=== PATIENT | female | born 1965 | race Caucasian/White ===

== ENCOUNTER → 2017-09-08 07:10 | Outpatient (CLI) | payer MEDICAID, SELFPAY ==
--- NOTE | 2017-09-08 07:17 | MRI_ITS ---
STUDY: MRI LUMBAR SPINE WITH AND WITHOUT CONTRAST REASON FOR EXAM: Female, 52 years old. Laminectomy syndrome with low back pain. TECHNIQUE: Standardized fat and water weighted pulse sequences were obtained in the sagittal and axial planes. 10 ml of Gadavist contrast material was administered for the contrast portion of the examination. COMPARISON: Radiographs of the lumbar spine dated April 18, 2014. FINDINGS: T12-L1: There is narrowing of the disc. There is annular disc bulge and osteophyte complex. There is mild narrowing of the neural foramina. There is mild central acquired canal stenosis. There is mild degenerative arthropathy of facet joints. There is no evidence for nerve impingement. Normal lumbar lordosis. There is no substantial scoliosis. Normal conus medullaris that terminates at the T12 level. L1-2: There is narrowing of the disc with vacuum disc phenomenon. There is annular disc bulge and osteophyte complex. There is questionable extruded disc material cephalad to this disc. There is acute Modic changes at the inferior endplate of L1 associated with a Schmorl's node. There is moderate degenerative arthropathy of facet joints. There is mild central acquired canal stenosis. There is narrowing of the neural foramina without evidence for nerve impingement. There is abnormal signal at the inferior endplate of L1 that may be the result of acute Modic change. L2-3: There is narrowing of the disc with vacuum disc phenomenon. There is annular disc bulge and osteophyte complex. There is mild central acquired canal stenosis. There is moderate degenerative arthropathy of facet joints. Patient appears to have had laminectomies of L3. L3-4: There is narrowing of the disc with vacuum disc phenomenon. There is a broad central disc protrusion. There is moderate degenerative arthropathy of facet joints with mild central acquired canal stenosis. Neural foramina are severely narrowed with probable impingement of the right L3 nerve root at the neural foramen. Patient has had laminectomies of L3 and L4. L4-5: There is narrowing of the disc. There is a focal left foraminal disc protrusion osteophyte complex. There is mild central acquired canal stenosis. There is mild degenerative arthropathy of facet joints. Neural foramina are severely narrowed with probably impingement of the right L4 nerve root at the neural foramen. L5-S1: There is narrowing of the disc. There is a focal central disc protrusion. There is mild degenerative arthropathy of facet joints. Patient appears to have had laminectomies of L4 and L5. Neural foramina are moderately narrowed without evidence for nerve impingement. Normal visualized sacral ala. There appears to be severe atrophy of the musculature posterior to sacrum. The paraspinal muscles are within normal limits. There is a abnormal enhancement located posterior to the L1 vertebral body. It is possible this is related to disc extrusion. MRI/Spine Lumbar W/WO Contrast IMPRESSION: 1. Status post laminectomies of L3, L4 and L5. 2. Multilevel degenerative disc disease and degenerative arthropathy of the lumbar spine. 3. Possible disc extrusion probably arising from L1-L2. Electronically Signed: Mary Thao MD at 10:02 EDT , Service support ,
[2017-09-08 07:56] LABS: BUN 15 mg/dL (7-18); Creatinine, Serum 0.76 mg/dL (0.55-1.02); EST Glomerular Filtration Rate 86 mL/min (>60); Est Glom Filt Rate - Afr Amer 104 mL/min (>60)
== END ==
PROVIDERS: Family Provider Nurse Practitioner Family; PCP Nurse Practitioner Family; Visit Provider Anesthesiology Pain Medicine
DX: Z01.818 Encounter for other preprocedural examination (principal); M54.9 Dorsalgia, unspecified; M96.1 Postlaminectomy syndrome, not elsewhere classified
CPT/HCPCS: 36415; 72158; 82565; 84520; A9585

== ENCOUNTER → 2018-05-17 10:12 | Outpatient (CLI) | payer MEDICAID, SELFPAY ==
[2018-05-17 11:00] LABS: Absolute Lymphocyte Count 2.65 X10^3/ul (0.83-4.51); Absolute Neutrophil Count 3.8 X10^3/uL (2.0-7.7); Basophil# 0.03 X10^3/uL; Basophil% 0.4 % (0-1); Eosinophils% 2.7 % (0-5); Hematocrit 47.1 % (37-47); Hemoglobin 15.8 g/dl (12.0-15.0); Lymphocyte # 2.65 X10^3/ul (4.0); Lymphocyte % 35.8 % (19-41); Mean Corp Hgb Conc 33.5 g/gl (32-36); Mean Corpuscular Hgb 30.3 pg (27.0-32.0); Mean Corpuscular Volume 90.2 fL (81-99); Mean Platelet Vol. 11.3 fl (6.2-12.0); Monocyte# 0.77 X10^3/uL; Monocyte% 10.4 % (0-10); Neutrophil # 3.75 X10^3/uL (2.7-7.7); Neutrophil % 50.6 % (47-70); Platelet Count 184 K/mm3 (150-450); RBC Distribution Width CV 13.7 % (11.6-14.6); RBC Distribution Width SD 45.2 fl (35.1-43.9); Red Blood Count 5.22 M/mm3 (4.2-5.4); White Blood Count 7.4 K/mm3 (4.4-11.0)
[2018-05-17 11:05] LABS: POSITIVE COUNT NO; POSITIVE DIFFERENTIAL NO; POSITIVE MORPHOLOGY NO
[2018-05-17 11:07] LABS: Erythrocyte Sedimentation Rate 8 mm/hr (0-30)
[2018-05-17 11:57] LABS: AST(SGOT) 21 U/L (15-37); Alanine Aminotransfer ALT/SGPT 33 U/L (13-56); Albumin, Serum 3.6 g/dL (3.2-5.0); Alkaline Phosphatase 81 U/L (45-117); Anion Gap 6 (5-15); BUN 16 mg/dL (7-18); BUN/Creat Ratio 21.7 RATIO (10-20); CRP < 2.90 mg/L (0.0-3.0); Calcium,Total 8.8 mg/dL (8.5-10.1); Chloride 105 mmol/L (98-107); Creatinine, Serum 0.74 mg/dL (0.55-1.02); EST Glomerular Filtration Rate 88 mL/min (>60); Est Glom Filt Rate - Afr Amer 106 mL/min (>60); Globulin 3.6 g/dL (2.2-4.2); Glucose 111 mg/dL (74-106); Potassium 3.9 mmol/L (3.5-5.1); Protein, Total 7.2 g/dL (6.4-8.2); Sodium Level 138 mmol/L (136-145)
== END ==
PROVIDERS: Family Provider Nurse Practitioner Family; PCP Nurse Practitioner Family; Referring Provider Podiatrist Foot & Ankle Surgery; Visit Provider Podiatrist Foot & Ankle Surgery
DX: E11.621 Type 2 diabetes mellitus with foot ulcer (principal); M79.672 Pain in left foot
CPT/HCPCS: 36415; 80053; 83036; 85025; 85652; 86140; 87070; 87077; 87186; 87205

== ENCOUNTER 2018-05-20 13:43 | Inpatient (IN) | payer MEDICAID, SELFPAY ==
[2018-05-20] VITALS (9 sets, daily range): BP systolic 108–153; BP diastolic 54–82; PULSE 68–95; RESP 15–18; TEMP 36.6–37.1; O2SAT 95–98; BMI 43.5; BMI 43.2
--- NOTE | 2018-05-20 14:51 | VDLE_ITS ---
Reason For Study: LEG PAIN RIGHT LEFT GSV is normal. CFV is compressible, spontaneous, phasic, CFV is compressible, spontaneous, phasic, competent, and demonstrates normal competent and demonstrates normal augmentation. augmentation. FV is compressible, spontaneous, phasic, competent and demonstrates normal augmentation. POP V is compressible, spontaneous, phasic, competent and demonstrates normal augmentation. T/P Trunk is compressible. PTV is compressible. RT PerV is compressible. Procedure Exam performed in department. A preliminary report was called and/or faxed to ED. Interpretation Summary Deep veins of the right lower extremity are patent and compressible segmentally. There is no evidence of right lower extremity deep vein thrombosis. Valvular competence appears intact within the proximal deep venous system on the right . The right greater saphenous vein appears patent and compressible segmentally. Ordering Physician: Sal Byrne Referring Physician: Melanie Espinosa Performed By: Rachael Nicolas RVT
[2018-05-20 15:20] LABS: Absolute Lymphocyte Count 2.45 X10^3/ul (0.83-4.51); Absolute Neutrophil Count 5.9 X10^3/uL (2.0-7.7); Basophil# 0.02 X10^3/uL; Basophil% 0.2 % (0-1); Eosinophil# 0.15 X10^3/uL; Eosinophils% 1.5 % (0-5); Hematocrit 44.8 % (37-47); Hemoglobin 14.4 g/dl (12.0-15.0); Lymphocyte # 2.45 X10^3/ul (4.0); Lymphocyte % 24.7 % (19-41); Mean Corp Hgb Conc 32.1 g/gl (32-36); Mean Corpuscular Hgb 29.3 pg (27.0-32.0); Mean Corpuscular Volume 91.1 fL (81-99); Mean Platelet Vol. 10.6 fl (6.2-12.0); Monocyte# 1.41 X10^3/uL; Monocyte% 14.2 % (0-10); Neutrophil # 5.88 X10^3/uL (2.7-7.7); Neutrophil % 59.2 % (47-70); POSITIVE COUNT NO; POSITIVE DIFFERENTIAL NO; POSITIVE MORPHOLOGY NO; Platelet Count 177 K/mm3 (150-450); RBC Distribution Width SD 46.6 fl (35.1-43.9); Red Blood Count 4.92 M/mm3 (4.2-5.4); White Blood Count 9.9 K/mm3 (4.4-11.0)
[2018-05-20 15:38] LABS: Anion Gap 9 (5-15); BUN 17 mg/dL (7-18); BUN/Creat Ratio 18.8 RATIO (10-20); Calcium,Total 8.6 mg/dL (8.5-10.1); Chloride 103 mmol/L (98-107); EST Glomerular Filtration Rate 70 mL/min (>60); Est Glom Filt Rate - Afr Amer 84 mL/min (>60); Estimated Creatinine Clearance 61.17 ml/min; Glucose 145 mg/dL (74-106); Potassium 3.7 mmol/L (3.5-5.1); Sodium Level 140 mmol/L (136-145)
--- NOTE | 2018-05-20 16:09 | ED.DCSUM_ITS ---
- ER Visit Summary Date of Service: 05/20/18 Chief Complaint: Right foot pain and swelling History of Present Illness: The patient is a 52 F who presents with pain and swelling in her right foot that is spreading up her leg. Patient states she saw Dr. Harp from orthopedics who did a wound culture and started patient on doxycycline. Patient states the redness is spreading up her leg. She admits to a fever of 101 at home. Patient states her pain is worse with ambulation. Patient describes her pain is burning and throbbing. Patient admits to some paresthesias in her right leg but also has a history of neuropathy. Physical Examination: Vital signs are stable. Patient is afebrile here. Patient is in no acute distress. Skin is warm and dry. There is erythema and warmth over the posterior aspect of the right lower leg. There is an ulcer over the plantar aspect of the right foot over the second and third distal metatarsals. Capillary refill was less than 2 seconds in all digits. Sensation was intact to light touch in all digits. There is good pedal pulse in the right foot. The remaining physical exam is within normal limits. Test Results: Venous duplex of the right lower extremity was obtained and was negative. CBC and basic metabolic profile were obtained and were normal. Emergency Department Course and Treatment: Patient was maintained n.p.o.. Patient was given a dose of Zosyn here. Case was discussed with Dr. Harp from orthopedics. She was in to evaluate the patient and felt the patient would benefit from admission. She also recommended getting an MRI of the right foot to rule out osteomyelitis. She does not have admitting privileges however. Case was discussed with the hospitalist. She will admit the patient to her service. Disposition: Admit to hospital Impression: Cellulitis right lower extremity This note was generated with [employer] dictation software. It may contain incorrect words, spelling, and punctuation that were not noted in review of the chart prior to signing ED Disposition - Plan for ED Patient: Disposition: Acute Care [facility] Diagnosis: Cellulitis of right lower leg, Open wound of right foot Referrals: Melanie Espinosa NP-C [Primary Care Provider] -
--- NOTE | 2018-05-20 18:04 | RAD_ITS ---
STUDY: X-RAY - RIGHT FOOT CLINICAL: Female, 52 years old. Infection TECHNIQUE: 3 view(s) of the foot. COMPARISON: None. FINDINGS: Normal talus, calcaneus, and tarsal bones. Calcaneal spurring. Normal visualized subtalar, talonavicular, calcaneocuboid, tarsal and tarsometatarsal articulations. Old fracture of the second metatarsus. Normal metatarsophalangeal joint of the great toe. Normal tibial and fibular sesamoid bones. Normal interphalangeal joint of the great toe. Normal phalanges of the great toe. Normal second through fifth metatarsophalangeal joints. Normal interphalangeal joints and phalanges of the lesser toes. Mild distal soft tissue swelling of the foot. RAD/Foot min 3 Views IMPRESSION: Distal soft tissue swelling of the foot. Correlate with bone scan if clinical concern for osteomyelitis remains. Old fracture of the second metatarsus. Electronically Signed: Stephen Childress DO at 18:29 EST Tel [phone], Service support ,
--- NOTE | 2018-05-20 18:56 | PCM.CONS.GEN ---
Problem List (1) Diabetic foot ulcer Status: Acute Qualifiers: Diabetic foot ulcer location: other Diabetes mellitus type: type 2 Laterality: right Non-pressure ulcer stage: with fat layer exposed Qualified Code(s): E11.621 - Type 2 diabetes mellitus with foot ulcer; L97.512 - Non-pressure chronic ulcer of other part of right foot with fat layer exposed (2) Fracture of metatarsal of right foot, closed Status: Acute Qualifiers: Encounter type: initial encounter Metatarsal bone: second Fracture alignment: displaced Qualified Code(s): S92.321A - Displaced fracture of second metatarsal bone, right foot, initial encounter for closed fracture (3) Cellulitis of leg without foot, right Status: Acute Reason for Consult Date of Consultation: 05/20/18 Reason for Consultation: R Diabetic foot infection History of Present Illness: The patient is a 52 year old F w/ hx of DM c/b neuropathy. Was a new patient to me in clinic on 05/17/2018 for R DFI. Also dx with R 2nd metatarsal shaft fx. Per patient wound is several weeks old, also had significant R foot pain about 4 weeks ago and feels this may have been when she fractured the metatarsal. Was sent for labs Thursday and wound cx was done in clinic, was started on Doxycycline Thursday. Wound cx resulted today w/ GBS R clinda, S-amp and CoNS. Called [facility] this morning to report fever to 101 and red streaking up leg. I referred her to the [facility] ER for evaluation. She reports she took tylenol 1000mg this am, is afebrile in ER, labs wnl. RLE v-dup was negative for DVT. no other complaints[] Past Medical History Allergies No Known Allergies Allergy (Verified 05/20/18 13:44) Home Medications: Ambulatory Orders Medication Instructions Recorded Amitriptyline HCl [Elavil] 100 mg PO QHS 05/20/18 Amlodipine Besylate [Norvasc] 5 mg PO QHS 05/20/18 Ammonium Lactate [Amlactin] 1 applic TP DAILY 05/20/18 Ascorbic Acid [Vitamin C] 1,000 mg PO BIDCM 05/20/18 Aspirin [Aspirin EC] 81 mg PO DAILY 05/20/18 Docusate Sodium 100 mg PO QHS 05/20/18 Doxycycline Hyclate 100 mg PO BID 05/20/18 Empagliflozin [Jardiance] 25 mg PO DAILY 05/20/18 Enalapril Maleate 20 mg PO DAILY 05/20/18 Fenofibrate,Micronized 67 mg PO DAILY 05/20/18 [Fenofibrate] Gabapentin 600 mg PO 4X/DAY 05/20/18 Gabapentin [Neurontin] 400 mg PO QHS 05/20/18 Hydrochlorothiazide [Hctz] 25 mg PO DAILY 05/20/18 Insulin Aspart [Novolog Flexpen] 12 units SQ 4X/DAY 05/20/18 Insulin Aspart [Novolog Flexpen] See Protocol SQ 4X/DAY 05/20/18 Insulin Glargine,Hum.rec.anlog 80 unit SQ QHS 05/20/18 [Toujeo Solostar] Loratadine [Claritin] 10 mg PO DAILY 05/20/18 Meloxicam 15 mg PO DAILY 05/20/18 Metoprolol Tartrate [Lopressor 100 mg PO BID 05/20/18 (beta samaria)] Montelukast Sodium [Singulair] 10 mg PO QHS 05/20/18 Multivitamin/Iron/Folic Acid 1 tab PO DAILY 05/20/18 [Centrum Women Tablet] Omeprazole 20 mg PO DAILY 05/20/18 Pramipexole Di-HCl [Mirapex] 0.25 mg PO QHS 05/20/18 Sitagliptin Phosphate [Januvia] 100 mg PO DAILY 05/20/18 Tizanidine HCl 4 mg PO TID 05/20/18 Vitamin B Complex 1 tab PO DAILY 05/20/18 Vitamin E (Dl,Tocopheryl Acet) 400 unit PO DAILY 05/20/18 [Vitamin E] traMADol [Ultram] 50 mg PO BID 05/20/18 Surgical History: no surgical history Smoking Status: Current every day smoker Tobacco Use: Cigarettes Patient Problems: Active and Suspected Problems Diabetic foot ulcer (Acute) Fracture of metatarsal of right foot, closed (Acute) Cellulitis of leg without foot, right (Acute) Subjective: Pt resting comfortably in ER. States her RLE is molding machine tender and warm. No pain in right foot. no drainage. Objective: RLE Vasc: pedal pulses intact, crf < 3 sec to digits, calf + warmth, TTP, firm and edematous Neuro: light touch diminished MS: 5/5 strength Derm: Plantar sub 2nd met head with mild maceration and malodor noted, does not probe to bone, no drainage or erythema, nontender-largely unchanged since thursday exam Radiographs: 3 views of the right foot: 2nd metatarsal shaft fracture with increased dorsal angulation since thursday, no subcutaneous emphysema or osseous erosions noted, mild soft tissue edema noted - Physical Exam General: Alert, Oriented x3, Cooperative Vital Signs Temp Pulse Resp BP Pulse Ox 98.8 F 72 15 141/64 H 97 05/20/18 17:14 05/20/18 17:14 05/20/18 17:14 05/20/18 17:14 05/20/18 17:14 Oxygen Delivery Method Room Air Weight: 245 lb 13.047 oz Body Mass Index (BMI) 43.5 Laboratory Tests Past 24 Hrs 05/20/18 05/20/18 15:10 15:10 WBC 9.9 RBC 4.92 Hgb 14.4 Hct 44.8 MCV 91.1 MCH 29.3 MCHC 32.1 RDW 14.0 RDW Differential 46.6 H Plt Count 177 MPV 10.6 Immature Gran % (Auto) 0.200 Neut % (Auto) 59.2 Lymph % (Auto) 24.7 Porter % (Auto) 14.2 H Eos % (Auto) 1.5 Baso % (Auto) 0.2 Absolute Neuts (auto) 5.9 Absolute Lymphs (auto) 2.45 Total Counted Not Reportable Sodium 140 Potassium 3.7 Chloride 103 Carbon Dioxide 28.0 Anion Gap 9 BUN 17 Creatinine 0.90 Estim Creat Clear Calc 61.17 Est GFR (MDRD) Af Amer 84 Est GFR (MDRD) Non-Af 70 BUN/Creatinine Ratio 18.8 Glucose 145 H Calcium 8.6 Assessment/Plan All Active Problems Diabetic foot ulcer (Acute) Fracture of metatarsal of right foot, closed (Acute) Cellulitis of leg without foot, right (Acute) PT is a 52 yo F w/ R DFI and 2nd metatarsal fx, who presented with new onset RLE cellulitis -Pt evaluated at bedside in ER -labs, notes and studies reviewed -R DFI does not appear to probe to bone or communicate with cellulitis, v dup was negative for DVT. However, 2nd metatarsal shaft fracture has further displaced since her xrays in clinic on Thursday. -R DFI dressing changed, betadine paint and DSD, offloading foam and surgical shoe HWB RLE, QD changes -Rec IV abx per wound cx x 24 hours, wound cx: 05/17/2018. Can transition to PO pending improvement of cellulitis and Medicine recommendations -Rec R foot MRI to r/o osteomyelitis -Home meds, dvt prophylaxis per medicine recs -Will follow while in-house, Please call with questions or concerns. Has f/u appointment with me ThursdayMay 24.
--- NOTE | 2018-05-20 18:59 | PCM.HP.STD ---
History of Present Illness Date of Admission: 05/20/18 Chief Complaint: R foot wound, onset erythema, fever Problem List: RLE Strep agalactiae Diabetic Planter Foot Wound with concern for Osteomyelitis Diabetes mellitus type II w/ Neuropathy Morbid Obesity Hypertension GERD RLS The patient is a 52 y/o F w/ PMHx: HTN, HLD, Morbid Obesity, Diabetes mellitus type II w/ Neuropathy who presents to the [facility] ED on 05/20/18 with history of ongoing open wound to the plantar aspect of her R foot which has been followed by podiatry who saw her in the office on 05/17/18 most recently and obtained Wound Cx at that time and placed her on doxycycline; however, culture returned w/ strep agalactiae and patient had onset streaking up her RLE following which she discussed w/ her physician and recommendation for presentation to the ED for evaluation. Patient did note onset of fevers the evening prior with worsening erythema up the leg. Work-up in the ED included T 98.6, heart rate 68, BP 108/54, respiratory rate 17, 95% on room air, CBC with W BC 9.9, hemoglobin 14.4, platelet 177 without any left market shift, BMP with glucose 145 otherwise unremarkable, plain film of the right foot with distal soft tissue swelling of the foot with an old fracture of the second metatarsus. Review of recent 05/17/18 Wound Cx from Podiatry in office culture w/ Streptococcus agalactiae resistant to clindamycin. RLE DVT US performed and negative. Per ED report podiatry evaluated there patient with a sent in in the emergency room and recommended the patient be admitted an MRI of the foot obtained for possible osteomyelitis. In the ED patient administered IV Zosyn. Past Medical History Allergies No Known Allergies Allergy (Verified 05/20/18 13:44) Home Medications: Ambulatory Orders Medication Instructions Recorded Amitriptyline HCl [Elavil] 100 mg PO QHS 05/20/18 Amlodipine Besylate [Norvasc] 5 mg PO QHS 05/20/18 Ammonium Lactate [Amlactin] 1 applic TP DAILY 05/20/18 Ascorbic Acid [Vitamin C] 1,000 mg PO BIDCM 05/20/18 Aspirin [Aspirin EC] 81 mg PO DAILY 05/20/18 Docusate Sodium 100 mg PO QHS 05/20/18 Doxycycline Hyclate 100 mg PO BID 05/20/18 Empagliflozin [Jardiance] 25 mg PO DAILY 05/20/18 Enalapril Maleate 20 mg PO DAILY 05/20/18 Fenofibrate,Micronized 67 mg PO DAILY 05/20/18 [Fenofibrate] Gabapentin 600 mg PO 4X/DAY 05/20/18 Gabapentin [Neurontin] 400 mg PO QHS 05/20/18 Hydrochlorothiazide [Hctz] 25 mg PO DAILY 05/20/18 Insulin Aspart [Novolog Flexpen] 12 units SQ 4X/DAY 05/20/18 Insulin Aspart [Novolog Flexpen] See Protocol SQ 4X/DAY 05/20/18 Insulin Glargine,Hum.rec.anlog 80 unit SQ QHS 05/20/18 [Toujeo Solostar] Loratadine [Claritin] 10 mg PO DAILY 05/20/18 Meloxicam 15 mg PO DAILY 05/20/18 Metoprolol Tartrate [Lopressor 100 mg PO BID 05/20/18 (beta samaria)] Montelukast Sodium [Singulair] 10 mg PO QHS 05/20/18 Multivitamin/Iron/Folic Acid 1 tab PO DAILY 05/20/18 [Centrum Women Tablet] Omeprazole 20 mg PO DAILY 05/20/18 Pramipexole Di-HCl [Mirapex] 0.25 mg PO QHS 05/20/18 Sitagliptin Phosphate [Januvia] 100 mg PO DAILY 05/20/18 Tizanidine HCl 4 mg PO TID 05/20/18 Vitamin B Complex 1 tab PO DAILY 05/20/18 Vitamin E (Dl,Tocopheryl Acet) 400 unit PO DAILY 05/20/18 [Vitamin E] traMADol [Ultram] 50 mg PO BID 05/20/18 Surgical History: - - Low back surgery x2, tonsillectomy. 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 Tobacco Use: Cigarettes Alcohol: None Drugs: None - *Family History Maternal History Items: - - Patient notes a maternal family history of severe diabetes, dying at age 34 secondary to diabetic complications. Paternal History Items: - - Patient notes a paternal family history of heart disease, diabetes and cancer with secondary to lung non-Hodgkin's lymphoma. Review of Systems Constitutional: Reports: Fever, Weakness, Fatigue. Denies: Chills, Weight Change HEENT: Denies: Head Aches, Sinus Congestion, Sinus Drainage Cardiovascular: Denies: Chest Pain, Palpitations Respiratory: Denies: Cough, Shortness of breath at rest, Sputum production Gastrointestinal: Denies: Abdominal Pain, Nausea, Vomiting Genitourinary: Denies: Dysuria Musculoskeletal: Denies: Joint Pain, Joint Tenderness Skin: Reports: Skin Changes, Wounds. Denies: Rash Neurological: Denies: Numbness, Tingling, Focal weakness Psychiatric: Denies: Anxiety, Depression, Homicidal Ideations, Suicidal Ideations Hematologic/ Lymphatic: Denies: Easy Bruising, Easy Bleeding VTE Information - Inpt Only VTE Present on Admission: No VTE Mechan Device Prophylaxis: SCD's VTE Pharm Prophylaxis ordered?: Yes Patient Problems: Active and Suspected Problems Diabetic foot ulcer (Acute) Fracture of metatarsal of right foot, closed (Acute) Cellulitis of leg without foot, right (Acute) Subjective: Seated upright in the ED bed, currently no acute complaints, occasional sharp pain but primarily in her toes. Objective: Physical Examination: General: awake, alert, oriented x 3 and cooperative, seated upright in the ED bed in no apparent distress. Skin: normal color, turgor, no icterus, cyanosis, diabetic plantar foot ulcer approximately maximum 1 cm diameter with minimal serosanguineous drainage at this time, [id number], dressing replaced, erythema extending from the dorsal foot up to the knee circumferentially, warm to touch. HEENT: AT/NC, EOMI, PERRLA, MMM, no carotid bruits or JVD noted. Lungs: CTA bilaterally, moderate effort, mild decrease BL bases, no rales, ronchi or wheezing. Heart: Regular rate and rhythm; no gallop, rub audible. Abdomen: soft, overly obese, NTTP, ND, normal BS, no HSM; however, habitus makes examination difficult. Extremities: no cyanosis, clubbing, see skin. Neurological: patient awake, alert, oriented x 3; cognitive function intact; pupils equally reactive to light and accomodation; cranial nerves II-XII grossly normal, moving all 4 extremities, no focal deficits, strength moderately globally decreased secondary to acute presentation. Psychiatric: affect appears normal, no acute evidence of depressive or anxiety feelings. - Physical Exam Vital Signs Temp Pulse Resp BP Pulse Ox 98.8 F 72 15 141/64 H 97 05/20/18 17:14 05/20/18 17:14 05/20/18 17:14 05/20/18 17:14 05/20/18 17:14 Oxygen Delivery Method Room Air Weight: 245 lb 13.047 oz Body Mass Index (BMI) 43.5 Laboratory Tests Past 24 Hrs 05/20/18 05/20/18 15:10 15:10 WBC 9.9 RBC 4.92 Hgb 14.4 Hct 44.8 MCV 91.1 MCH 29.3 MCHC 32.1 RDW 14.0 RDW Differential 46.6 H Plt Count 177 MPV 10.6 Immature Gran % (Auto) 0.200 Neut % (Auto) 59.2 Lymph % (Auto) 24.7 Florence % (Auto) 14.2 H Eos % (Auto) 1.5 Baso % (Auto) 0.2 Absolute Neuts (auto) 5.9 Absolute Lymphs (auto) 2.45 Total Counted Not Reportable Sodium 140 Potassium 3.7 Chloride 103 Carbon Dioxide 28.0 Anion Gap 9 BUN 17 Creatinine 0.90 Estim Creat Clear Calc 61.17 Est GFR (MDRD) Af Amer 84 Est GFR (MDRD) Non-Af 70 BUN/Creatinine Ratio 18.8 Glucose 145 H Calcium 8.6 Assessment/Plan All Active Problems Diabetic foot ulcer (Acute) Fracture of metatarsal of right foot, closed (Acute) Cellulitis of leg without foot, right (Acute) The patient is a 52 y/o F w/ PMHx: HTN, HLD, Morbid Obesity, Diabetes mellitus type II w/ Neuropathy who presents to the [facility] ED on 05/20/18 with history of ongoing open wound to the plantar aspect of her R foot which has been followed by podiatry who saw her in the office on 05/17/18 most recently and obtained Wound Cx at that time and placed her on doxycycline; however, culture returned w/ strep agalactiae and patient had onset streaking up her RLE following which she discussed w/ her physician and recommendation for presentation to the ED for evaluation. (1) RLE Strep agalactiae Diabetic Planter Foot Wound with concern for Osteomyelitis: Will admit to [facility], maintain on IV rocephin given recent cultures, plan repeat CBC in AM, continue affected extremity elevation above heart when seated and in bed, monitor erythema outline with VS checks, MRI R foot requested, Podiatry consulted. (2) Diabetes mellitus type II w/ Neuropathy: Hold oral home regimen, continue home insulin regimen, ADA diet, accu checks w/ ISS, HgBA1c pending, nutrition consulted for education and teaching, continue home Elavil and gabapentin regimen. (3) Morbid Obesity: Weight loss and lifestyle changes encouraged, nutrition consulted. (4) Hypertension: Continue home regimen including Norvasc, hydrochlorothiazide, metoprolol, enalapril, PRN hydralazine. (5) Tobacco Abuse: Encouraged cessation, inpatient consultation per RT, NR if desired. (6) RLS: Continue home mirapex regimen. (7) GERD: Continue home PPI. (8) DVT Prophylaxis: SCDs, lovenox. Code Visit Inpatient E&M: 89681 Init Hosp L3
[2018-05-20 20:17] LABS: Magnesium 2.1 mg/dL (1.6-2.6)
[2018-05-20 20:31] LABS: Hemoglobin A1c 8.1 % (4.2-6.3)
[2018-05-20] MEDS: amLODIPine 5 MG Tablet PO (21:05)
[2018-05-20] MEDS: Pramipexole Di-HCl 0.25 MG Tablet PO (21:05)
[2018-05-20] MEDS: Montelukast 10 MG Tablet PO (21:05)
[2018-05-20] MEDS: 0.9% Normal Saline 1,000 ML 125 ML IV (21:05)
[2018-05-20] MEDS: Metoprolol Tartrate 100 MG Tablet PO (21:05)
[2018-05-20] MEDS: Gabapentin 400 MG Capsule PO (21:05)
[2018-05-20] MEDS: Docusate Sodium 100 MG Capsule PO (21:06)
[2018-05-20] MEDS: Enoxaparin 40 MG/0.4 ML Syringe SC (21:06)
[2018-05-20] MEDS: Amitriptyline 100 MG Tablet PO (21:06)
[2018-05-20] MEDS: HYDROcodone Bitartrate/Apap 5/325 Tablet PO (21:07)
[2018-05-20] MEDS: Ceftriaxone 1 GM/50 ML BAG IV (21:08)
[2018-05-20] MEDS: tiZANidine HCl 2 MG Tablet 4 MG PO (21:08)
[2018-05-20 21:26] LABS: Bedside Glucose 221 mg/dL (70-110)
[2018-05-20] MEDS: Gabapentin 600 MG Tablet PO (22:18)
[2018-05-20] MEDS: Insulin Lispro 100 UNIT/ML INSULN.PEN 12 UNIT SC (22:19)
[2018-05-21] VITALS (15 sets, daily range): BP systolic 120–163; BP diastolic 60–85; PULSE 67–96; RESP 16–18; TEMP 36.4–37.3; O2SAT 88–97
--- NOTE | 2018-05-21 03:16 | CPS ---
added a nasal cannula at 2 lpm O2
[2018-05-21 06:38] LABS: Absolute Lymphocyte Count 2.16 X10^3/ul (0.83-4.51); Absolute Neutrophil Count 3.8 X10^3/uL (2.0-7.7); Basophil# 0.02 X10^3/uL; Basophil% 0.3 % (0-1); Eosinophil# 0.17 X10^3/uL; Eosinophils% 2.4 % (0-5); Hematocrit 46.6 % (37-47); Hemoglobin 14.8 g/dl (12.0-15.0); Lymphocyte # 2.16 X10^3/ul (4.0); Lymphocyte % 30.5 % (19-41); Mean Corp Hgb Conc 31.8 g/gl (32-36); Mean Corpuscular Hgb 29.1 pg (27.0-32.0); Mean Corpuscular Volume 91.6 fL (81-99); Monocyte# 0.91 X10^3/uL; Monocyte% 12.9 % (0-10); Neutrophil # 3.81 X10^3/uL (2.7-7.7); Neutrophil % 53.8 % (47-70); Platelet Count 171 K/mm3 (150-450); RBC Distribution Width CV 14.3 % (11.6-14.6); RBC Distribution Width SD 46.8 fl (35.1-43.9); Red Blood Count 5.09 M/mm3 (4.2-5.4); White Blood Count 7.1 K/mm3 (4.4-11.0)
[2018-05-21] MEDS: tiZANidine HCl 2 MG Tablet 4 MG PO ×3 (06:41→21:44)
[2018-05-21 06:44] LABS: POSITIVE COUNT NO; POSITIVE DIFFERENTIAL NO; POSITIVE MORPHOLOGY NO
[2018-05-21 06:45] LABS: Anion Gap 9 (5-15); BUN 15 mg/dL (7-18); BUN/Creat Ratio 20.3 RATIO (10-20); Calcium,Total 8.5 mg/dL (8.5-10.1); Chloride 105 mmol/L (98-107); Creatinine, Serum 0.74 mg/dL (0.55-1.02); EST Glomerular Filtration Rate 88 mL/min (>60); Est Glom Filt Rate - Afr Amer 106 mL/min (>60); Glucose 203 mg/dL (74-106); Potassium 3.7 mmol/L (3.5-5.1); Sodium Level 141 mmol/L (136-145)
--- NOTE | 2018-05-21 07:37 | CPS ---
pt placed back on 2 lpm...sat to 92% on 2. Nurse aware of change
--- NOTE | 2018-05-21 08:04 | MRI_ITS ---
STUDY: MRI RIGHT FOREFOOT WITH AND WITHOUT CONTRAST REASON FOR EXAM: Abscess, open wound of right foot for 3 weeks with swelling and redness extending up leg. TECHNIQUE: Standardized fat and water weighted pulse sequences were obtained in all 3 orthogonal planes, post contrast administration. Gadavist 10 IV was administered for the contrast portion of the examination. COMPARISON: Radiographs 05/20/2018. FINDINGS: Although there is some image degradation secondary to patient motion, there is still significant diagnostically useful information available from this examination. There is mild arthrosis of the metatarsophalangeal joint of the hallux with mild partial-thickness chondral loss (T1 sagittal image 5) and mild subchondral cystic change of the first metatarsal head. Normal tibial and fibular sesamoids, with normal sesamoids-first metatarsal articulations. Normal interphalangeal joint of the hallux. Normal proximal and visualized distal phalanges of the great toe. Normal medial and lateral heads of the flexor hallucis brevis tendons. Normal flexor and extensor hallucis longus tendons. Normal second through fifth metatarsophalangeal (MTP) joints. Normal interphalangeal joints of the second through fifth toes. Normal proximal, middle and visualized distal phalanges of the second through fifth toes. Normal flexor and extensor tendons of the second through fifth toes. There is a fracture of the second metatarsal diaphysis (T1 sagittal image 11). There is mild bone edema in the proximal third metatarsal (inversion recovery sagittal image 12) without corresponding decreased T1 bone marrow signal, likely a stress phenomenon. There is atrophy with partial fat replacement of the abductor digiti minimi muscle (T1 sagittal images 15-17). There is edema in the subcutis adipose space plantar to the first through third metatarsophalangeal joints with wall contrast enhancement at the plantar aspect of the first metatarsophalangeal joint (T1 series 9 images 34-36) measuring 0.5 x 0.9 cm (AP x transverse), suggestive of a small abscess. There is no bone edema of the metatarsal heads or phalanges. There is a small fluid collection at the plantar aspect of the proximal first metatarsal (T2 series 8 images 17, 18) with wall contrast enhancement (series 9 images 17-20) measuring 0.5 x 1.0 cm (AP x transverse) suggestive of a small abscess. There is bone edema of the medial cuneiform and proximal first metatarsal (inversion recovery sagittal images 4-7) with decreased T1 bone marrow signal in the medial cuneiform (T1 sagittal images 4-6) and contrast enhancement of the medial cuneiform and proximal first metatarsal (postcontrast T1 sagittal images 6-8), suggestive of osteomyelitis. There is a small cyst dorsal to the medial navicular (inversion recovery sagittal image 5) measuring 0.7 cm in length. MRI/Lower Ext No Joint W/WO Cont IMPRESSION: Small soft tissue abscess plantar to the proximal first metatarsal with signal alteration of the medial cuneiform and proximal first metatarsal, suggestive of osteomyelitis since there is an adjacent soft tissue abscess. Small soft tissue abscess plantar to the first metatarsophalangeal joint without demonstrated osteomyelitis of the distal metatarsals/proximal phalanges. Second metatarsal fracture. Mild bone edema in the proximal third metatarsal, likely a stress phenomenon. Mild arthrosis of the first metatarsophalangeal joint. Atrophy of the abductor digiti minimi muscle. Electronically Signed: Jose oLpez MD at 10:55 EST Tel , Service support ,
[2018-05-21 08:56] LABS: Bedside Glucose 196 mg/dL (70-110)
--- NOTE | 2018-05-21 08:57 | NURSING ---
Addendum entered by Nishi Benz 05/21/18 10:09: pt returned at this time. Original Note: pt taken to MRI at this time.
--- NOTE | 2018-05-21 09:01 | NURSING ---
patient was not on PCU tele- was admitted to [facility]-- order changed at this time.
[2018-05-21] MEDS: Ascorbic Acid 500 MG Tablet 1000 MG PO ×2 (10:16→16:58)
[2018-05-21] MEDS: Aspirin E.C. 81 MG Tablet PO (10:16)
[2018-05-21] MEDS: hydroCHLOROthiazide 25 MG Tablet PO (10:17)
[2018-05-21] MEDS: Vitamin E 400 UNITS Capsule PO (10:17)
[2018-05-21] MEDS: Loratadine 10 MG Tablet PO (10:17)
[2018-05-21] MEDS: Multivitamins,Ther W-Minerals Tablet 1 TABLET PO (10:17)
[2018-05-21] MEDS: Vitamin B Comp W-C Capsule 1 CAP PO (10:17)
[2018-05-21] MEDS: Metoprolol Tartrate 100 MG Tablet PO ×2 (10:18→21:44)
[2018-05-21] MEDS: Meloxicam 15 MG Tablet PO (10:18)
[2018-05-21] MEDS: Gabapentin 600 MG Tablet PO ×4 (10:18→21:44)
[2018-05-21] MEDS: Pantoprazole Sodium 20 MG Tablet PO (10:18)
[2018-05-21] MEDS: Lisinopril 20 MG Tablet PO (10:18)
[2018-05-21] MEDS: Ammonium Lactate 225 gm Bottle 1 APPLIC TOPICAL (10:19)
[2018-05-21] MEDS: Glucerna Shake 120 ML LIQUID PO ×4 (10:29→21:57)
[2018-05-21] MEDS: Insulin Lispro 100 UNIT/ML INSULN.PEN 12 UNIT SC ×4 (11:46→21:52)
--- NOTE | 2018-05-21 11:55 | CASEMGMT ---
RN CAPO Face to Face with patient for initial transition planning/care coordination assessment. RN CM introduced self and role at [facility]. Patient lying in bed, alert and oriented. Patient willing to participate in assessment and is able to answer all questions appropriately. Care providers, pharmacy, and demographics verified. Patient wishes to discharge home, with possible HHC if needs IV ATBS and wound care at discharge. Patient states she has no further needs or concerns at this time. CM to follow for discharge planning needs that may arise. PCP: Melanie Espinosa [facility] Specialists: Andrew, pain specialist; Master for her back at [facility], Ranjeet sawdust drier Preferred Pharmacy: [facility] Insurance: [employer] Prescription Benefit: Yes Living Will/HPOA: none LNOK: and father that she cares for Living Arrangements: Patient lives with and father in 1 story house with no steps to enter the home. Patient states she is independent at home and cares for and father. Patient states she does have friends at could assist. Transportation: Self/friend DME/HHC: Patient states she has a cane. Denies any further DME for herself at home. No previous HHC or SNF. Will monitor for need for DME and HHC Disposition Plan: Patient to discharge home with support of friends and follow-up plans in place. Will monitor and assist if HHC and DME needed. Justa LAGUERRE, RN, CM
--- NOTE | 2018-05-21 13:06 | CON.PCM_ITS ---
Problem List (1) Osteomyelitis due to type 2 diabetes mellitus Status: Acute Reason for Consult: osteo Consulted by: Dr. Espinoza History of Present Illness: The patient is a 52 year old F with DM neuropathy and chronic foot ulcer for several years. Had been doing well until noticed callus on bottom of R foot about 2 weeks. Started to have some terry-colored drainage, saw Dr. Vargas 05/17, I&D and cx sent. Given po doxy, but had sudden onset of moderate pain, swelling, redness, and increased drainage. Mild chill/fever for past 1-2 days. Admitted 05/20, started on zosyn in ED, changed to ceftriaxone on admit. R calf redness improved somewhat, feeling better. MRI shows osteo and abscess. Full ROS Performed and neg except as noted above. - Medical History Allergies/Adverse Reactions: Allergies No Known Allergies Allergy (Verified 05/20/18 13:44) Home Medications: Ambulatory Orders Medication Instructions Recorded Amitriptyline HCl [Elavil] 100 mg PO QHS 05/20/18 Amlodipine Besylate [Norvasc] 5 mg PO QHS 05/20/18 Ammonium Lactate [Amlactin] 1 applic TP DAILY 05/20/18 Ascorbic Acid [Vitamin C] 1,000 mg PO BIDCM 05/20/18 Aspirin [Aspirin EC] 81 mg PO DAILY 05/20/18 Docusate Sodium 100 mg PO QHS 05/20/18 Doxycycline Hyclate 100 mg PO BID 05/20/18 Empagliflozin [Jardiance] 25 mg PO DAILY 05/20/18 Enalapril Maleate 20 mg PO DAILY 05/20/18 Fenofibrate,Micronized 67 mg PO DAILY 05/20/18 [Fenofibrate] Gabapentin 600 mg PO 4X/DAY 05/20/18 Gabapentin [Neurontin] 400 mg PO QHS 05/20/18 Hydrochlorothiazide [Hctz] 25 mg PO DAILY 05/20/18 Insulin Aspart [Novolog Flexpen] 12 units SQ 4X/DAY 05/20/18 Insulin Aspart [Novolog Flexpen] See Protocol SQ 4X/DAY 05/20/18 Insulin Glargine,Hum.rec.anlog 80 unit SQ QHS 05/20/18 [Lai Meredith] Loratadine [Claritin] 10 mg PO DAILY 05/20/18 Meloxicam 15 mg PO DAILY 05/20/18 Metoprolol Tartrate [Lopressor 100 mg PO BID 05/20/18 (beta samaria)] Montelukast Sodium [Singulair] 10 mg PO QHS 05/20/18 Multivitamin/Iron/Folic Acid 1 tab PO DAILY 05/20/18 [Centrum Women Tablet] Omeprazole 20 mg PO DAILY 05/20/18 Pramipexole Di-HCl [Mirapex] 0.25 mg PO QHS 05/20/18 Sitagliptin Phosphate [Januvia] 100 mg PO DAILY 05/20/18 Tizanidine HCl 4 mg PO TID 05/20/18 Vitamin B Complex 1 tab PO DAILY 05/20/18 Vitamin E (Dl,Tocopheryl Acet) 400 unit PO DAILY 05/20/18 [Vitamin E] traMADol [Ultram] 50 mg PO BID 05/20/18 - Social History Tobacco Use: cigarettes Vital Signs Temp Pulse Resp BP Pulse Ox 99.1 F 96 18 163/64 H 92 05/21/18 08:58 05/21/18 10:18 05/21/18 08:58 05/21/18 08:58 05/21/18 08:58 Oxygen Flow Rate (L/min) 2 Oxygen Delivery Method Room Air Weight: 110 kg Body Mass Index (BMI) 43.2 Laboratory Tests Past 24 Hrs 05/20/18 05/20/18 05/20/18 15:10 15:10 15:10 WBC 9.9 RBC 4.92 Hgb 14.4 Hct 44.8 MCV 91.1 MCH 29.3 MCHC 32.1 RDW 14.0 RDW Differential 46.6 H Plt Count 177 MPV 10.6 Immature Gran % (Auto) 0.200 Neut % (Auto) 59.2 Lymph % (Auto) 24.7 Hitchcock % (Auto) 14.2 H Eos % (Auto) 1.5 Baso % (Auto) 0.2 Absolute Neuts (auto) 5.9 Absolute Lymphs (auto) 2.45 Total Counted Not Reportable Sodium 140 Potassium 3.7 Chloride 103 Carbon Dioxide 28.0 Anion Gap 9 BUN 17 Creatinine 0.90 Estim Creat Clear Calc 61.17 Est GFR (MDRD) Af Amer 84 Est GFR (MDRD) Non-Af 70 BUN/Creatinine Ratio 18.8 Glucose 145 H Hemoglobin A1c 8.1 H Calcium 8.6 Magnesium 05/20/18 05/21/18 05/21/18 15:10 06:00 06:00 WBC 7.1 RBC 5.09 Hgb 14.8 Hct 46.6 MCV 91.6 MCH 29.1 MCHC 31.8 L RDW 14.3 RDW Differential 46.8 H Plt Count 171 MPV 11.0 Immature Gran % (Auto) 0.100 Neut % (Auto) 53.8 Lymph % (Auto) 30.5 Hitchcock % (Auto) 12.9 H Eos % (Auto) 2.4 Baso % (Auto) 0.3 Absolute Neuts (auto) 3.8 Absolute Lymphs (auto) 2.16 Total Counted Not Reportable Sodium 141 Potassium 3.7 Chloride 105 Carbon Dioxide 27.0 Anion Gap 9 BUN 15 Creatinine 0.74 Estim Creat Clear Calc 74.40 Est GFR (MDRD) Af Amer 106 Est GFR (MDRD) Non-Af 88 BUN/Creatinine Ratio 20.3 H Glucose 203 H Hemoglobin A1c Calcium 8.5 Magnesium 2.1 - Other Studies Radiology: [] reviewed Other Studies: [] Route of nutrition/ use of supplements: [] Nutritional Intake: [] IV Site: [] Casanova Catheter: [] - Physical Exam General: Alert, Oriented x3, Cooperative, No apparent distress HEENT: Atraumatic, PERRLA, EOMI Neck: Supple, No Nodes Lungs: Clear to auscultation, Normal air movement Cardiovascular: Regular rate, Regular Rhythm, No murmurs Abdomen: Soft, Non Tender, Non-Distended Extremities: Edema Skin: Ulcer/ Wound - Plantar dry ulcer on R foot. Redness extending up R calf with swelling, warmth, mild pain. IV Site: Peripheral, without redness Musculoskeletal: No Tenderness to Palpation of Joints or Extremities Neurological: Cranial nerves II-XII grossly intact - Assessment/Plan Antibiotics: [] Assessment/Plan: [] Active and Suspected Problems Diabetic foot ulcer (Acute) Fracture of metatarsal of right foot, closed (Acute) Cellulitis of leg without foot, right (Acute) Cellulitis of right lower leg (Acute) Open wound of right foot (Acute) R foot DM osteo and abscess - recent cx with strep and rare CoNS. Cont ceftriaxone. Add po doxy back for empiric CoNS coverage. Add flagyl for anaerobic coverage. Likely will need I&D of abscess. Dr. Vargas to see. Will follow, thank you, d/w window caser.
--- NOTE | 2018-05-21 13:49 | CASEMGMT ---
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 SW met with pt, introduced self and role at [facility]. Pt is alert and orientated x4. Pt states that she has aides coming in to be with her and father and she has calls out to family and friends to see if anyone is able to be with her and father while she is at [facility]. Pt states that she used to work in [employer] and she knows about private duty aides and [employer] [employer]. SW encouraged pt to call aide's to see if they are able to increase their hours and to keep calling friends and family. Pt denied additional needs or concerns at this time. SW offered support to pt. Justa Asher TOOL PROCUREMENT COORDINATOR, CHEMICAL EQUIPMENT REPAIRER
[2018-05-21] MEDS: metroNIDAZOLE 500 MG Tablet PO ×2 (14:05→21:44)
[2018-05-21 14:16] LABS: Bedside Glucose 143 mg/dL (70-110)
--- NOTE | 2018-05-21 15:11 | PCM.PN.HOSP ---
Patient Problems: Active and Suspected Problems Diabetic foot ulcer (Acute) Fracture of metatarsal of right foot, closed (Acute) Cellulitis of leg without foot, right (Acute) Cellulitis of right lower leg (Acute) Open wound of right foot (Acute) Osteomyelitis due to type 2 diabetes mellitus (Acute) Subjective: Patient had low-grade fever at home along with chills, right leg swelling, erythema for past 1 to 2 days after right foot callus which turned into ulcer about 2 weeks ago[address] Patient saw Dr. Vargas that she had some drainage from the foot ulcer. Wound culture from 2 05/17 2018 shows coagulase-negative staph and Streptococcus agalactiae MRI done which shows osteomyelitis of proximal first metatarsal and medial cuneiform bone suggestive of osteomyelitis and soft tissue ulcer on the plantar aspect of right foot. Culture from Vitals/I&O's: Vital Signs Temp Pulse Resp BP Pulse Ox 98.2 F 77 16 163/72 H 96 05/21/18 13:58 05/21/18 13:58 05/21/18 13:58 05/21/18 13:58 05/21/18 13:58 Oxygen Flow Rate (L/min) 2 Oxygen Delivery Method Room Air Weight: 242 lb 8.136 oz Body Mass Index (BMI) 43.2 Intake and Output for Last 24 Hours 05/19/18 05/20/18 05/21/18 23:59 23:59 23:59 Intake Total 2229 / 2229 Balance 2229 General: Alert, Oriented x3, Cooperative HEENT: Atraumatic, PERRLA, EOMI, Normocephalic Neck: Supple, No JVD, Negative Carotid Bruits Lungs: Clear to auscultation, Normal air movement, No rhonchi, No wheeze, No rales Cardiovascular: Regular rate, Regular Rhythm, Normal S1, Normal S2, No murmurs Abdomen: Bowel Sounds Present, Soft, Non Tender, Non-Distended Extremities: Capillary Refill Less than 3 Seconds, Edema, Tenderness - Erythema, induration and tenderness of right calf and leg stable cellulitis Skin: No rashes, No breakdown, Rash Present - Erythema present. Musculoskeletal: Arthritic Changes, Tenderness - Of right leg Neurological: Cranial nerves II-XII grossly intact, - - Peripheral neuropathy, decreased sensation of both lower legs Psych/Mental Status: Normal Affect, Appropriate Laboratory Results 05/20/18 15:10: WBC 9.9, RBC 4.92, Hgb 14.4, Hct 44.8, MCV 91.1, MCH 29.3, MCHC 32.1, RDW 14.0, RDW Differential 46.6 H, Plt Count 177, MPV 10.6, Immature Gran % (Auto) 0.200, Neut % (Auto) 59.2, Lymph % (Auto) 24.7, Cook % (Auto) 14.2 H, Eos % (Auto) 1.5, Baso % (Auto) 0.2, Absolute Neuts (auto) 5.9, Absolute Lymphs (auto) 2.45, Total Counted Not Reportable 05/20/18 15:10: Sodium 140, Potassium 3.7, Chloride 103, Carbon Dioxide 28.0, Anion Gap 9, BUN 17, Creatinine 0.90, Estim Creat Clear Calc 61.17, Est GFR (MDRD) Af Amer 84, Est GFR (MDRD) Non-Af 70, BUN/Creatinine Ratio 18.8, Glucose 145 H, Calcium 8.6 05/20/18 15:10: Hemoglobin A1c 8.1 H 05/20/18 15:10: Magnesium 2.1 05/20/18 21:22: POC Glucose 221 H 05/21/18 06:00: WBC 7.1, RBC 5.09, Hgb 14.8, Hct 46.6, MCV 91.6, MCH 29.1, MCHC 31.8 L, RDW 14.3, RDW Differential 46.8 H, Plt Count 171, MPV 11.0, Immature Gran % (Auto) 0.100, Neut % (Auto) 53.8, Lymph % (Auto) 30.5, Cook % (Auto) 12.9 H, Eos % (Auto) 2.4, Baso % (Auto) 0.3, Absolute Neuts (auto) 3.8, Absolute Lymphs (auto) 2.16, Total Counted Not Reportable 05/21/18 06:00: Sodium 141, Potassium 3.7, Chloride 105, Carbon Dioxide 27.0, Anion Gap 9, BUN 15, Creatinine 0.74, Estim Creat Clear Calc 74.40, Est GFR (MDRD) Af Amer 106, Est GFR (MDRD) Non-Af 88, BUN/Creatinine Ratio 20.3 H, Glucose 203 H, Calcium 8.5 05/21/18 08:47: POC Glucose 196 H 05/21/18 13:56: POC Glucose 143 H Current Medications Acetaminophen (Tylenol) 650 mg PO Q6H PRN PRN PRN Reason: Non-cardiac pain (mod-severe) Hydrocodone Bitart/Acetaminophen (Swink 5mg-325mg) 1 - 2 tablet PO Q6H PRN PRN PRN Reason: Moderate-severe pain Last Admin: 05/20/18 21:07 Dose: 2 tablet Al Hydroxide/Mg Hydroxide (Mylanta Ii) 30 ml PO Q6H PRN PRN PRN Reason: Gastric burning Amitriptyline [facility] (Elavil) [facility] Last Admin: 05/20/18 21:06 Dose: 100 mg Amlodipine Besylate (Norvasc) 5 mg PO QHS [facility] Last Admin: 05/20/18 21:05 Dose: 5 mg Ascorbic [facility] ([facility]itamin C) [facility] Last Admin: 05/21/18 10:16 Dose: 1,000 mg Aspirin (Ecotrin) [facility] Last Admin: 05/21/18 10:16 Dose: 81 mg Docusate Sodium (Colace) 100 mg PO [facility] Last Admin: 05/20/18 21:06 Dose: 100 mg Doxycycline Monohydrate (Doxycycline) 100 mg PO BID [facility] Enoxaparin Sodium (Lovenox) 40 mg SC DAILY [facility] Gabapentin (Neurontin) 400 mg PO QHS [facility] Last Admin: 05/20/18 21:05 Dose: 400 mg Gabapentin (Neurontin) 600 mg PO 4X/DAY [facility] Last Admin: 05/21/18 14:03 Dose: 600 mg Hydralazine HCl (Apresoline Iv) 10 mg IV Q4H PRN PRN PRN Reason: SBP > 160 Hydrochlorothiazide (Hctz) 25 mg PO DAILY [facility] Last Admin: 05/21/18 10:17 Dose: 25 mg Ceftriaxone Sodium (Rocephin) 1 gm in 50 mls @ 100 mls/hr IV Q24H [facility] Last Admin: 05/20/18 21:08 Dose: 100 mls/hr Insulin Glargine (Lantus (Bkc)) 80 units SC [facility] Last Admin: 05/20/18 22:19 Dose: 80 u Insulin Human Lispro (Humalog Kwikpen (Bkc)) 12 unit SC 4X/DAY [facility] Last Admin: 05/21/18 14:06 Dose: 12 units Lactic Acid (Lac-Hydrin, Amlactin) 1 applic TOPICAL DAILY [facility] Last Admin: 05/21/18 10:19 Dose: 1 applicatio Lisinopril (Zestril) 20 mg PO DAILY [facility] Last Admin: 05/21/18 10:18 Dose: 20 mg Loratadine (Claritin) 10 mg PO DAILY [facility] Last Admin: 05/21/18 10:17 Dose: 10 mg Magnesium Hydroxide (Milk Of Magnesia) 30 ml PO DAILY PRN PRN PRN Reason: Constipation Meloxicam (Mobic) 15 mg PO DAILY [facility] Last Admin: 05/21/18 10:18 Dose: 15 mg Metoprolol Tartrate (Lopressor (Beta Ricardo)) 100 mg PO BID [facility] Last Admin: 05/21/18 10:18 Dose: 100 mg Metronidazole (Flagyl) 500 mg PO TID [facility] Last Admin: 05/21/18 14:05 Dose: 500 mg Montelukast Sodium (Singulair) 10 mg PO QHS [facility] Last Admin: 05/20/18 21:05 Dose: 10 mg Morphine Sulfate () 1 - 2 mg IV Q4H PRN PRN PRN Reason: PAIN Multivitamins (Allbee W/C Caplet, Thera B Comp/C) [facility] capsule [facility] Last Admin: 05/21/18 10:17 Dose: 1 capsule Multivitamins/Minerals (Multivitamin With Minerals) 1 tablet PO DAILY@0800 [facility] Last Admin: 05/21/18 10:17 Dose: 1 tablet Nicotine (Nicoderm Cq (Pbkc)) 14 mg TRANSDERM. DAILY [facility] Last Admin: 05/21/18 10:20 Dose: 14 mg Nutritional Formula (Lactose Free) (Glucerna Shake) 120 ml PO 4X/DAY [facility] Last Admin: 05/21/18 14:05 Dose: 120 ml Ondansetron HCl (Zofran) 4 mg IV Q8H PRN PRN PRN Reason: NAUSEA/VOMITING Pantoprazole Sodium (Protonix) 20 mg PO DAILY [facility] Last Admin: 05/21/18 10:18 Dose: 20 mg Pramipexole Dihydrochloride (Mirapex) 0.25 mg PO QHS [facility] Last Admin: 05/20/18 21:05 Dose: 0.25 mg Sodium Chloride () 5 - 15 ml IV UD PRN PRN Reason: SALINE FLUSH Tizanidine HCl (Zanaflex) 4 mg PO TID [facility] Last Admin: 05/21/18 14:03 Dose: 4 mg Vitamin E (Vitamin E) 400 units PO DAILYCM [facility] Last Admin: 05/21/18 10:17 Dose: 400 units Medical Necessity - Tobacco Use Smoking Status: Current every day smoker Tobacco Use: Cigarettes Assessment/Plan All Active Problems Diabetic foot ulcer (Acute) Fracture of metatarsal of right foot, closed (Acute) Cellulitis of leg without foot, right (Acute) Cellulitis of right lower leg (Acute) Open wound of right foot (Acute) Osteomyelitis due to type 2 diabetes mellitus (Acute) Is a 52-year-old female with history of diabetes mellitus type 2 with neuropathy, hypertension, dyslipidemia, morbid obesity was admitted on 05/12/2018 low-grade fever at home along with chills, right leg swelling, erythema for past 1 to 2 days after right foot callus which turned into ulcer about 2 weeks ago[address] Patient saw Dr. Vargas that she had some drainage from the foot ulcer. Wound culture from 2 05/17 2018 shows coagulase-negative staph and Streptococcus agalactiae 1. Right foot soft tissue abscess, most probably Streptococcus agalactiae, coagulase-negative staph complicated with osteomyelitis of proximal first metatarsal and medial cuneiform bone: [facility] MRI done which shows osteomyelitis of proximal first metatarsal and medial cuneiform bone suggestive of osteomyelitis and soft tissue ulcer on the plantar aspect of right foot. ID consulted and reviewed. Advised to continue ceftriaxone. doxycycline and Flagyl added. Crew Manager Dr. Byrd check his been consulted and need wound debridement. 2. Right lower extremity Streptococcus agalactiae cellulitis: As mentioned above. Venous Doppler of right lower extremities negative for acute DVT 3. Diabetes mellitus type 2 with neuropathy 4. Hypertension, chronic tobacco use, cigarette smoking, restless leg syndrome and GERD: Home medication reconciliation done. Patient is every day cigarette smoker, half pack per day. Advised smoking cessation Code Visit Inpatient E&M: 69972 [facility] L3
--- NOTE | 2018-05-21 15:14 | NURSING ---
wound photo: right plantar foot
--- NOTE | 2018-05-21 15:16 | PN_ITS ---
Patient Problems: Active and Suspected Problems Diabetic foot ulcer (Acute) Fracture of metatarsal of right foot, closed (Acute) Cellulitis of leg without foot, right (Acute) Cellulitis of right lower leg (Acute) Open wound of right foot (Acute) Osteomyelitis due to type 2 diabetes mellitus (Acute) Subjective: Patient had low-grade fever at home along with chills, right leg swelling, erythema for past 1 to 2 days after right foot callus which turned into ulcer about 2 weeks [address] Patient [address] Dr[address] Vargas that she had some drainage from the foot ulcer. Wound culture from 2 05/17 2018 shows coagulase-negative staph and Streptococcus agalactiae MRI done which shows osteomyelitis of proximal first metatarsal and medial cuneiform bone suggestive of osteomyelitis and soft tissue ulcer on the plantar aspect of right foot. Culture from Vitals/I&O's: Vital Signs Temp Pulse Resp BP Pulse Ox 98.2 F 77 16 163/72 H 96 05/21/18 13:58 05/21/18 13:58 05/21/18 13:58 05/21/18 13:58 05/21/18 13:58 Oxygen Flow Rate (L/min) 2 Oxygen Delivery Method Room Air Weight: 242 lb 8.136 oz Body Mass Index (BMI) 43.2 Intake and Output for Last 24 Hours 05/19/18 05/20/18 05/21/18 23:59 23:59 23:59 Intake Total 2229 / 2229 Balance 2229 General: Alert, Oriented x3, Cooperative HEENT: Atraumatic, PERRLA, EOMI, Normocephalic Neck: Supple, No JVD, Negative Carotid Bruits Lungs: Clear to auscultation, Normal air movement, No rhonchi, No wheeze, No rales Cardiovascular: Regular rate, Regular Rhythm, Normal S1, Normal S2, No murmurs Abdomen: Bowel Sounds Present, Soft, Non Tender, Non-Distended Extremities: Capillary Refill Less than 3 Seconds, Edema, Tenderness - Erythema, induration and tenderness of right calf and leg stable cellulitis Skin: No rashes, No breakdown, Rash Present - Erythema present. Musculoskeletal: Arthritic Changes, Tenderness - Of right leg Neurological: Cranial nerves II-XII grossly intact, - - Peripheral neuropathy, decreased sensation of both lower legs Psych/Mental Status: Normal Affect, Appropriate Laboratory Results 05/20/18 15:10: WBC 9.9, RBC 4.92, Hgb 14.4, Hct 44.8, MCV 91.1, MCH 29.3, MCHC 32.1, RDW 14.0, RDW Differential 46.6 H, Plt Count 177, MPV 10.6, Immature Gran % (Auto) 0.200, Neut % (Auto) 59.2, Lymph % (Auto) 24.7, [place] % (Auto) 14.2 H, Eos % (Auto) 1.5, Baso % (Auto) 0.2, Absolute Neuts (auto) 5.9, Absolute Lymphs (auto) 2.45, Total Counted Not Reportable 05/20/18 15:10: Sodium 140, Potassium 3.7, Chloride 103, Carbon Dioxide 28.0, Anion Gap 9, BUN 17, Creatinine 0.90, Estim Creat Clear Calc 61.17, Est GFR (MDRD) Af Amer 84, Est GFR (MDRD) Non-Af 70, BUN/Creatinine Ratio 18.8, Glucose 145 H, Calcium 8.6 05/20/18 15:10: Hemoglobin A1c 8.1 H 05/20/18 15:10: Magnesium 2.1 05/20/18 21:22: POC Glucose 221 H 05/21/18 06:00: WBC 7.1, RBC 5.09, Hgb 14.8, Hct 46.6, MCV 91.6, MCH 29.1, MCHC 31.8 L, RDW 14.3, RDW Differential 46.8 H, Plt Count 171, MPV 11.0, Immature Gran % (Auto) 0.100, Neut % (Auto) 53.8, Lymph % (Auto) 30.5, [place] % (Auto) 12.9 H, Eos % (Auto) 2.4, Baso % (Auto) 0.3, Absolute Neuts (auto) 3.8, Absolute Lymphs (auto) 2.16, Total Counted Not Reportable 05/21/18 06:00: Sodium 141, Potassium 3.7, Chloride 105, Carbon Dioxide 27.0, Anion Gap 9, BUN 15, Creatinine 0.74, Estim Creat Clear Calc 74.40, Est GFR (MDRD) Af Amer 106, Est GFR (MDRD) Non-Af 88, BUN/Creatinine Ratio 20.3 H, Glucose 203 H, Calcium 8.5 05/21/18 08:47: POC Glucose 196 H 05/21/18 13:56: POC Glucose 143 H Current Medications Acetaminophen (Tylenol) 650 mg PO Q6H PRN PRN PRN Reason: Non-cardiac pain (mod-severe) Hydrocodone Bitart/Acetaminophen ([place] 5mg-325mg) 1 - 2 tablet PO Q6H PRN PRN PRN Reason: Moderate-severe pain Last Admin: 05/20/18 21:07 Dose: 2 tablet Al Hydroxide/Mg Hydroxide (Mylanta Ii) 30 ml PO Q6H PRN PRN PRN Reason: Gastric burning Amitriptyline [facility] (Elavil) [facility] Last Admin: 05/20/18 21:06 Dose: 100 mg Amlodipine Besylate (Norvasc) 5 mg PO QHS [facility] Last Admin: 05/20/18 21:05 Dose: 5 mg Ascorbic Acid ([facility]itamin C) [facility] Last Admin: 05/21/18 10:16 Dose: 1,000 mg Aspirin (Ecotrin) [facility] Last Admin: 05/21/18 10:16 Dose: 81 mg Docusate Sodium (Colace) 100 mg [facility] Last Admin: 05/20/18 21:06 Dose: 100 mg Doxycycline Monohydrate (Doxycycline) 100 mg PO BID [facility] Enoxaparin Sodium (Lovenox) 40 mg SC DAILY [facility] Gabapentin (Neurontin) 400 mg PO QHS [facility] Last Admin: 05/20/18 21:05 Dose: 400 mg Gabapentin (Neurontin) 600 mg PO 4X/DAY [facility] Last Admin: 05/21/18 14:03 Dose: 600 mg Hydralazine HCl (Apresoline Iv) 10 mg IV Q4H PRN PRN PRN Reason: SBP > 160 Hydrochlorothiazide (Hctz) 25 mg PO DAILY [facility] Last Admin: 05/21/18 10:17 Dose: 25 mg Ceftriaxone Sodium (Rocephin) 1 gm in 50 mls @ 100 mls/hr IV Q24H [facility] Last Admin: 05/20/18 21:08 Dose: 100 mls/hr Insulin Glargine (Lantus (Bkc)) 80 units SC [facility] Last Admin: 05/20/18 22:19 Dose: 80 u Insulin Human Lispro (Humalog Kwikpen (Bkc)) 12 unit SC 4X/DAY [facility] Last Admin: 05/21/18 14:06 Dose: 12 units Lactic Acid (Lac-Hydrin, Amlactin) 1 applic TOPICAL DAILY [facility] Last Admin: 05/21/18 10:19 Dose: 1 applicatio Lisinopril (Zestril) 20 mg PO DAILY [facility] Last Admin: 05/21/18 10:18 Dose: 20 mg Loratadine (Claritin) 10 mg PO DAILY [facility] Last Admin: 05/21/18 10:17 Dose: 10 mg Magnesium Hydroxide (Milk Of Magnesia) 30 ml PO DAILY PRN PRN PRN Reason: Constipation Meloxicam (Mobic) 15 mg PO DAILY [facility] Last Admin: 05/21/18 10:18 Dose: 15 mg Metoprolol Tartrate (Lopressor (Beta Ricardo)) 100 mg PO BID [facility] Last Admin: 05/21/18 10:18 Dose: 100 mg Metronidazole (Flagyl) 500 mg PO TID [facility] Last Admin: 05/21/18 14:05 Dose: 500 mg Montelukast Sodium (Singulair) 10 mg PO QHS [facility] Last Admin: 05/20/18 21:05 Dose: 10 mg Morphine Sulfate () 1 - 2 mg IV Q4H PRN PRN PRN Reason: PAIN Multivitamins (Allbee W/C Caplet, Thera B Comp/C) [facility] Last Admin: 05/21/18 10:17 Dose: 1 capsule Multivitamins/Minerals (Multivitamin With Minerals) 1 tablet PO DAILY@0800 [facility] Last Admin: 05/21/18 10:17 Dose: 1 tablet Nicotine (Nicoderm Cq (Pbkc)) 14 mg TRANSDERM. DAILY [facility] Last Admin: 05/21/18 10:20 Dose: 14 mg Nutritional Formula (Lactose Free) (Glucerna Shake) 120 ml PO 4X/DAY [facility] Last Admin: 05/21/18 14:05 Dose: 120 ml Ondansetron HCl (Zofran) 4 mg IV Q8H PRN PRN PRN Reason: NAUSEA/VOMITING Pantoprazole Sodium (Protonix) 20 mg PO DAILY [facility] Last Admin: 05/21/18 10:18 Dose: 20 mg Pramipexole Dihydrochloride (Mirapex) 0.25 mg PO QHS [facility] Last Admin: 05/20/18 21:05 Dose: 0.25 mg Sodium Chloride () 5 - 15 ml IV UD PRN PRN Reason: SALINE FLUSH Tizanidine HCl (Zanaflex) 4 mg PO TID [facility] Last Admin: 05/21/18 14:03 Dose: 4 mg Vitamin E (Vitamin E) 400 units PO DAILYCM [facility] Last Admin: 05/21/18 10:17 Dose: 400 units Medical Necessity - Tobacco Use Smoking Status: Current every day smoker Tobacco Use: Cigarettes Assessment/Plan All Active Problems Diabetic foot ulcer (Acute) Fracture of metatarsal of right foot, closed (Acute) Cellulitis of leg without foot, right (Acute) Cellulitis of right lower leg (Acute) Open wound of right foot (Acute) Osteomyelitis due to type 2 diabetes mellitus (Acute) Is a 52-year-old female with history of diabetes mellitus type 2 with neuropathy, hypertension, dyslipidemia, morbid obesity was admitted on 05/12/2018 low-grade fever at home along with chills, right leg swelling, erythema for past 1 to 2 days after right foot callus which turned into ulcer about 2 weeks ago[address] Patient saw Dr. Vargas that she had some drainage from the foot ulcer. Wound culture from 2 05/17 2018 shows coagulase-negative staph and Streptococcus agalactiae 1. Right foot soft tissue abscess, most probably Streptococcus agalactiae, coagulase-negative staph complicated with osteomyelitis of proximal first metatarsal and medial cuneiform bone: [facility] done which shows osteomyelitis of proximal first metatarsal and medial cuneiform bone suggestive of osteomyelitis and soft tissue ulcer on the plantar aspect of right foot. ID consulted and reviewed. Advised to continue ceftriaxone. doxycycline and Flagyl added. [employer] Dr. Byrd check his been consulted and need wound debridement. 2. Right lower extremity Streptococcus agalactiae cellulitis: As mentioned above. Venous Doppler of right lower extremities negative for acute DVT 3. Diabetes mellitus type 2 with neuropathy 4. Hypertension, chronic tobacco use, cigarette smoking, restless leg syndrome and GERD: Home medication reconciliation done. Patient is every day cigarette smoker, half pack per day. Advised smoking cessation Code Visit Inpatient E&M: [id number] [facility] L3
[2018-05-21 17:05] LABS: Bedside Glucose 171 mg/dL (70-110)
[2018-05-21] MEDS: Enoxaparin 40 MG/0.4 ML Syringe SC (18:38)
[2018-05-21] MEDS: HYDROcodone Bitartrate/Apap 5/325 Tablet PO (19:48)
[2018-05-21] MEDS: Pramipexole Di-HCl 0.25 MG Tablet PO (21:44)
[2018-05-21] MEDS: Ceftriaxone 1 GM/50 ML BAG IV (21:44)
[2018-05-21] MEDS: Doxycycline 100 MG CAPSULE PO (21:44)
[2018-05-21] MEDS: Montelukast 10 MG Tablet PO (21:44)
[2018-05-21] MEDS: amLODIPine 5 MG Tablet PO (21:44)
[2018-05-21] MEDS: Docusate Sodium 100 MG Capsule PO (21:44)
[2018-05-21] MEDS: Amitriptyline 100 MG Tablet PO (21:44)
[2018-05-21] MEDS: Gabapentin 400 MG Capsule PO (21:44)
--- NOTE | 2018-05-21 21:50 | PCM.PN.ORT ---
Patient Problems: Active and Suspected Problems Diabetic foot ulcer (Acute) Fracture of metatarsal of right foot, closed (Acute) Cellulitis of leg without foot, right (Acute) Cellulitis of right lower leg (Acute) Open wound of right foot (Acute) Osteomyelitis due to type 2 diabetes mellitus (Acute) Subjective: Pt resting comfortably at bedside with family present. States RLE feels better, and feels the edema and redness have improved since yesterday. Denies current f/c/n/v. Calf is nontender but warm. Denies previous hx of a wound or ulceration in the area of the 1st TMT of the Right foot. Objective: RLE: Vasc: edema and warmth improved to the R calf, crf < 3 sec Neuro: light touch sensation diminished Derm: sub 2nd MPJ plantar wound dressing c/d/i with no strike through or malodor noted, will leave intact MRI R foot w/ and w/o con: reviewed images and appreciate report, t/c Charcot of midfoot similiar T1 findings, no hx of localized ulceration, current clinical presentation and labwork , and significant neuropathy. would be helpful to discuss with [facility] radiologist - Physical Exam General: Alert, Oriented x3, Cooperative Vital Signs Temp Pulse Resp BP Pulse Ox 98.2 F 86 18 155/85 H 97 05/21/18 19:42 05/21/18 19:42 05/21/18 19:42 05/21/18 19:42 05/21/18 19:42 Oxygen Flow Rate (L/min) 2 Oxygen Delivery Method Room Air Weight: 242 lb 8.136 oz Body Mass Index (BMI) 43.2 Intake and Output for Last 24 Hours 05/19/18 05/20/18 05/21/18 23:59 23:59 23:59 Intake Total 2730 / 2730 Balance 2730 / 2730 Laboratory Tests Past 24 Hrs 05/21/18 05/21/18 06:00 06:00 WBC 7.1 RBC 5.09 Hgb 14.8 Hct 46.6 MCV 91.6 MCH 29.1 MCHC 31.8 L RDW 14.3 RDW Differential 46.8 H Plt Count 171 MPV 11.0 Immature Gran % (Auto) 0.100 Neut % (Auto) 53.8 Lymph % (Auto) 30.5 [place] % (Auto) 12.9 H Eos % (Auto) 2.4 Baso % (Auto) 0.3 Absolute Neuts (auto) 3.8 Absolute Lymphs (auto) 2.16 Total Counted Not Reportable Sodium 141 Potassium 3.7 Chloride 105 Carbon Dioxide 27.0 Anion Gap 9 BUN 15 Creatinine 0.74 Estim Creat Clear Calc 74.40 Est GFR (MDRD) Af Amer 106 Est GFR (MDRD) Non-Af 88 BUN/Creatinine Ratio 20.3 H Glucose 203 H Calcium 8.5 POC Glucose 05/21/18 05/21/18 05/21/18 16:54 13:56 08:47 POC Glucose 171 H 143 H 196 H Medical Necessity - Tobacco Use Smoking Status: Current every day smoker Tobacco Use: Cigarettes Assessment/Plan All Active Problems Diabetic foot ulcer (Acute) Fracture of metatarsal of right foot, closed (Acute) Cellulitis of leg without foot, right (Acute) Cellulitis of right lower leg (Acute) Open wound of right foot (Acute) Osteomyelitis due to type 2 diabetes mellitus (Acute) 52 yo DM F w/ R DFI, 2nd metatarsal fx and c/f OM vs Charcot vs both in medial column of R foot -Pt evaluated at bedside -labs, studies and notes reviewed -Continue betadine WTD dressing, pad anterior ankle if securing in figure 8 to avoid restriction and abrasion/pressure to anterior ankle. change QD -continue abx per ID and wound cx. Appreciate recs on duration. Would like to take to the OR in the next 7-14 days for bone biopsy. Would like to hold abx for better cultures. Will defer to ID on duration of time to hold prior to DOS. -given MRI imaging, lab work, clinical hx and current presentation I am not convinced it is OM and feel that Charcot is a strong differential diagnosis. Would like [facility] rads thoughts on this. Also could be a combination. No hx per patient of ulceration or wound in recent or remote hx at 1st TMT, hematogenous OM unlikely in adult. -Pt placed into a pneumatic cam walker with instructions on use. Weightbearing in cam walker for transfers and toe touch for balance only. -Pt has follow up appointment in my office on Thursday. we discussed at length the seriousness of her DFI, risks of further infection, need for surgery, amputation, 1st ray resection, loss of limb and loss of life. -Pt was strongly encouraged to eliminate smoking as it negatively impacts her overall health as well as her ability to heal soft tissue and bone. She understands she is at a 17x higher risk of complications with healing any surgical intervention if she continues to smoke or vape. Pt has not had tobacco for 48 hours and would like to continue to refrain from smoking. -If RLE is Charcot, patient understands she has a 30% likelihood of developing Charcot in the contralateral limb. May need residential child care counselor bracing for ambulation. 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 She understands her 5 year mortality rate is upwards of 50% with DFI/ulceration. -Please call with questions or concerns. Would trend CBC w/ diff, ESR and CRP as outpatient weekly. At this time I think she can be discharged safely with close management, abx per ID with outpatient follow up, and I will take for outpatient bone biopsies and possible wash out of plantar forefoot wound, possible Mere gastroc recession. t/c WBC labelled bone scan if further imaging is needed. Will see on Thursday as outpatient and arrange for outpatient procedure.
[2018-05-21 21:55] LABS: Bedside Glucose 202 mg/dL (70-110)
[2018-05-22] VITALS (7 sets, daily range): BP systolic 147–174; BP diastolic 62–85; PULSE 71–83; RESP 18; TEMP 36.3–36.7; O2SAT 93–98
[2018-05-22] MEDS: metroNIDAZOLE 500 MG Tablet PO (05:32)
[2018-05-22] MEDS: tiZANidine HCl 2 MG Tablet 4 MG PO (05:32)
[2018-05-22] MEDS: Ascorbic Acid 500 MG Tablet 1000 MG PO (08:14)
[2018-05-22] MEDS: hydroCHLOROthiazide 25 MG Tablet PO (08:15)
[2018-05-22] MEDS: Doxycycline 100 MG CAPSULE PO (08:15)
[2018-05-22] MEDS: Multivitamins,Ther W-Minerals Tablet 1 TABLET PO (08:16)
[2018-05-22] MEDS: Meloxicam 15 MG Tablet PO (08:16)
[2018-05-22] MEDS: Loratadine 10 MG Tablet PO (08:16)
[2018-05-22] MEDS: Metoprolol Tartrate 100 MG Tablet PO (08:16)
[2018-05-22] MEDS: Aspirin E.C. 81 MG Tablet PO (08:16)
[2018-05-22] MEDS: Enoxaparin 40 MG/0.4 ML Syringe SC (08:17)
[2018-05-22] MEDS: Lisinopril 20 MG Tablet PO (08:17)
[2018-05-22] MEDS: Gabapentin 600 MG Tablet PO (08:17)
[2018-05-22] MEDS: Pantoprazole Sodium 20 MG Tablet PO (08:18)
[2018-05-22] MEDS: Vitamin B Comp W-C Capsule 1 CAP PO (08:19)
[2018-05-22] MEDS: Vitamin E 400 UNITS Capsule PO (08:19)
[2018-05-22] MEDS: HYDROcodone Bitartrate/Apap 5/325 Tablet PO (08:34)
[2018-05-22] MEDS: Ammonium Lactate 225 gm Bottle 1 APPLIC TOPICAL (08:41)
[2018-05-22] MEDS: Insulin Lispro 100 UNIT/ML INSULN.PEN 12 UNIT SC ×2 (08:43→11:53)
[2018-05-22 08:51] LABS: Bedside Glucose 147 mg/dL (70-110)
--- NOTE | 2018-05-22 11:07 | PN_ITS ---
Patient Problems: Active and Suspected Problems Diabetic foot ulcer (Acute) Fracture of metatarsal of right foot, closed (Acute) Cellulitis of leg without foot, right (Acute) Cellulitis of right lower leg (Acute) Open wound of right foot (Acute) Osteomyelitis due to type 2 diabetes mellitus (Acute) Vitals/I&O's: Vital Signs Temp Pulse Resp BP Pulse Ox 97.4 F L 76 18 147/76 H 98 05/22/18 08:51 05/22/18 08:51 05/22/18 08:51 05/22/18 08:51 05/22/18 08:51 Oxygen Flow Rate (L/min) 2 Oxygen Delivery Method Room Air Weight: 242 lb 8.136 oz Body Mass Index (BMI) 43.2 Intake and Output for Last 24 Hours 05/20/18 05/21/18 05/22/18 23:59 23:59 23:59 Intake Total 2730 / 2730 562 / 562 Balance 2730 / 2730 562 / 562 Laboratory Results 05/21/18 13:56: POC Glucose 143 H 05/21/18 16:54: POC Glucose 171 H 05/21/18 21:51: POC Glucose 202 H 05/22/18 08:40: POC Glucose 147 H Current Medications Acetaminophen (Tylenol) 650 mg PO Q6H PRN PRN PRN Reason: Non-cardiac pain (mod-severe) Hydrocodone Bitart/Acetaminophen ([place] 5mg-325mg) 1 - 2 tablet PO Q6H PRN PRN PRN Reason: Moderate-severe pain Last Admin: 05/22/18 08:34 Dose: 2 tablet Al Hydroxide/Mg Hydroxide (Mylanta Ii) 30 ml PO Q6H PRN PRN PRN Reason: Gastric burning Amitriptyline HCl (Elavil) 100 mg PO QHS COUNTS [facility]S [facility] Last Admin: 05/21/18 21:44 Dose: 100 mg Amlodipine Besylate (Norvasc) [facility] Last Admin: 05/21/18 21:44 Dose: 5 mg Ascorbic Acid (Vitamin C) [facility] Last Admin: 05/22/18 08:14 Dose: 1,000 mg Aspirin (Ecotrin) 81 mg [facility] Last Admin: 05/22/18 08:16 Dose: 81 mg Docusate Sodium (Colace) 100 mg PO QHS COUNTS [facility]CLUDE 234 [facility]S [facility] Last Admin: 05/21/18 21:44 Dose: 100 mg Doxycycline Monohydrate (Doxycycline) 100 mg PO BID [facility]S [facility] 234 [facility]S [facility] Last Admin: 05/22/18 08:15 Dose: 100 mg Enoxaparin Sodium (Lovenox) 40 mg SC DAILY [facility] 234 [facility] Last Admin: 05/22/18 08:17 Dose: 40 mg Gabapentin (Neurontin) 400 mg PO QHS COUNTS [facility]CLUDE 234 [facility]S [facility] Last Admin: 05/21/18 21:44 Dose: 400 mg Gabapentin (Neurontin) 600 mg PO 4X/DAY [facility]S [facility] 234 [facility] Last Admin: 05/22/18 08:17 Dose: 600 mg Hydralazine HCl (Apresoline Iv) 10 mg IV Q4H PRN PRN PRN Reason: SBP > 160 Hydrochlorothiazide (Hctz) 25 mg PO DAILY [facility] 234 [facility] Last Admin: 05/22/18 08:15 Dose: 25 mg Ceftriaxone Sodium (Rocephin) 1 gm in 50 mls @ 100 mls/hr IV Q24H COUNTS [facility]CLUDE 234 BEDS [facility] Last Admin: 05/21/18 21:44 Dose: 100 mls/hr Insulin Glargine (Lantus (Bkc)) 80 units SC QHS COUNTS [facility]CLUDE 234 BEDS AT [facility] Last Admin: 05/21/18 21:52 Dose: 80 u Insulin Human Lispro (Humalog Kwikpen (Bkc)) 12 unit SC 4X/DAY COUNTS [facility]CLUDE 234 BEDS AT [facility] Last Admin: 05/22/18 08:43 Dose: 12 units Lactic Acid (Lac-Hydrin, Amlactin) 1 applic TOPICAL DAILY [facility]S [facility]CLUDE 234 B[facility]S [facility] Last Admin: 05/22/18 08:41 Dose: 1 applicatio Lisinopril (Zestril) 20 mg PO DAILY [facility]S [facility] 234 BEDS [facility] Last Admin: 05/22/18 08:17 Dose: 20 mg Loratadine (Claritin) 10 mg PO DAILY [facility] 234 B[facility]S [facility] Last Admin: 05/22/18 08:16 Dose: 10 mg Magnesium Hydroxide (Milk Of Magnesia) 30 ml PO DAILY PRN PRN PRN Reason: Constipation Meloxicam (Mobic) 15 mg PO DAILY [facility] 234 [facility]S [facility] Last Admin: 05/22/18 08:16 Dose: 15 mg Metoprolol Tartrate (Lopressor (Beta Ricardo)) 100 mg PO BID [facility] 234 [facility]S [facility] Last Admin: 05/22/18 08:16 Dose: 100 mg Metronidazole (Flagyl) 500 mg PO TID COUNTS [facility]CLUDE 234 BEDS AT [facility] Last Admin: 05/22/18 05:32 Dose: 500 mg Montelukast Sodium (Singulair) 10 mg PO QHS COUNTS [facility]CLUDE 234 BEDS AT [facility] Last Admin: 05/21/18 21:44 Dose: 10 mg Morphine Sulfate () 1 - 2 mg IV Q4H PRN PRN PRN Reason: PAIN Multivitamins (Allbee W/C Caplet, Thera B Comp/C) [facility] capsule [facility] Last Admin: 05/22/18 08:19 Dose: 1 capsule Multivitamins/Minerals (Multivitamin With Minerals) 1 tablet PO DAILY@0800 COUNTS INCLUDE 234 BEDS AT [facility] Last Admin: 05/22/18 08:16 Dose: 1 tablet Nicotine (Nicoderm Cq (Pbkc)) 14 mg TRANSDERM. DAILY COUNTS [facility]CLUDE 234 BEDS AT [facility] Last Admin: 05/22/18 08:18 Dose: 14 mg Nutritional Formula (Lactose Free) (Glucerna Shake) 120 ml PO 4X/DAY COUNTS [facility]CLUDE 234 BEDS AT [facility] Last Admin: 05/22/18 10:39 Dose: Not Given Ondansetron HCl (Zofran) 4 mg IV Q8H PRN PRN PRN Reason: NAUSEA/VOMITING Pantoprazole Sodium (Protonix) 20 mg PO DAILY [facility] 234 [facility]S [facility] Last Admin: 05/22/18 08:18 Dose: 20 mg Pramipexole Dihydrochloride (Mirapex) 0.25 mg PO QHS COUNTS [facility]CLUDE 234 BEDS AT [facility] Last Admin: 05/21/18 21:44 Dose: 0.25 mg Sodium Chloride () 5 - 15 ml IV UD PRN PRN Reason: SALINE FLUSH Tizanidine HCl (Zanaflex) 4 mg PO TID COUNTS [facility]CLUDE 234 BEDS AT [facility] Last Admin: 05/22/18 05:32 Dose: 4 mg Vitamin E (Vitamin E) 400 units PO [facility] Last Admin: 05/22/18 08:19 Dose: 400 units Medical Necessity - Tobacco Use Smoking Status: Current every day smoker Tobacco Use: Cigarettes Assessment/Plan All Active Problems Diabetic foot ulcer (Acute) Fracture of metatarsal of right foot, closed (Acute) Cellulitis of leg without foot, right (Acute) Cellulitis of right lower leg (Acute) Open wound of right foot (Acute) Osteomyelitis due to type 2 diabetes mellitus (Acute)
--- NOTE | 2018-05-22 11:07 | PCM.PN.HOSP ---
Patient Problems: Active and Suspected Problems Diabetic foot ulcer (Acute) Fracture of metatarsal of right foot, closed (Acute) Cellulitis of leg without foot, right (Acute) Cellulitis of right lower leg (Acute) Open wound of right foot (Acute) Osteomyelitis due to type 2 diabetes mellitus (Acute) Vitals/I&O's: Vital Signs Temp Pulse Resp BP Pulse Ox 97.4 F L 76 18 147/76 H 98 05/22/18 08:51 05/22/18 08:51 05/22/18 08:51 05/22/18 08:51 05/22/18 08:51 Oxygen Flow Rate (L/min) 2 Oxygen Delivery Method Room Air Weight: 242 lb 8.136 oz Body Mass Index (BMI) 43.2 Intake and Output for Last 24 Hours 05/20/18 05/21/18 05/22/18 23:59 23:59 23:59 Intake Total 2730 / 2730 562 / 562 Balance 2730 / 2730 562 / 562 Laboratory Results 05/21/18 13:56: POC Glucose 143 H 05/21/18 16:54: POC Glucose 171 H 05/21/18 21:51: POC Glucose 202 H 05/22/18 08:40: POC Glucose 147 H Current Medications Acetaminophen (Tylenol) 650 mg PO Q6H PRN PRN PRN Reason: Non-cardiac pain (mod-severe) Hydrocodone Bitart/Acetaminophen ([place] 5mg-325mg) 1 - 2 tablet PO Q6H PRN PRN PRN Reason: Moderate-severe pain Last Admin: 05/22/18 08:34 Dose: 2 tablet Al Hydroxide/Mg Hydroxide (Mylanta Ii) 30 ml PO Q6H PRN PRN PRN Reason: Gastric burning Amitriptyline HCl (Elavil) 100 mg PO QHS [facility] Last Admin: 05/21/18 21:44 Dose: 100 mg [facility]mlodipine Bes[facility]) [facility] Last Admin: 05/21/18 21:44 Dose: 5 mg Ascorbic Acid (Vitamin C) [facility] Last Admin: 05/22/18 08:14 Dose: 1,000 mg Aspirin (Ecotrin) 81 mg PO [facility]ILY[facility] Last Admin: 05/22/18 08:16 Dose: 81 mg Docusate Sodium (Colace) 100 mg PO QHS [facility] Last Admin: 05/21/18 21:44 Dose: 100 mg Doxycycline Monohydrate (Doxycycline) 100 mg PO BID [facility] Last Admin: 05/22/18 08:15 Dose: 100 mg Enoxaparin Sodium (Lovenox) 40 mg SC DAILY [facility] Last Admin: 05/22/18 08:17 Dose: 40 mg Gabapentin (Neurontin) 400 mg PO QHS [facility] Last Admin: 05/21/18 21:44 Dose: 400 mg Gabapentin (Neurontin) 600 mg PO 4X/DAY [facility] Last Admin: 05/22/18 08:17 Dose: 600 mg Hydralazine HCl (Apresoline Iv) 10 mg IV Q4H PRN PRN PRN Reason: SBP > 160 Hydrochlorothiazide (Hctz) 25 mg PO DAILY [facility] Last Admin: 05/22/18 08:15 Dose: 25 mg Ceftriaxone Sodium (Rocephin) 1 gm in 50 mls @ 100 mls/hr IV Q24H [facility] Last Admin: 05/21/18 21:44 Dose: 100 mls/hr Insulin Glargine (Lantus (Bkc)) 80 units SC QHS [facility] Last Admin: 05/21/18 21:52 Dose: 80 u Insulin Human Lispro (Humalog Kwikpen (Bkc)) 12 unit SC 4X/DAY [facility] Last Admin: 05/22/18 08:43 Dose: 12 units Lactic Acid (Lac-Hydrin, Amlactin) 1 applic TOPICAL DAILY [facility] Last Admin: 05/22/18 08:41 Dose: 1 applicatio Lisinopril (Zestril) 20 mg PO DAILY [facility] Last Admin: 05/22/18 08:17 Dose: 20 mg Loratadine (Claritin) 10 mg PO DAILY [facility] Last Admin: 05/22/18 08:16 Dose: 10 mg Magnesium Hydroxide (Milk Of Magnesia) 30 ml PO DAILY PRN PRN PRN Reason: Constipation Meloxicam (Mobic) 15 mg PO DAILY [facility] Last Admin: 05/22/18 08:16 Dose: 15 mg Metoprolol Tartrate (Lopressor (Beta Ricardo)) 100 mg PO BID [facility] Last Admin: 05/22/18 08:16 Dose: 100 mg Metronidazole (Flagyl) 500 mg PO TID [facility] Last Admin: 05/22/18 05:32 Dose: 500 mg Montelukast Sodium (Singulair) 10 mg PO QHS [facility] Last Admin: 05/21/18 21:44 Dose: 10 mg Morphine Sulfate () 1 - 2 mg IV Q4H PRN PRN PRN Reason: PAIN Multivitamins (Allbee W/C Caplet, Thera B Comp/C) 1 capsule [facility] Last Admin: 05/22/18 08:19 Dose: 1 capsule Multivitamins/Minerals (Multivitamin With Minerals) 1 tablet PO DAILY@0800 [facility] Last Admin: 05/22/18 08:16 Dose: 1 tablet Nicotine (Nicoderm Cq (Pbkc)) 14 mg TRANSDERM. DAILY [facility] Last Admin: 05/22/18 08:18 Dose: 14 mg Nutritional Formula (Lactose Free) (Glucerna Shake) 120 ml PO 4X/DAY [facility] Last Admin: 05/22/18 10:39 Dose: Not Given Ondansetron HCl (Zofran) 4 mg IV Q8H PRN PRN PRN Reason: NAUSEA/VOMITING Pantoprazole Sodium (Protonix) 20 mg PO DAILY [facility] Last Admin: 05/22/18 08:18 Dose: 20 mg Pramipexole Dihydrochloride (Mirapex) 0.25 mg PO QHS [facility] Last Admin: 05/21/18 21:44 Dose: 0.25 mg Sodium Chloride () 5 - 15 ml IV UD PRN PRN Reason: SALINE FLUSH Tizanidine HCl (Zanaflex) 4 mg PO TID [facility] Last Admin: 05/22/18 05:32 Dose: 4 mg Vitamin E (Vitamin E) 400 units [facility] Last Admin: 05/22/18 08:19 Dose: 400 units Medical Necessity - Tobacco Use Smoking Status: Current every day smoker Tobacco Use: Cigarettes Assessment/Plan All Active Problems Diabetic foot ulcer (Acute) Fracture of metatarsal of right foot, closed (Acute) Cellulitis of leg without foot, right (Acute) Cellulitis of right lower leg (Acute) Open wound of right foot (Acute) Osteomyelitis due to type 2 diabetes mellitus (Acute)
--- NOTE | 2018-05-22 11:44 | DCINST_ITS ---
- Discharge Diagnoses Current Active Problems: Current Active and Chronic Problems Diabetic foot ulcer (Acute) Fracture of metatarsal of right foot, closed (Acute) Cellulitis of leg without foot, right (Acute) Cellulitis of right lower leg (Acute) Open wound of right foot (Acute) Osteomyelitis due to type 2 diabetes mellitus (Acute) You will use the following diet at home:: Calorie/Carbohydrate Controlled (specify 1200, 1400, etc) - 1800 ADA diet Discharge Activity: May Not Drive Call your doctor if you observe: Fever of 101 or Higher, Numbness or Tingling, Inability to urinate, Inability to have a bowel movement, Shortness of breath, Fainting spells, Swelling in the ankles, Chest pain Additional Instructions: Use cam walker. Advised nonweight bearing for atleast 1 weeks and then as directed by Dr Vargas Allergies/Adverse Reactions: Allergies No Known Allergies Allergy (Verified 05/20/18 13:44) Medications to take at Discharge Amitriptyline HCl [Elavil] 100 mg PO QHS 05/20/18 Amlodipine Besylate [Norvasc] 5 mg PO QHS 05/20/18 Ammonium Lactate [Amlactin] 1 applic TP DAILY 05/20/18 Ascorbic Acid [Vitamin C] 1,000 mg PO BIDCM 05/20/18 Aspirin [Aspirin EC] 81 mg PO DAILY 05/20/18 Docusate Sodium 100 mg PO QHS 05/20/18 Doxycycline Hyclate 100 mg PO BID 05/20/18 Empagliflozin [Jardiance] 25 mg PO DAILY 05/20/18 Enalapril Maleate 20 mg PO DAILY 05/20/18 Fenofibrate,Micronized [Fenofibrate] 67 mg PO DAILY 05/20/18 Gabapentin 600 mg PO 4X/DAY 05/20/18 Gabapentin [Neurontin] 400 mg PO QHS 05/20/18 Hydrochlorothiazide [Hctz] 25 mg PO DAILY 05/20/18 Insulin Aspart [Novolog Flexpen] See Protocol SQ 4X/DAY 05/20/18 Insulin Glargine,Hum.rec.anlog [Toujeo Solostar] 80 unit SQ QHS 05/20/18 Loratadine [Claritin] 10 mg PO DAILY 05/20/18 Metoprolol Tartrate [Lopressor (beta samaria)] 100 mg PO BID 05/20/18 Montelukast Sodium [Singulair] 10 mg PO QHS 05/20/18 Multivitamin/Iron/Folic Acid [Centrum Women Tablet] 1 tab PO DAILY 05/20/18 Omeprazole 20 mg PO DAILY 05/20/18 Pramipexole Di-HCl [Mirapex] 0.25 mg PO QHS 05/20/18 Sitagliptin Phosphate [Januvia] 100 mg PO DAILY 05/20/18 Tizanidine HCl 4 mg PO TID 05/20/18 Vitamin B Complex 1 tab PO DAILY 05/20/18 Vitamin E (Dl,Tocopheryl Acet) [Vitamin E] 400 unit PO DAILY 05/20/18 traMADol [Ultram] 50 mg PO BID 05/20/18 Cephalexin [Keflex] 500 mg PO TID #21 capsule 05/22/18 Doxycycline 100 mg PO BID #14 capsule 05/22/18 Insulin Aspart [Novolog Flexpen] 15 units SQ 4X/DAY #0 05/22/18 Lactobacillus Acidophilus [Acidophilus] 1 tablet PO BID #20 tablet 05/22/18 Lisinopril [Zestril] 20 mg PO DAILY #30 tablet 05/22/18 Meloxicam 7.5 mg PO DAILY #0 05/22/18 Metronidazole [Flagyl] 500 mg PO TID #20 tablet 05/22/18 The following prescriptions were given: Lisinopril [Zestril] 20 mg PO DAILY #30 tablet Doxycycline 100 mg PO BID #14 capsule Lactobacillus Acidophilus [Acidophilus] 1 tablet PO BID #20 tablet Cephalexin [Keflex] 500 mg PO TID #21 capsule Metronidazole [Flagyl] 500 mg PO TID #20 tablet Primary Care Physician: Melanie Espinosa NP-C [Primary Care Provider] - Please follow up with your Primary Care Physician in: in 1-2 week Test Results: Test results from this visit will be discussed in further detail at your follow- up appointment, if applicable. Please Follow Up With: Liseth Vargas DPM When: on 05/25/18 Please Follow Up With: Theron Tong MD When: in 2 weeks for if bone biopsy come Osteomyelitis
--- NOTE | 2018-05-22 11:48 | PCM.DC.SUM ---
Discharge Date and Diagnosis - Problem List Patient Problems: Active and Suspected Problems Diabetic foot ulcer (Acute) Fracture of metatarsal of right foot, closed (Acute) Cellulitis of leg without foot, right (Acute) Cellulitis of right lower leg (Acute) Open wound of right foot (Acute) Osteomyelitis due to type 2 diabetes mellitus (Acute) Date of Admission: 05/20/18 Date of Discharge: 05/22/18 - Primary Discharge Diagnosis Active and Suspected Problems Diabetic foot ulcer (Acute) Fracture of metatarsal of right foot, closed (Acute) Cellulitis of leg without foot, right (Acute) Cellulitis of right lower leg (Acute) Open wound of right foot (Acute) Osteomyelitis due to type 2 diabetes mellitus (Acute) Hospital Course and Treatment Consultations 05/20/18 19:55 Consult: Onc/Wound/district claims manager Routine Comment: Summary of Care Provided: The patient is a 52-year-old female with history of diabetes mellitus type 2 with neuropathy, hypertension, dyslipidemia, morbid obesity was admitted on 05/12/2018 for low-grade fever at home along with chills, right leg swelling, erythema for past 1 to 2 days after right foot callus which turned into ulcer about 2 weeks ago[address] Patient saw Dr. Vargas that she had some drainage from the foot ulcer. Wound culture from 2 05/17 2018 shows coagulase-negative staph and Streptococcus agalactiae sensitive to penicillin 1. Right foot soft tissue abscess, most probably Streptococcus agalactiae, coagulase-negative staph complicated with osteomyelitis of proximal first metatarsal and medial cuneiform bone or possible Charcot joint: Patient was being admitted on [facility] floor. MRI done which shows osteomyelitis of proximal first metatarsal and medial cuneiform bone suggestive of osteomyelitis and soft tissue ulcer on the plantar aspect of right foot but cherry sorter does not agree with the report and thinks it is Charcot joint. ID consulted and reviewed. ID continued ceftriaxone. doxycycline and Flagyl added. In Home Sales Representative recommended to follow-up in the office on 05/24/2018. Discussed with ID unix consultant Dr. Tong and he advised change ceftriaxone to Keflex for 10 more days and doxycycline for 10 more days. Discontinue Flagyl. Antibiotic prescription sent to pharmacy. 2. Right lower extremity Streptococcus agalactiae cellulitis: As mentioned above. Venous Doppler of right lower extremities negative for acute DVT 3. Diabetes mellitus type 2 with neuropathy: Long-acting and short-acting insulin dose optimized. 4. Hypertension, chronic tobacco use, cigarette smoking, restless leg syndrome and GERD: Home medication reconciliation done. Patient is every day cigarette smoker, half pack per day. Advised smoking cessation Patient wants to go home as there is no one to take care of her who is bedbound. Patient was advised nonweightbearing; on CAM walker. Discharge medication reconciliation done. Discharge follow-up instructions completed. Discharge process discussed with the patient and all questions were answered to patient's satisfaction. Total time spent, exact 35 minutes on discharge meds reconciliation, examination, review of imaging and blood test and discussion with the patient on follow-up instructions. Patient Problems: Active and Suspected Problems Diabetic foot ulcer (Acute) Fracture of metatarsal of right foot, closed (Acute) Cellulitis of leg without foot, right (Acute) Cellulitis of right lower leg (Acute) Open wound of right foot (Acute) Osteomyelitis due to type 2 diabetes mellitus (Acute) Subjective: Patient did not had any fever or chills. Patient was seen by cherry sorter and advised to follow-up in the office on 05/24/2018. She is not convinced of the MRI report of osteomyelitis but thinks Charcot joint. Patient wanted to go home as her is mostly bedbound and there is no one to take care of him. In Home Sales Representative probably will do bone biopsy in 2 weeks off antibiotic/ - Physical Exam General: Alert, Oriented x3, Cooperative HEENT: Atraumatic, PERRLA, EOMI, Normocephalic Neck: Supple, No JVD, Negative Carotid Bruits Lungs: Clear to auscultation, Normal air movement Cardiovascular: Regular rate, Regular Rhythm, Normal S1, Normal S2, No murmurs Abdomen: Bowel Sounds Present, Soft, Non Tender, Non-Distended Extremities: Capillary Refill Less than 3 Seconds, Edema Skin: Ulcer/ Wound - Ulcer over the plantar aspect over first metatarsal head. Dry, Rash Present - Erythema, induration and tenderness has improved. Musculoskeletal: Arthritic Changes, Muscle Wasting, Tenderness - Mild tenderness present over right leg. Neurological: Cranial nerves II-XII grossly intact, Deep Tendon Reflexes 2+/4 and Symmetrical, - - Peripheral neuropathy of lower extremities with Charcot joint Psych/Mental Status: Normal Affect, Appropriate Vital Signs Temp Pulse Resp BP Pulse Ox 97.4 F L 76 18 147/76 H 98 05/22/18 08:51 05/22/18 08:51 05/22/18 08:51 05/22/18 08:51 05/22/18 08:51 Oxygen Flow Rate (L/min) 2 Oxygen Delivery Method Room Air Weight: 242 lb 8.136 oz Body Mass Index (BMI) 43.2 Intake and Output for Last 24 Hours 05/20/18 05/21/18 05/22/18 23:59 23:59 23:59 Intake Total 2730 / 2730 562 / 562 Balance 2730 / 2730 562 / 562 POC Glucose 05/22/18 05/21/18 05/21/18 08:40 21:51 16:54 POC Glucose 147 H 202 H 171 H 05/21/18 13:56 POC Glucose 143 H Discharge Activity: May Not Drive Call your doctor if you observe: Fever of 101 or Higher, Numbness or Tingling, Inability to urinate, Inability to have a bowel movement, Shortness of breath, Fainting spells, Swelling in the ankles, Chest pain Home Medications: Medications to take at Discharge Amitriptyline HCl [Elavil] 100 mg PO QHS 05/20/18 Amlodipine Besylate [Norvasc] 5 mg PO QHS 05/20/18 Ammonium Lactate [Amlactin] 1 applic TP DAILY 05/20/18 Ascorbic Acid [Vitamin C] 1,000 mg PO BIDCM 05/20/18 Aspirin [Aspirin EC] 81 mg PO DAILY 05/20/18 Docusate Sodium 100 mg PO QHS 05/20/18 Doxycycline Hyclate 100 mg PO BID 05/20/18 Empagliflozin [Jardiance] 25 mg PO DAILY 05/20/18 Enalapril Maleate 20 mg PO DAILY 05/20/18 Fenofibrate,Micronized [Fenofibrate] 67 mg PO DAILY 05/20/18 Gabapentin 600 mg PO 4X/DAY 05/20/18 Gabapentin [Neurontin] 400 mg PO QHS 05/20/18 Hydrochlorothiazide [Hctz] 25 mg PO DAILY 05/20/18 Insulin Aspart [Novolog Flexpen] See Protocol SQ 4X/DAY 05/20/18 Insulin Glargine,Hum.rec.anlog [Touclifford Solsean] 80 unit SQ QHS 05/20/18 Loratadine [Claritin] 10 mg PO DAILY 05/20/18 Metoprolol Tartrate [Lopressor (beta samaria)] 100 mg PO BID 05/20/18 Montelukast Sodium [Singulair] 10 mg PO QHS 05/20/18 Multivitamin/Iron/Folic Acid [Centrum Women Tablet] 1 tab PO DAILY 05/20/18 Omeprazole 20 mg PO DAILY 05/20/18 Pramipexole Di-HCl [Mirapex] 0.25 mg PO QHS 05/20/18 Sitagliptin Phosphate [Januvia] 100 mg PO DAILY 05/20/18 Tizanidine HCl 4 mg PO TID 05/20/18 Vitamin B Complex 1 tab PO DAILY 05/20/18 Vitamin E (Dl,Tocopheryl Acet) [Vitamin E] 400 unit PO DAILY 05/20/18 traMADol [Ultram] 50 mg PO BID 05/20/18 Cephalexin [Keflex] 500 mg PO TID #30 capsule 05/22/18 Doxycycline 100 mg PO BID #20 capsule 05/22/18 Insulin Aspart [Novolog Flexpen] 15 units SQ 4X/DAY #0 05/22/18 Lactobacillus Acidophilus [Acidophilus] 1 tablet PO BID #20 tablet 05/22/18 Lisinopril [Zestril] 20 mg PO DAILY #30 tablet 05/22/18 Meloxicam 7.5 mg PO DAILY #0 05/22/18 Following Prescrptions Were Given to Patient: Lisinopril [Zestril] 20 mg PO DAILY #30 tablet Doxycycline 100 mg PO BID #20 capsule Lactobacillus Acidophilus [Acidophilus] 1 tablet PO BID #20 tablet Cephalexin [Keflex] 500 mg PO TID #30 capsule Primary Care Physician: Melanie Espinosa NP-C [Primary Care Provider] - Please follow up with your Primary Care Physician in: in 1-2 week Please Follow Up With: Liseth Vargas DPM When: on 05/25/18 Please Follow Up With: Theron Tong MD When: in 2 weeks for if bone biopsy come Osteomyelitis Medical Necessity - Tobacco Use Smoking Status: Current every day smoker Tobacco Use: Cigarettes Meaningful Use Info Meaningful Use Diagnoses (Choose all that apply): None applicable Code Visit Inpatient E&M: 01385 Disch Hosp
[2018-05-22 12:01] LABS: Bedside Glucose 252 mg/dL (70-110)
--- NOTE | 2018-05-22 12:47 | CASEMGMT ---
Per Dr. Espinoza, pt would like to be discharged today and he will check with ID but feels that pt should be able to go on po meds. This RN CM to room to speak with pt and she states that she has a male friend at the house to 'do all the heavy lifting' but needs to be home to prepare meds for and father. Pt states is currently in walking boot and is aware that she cannot be full weight bearing on right foot. Pt states that her home is handicap accessible and that she has access to a w/c and a walker to use. Pt states that her male friend will be there all weekend to assist and pt states no concerns with going home at time of discharge. SStcortes YANES CM
== END 2018-05-22 15:00 | disposition home or self-care (01) | DRG 344 ==
LOC: ED 19:02 → MS3 19:26
PROVIDERS: Admitting Provider Family Medicine; Emergency Provider Emergency Medicine; Family Provider Nurse Practitioner Family; PCP Nurse Practitioner Family; Visit Provider Internal Medicine
DX: E11.621 Type 2 diabetes mellitus with foot ulcer (principal); E11.42 Type 2 diabetes mellitus with diabetic polyneuropathy; E66.01 Morbid (severe) obesity due to excess calories; Z68.41 Body mass index [BMI] 40.0-44.9, adult; G25.81 Restless legs syndrome; K21.9 Gastro-esophageal reflux disease without esophagitis; I10 Essential (primary) hypertension; F17.210 Nicotine dependence, cigarettes, uncomplicated; L03.115 Cellulitis of right lower limb; B95.1 Streptococcus, group B, as the cause of diseases classified elsewhere; E11.628 Type 2 diabetes mellitus with other skin complications; L97.519 Non-pressure chronic ulcer of other part of right foot with unspecified severity; B95.8 Unspecified staphylococcus as the cause of diseases classified elsewhere; Z79.4 Long term (current) use of insulin; Z79.899 Other long term (current) drug therapy; E11.69 Type 2 diabetes mellitus with other specified complication; M86.9 Osteomyelitis, unspecified; S92.321A Displaced fracture of second metatarsal bone, right foot, initial encounter for closed fracture; X58.XXXA Exposure to other specified factors, initial encounter; M79.672 Pain in left foot
CPT/HCPCS: 36415; 73630; 73720; 80048; 80053; 82962; 83036; 83735; 85025; 85652; 86140; 87070; 87077; 87186; 87205; 93971; 97162; 97530; 97802; 99283; 99406; A9585; J7030; A4216

== ENCOUNTER 2018-05-24 18:20 | Emergency (ER) | payer MEDICAID, SELFPAY ==
[2018-05-20 20:03] VITALS: BMI 43.2
[2018-05-24 18:21] VITALS: BP 174/86; PULSE 78; RESP 16; TEMP 36.9; O2SAT 96; BMI 43.4
--- NOTE | 2018-05-24 18:36 | US_ITS ---
STUDY: VENOUS DOPPLER ULTRASOUND - RIGHT LOWER EXTREMITY REASON FOR EXAM: Female, 52 years old. Pain. TECHNIQUE: Ultrasound evaluation of the deep vein system to include bowman-scale imaging and compression was performed. Bowman-scale imaging and Doppler sonographic evaluation, including duplex spectral analysis and qualitative color flow sonography, was performed. COMPARISON: None. FINDINGS: Common Femoral Vein: Normal compression, spontaneity and augmentation. Normal color Doppler. Common Femoral Vein/Greater Saphenous Junction: Normal compression. Deep Femoral Vein: Normal compression. Femoral Proximal: Normal compression, spontaneity and augmentation. Normal color Doppler. Femoral Middle: Normal compression, spontaneity and augmentation. Normal color Doppler. Femoral Distal: Normal compression. Popliteal Vein: Normal compression, spontaneity and augmentation. Normal color Doppler. Posterior Tibial Vein: Normal compression. Peroneal Vein: Normal compression. US/Venous Duplex Imag/Limited/Uni IMPRESSION: No demonstrated deep vein thrombosis. Electronically Signed: Aracely Multani MD at 19:27 EST Tel , Service support ,
--- NOTE | 2018-05-24 18:42 | ED.VISSUMM ---
- ER Visit Summary Date of Service: 05/24/18 Chief Complaint: Right calf pain History of Present Illness: The patient is a 52 F presenting with right calf swelling and pain. She was just hospitalized for 3 days or right lower extremity cellulitis. This has resolved. She was discharged in a walking boot on the right. She saw her hourly shift manager today and she felt that her calf was somewhat more swollen than usual so she was sent here for an ultrasound to rule out DVT. She denies significant increase in pain. Denies claudication. Denies previous history of DVT. Physical Examination: Minimal tenderness right mid calf. No cellulitis. Strong distal pulse. No palpable abscess. No tenderness along the venous system. Test Results: Right lower extremity duplex negative for DVT Emergency Department Course and Treatment: Treatment Plan: He has no evidence of DVT. No evidence of infection. Will follow up with her hourly shift manager. Disposition: Home stable Impression: Initial encounter right lower extremity pain This note was generated with [employer] dictation software. It may contain incorrect words, spelling, and punctuation that were not noted in review of the chart prior to signing ED Disposition - Plan for ED Patient: Instructions: ED Wound Check Post Op No Infec Referrals: Melanie Espinosa, BALAJI-C [Primary Care Provider] -
[2018-05-24 20:00] VITALS: BP 176/79; PULSE 75; RESP 18; O2SAT 95
== END 2018-05-24 20:24 | disposition home or self-care (01) ==
LOC: ED 18:48
PROVIDERS: Emergency Provider Emergency Medicine; Family Provider Nurse Practitioner Family; PCP Nurse Practitioner Family
DX: M79.604 Pain in right leg (principal); E11.9 Type 2 diabetes mellitus without complications; Z79.82 Long term (current) use of aspirin; Z79.4 Long term (current) use of insulin; Z79.899 Other long term (current) drug therapy
CPT/HCPCS: 93971; 99282

== ENCOUNTER 2018-06-08 09:34 | Day surgery (SDC) | payer MEDICAID, SELFPAY ==
[2018-06-08] VITALS (9 sets, daily range): BP systolic 130–170; BP diastolic 72–89; PULSE 70–80; RESP 16–18; TEMP 36.5–36.9; O2SAT 92–97; BMI 43.4
[2018-06-08 10:41] LABS: Bedside Glucose 187 mg/dL (70-110)
[2018-06-08] MEDS: Cefazolin 2 GM in 0.9% Normal Saline 100 ML IV (10:46)
[2018-06-08] MEDS: Bupivacaine Mpf 0.5% 30 ML VIAL (11:30)
--- NOTE | 2018-06-08 11:51 | RAD_ITS ---
STUDY: X-RAY - RIGHT FOOT CLINICAL: Female, 52 years old. Postop. TECHNIQUE: 3 view(s) of the foot. COMPARISON: 3 views of the left foot May 20, 2018 FINDINGS: The left foot and ankle are now enclosed in a plaster cast/splint that degrades some detail. There is a stable plantar calcaneal spur. There is a stable small enthesophyte involving the posterior superior calcaneus at the site of insertion of the Achilles tendon. There is stable anterior cortical spurring from the medial cuneiform, and a metal screw hole is now seen in the medial cuneiform. Normal talus, calcaneus, and remaining tarsal bones. Normal visualized subtalar, talonavicular, calcaneocuboid, tarsal and tarsometatarsal articulations. A screw hole is now seen in the medial proximal diaphysis of the first metatarsal. The second metatarsal fracture is fixed with one third to one half shaft width ventral-lateral displacement by a metal K wire passing longitudinal fashion from the head of the metatarsal, across the fracture site to the base of the metatarsal. Normal 3-5 metatarsals. Normal metatarsi. Normal metatarsophalangeal joint of the great toe. Normal tibial and fibular sesamoid bones. Normal interphalangeal joint of the great toe. Normal phalanges of the great toe. Stable borderline degenerative arthroses of the second through fifth metatarsophalangeal joints, which are held in moderate extension. Normal interphalangeal joints and phalanges of the lesser toes. Borderline soft tissue swelling at the mid to distal foot. RAD/Foot min 3 Views IMPRESSION: 1. Status post fixation of the second metatarsal fracture by a metal pin/K wire. There is mild to moderate persistent anterolateral displacement of the distal fracture fragment. 2. Scattered degenerative changes of the foot are otherwise stable. Electronically Signed: Yovanny Driver MD at 12:26 EDT , Service support ,
[2018-06-08 11:56] LABS: Bedside Glucose 165 mg/dL (70-110)
--- NOTE | 2018-06-08 11:57 | DCINST_ITS ---
Discharge Activity: May Not Drive, May not drive while taking narcotic pain medications., May Not Shower, Use Walker, Use Crutches Ice area for (Minutes): 20 - apply ice behind right knee 20 minutes of each hour while awake Weight Bearing Status: No weight bearing Keep extremity elevated above heart level: Operative Extremity Call your doctor if your incision/area has: Sudden Increased Bleeding Call your doctor if you observe: Fever of 101 or Higher, Shortness of breath, Dizziness, Chest pain, Increased palpitations (irregular heartbeat), Calf discomfort, Uncontrolled pain Cleanse incision/area with: Keep Dressing Clean & Dry Allergies/Adverse Reactions: Allergies No Known Allergies Allergy (Verified 06/01/18 08:14) Medications to take at Discharge Amitriptyline HCl [Elavil] 100 mg PO QHS 05/20/18 Amlodipine Besylate [Norvasc] 10 mg PO QHS 05/20/18 Ammonium Lactate [Amlactin] 1 applic TP DAILY 05/20/18 Ascorbic Acid [Vitamin C] 1,000 mg PO BIDCM 05/20/18 Aspirin [Aspirin EC] 81 mg PO DAILY 05/20/18 Docusate Sodium 100 mg PO QHS 05/20/18 Empagliflozin [Jardiance] 25 mg PO DAILY 05/20/18 Enalapril Maleate 20 mg PO DAILY 05/20/18 Fenofibrate,Micronized [Fenofibrate] 67 mg PO DAILY 05/20/18 Gabapentin 600 mg PO 4X/DAY 05/20/18 Gabapentin [Neurontin] 400 mg PO QHS 05/20/18 Hydrochlorothiazide [Hctz] 25 mg PO DAILY 05/20/18 Insulin Aspart [Novolog Flexpen] See Protocol SQ 4X/DAY 05/20/18 Insulin Glargine,Hum.rec.anlog [Toujeo Solostar] 80 unit SQ QHS 05/20/18 Loratadine [Claritin] 10 mg PO DAILY 05/20/18 Metoprolol Tartrate [Lopressor (beta samaria)] 100 mg PO BID 05/20/18 Montelukast Sodium [Singulair] 10 mg PO QHS 05/20/18 Multivitamin/Iron/Folic Acid [Centrum Women Tablet] 1 tab PO DAILY 05/20/18 Omeprazole 20 mg PO DAILY 05/20/18 Pramipexole Di-HCl [Mirapex] 0.25 mg PO QHS 05/20/18 Sitagliptin Phosphate [Januvia] 100 mg PO DAILY 05/20/18 Tizanidine HCl 4 mg PO TID 05/20/18 Vitamin B Complex 1 tab PO DAILY 05/20/18 Vitamin E (Dl,Tocopheryl Acet) [Vitamin E] 400 unit PO DAILY 05/20/18 traMADol [Ultram] 50 mg PO BID 05/20/18 Doxycycline 100 mg PO BID #20 capsule 05/22/18 Lactobacillus Acidophilus [Acidophilus] 1 tablet PO BID #20 tablet 05/22/18 Lisinopril [Zestril] 20 mg PO DAILY #30 tablet 05/22/18 Atorvastatin Calcium [Lipitor] 20 mg PO QHS 06/01/18 Calcium Carbonate [Calcium] 600 mg PO BID 06/01/18 Fluconazole [Diflucan] 100 mg PO QWEEK 06/01/18 Insulin Aspart [Novolog Flexpen] 12 units SQ 4X/DAY 06/01/18 Meloxicam 15 mg PO BID 06/01/18 Acetaminophen/Codeine #3 [Tylenol#3] 1 tab PO Q4H PRN PRN 7 Days #30 tab 06/08/18 The following prescriptions were given: Acetaminophen/Codeine #3 [Tylenol#3] 1 tab PO Q4H PRN PRN 7 Days #30 tab PRN Reason: Pain Primary Care Physician: Melanie Espinosa NP-C [Primary Care Provider] - Test Results: Test results from this visit will be discussed in further detail at your follow- up appointment, if applicable. Please Follow Up With: Liseth Vargas DPM - Please follow up next week at your previously scheduled post operative appointment. Proposed Discharge Date: 06/08/18
--- NOTE | 2018-06-08 12:00 | BON_PTH ---
PATIENT: DAVIS AMIN LOC: [facility] [place] U#:[id number] AGE/SX: 52/F ROOM: RE06/08/[address]: Dr. Liseth Vargas DPM : 1965 BED: DIS: 06/08/2018 SPEC #: [id number] RECD: 06/08/18 15:26 STATUS: JOHANNE REGurjit #: [id number] LISBETH: 06/08/18 12:[address]: Liseth Vargas DEPT: SURGICAL PATHOLOGY RECD BY: Jhonathan Rodríguez ENTERED: 06/09/18 13:09 SP TYPE: Bone OTHR DR: Melanie Espinosa, JANIC Tissues: A - Bone of foot, NOS B - Bone of foot, NOS Procedures: Decalcification bone/plaque Surgery Specimen Level IV HEADER OPERATION: Callus debridement right foot, bone biopsy first metatarsal PRE-OP DIAGNOSIS: Diabetic foot ulcer, fracture of metatarsal right foot, cellulitis of right lower foot, open wound of right foot TISSUE SUBMITTED: A - First metatarsal, right, B - Right medial cuneiform MICROSCOPIC DIAGNOSIS A. First metatarsal of right foot, biopsy: Benign fragments of bone. No evidence of osteomyelitis. B. Right medial cuneiform bone, core biopsy: Bone with focal reactive change. No evidence of osteomyelitis. AM:rekha 06/14/18 MICROSCOPIC DESCRIPTION Slides are reviewed. GROSS DESCRIPTION A - Received in fixative is one container labeled with the patient's name and designated first metatarsal, right. The specimen consists of an irregular fragment of murrell bone measuring 0.2 x 0.2 x <0.1 cm. The specimen is totally submitted in one cassette after decalcification. B - Received in fixative is one container labeled with the patient's name and designated right medial cuneiform. The specimen consists of an irregular fragment of murrell bone measuring 0.3 x 0.2 x 0.1 cm. The specimen is totally submitted in one cassette after decalcification. / AM:rekha 05/2018 TC:5 CPT: 82809 x2, 50219 x2
--- NOTE | 2018-06-08 12:00 | RAD_ITS ---
STUDY: X-RAY - RIGHT FOOT CLINICAL: Female, 52 years old. Bone biopsy first metatarsal and medial cuneiform; K wire second metatarsal. TECHNIQUE: Fluoroscopic assistance was provided to Dr. Vargas. 3 intraprocedural fluoroscopic spot view(s) of the foot are submitted. FLUOROSCOPY TIME: 99 seconds. RADIATION DOSAGE (If Supplied By Facility): ( 2.13 ) mGy COMPARISON: 3 views of the right foot May 20, 2018. FINDINGS: Images demonstrate placement of a fixation K wire longitudinal fashion through the head and along the diaphysis of the second metatarsal to its proximal metaphysis. Mild lateral displacement of the distal fracture fragment persists. Focal defect noted in the mid body of the cuboid, which may reflect the site of bone biopsy. RAD/Foot 2 Views IMPRESSION: 1. K wire fixation of the second metatarsal fracture fragments, with mild persistent lateral displacement of the distal fragment. 2. Focal defect in the mid body of the cuboid may be a site of bone biopsy. Electronically Signed: Yovanny Driver MD at 12:51 EDT , Service support ,
--- NOTE | 2018-06-08 12:01 | OP.PCM_ITS ---
Report of Operation Date of Procedure: 06/08/18 Pre-Operative Diagnosis: R 2nd metatarsal shaft fx, R sub 2nd MPJ ulceration; R 1st metatarsal OM vs Charcot; R medial cuneiform OM vs Charcot Post-Operative Diagnosis: R 2nd metatarsal shaft fracture, R sub 2nd MPJ hyperkeratotic lesion/callus; R medial cuneiform and 1st metatarsal OM vs Charcot Surgery/Procedure Performed:: R medial cuneiform bone biopsy w/ Jamshidi; R 1st metatarsal bone biopsy with Jamshidi; R callus sharp debridement; R 2nd metatarsal closed reduction with percutaneous k wire fixation Description of Surgical Findings:: see dictation winding inspector and tester: Gayle Cam Type of Anesthesia:: General/Supplemental Specimen's removed: R medial cuneiform bone pathology and bone cx; R 1st metatarsal bone pathology and culture Estimated Blood Loss (mL): minimal Description of Procedure: Indications: Pt is a 52 yo F known to me who presented to clinic approximately 3 weeks ago with R foot pain and a plantar ulceration. Radiographs revealed a 2nd metatarsal fracture. She was admitted to [facility] several days later with RLE cellulitis and fever. An MRI of her R foot was performed and read as osteomyelitis of her R medial cuneiform and 1st metatarsal base, however, she had no current or past wounds in that area. I felt the imaging was inconclusive for OM vs Charcot. She was placed in a pneumatic cam walker and made NWB RLE except for limited transfers. She completed a course of PO abx and her calf erythema resolved. She has had two negative vascular duplex for DVT. She is working on improving her daily blood sugar and reduce her smoking. Pt presents today for surgical intervention. All risks, complications, and alternatives were discussed with the patient, and the patient signed an informed consent. No guarantees were given. Procedure: On 06/08/2018, Mirela Bliss was visually and verbally identified in the preoperative holding area. The consent form was again reviewed with the patient, as were all risks, complications, and alternatives and the patient wished to proceed with the proposed surgery. The right foot was marked as the correct operative extremity. The patient was brought to the operating room and placed on the operating room table in the normal SUPINE position. After induction by anesthesia, a surgical time out was performed and all present were in agreement. a pneumatic thigh tourniquet was then placed. At this time the right lower extremity was prepped and draped in the usual sterile fashion. The tourniquet was not inflated during the case. At this time attention was directed to the right medial foot. Intraoperative fluoroscopy was utilized to identify the base of the 1st metatarsal and medial cuneiform sites planned for bone biopsy. Using a #15 blade stab incision was made over the area of biopsy. A jamshidi needle was used to take an isolated bone biopsy of the medial cuneiform, which was split and piece sent for bone culture. A fresh jamshidi was then used to retrieve a bone biopsy and culture from the base of the 1st metatarsal. The stab incisions were flushed with normal sterile saline and closed with 3.0 prolene. Attention was then turned to the 2nd metatarsal, under intraoperative fluoroscopy a 0.054 k wire was placed plantar to the 2nd digit and into the 2metatarsal head. The 2nd metatarsal was closed reduced. The k wire was driven proximally crossing the fracture and stopped at the base of the 2nd metatarsal. Positioning, reduction and length was confirmed on intraoperative fluoroscopy. A fresh #15 blade was used to sharply debride the previous ulceration, upon removal of all hyperkeratotic tissue it was noted that the ulceration had note returned and it was a callus. 10cc of 0.5% marcaine plain was then injected at the surgical site for pain management. Betadine soaked adaptic and 4x4s with kerlix was placed over the stab incisions and kwire. A multilayer compression dressing and well padded posterior splint was applied. Intra operative fluoroscopy was utilized throughout the case, to aid in visualization and confirmation of fracture reduction and k wire fixation as well as for guidance of Jamshidi needle placement of each bone biopsy. Interpretation of the images was vital to my decision making process. The patient tolerated the procedure and anesthesia well. The patient was then transported to the postanesthesia care unit by a member of the anesthesia team and myself with all vital signs stable and neurovascular status of the right lower extremity equal to pre-operative levels. At the end of the case all sponge, needle and instrument counts were found to be correct. Grafts/Implants Used: 0.054 k wire - Complications none - Admit VTE Documentation VTE Present on Admission: No VTE Mechan Device Prophylaxis: None - ordered but not applied prior to start of case VTE Pharm Prophylaxis ordered?: Yes
== END 2018-06-08 14:20 | disposition home or self-care (01) ==
LOC: SDC 09:34 → AC 09:35
PROVIDERS: Family Provider Nurse Practitioner Family; PCP Nurse Practitioner Family; Referring Provider Podiatrist Foot & Ankle Surgery; Visit Provider Podiatrist Foot & Ankle Surgery
PROC: (CPT 11055; principal; 2018-06-08 11:45)
DX: S92.321A Displaced fracture of second metatarsal bone, right foot, initial encounter for closed fracture (principal); E11.621 Type 2 diabetes mellitus with foot ulcer; L97.519 Non-pressure chronic ulcer of other part of right foot with unspecified severity; E11.69 Type 2 diabetes mellitus with other specified complication; M86.10 Other acute osteomyelitis, unspecified site; L03.115 Cellulitis of right lower limb; L84 Corns and callosities; I10 Essential (primary) hypertension; E78.00 Pure hypercholesterolemia, unspecified; G25.81 Restless legs syndrome; K21.9 Gastro-esophageal reflux disease without esophagitis; F17.210 Nicotine dependence, cigarettes, uncomplicated; Z78.0 Asymptomatic menopausal state
CPT/HCPCS: 11055; 20220 ×2; 28476; 73620; 73630; 76000; 82962; 87015; 87070; 87075; 87102; 87116; 87205; 87206; 88304; 88305; 88311; J7120; C1769; J2405

== ENCOUNTER → 2018-12-08 15:57 | Outpatient (CLI) | payer MEDICAID, SELFPAY ==
[2018-06-08 10:23] VITALS: BMI 43.4
== END ==
PROVIDERS: Family Provider Nurse Practitioner Family; PCP Nurse Practitioner Family; Referring Provider Podiatrist Foot & Ankle Surgery; Visit Provider Podiatrist Foot & Ankle Surgery
DX: L97.512 Non-pressure chronic ulcer of other part of right foot with fat layer exposed (principal)
CPT/HCPCS: 87070; 87205

== ENCOUNTER → 2018-12-21 13:58 | Outpatient (CLI) | payer MEDICAID, SELFPAY ==
[2018-06-08 10:23] VITALS: BMI 43.4
--- NOTE | 2018-12-21 14:00 | ART_ITS ---
Reason For Study: Other symptoms and signs involving the circ and resp systems Procedure A bilateral lower extremity continuous wave Doppler with analog waveform analysis,segmental pressures,and ankle brachial indexes without exercise. Left Segmental Pressures Left brachial= 154mmHg. Left thigh = 153mmHg. Left calf = 133mmHg. Left posterior tibial artery = 133mmHg. Left dorsalis pedis artery = 121mmHg. Left digit = 99 mmHg. The left dorsalis pedis waveforms are triphasic. The left posterior tibial artery waveforms are triphasic. Right Segmental Pressures Right brachial= 158mmHg. Right thigh = 165mmHg. Right calf = 123mmHg. Right posterior tibial artery = 127mmHg. Right dorsalis pedis artery = 138mmHg. Right digit = 82 mmHg. The right dorsalis pedis waveforms are triphasic. The right posterior tibial artery waveforms are triphasic. Indices The right ankle brachial index by the dorsalis pedis is 0.87. The right ankle brachial index by the posterior tibial artery is 0.80. The right digital-brachial index is 0.52. The left ankle brachial index by the dorsalis pedis is 0.77. The left ankle brachial index by the posterior tibial artery is 0.84. The left digital-brachial index is 0.63. Interpretation Summary Abnormal right lower extremity ankle brachial indices and waveforms--moderately severe occlusive disease. Abnormal right digital brachial index. Abnormal left lower extremity ankle brachial indices and waveforms--moderately severe occlusive disease. Abnormal left lower extremity digital brachial index Ordering Physician: Cruzito Thao Referring Physician: Melanie Espinosa Performed By: Justa Porter RVT
== END ==
PROVIDERS: Family Provider Nurse Practitioner Family; PCP Nurse Practitioner Family; Referring Provider Podiatrist Foot & Ankle Surgery; Visit Provider Podiatrist Foot & Ankle Surgery
DX: R09.89 Other specified symptoms and signs involving the circulatory and respiratory systems (principal)
CPT/HCPCS: 93923

== ENCOUNTER → 2019-04-01 12:58 | Outpatient (CLI) | payer MEDICARE, MEDICAID, SELFPAY ==
[2018-06-08 10:23] VITALS: BMI 43.4
--- NOTE | 2019-04-01 13:01 | ART_ITS ---
Reason For Study: Atherosclerosis Procedure A bilateral lower extremity continuous wave Doppler with analog waveform analysis and ankle brachial indexes. Left Segmental Pressures Left brachial= 138mmHg. Left posterior tibial artery = 107mmHg. Left dorsalis pedis artery = 102mmHg. Left digit = 103 mmHg. The left dorsalis pedis waveforms are triphasic. The left posterior tibial artery waveforms are triphasic. Right Segmental Pressures Right brachial= 134mmHg. Right posterior tibial artery = 116mmHg. Right dorsalis pedis artery = 103mmHg. Right digit = 61 mmHg. The right dorsalis pedis waveforms are biphasic. The right posterior tibial artery waveforms are biphasic. Indices The right ankle brachial index by the dorsalis pedis is 0.75. The right ankle brachial index by the posterior tibial artery is 0.84. The right digital-brachial index is 0.44. The left ankle brachial index by the dorsalis pedis is 0.74. The left ankle brachial index by the posterior tibial artery is 0.78. The left digital-brachial index is 0.75. Interpretation Summary 1. Righ leg with mild occlussive disease and SURYA 0.84 and DBI 0.44 2. Left leg with triphasic flow and SURYA 0.78 with DBI 0.75. Normal waveform noted. Ordering Physician: Johny Martinez Referring Physician: Melanie Espinosa Performed By: Justa Porter RVT
--- NOTE | 2019-04-01 13:01 | ADUL_ITS ---
Reason For Study: Atherosclerosis Left Velocities Ext Iliac Artery, dist = 124 cm./sec. Common Femoral Artery, mid = 179.1 cm./sec. Supf. Femoral Artery, prox = 144 cm./sec. Supf. Femoral Artery, mid = 124.2 cm./sec. Supf. Femoral Artery, dist = 97.9 cm./sec. Profunda Femoral Artery = 150.6 cm./sec. Popliteal Artery, proximal, = 72.3 cm./sec. Popliteal Artery, mid = 77.8 cm./sec. Popliteal Artery, distal = 68.7 cm./sec. Post. Tibial Artery, prox = 52.3 cm./sec. Post Tibial Artery, mid = 57.8 cm./sec. Post Tibial Artery, dist. = 40.2 cm./sec. Peroneal Artery, prox = 45.7 cm./sec. Peroneal Artery, mid = 38 cm./sec. Peroneal Artery,dist. = 28.4 cm./sec. Ant.Tibial Artery, prox = 53.7 cm./sec. Ant Tibial Artery, mid = 54.6 cm./sec. Ant. Tibial Artery, distal = 52 cm./sec. Procedure Exam performed in department. Interpretation Summary 1. Left leg with triphasic flow throughout and no stenosis. Ordering Physician: Johny Martinez Referring Physician: Melanie Espinosa Performed By: Justa Porter RVT
== END ==
PROVIDERS: Family Provider Nurse Practitioner Family; PCP Nurse Practitioner Family; Referring Provider Surgery Vascular Surgery; Visit Provider Surgery Vascular Surgery
DX: I70.245 Atherosclerosis of native arteries of left leg with ulceration of other part of foot (principal)
CPT/HCPCS: 93922; 93926

== ENCOUNTER → 2019-05-06 | Outpatient (CLI) | payer MEDICARE, MEDICAID, SELFPAY ==
[2018-06-08 10:23] VITALS: BMI 43.4
== END | disposition home or self-care (01) ==
LOC: LABSPEC 10:57
PROVIDERS: PCP Nurse Practitioner Family; Referring Provider Podiatrist Foot & Ankle Surgery; Visit Provider Podiatrist Foot & Ankle Surgery
DX: L97.512 Non-pressure chronic ulcer of other part of right foot with fat layer exposed (principal)
CPT/HCPCS: 87015; 87070; 87075; 87077; 87101; 87116; 87186; 87205; 87206

== ENCOUNTER 2022-09-18 00:06 | Inpatient (IN) | payer MEDICARE, SELFPAY ==
[2022-09-18] VITALS (59 sets, daily range): BP systolic 88–158; BP diastolic 51–131; PULSE 80–155; RESP 12–40; TEMP 35.4–40.5; O2SAT 83–100; BMI 37.1; BMI 37.2; BMI 37.3
--- NOTE | 2022-09-18 00:17 | RAD_ITS ---
INDICATION: confused EXAMINATION: Frontal view of the chest COMPARISON: None. FINDINGS: Frontal view of the chest was obtained. Suboptimal inspiration. The cardiac silhouette is borderline enlarged, but the size is likely exaggerated due to low lung volumes/portable technique. No confluent airspace disease. No pneumothorax. RAD/Chest 1 View (Portable) IMPRESSION: No acute pulmonary disease. Electronically Signed: Yimi Fleming MD at 1:31 EDT ,
--- NOTE | 2022-09-18 00:17 | EKG12_ITS ---
Test Reason : WEAKNESS Blood Pressure : / mmHG Vent. Rate : 136 BPM Atrial Rate : 000 BPM P-R Int : 000 ms QRS Dur : 096 ms QT Int : 302 ms P-R-T Axes : 000 -06 105 degrees QTc Int : 454 ms Atrial fibrillation with rapid ventricular response Abnormal QRS-T angle, consider primary T wave abnormality Abnormal ECG Confirmed by PELON MCKEON, CINID ([id number]), story editor ROE MACKEY ([id number]) on 09/18/2022 10:44:24 AM Referred By: Confirmed By:CINDI BIRD MD
--- NOTE | 2022-09-18 00:17 | CT_ITS ---
EXAM: CT brain without contrast HISTORY: confused TECHNIQUE: No intravenous contrast. A radiation dose optimization technique was used for this scan. COMPARISON: None. LIMITATIONS: None. BRAIN: Normal castillo/white matter differentiation. VENTRICLES: No hydrocephalus. EXTRA-AXIAL SPACES: No acute hemorrhage. CALVARIUM/SKULL BASE: No acute fracture. FACE/SINUSES: No significant abnormality. SOFT TISSUES: Normal. OTHER: None. CONCLUSION: No acute intracranial abnormality. Electronically Signed: Yimi Fleming MD at 1:27 EDT , CT/Brain/Head without Contrast IMPRESSION: undefined
--- NOTE | 2022-09-18 00:18 | EX.ED.DYSGE1 ---
HPI History of Present Illness Chief Complaint: Confusion Detail of Chief Complaint: Confused Informant: patient and EMS Onset/Context/Timing Onset: Today Context: Gradual Onset Timing: Continuous Current Severity: Moderate Maximum Severity: Moderate Narrative Narrative: 57-year-old female history of insulin-dependent diabetes. States she is from [place] but she is in this area currently. States she had nausea vomiting last night. Also cloudy foul smelling urine. She denies fever. She denies headache or chest pain. She denies abdominal pain or shortness of breath. Patient does seem confused and is a limited informant. Currently there is no family or friends with her. Reportedly a friend thought she was weak and called the squad who brought her in. Prior similar symptoms: No Recent Illness/Hospitalization: No PFSH PFSH Medical History Allergic rhinitis Chronic painful diabetic neuropathy Diabetes mellitus, type 2 Diabetic foot infection GERD (gastroesophageal reflux disease) HTN (hypertension) Hyperlipidemia Obesity PAF (paroxysmal atrial fibrillation) Restless leg syndrome Tobacco use Home Medications amitriptyline 100 mg tablet 100 mg PO QHS 05/20/18 [History Last Taken 05/19/18] amlodipine 5 mg tablet (Norvasc) 10 mg PO QHS 05/20/18 [History Last Taken 05/19/18] ammonium lactate 12 % lotion (AmLactin) 1 applic TP DAILY 05/20/18 [History Last Taken 05/19/18] ascorbic acid (vitamin C) 500 mg tablet (Vitamin C) 1,000 mg PO BIDCM 05/20/18 [History Last Taken 05/20/18] aspirin 81 mg tablet,delayed release 81 mg PO DAILY 05/20/18 [History Last Taken 05/20/18] docusate sodium 100 mg capsule 100 mg PO QHS 05/20/18 [History Last Taken 05/19/18] empagliflozin 25 mg tablet (Jardiance) 25 mg PO DAILY 05/20/18 [History Last Taken 05/20/18] enalapril maleate 20 mg tablet 20 mg PO DAILY 05/20/18 [History Last Taken 05/20/18] fenofibrate micronized 67 mg capsule 67 mg PO DAILY CHOLESTEROL 05/20/18 [History Last Taken 05/20/18] gabapentin 400 mg capsule 400 mg PO QHS 05/20/18 [History Last Taken 05/19/18] gabapentin 600 mg tablet 600 mg PO 4X/DAY 05/20/18 [History Last Taken 05/20/18] hydrochlorothiazide 25 mg tablet 25 mg PO DAILY 05/20/18 [History Last Taken 06/08/18 08:00] insulin aspart U-100 100 unit/mL (3 mL) subcutaneous pen (Novolog FlexPen U-100 Insulin aspart) See Protocol SQ 4X/DAY 05/20/18 [History Last Taken 05/20/18] insulin glargine U-300 conc 300 unit/mL (1.5 mL) subcutaneous pen (Toujeo SoloStar U-300 Insulin) 80 unit SQ QHS 05/20/18 [History Last Taken 05/19/18] loratadine 10 mg tablet (Allergy Relief (loratadine)) 10 mg PO DAILY 05/20/18 [History Last Taken 05/20/18] metoprolol tartrate 100 mg tablet 100 mg PO BID HEART 05/20/18 [History Last Taken 06/08/18 08:00] montelukast 10 mg tablet (Singulair) 10 mg PO QHS 05/20/18 [History Last Taken 05/12/18] multivitamin-ferrous fumarate-folic acid 18 mg-400 mcg tablet (Centrum Women) 1 tab PO DAILY SUPPLEMENT 05/20/18 [History Last Taken 05/20/18] omeprazole 20 mg capsule,delayed release 20 mg PO DAILY 05/20/18 [History Last Taken 06/08/18 08:00] pramipexole 0.25 mg tablet 0.25 mg PO QHS RESTLESS LEGS 05/20/18 [History Last Taken 05/19/18] sitagliptin phosphate 100 mg tablet (Januvia) 100 mg PO DAILY DM 05/20/18 [History Last Taken 05/20/18] tizanidine 4 mg tablet 4 mg PO TID SPASMS 05/20/18 [History Last Taken 05/20/18] tramadol 50 mg tablet 50 mg PO BID 05/20/18 [History Last Taken 05/20/18] vitamin B complex (B Complex-Vitamin B12 tablet) 1 tab PO DAILY SUPPLEMENT 05/20/18 [History Last Taken 05/20/18] vitamin E (dl, acetate) 180 mg (400 unit) capsule 400 unit PO DAILY SUPPLEMENT 05/20/18 [History Last Taken 05/20/18] acidophilus 25 million cell-pectin, citrus 100 mg tablet 1 tab PO BID ##20 05/22/18 [Rx Last Taken Unknown] doxycycline monohydrate 100 mg capsule 100 mg PO BID ##20 05/22/18 [Rx Last Taken Unknown] lisinopril 20 mg tablet 20 mg PO DAILY ##30 05/22/18 [Rx Last Taken Unknown] atorvastatin 20 mg tablet 20 mg PO QHS 06/01/18 [History Last Taken Unknown] calcium carbonate 600 mg calcium (1,500 mg) tablet 600 mg PO BID 06/01/18 [History Last Taken Unknown] fluconazole 100 mg tablet 100 mg PO QWEEK 06/01/18 [History Last Taken Unknown] insulin aspart U-100 100 unit/mL (3 mL) subcutaneous pen (Novolog FlexPen U-100 Insulin aspart) 12 units SQ 4X/DAY 06/01/18 [History Last Taken Unknown] meloxicam 15 mg tablet 15 mg PO BID 06/01/18 [History Last Taken Unknown] Allergy/AdvReac Type Severity Reaction Status Date / Time No Known Allergies Allergy Verified 06/01/18 08:14 Family History (Updated 09/18/22 @ 01:[address] Jennifer Kebede MD) Mother Diabetes Maternal family history of severe diabetes, dying at age 34 secondary to diabetic complications. Father Diabetes Heart disease Cancer Reported as non-Hodgkin's lymphoma. Surgical History (Updated 09/18/22 @ 01:[address] Jennifer Kebede MD) History of back surgery History of tonsillectomy and adenoidectomy S/P foot surgery, right Social History (Updated 09/18/22 @ 01:[address] Jennifer Kebede MD) household members: significant other Smoking Status: Current every day smoker tobacco type: cigarettes Smoking packs per day: 0.5 Smoking cigarettes per day: 10.0 alcohol intake: never substance use type: does not use ROS ROS ED Review of Systems ROS Unobtainable: due to mental status Constitutional Constitutional ED: Denies chills or fever(s) Eyes Eyes: Denies blurry vision ENT ENT ED: Denies ear pain Cardiovascular Cardiovascular: Denies chest pain Respiratory/Chest Respiratory/Chest: Denies cough Genitourinary Genitourinary ED: Reports dysuria Musculoskeletal Musculoskeletal: Denies arthralgias Integumentary Denies abscess Neurologic Neurologic: Denies headache(s) Psychiatric Psychiatric: Denies anxiety Endocrine Endocrinology: Denies cold intolerance Hematologic/Lymphatic Hematologic/Lymphatic: Reports none Allergic/Immunologic Allergic/Immunologic ED: Denies mouth swelling, tongue swelling or urticaria EXAM Physical Exam Narrative Exam Narrative: 57-year-old female is confused. Vital signs are stable she has a temperature nine 9.4. Initial blood pressure is 98/81 and her pulse ox is 95%. Clinically she looks dehydrated. H EENT exam dry mucous membranes. Pupils round reactive light. No facial droop. Normal speech. No signs of trauma. Neck nontender no lymphadenopathy. No meningismus. Lungs clear to auscultation bilaterally. Heart tachycardic rate about 120 no murmur. Chest wall nontender. Abdomen soft nontender. No peritoneal signs. Moving all 4 extremities. Bilateral application support technician strength. Bilateral dorsi plantarflexion. Neurologically she is awake. She is alert. She seems confused. She knows the president is Hal Hobson. She could not remember the month. Did get the year at 2022 when given multiple choices. She knows she is in the hospital. Const Vital Signs: 09/18/22 00:09 09/18/22 00:46 09/18/22 01:10 Temperature 99.4 F H Temperature Source Oral Pulse Rate 121 H 132 H Respiratory Rate 20 H 20 H Blood Pressure 98/81 H 104/68 Blood Pressure Mean 86 80 Blood Pressure Position Blood Pressure Location Pulse Ox 95 93 Oxygen Delivery Method Room Air Room Air Room Air 09/18/22 01:33 09/18/22 01:39 09/18/22 01:47 Temperature 100.0 F H 100.0 F H Temperature Source Oral Oral Pulse Rate 93 106 H 94 Respiratory Rate 32 H 28 H 28 H Blood Pressure 97/62 97/52 L 95/65 Blood Pressure Mean 73 67 75 Blood Pressure Position Blood Pressure Location Pulse Ox 90 92 91 Oxygen Delivery Method Room Air Room Air 09/18/22 02:06 09/18/22 02:10 Temperature 100.2 F H Temperature Source Oral Pulse Rate 116 H 116 H Respiratory Rate 26 H 26 H Blood Pressure 91/63 91/63 Blood Pressure Mean 72 72 Blood Pressure Position Semi-Fowlers Blood Pressure Location Left Arm Pulse Ox 94 93 Oxygen Delivery Method Room Air Room Air Positive well nourished and well developed; Negative for cachectic, contractures or unkempt General Appearance ED: well developed; Negative for unkempt, cachectic, contractures, cyanotic, diaphoretic, NAD or pallor Nutritional Appearance: Negative for cachectic HEENT Reports dry mucous membranes Negative for trauma or tenderness Mouth ED: Yes dry mucous membranes Mouth: dry mucous membranes Eyes PERRL and EOMs intact bilaterally General Eye ED: Negative for pale conjunctiva, scleral icterus or other Neck no lymphadenopathy, supple and no JVD General: Negative for tenderness Lymph Lymphatic: Negative for other Chest Wall inspection of chest normal and palpation of chest normal Chest: Negative for other Resp normal respiratory effort and clear to auscultation bilaterally Effort and Inspection: Negative for retractions Auscultation: Negative for rales, rhonchi or wheezes Cardio regular rhythm, S1 normal heart sound, S2 normal heart sound and no murmurs; Negative for regular rate Rate: tachycardic GI normal to inspection, nondistended, normoactive bowel sounds, non-tender, non-distended and no masses Inspection: Negative for abdominal distention Auscultation: normoactive bowel sounds Palpation: soft; Negative for tender or guarding Back/Spine no CVA tenderness General Back: Negative for CVA tenderness Cervical Spine: Negative for cervical spine tenderness Thoracic Spine / Upper Back: Negative for thoracic spinal tenderness Lumbar Spine / Lower Back: Negative for lumbar spinal tenderness Extremity normal to inspection General Extremety ED: Negative for tenderness Neuro No oriented x3 Neuro Narrative: Confused to month. Knew year. Knows she is in the hospital. Appears confused. Sensorium / Orientation: alert and orientation impaired Motor Exam: strength 5/5 throughout Psych mental status grossly normal Appearance: Negative for unkempt Attitude: No agitated Mood & Affect: Negative for depressed, anxious or tearful Skin no rashes or lesions noted, no wounds and skin turgor normal General Skin Exam: elasticity normal; Negative for jaundice or pallor Lesions: No lesion noted Rashes: No rashes noted Trauma: Negative for abrasion Wounds: Negative for wounds noted Sepsis Attestation Sepsis Alert: Yes Sepsis Attestation: Agree w/Sepsis Date exam was performed: 09/18/22 Time exam was performed: 00:10 Possible Source of Sepsis: Genitourinary Sepsis Organ Dysfunction Criteria Present: New/Unexplained change in mental status Fluid Resuscitation Fluid resuscitation indicated?: Yes Fluid Resuscitation ordered: 30 ml/kg fluid bolus ordered Amount of fluid ordered: 3,000 MDM MDM MDM Narrative Medical decision making narrative: 57-year-old diabetic female appears confused. Currently is hypotensive at 98/81. Has a low-grade temperature nine 9.4. This may be from underlying sepsis. She undergo a sepsis work-up. She will be treated with 2 L normal saline. I fully expect she will be admitted. She will get a CAT scan of her head due to mental status change. Repeat exam at 1:20 AM. Patient is arousable. She remains in A-fib RVR at 115. Her current blood pressure is 93/58. She is receiving a fluid bolus. We will start her on a Cardizem drip. For UTI she will be started on IV Rocephin. She will be given a second liter of fluid also. I have the hospitalist on page for either a PCU or ICU admission. I did discuss with the patient and she has had a history of A-fib in the past. Patient has been ordered total of 3 L normal saline. She is already been started on IV Rocephin. Currently she was given Cardizem and remained A-fib RVR with a rate around 115. She will be started on a Cardizem drip. Fluids alone may slow down her heart rate once it improves her dehydration. We will further evaluate her decide if she needs to stay on the Cardizem drip or if it can be stopped. Also depending on how her blood pressure responds about the IV fluids and a Cardizem. She will either be admitted to the ICU or PCU depending on how she is responding to therapy. History & Record Review Discussion w/independent historian: Patient Lab Data Attestation: I reviewed the patient's lab results. Lab results narrative: CBC shows a white count 9.1. H&H of 14.4 and 44. Platelets 158. PT INR 15 and 1. PTT is 32. Electrolytes show a sodium 135. Potassium 3.4. Gap of 8. BUN and creatinine are 40 and 1.97 consistent with acute kidney injury and dehydration. Glucose 198. Lactic acid 1.9. Liver enzymes slightly elevated AST and ALT. Urinalysis is consistent with the track infection it is cloudy, no nitrates but greater than 100 white cells. 4+ bacteria. Culture was sent. She will be started on IV antibiotics. Labs: Laboratory Results - last 24 hr 09/18/22 00:37 WBC 11.1 H RBC 4.89 Hgb 14.4 Hct 44.2 MCV 90.4 MCH 29.4 MCHC 32.6 RDW Std Deviation 49.2 H RDW Coeff of [place] 14.8 H Plt Count 158 MPV 10.9 Immature Gran % (Auto) 0.500 Neut % (Auto) 83.5 H Lymph % (Auto) 7.0 L [place] % (Auto) 8.3 Eos % (Auto) 0.2 Baso % (Auto) 0.5 Absolute Neuts (auto) 9.2 H Absolute Lymphs (auto) 0.77 L Nucleated RBC % 0 PT 15.3 H INR 1.2 APTT 32.9 Sodium 135 L Potassium 3.4 L Chloride 103 Carbon Dioxide 24.0 Anion Gap 8 BUN 40 H Creatinine 1.97 H Estim Creat Clear Calc 26.38 Est GFR (MDRD) Af Amer 34 L Est GFR (MDRD) Non-Af 28 L BUN/Creatinine Ratio 20.3 H Glucose 198 H Lactic Acid 1.9 Calcium 8.9 Total Bilirubin 0.60 AST 95 H ALT 73 H Alkaline Phosphatase 63 Total Protein 7.6 Albumin 2.8 L Globulin 4.8 H Albumin/Globulin Ratio 0.6 L Urine Color Yellow Urine Clarity Sl. Cloudy Urine pH 5.0 Ur Specific [place] 1.020 Urine Protein 30 H Urine Glucose (UA) 1000 H Urine Ketones 5 H Urine Occult Blood 150 H Urine Nitrite Negative Urine Bilirubin Negative Urine Urobilinogen 1 H Ur Leukocyte Esterase 500 H Urine RBC 0 SEEN Urine WBC >100 SEEN Ur Squamous Epith Cells 0-5 SEEN Urine Bacteria 4+ Urine Mucus 0 SEEN Radiography Chest X-Ray - ED: 1 View, Read by ED Physician, Heart, Lungs, Mediastinum, Bony Structures, No Acute Disease and Chronic Changes Diagnostic Testing: Clinical Impression(s) from Imaging Studies Brain CT 09/18/22 00:17 IMPRESSION: undefined Chest X-Ray 09/18/22 00:17 IMPRESSION: No acute pulmonary disease. Electronically Signed: Yimi Fleming MD at 1:31 EDT , Chest x-ray, portable, single view shows no acute abnormality. Normal cardiac silhouette. No infiltrate. Interpreted by myself. Rhythm Strip Rhythm Strip: A-fib Rate: 136 Ectopy: None EKG Initial EKG: Attestation: I personally reviewed and interpreted this EKG as follows: Interpretation: Atrial Fibrillation Comments: Acute atrial fibrillation with rapid ventricular rate of 136. No acute signs of GA or ischemia. Critical Care Time Critical Care Time: Yes Critical care time (excluding procedures): 30-74 minutes, Including time spent:, Discussing w/Patient &/or Family/Group Controller, Discussing w/Consultants, Arranging Admission or Transfer, Performing Direct Patient Care at Bedside and - (35 min) Discharge Plan Dx/Rx/DC Orders Clinical Impression: Acute kidney injury, UTI (urinary tract infection), Acute hypotension, Acute dehydration, Acute confusion, Atrial fibrillation with RVR, Sepsis, Acute metabolic encephalopathy Disposition Disposition: [facility]
[2022-09-18 00:44] LABS: Mucous, Urine 0 SEEN /hpf (<or=2+); Red Blood Cells-Urine 0 SEEN /hpf (0-5)
[2022-09-18 00:46] LABS: Absolute Lymphocyte Count 0.77 X10^3/uL (0.83-4.51); Absolute Neutrophil Count 9.2 X10^3/uL (2.0-7.7); Basophil# 0.05 X10^3/uL; Basophil% 0.5 % (0-1); Eosinophil# 0.02 X10^3/uL; Eosinophils% 0.2 % (0-5); Hematocrit 44.2 % (37-47); Hemoglobin 14.4 g/dL (12.0-15.0); Lymphocyte # 0.77 X10^3/ul (0.83-4.51); Mean Corp Hgb Conc 32.6 g/dL (32-36); Mean Corpuscular Hgb 29.4 pg (27.0-32.0); Mean Corpuscular Volume 90.4 fL (81-99); Mean Platelet Vol. 10.9 fl (6.2-12.0); Monocyte# 0.92 X10^3/uL; Monocyte% 8.3 % (0-10); NRBC Flagged by Analyzer 0 % (0-5); Neutrophil # 9.24 X10^3/uL (2.7-7.7); Neutrophil % 83.5 % (47-70); Platelet Count 158 K/mm3 (150-450); RBC Distribution Width CV 14.8 % (11.6-14.6); RBC Distribution Width SD 49.2 fl (35.1-43.9); Red Blood Count 4.89 M/mm3 (4.2-5.4); White Blood Count 11.1 K/mm3 (4.4-11.0)
[2022-09-18] MEDS: 0.9% Normal Saline 1,000 ML 2000 ML IV (00:50)
[2022-09-18 00:51] LABS: Color, Urine Yellow (Yellow); Glucose, Dipstick 1000 mg/dl (Normal); Ketone-Dipstick 5 mg/dl (Negative); Leukocyte Esterase-Dipstick 500 /ul (Negative); Nitrite-Dipstick Negative (Negative); Occult Blood-Urine 150 /ul (Negative); Protein-Dipstick 30 mg/dl (Negative); Urine Bilirubin Dipstick Negative (Negative); Urine Clarity Sl. Cloudy (Clear); Urine Urobilinogen 1 mg/dl (Normal)
[2022-09-18 00:57] LABS: Bacteria 4+ /hpf (None Seen); Squamous Epithelial Cells - UA 0-5 SEEN /hpf (5-10); White Blood Cells >100 SEEN /hpf (0-5)
[2022-09-18 01:02] LABS: International Normalized Ratio 1.2; Partial Thromboplast Time 32.9 Seconds (24.1-36.2); Prothrombin Time (Protime)PT. 15.3 SECONDS (11.7-14.9)
[2022-09-18 01:03] LABS: ALB/GLOB Ratio 0.6 RATIO (0.9-2.4); AST(SGOT) 95 U/L (15-37); Alanine Aminotransfer ALT/SGPT 73 U/L (13-56); Albumin, Serum 2.8 g/dL (3.2-5.0); Alkaline Phosphatase 63 U/L (45-117); Anion Gap 8 (5-15); BUN 40 mg/dL (7-18); BUN/Creat Ratio 20.3 RATIO (10-20); Calcium,Total 8.9 mg/dL (8.5-10.1); Chloride 103 mmol/L (98-107); Creatinine, Serum 1.97 mg/dL (0.55-1.02); EST Glomerular Filtration Rate 28 mL/min (>60); Est Glom Filt Rate - Afr Amer 34 mL/min (>60); Estimated Creatinine Clearance 26.38 ml/min; Globulin 4.8 g/dL (2.2-4.2); Glucose 198 mg/dL (74-106); Potassium 3.4 mmol/L (3.5-5.1); Protein, Total 7.6 g/dL (6.4-8.2); Sodium Level 135 mmol/L (136-145)
[2022-09-18 01:07] LABS: Lactic Acid 1.9 mmol/L (0.4-1.9)
[2022-09-18] MEDS: dilTIAZem 25 MG/5 ML Vial 20 MG IV BOLUS (01:08)
[2022-09-18] MEDS: 0.9% Normal Saline 1,000 ML 999 ML IV ×2 (01:38→02:18)
[2022-09-18] MEDS: Ceftriaxone 1 GM/50 ML BAG IV (01:41)
--- NOTE | 2022-09-18 01:48 | HP.PCM.HOS_ITS ---
HPI - General General Date of Admission: 09/18/22 Date of Service: 09/18/22 Chief Complaint: Dysuria, foul smelling urine, N/V, confusion. HPI Narrative The patient is a 57 y/o F w/ PMHx: PAF, Tobacco use, Obesity, GERD, Diabetes mellitus type II, History of Diabetic foot infections/osteomyelitis and chronic diabetic neuropathy, HTN, HLD, Allergic rhinitis, RLS who presents to the [facility] ED on 09/18/22 with history of recently visiting from [place] with onset over the last 24 hours cloudy and foul-smelling urine with dysuria associated and onset of nausea and emesis with no specific fevers or chills nor any abdominal pain however patient worsened with onset of confusion and increased weakness prompting a friend to bring her into the ED for further evaluation. In the ED her confusion progressively worsened even requiring a sternal rub to attempt evaluation by hospitalist. Work-up in the ED included T99.4, heart rate initial ly 121 and increased up to a max of 132, BP initially 90/81 with most recent repeat 104/68, respiratory rate 20, 95% on room air, CBC with WBC 11.1, hemoglobin 14.4, platelet 158 with left shift and lymphopenia, coags with PT 15.3 otherwise not marked appearing, CMP with sodium 135, potassium 3.4, B UN/creatinine 40/1.97, glucose 198, lactic acid 1.9, AST/ALT 95/73 otherwise not marked, urinalysis with specific gravity 1.020, protein 30, glucose 1000, ketone 5, occult blood 150, nitrate negative, leukocyte Estrace 500, urine WBCs greater than 100 with 4+ urine bacteria, CT of the brain with no acute intracranial findings, chest x-ray no acute cardiopulmonary findings, blood culture x2 pending per ED, urine culture pending per ED. In the ED patient ministered 2 L normal saline, IV Rocephin 1 g x 1 as well as 20 mg IV bolus diltiazem secondary to ongoing persistent tachycardia with EKG with atrial fibrillation with RVR noted and placed on cardizem drip. PFSH Medical History Allergic rhinitis Chronic painful diabetic neuropathy Diabetes mellitus, type 2 Diabetic foot infection GERD (gastroesophageal reflux disease) HTN (hypertension) Hyperlipidemia Obesity PAF (paroxysmal atrial fibrillation) Restless leg syndrome Tobacco use Home Medications amitriptyline 100 mg tablet 100 mg PO QHS 05/20/18 [History Last Taken 05/19/18] amlodipine 5 mg tablet (Norvasc) 10 mg PO QHS 05/20/18 [History Last Taken 05/19/18] ammonium lactate 12 % lotion (AmLactin) 1 applic TP DAILY 05/20/18 [History Last Taken 05/19/18] ascorbic acid (vitamin C) 500 mg tablet (Vitamin C) 1,000 mg PO BIDCM 05/20/18 [History Last Taken 05/20/18] aspirin 81 mg tablet,delayed release 81 mg PO DAILY 05/20/18 [History Last Taken 05/20/18] docusate sodium 100 mg capsule 100 mg PO QHS 05/20/18 [History Last Taken 05/19/18] empagliflozin 25 mg tablet (Jardiance) 25 mg PO DAILY 05/20/18 [History Last Taken 05/20/18] enalapril maleate 20 mg tablet 20 mg PO DAILY 05/20/18 [History Last Taken 05/20/18] fenofibrate micronized 67 mg capsule 67 mg PO DAILY CHOLESTEROL 05/20/18 [History Last Taken 05/20/18] gabapentin 400 mg capsule 400 mg PO QHS 05/20/18 [History Last Taken 05/19/18] gabapentin 600 mg tablet 600 mg PO 4X/DAY 05/20/18 [History Last Taken 05/20/18] hydrochlorothiazide 25 mg tablet 25 mg PO DAILY 05/20/18 [History Last Taken 06/08/18 08:00] insulin aspart U-100 100 unit/mL (3 mL) subcutaneous pen (Novolog FlexPen U-100 Insulin aspart) See Protocol SQ 4X/DAY 05/20/18 [History Last Taken 05/20/18] insulin glargine U-300 conc 300 unit/mL (1.5 mL) subcutaneous pen (Toujeo SoloStar U-300 Insulin) 80 unit SQ QHS 05/20/18 [History Last Taken 05/19/18] loratadine 10 mg tablet (Allergy Relief (loratadine)) 10 mg PO DAILY 05/20/18 [History Last Taken 05/20/18] metoprolol tartrate 100 mg tablet 100 mg PO BID HEART 05/20/18 [History Last Taken 06/08/18 08:00] montelukast 10 mg tablet (Singulair) 10 mg PO QHS 05/20/18 [History Last Taken 05/12/18] multivitamin-ferrous fumarate-folic acid 18 mg-400 mcg tablet (Centrum Women) 1 tab PO DAILY SUPPLEMENT 05/20/18 [History Last Taken 05/20/18] omeprazole 20 mg capsule,delayed release 20 mg PO DAILY 05/20/18 [History Last Taken 06/08/18 08:00] pramipexole 0.25 mg tablet 0.25 mg PO QHS RESTLESS LEGS 05/20/18 [History Last Taken 05/19/18] sitagliptin phosphate 100 mg tablet (Januvia) 100 mg PO DAILY DM 05/20/18 [History Last Taken 05/20/18] tizanidine 4 mg tablet 4 mg PO TID SPASMS 05/20/18 [History Last Taken 05/20/18] tramadol 50 mg tablet 50 mg PO BID 05/20/18 [History Last Taken 05/20/18] vitamin B complex (B Complex-Vitamin B12 tablet) 1 tab PO DAILY SUPPLEMENT 05/20/18 [History Last Taken 05/20/18] vitamin E (dl, acetate) 180 mg (400 unit) capsule 400 unit PO DAILY SUPPLEMENT 05/20/18 [History Last Taken 05/20/18] acidophilus 25 million cell-pectin, citrus 100 mg tablet 1 tab PO BID ##20 05/22/18 [Rx Last Taken Unknown] doxycycline monohydrate 100 mg capsule 100 mg PO BID ##20 05/22/18 [Rx Last Taken Unknown] lisinopril 20 mg tablet 20 mg PO DAILY ##30 05/22/18 [Rx Last Taken Unknown] atorvastatin 20 mg tablet 20 mg PO QHS 06/01/18 [History Last Taken Unknown] calcium carbonate 600 mg calcium (1,500 mg) tablet 600 mg PO BID 06/01/18 [ History Last Taken Unknown] fluconazole 100 mg tablet 100 mg PO QWEEK 06/01/18 [History Last Taken Unknown] insulin aspart U-100 100 unit/mL (3 mL) subcutaneous pen (Novolog FlexPen U-100 Insulin aspart) 12 units SQ 4X/DAY 06/01/18 [History Last Taken Unknown] meloxicam 15 mg tablet 15 mg PO BID 06/01/18 [History Last Taken Unknown] Allergy/AdvReac Type Severity Reaction Status Date / Time No Known Allergies Allergy Verified 06/01/18 08:14 Family History (Updated 09/18/22 @ 01:[address] Jennifer Kebede MD) Mother Diabetes Maternal family history of severe diabetes, dying at age 34 secondary to diabetic complications. Father Diabetes Heart disease Cancer Reported as non-Hodgkin's lymphoma. Surgical History (Updated 09/18/22 @ 01:[address] Jennifer Kebede MD) History of back surgery History of tonsillectomy and adenoidectomy S/P foot surgery, right Social History (Updated 09/18/22 @ 01:[address] Jennifer Kebede MD) household members: significant other Smoking Status: Current every day smoker tobacco type: cigarettes Smoking packs per day: 0.5 Smoking cigarettes per day: 10.0 alcohol intake: never substance use type: does not use ROS Review of Systems ROS Unobtainable: due to encephalopathy Vital Signs Vital Signs Vital Signs: 09/18/22 00:09 09/18/22 00:46 09/18/22 01:10 Temperature 99.4 F H Temperature Source Oral Pulse Rate 121 H 132 H Respiratory Rate 20 H 20 H Blood Pressure 98/81 H 104/68 Blood Pressure Mean 86 80 Pulse Ox 95 93 Oxygen Delivery Method Room Air Room Air Room Air 09/18/22 01:33 09/18/22 01:39 09/18/22 01:47 Temperature 100.0 F H 100.0 F H Temperature Source Oral Oral Pulse Rate 93 106 H 94 Respiratory Rate 32 H 28 H 28 H Blood Pressure 97/62 97/52 L 95/65 Blood Pressure Mean 73 67 75 Pulse Ox 90 92 91 Oxygen Delivery Method Room Air Room Air Weight Weight: 209 lb 14.081 oz Body Mass Index (BMI) 37.1 Physical Exam Narrative Physical Examination: General: Lethargic, awakens with sternal rub but quickly falls back asleep, unable to answer orientation questions or follow exam request at this time, seated upright in the ED bed, mildly increased respiratory rate noted and oxygenation currently 94%, Cardizem drip being initiated per ED physician. Skin: Normal color, normal turgor, no icterus, no cyanosis except for noted bilateral lower extremity venous stasis skin changes. HEENT: AT/NC, EOM unable to be assessed well given encephalopathy, PERRLA, dry MM, no carotid bruits or JVD noted; however thickened neck makes evaluation difficult. Lungs: Diminished, greater bases, mildly increased respiratory rate with some accessory muscle usage, no rales, ronchi or wheezing. Heart: Irregular irregular; no gallop, rub audible. Abdomen: Soft, obese, no obvious grimacing with palpation of the abdomen, did not no obvious distention, hypoactive bowel sounds, no obvious HSM. Extremities: No cyanosis, clubbing, or edema, see skin. Neurological: Lethargic, awakens with sternal rub but quickly falls back asleep, unable to answer orientation questions or follow exam request at this time, cognitive function not baseline intact; pupils equally reactive to light and accommodation, cranial nerves difficult to assess given encephalopathy, moving extremities and will awaken with stimulation as noted but otherwise strength severely globally decreased. Psychiatric: Affect appears lethargic, ill-appearing, no acute evidence of depressive or anxiety feelings. Results Lab / Micro Data 09/18/22 00:37 09/18/22 00:37 Labs: Laboratory Results - last 24 hr 09/18/22 00:37: WBC 11.1 H, RBC 4.89, Hgb 14.4, Hct 44.2, MCV 90.4, MCH 29.4, MCHC 32.6, RDW Std Deviation 49.2 H, RDW Coeff of Gerson 14.8 H, Plt Count 158, MPV 10.9, Immature Gran % (Auto) 0.500, Neut % (Auto) 83.5 H, Lymph % (Auto) 7.0 L, [place] % (Auto) 8.3, Eos % (Auto) 0.2, Baso % (Auto) 0.5, Absolute Neuts (auto) 9.2 H, Absolute Lymphs (auto) 0.77 L, Nucleated RBC % 0, PT 15.3 H, INR 1.2, APTT 32.9, Sodium 135 L, Potassium 3.4 L, Chloride 103, Carbon Dioxide 24.0, Anion Gap 8, BUN 40 H, Creatinine 1.97 H, Estim Creat Clear Calc 26.38, Est GFR (MDRD) Af Amer 34 L, Est GFR (MDRD) Non-Af 28 L, BUN/Creatinine Ratio 20.3 H, Glucose 198 H, Lactic Acid 1.9, Calcium 8.9, Total Bilirubin 0.60, AST 95 H, ALT 73 H, Alkaline Phosphatase 63, Total Protein 7.6, Albumin 2.8 L, Globulin 4.8 H, Albumin/Globulin Ratio 0.6 L, Urine Color Yellow, Urine Clarity Sl. Cloudy, Urine pH 5.0, Ur Specific [place] 1.020, Urine Protein 30 H, Urine Glucose (UA) 1000 H, Urine Ketones 5 H, Urine Occult Blood 150 H, Urine Nitrite Negative, Urine Bilirubin Negative, Urine Urobilinogen 1 H, Ur Leukocyte Esterase 500 H, Urine RBC 0 SEEN, Urine WBC >100 SEEN, Ur Squamous Epith Cells 0-5 SEEN, Urine Bacteria 4+, Urine Mucus 0 SEEN Rhythm Strip Rhythm Strip: A-fib Rate: 136 Ectopy: None Radiology Impression Brain CT 09/18/22 00:17 IMPRESSION: undefined Chest X-Ray 09/18/22 00:17 IMPRESSION: No acute pulmonary disease. Electronically Signed: Yimi Fleming MD at 1:31 EDT Reading Location ID and State: [facility] / [place] Tel , Service support , Assessment & Plan Assessment/Plan (1) Sepsis: PLAN: Plan The patient is a 57 y/o F w/ PMHx: PAF, Tobacco use, Obesity, GERD, Diabetes mellitus type II, History of Diabetic foot infections/osteomyelitis and chronic diabetic neuropathy, HTN, HLD, Allergic rhinitis, RLS who presents to the [facility] ED on 09/18/22 with history of recently visiting from [place] with onset over the last 24 hours cloudy and foul-smelling urine with dysuria associated and onset of nausea and emesis with no specific fevers or chills nor any abdominal pain however patient worsened with onset of confusion and increased weakness prompting a friend to bring her into the ED for further evaluation. #1. Acute Encephalopathy secondary to Acute Sepsis (tachycardia, tachypnea, DALL[place] and source) secondary to Acute Complicated Urinary Tract Infection: Will admit to ICU, will request ICU consultation per protocol, will request ABG as on evaluation tachypnea noted and intermittently decreasing her saturation in the ED although could certainly have undiagnosed MARLON, UA upon ED evaluation re markable, pending UCx, continue IVFs, monitor I/Os, continue IV Rocephin w/ transition as able pending sensitivities and speciation. Bld cx x 2 obtained in the ED. #2. Paroxsymal atrial fibrillation w/ RVR: EKG in ED w/ atrial fibrillation w/ RVR. Patient administered IV cardizem in ED and placed on cardizem drip. Will maintain on telemetry, obtain cardiac enzyme serial set, obtain magnesium level, obtain ECHO, obtain TSH level. CHADs scoring appropriate for anticoagulation start thus will place on heparin drip at this time give unsafe oral intake. Will continue on cardizem drip initiated per ED unless MAP < 65 then would transition to amiodarone drip. #3. Acute kidney injury: Secondary to acute presentation likely #1. Admission BUN/Cr 40/1.97, prior baseline creatinine noted to be primarily 0.7-0.9. Will hydrate, hold nephrotoxic medications and repeat chemistry in AM. If no improv ement would plan FeNa assessment. #4. Hypokalemia: Admission K+ 3.4, magnesium level requested, supplementation given, repeat level in AM. #5. Transaminitis, potentially associated with hypotension, recent evidence of D[place] with likely hypovolemia with acute infectious presentation #1 and also atr ial fibrillation with RVR: Admission CMP with AST/LT 95/73, continue treatment as noted and repeat CMP in a.m. #6. Diabetes mellitus type II with chronic diabetic neuropathy and history of chronic diabetic foot wound/osteomyelitis: Hold oral home regimen, continue home long-acting insulin regimen once dose clarified but low threshold to decrease to 1/2 dose while NPO status pending BS trending, NPO status given unsafe oral intake, maintain on q 6 hour ADA, accu checks w/ ISS, temporarily hold home gabapentin regimen. #7. Hypertension: Given presentation with hypotension and necessity for c ardizem drip will hold all other HTN medications, may as noted need to d/c drip and transition to amiodarone, will add back her HTN regimen once appropriate. #8. Hyperlipidemia: Temporarily hold statin and fenofibrate regimen. #9. Restless leg syndrome: Temporarily hold home pramipexole regimen. #10. Allergic rhinitis: Temporarily hold Singulair and loratadine regimen. #11. Obesity: Weight loss and lifestyle changes will be encouraged. #12. Tobacco Abuse: Encouraged cessation, inpatient consultation per RT, NR if desired. #13. GERD: Will place on IV PPI. #14. DVT prophylaxis: Heparin drip. #15. CODE STATUS: Full code. Admission Evaluation Time spent evaluating chart, patient history, patient evaluation, care planning and discussion with specialists: 75 minutes. Charges/Coding Visit Charges Inpatient E&M: 36018 Init Hosp L3
[2022-09-18 03:07] LABS: Magnesium 2.1 mg/dL (1.6-2.6)
--- NOTE | 2022-09-18 03:18 | ECHOCS_ITS ---
Reason For Study: PAF Procedure This was a 2D Doppler, Color Flow transthoracic echocardiogram. The study was technically difficult. Contrast injection was performed. Patient on vent. Exam performed portable in ICU/CCU. Left Ventricle Normal LV size. Left ventricular systolic function is normal. The estimated ejection fraction is 60 %. No regional wall motion abnormalities noted. Right Ventricle Normal RV size. Normal systolic function. Atria The left atrium is mildly enlarged. Normal right atrium. Mitral Valve Normal mitral valve. Tricuspid Valve Normal tricuspid valve. Mild (1+) tricuspid valve insufficiency. Pulmonary artery systolic pressure is 30 mmHg. Aortic Valve Trisinus/trileaflet aortic valve. Pulmonic Valve The pulmonic valve is not well visualized. Great Vessels Normal aortic root. The pulmonary is not well visualized. Normal inferior vena cava. Pericardium/Pleural No pericardial effusion. Medication Diluted definity 2ml given slow IV push to enhance endocardial definition. MMode/2D Measurements & Calculations LVIDd: 4.7 cm IVSd: 1.1 cm Ao root diam: 2.6 cm LVIDs: 3.3 cm LVPWd: 1.3 cm LA dimension: 4.4 cm RVDd: 4.2 cm FS: 30.4 % LAV(MOD-bp): 69.4 ml LVAd ap4: 33.0 cm2 SV(MOD-sp4): 50.0 ml LAV(MOD-bp) Indexed: 35.1 ml/m2 LVLd ap4: 7.8 cm LAV(MOD-sp2): 62.8 ml EDV(MOD-sp4): 114.2 ml LAV(MOD-sp4): 71.6 ml EDV(sp4-el): 118.8 ml LVAs ap4: 22.5 cm2 LVLs ap4: 6.5 cm ESV(MOD-sp4): 64.2 ml ESV(sp4-el): 65.6 ml EF(MOD-sp4): 43.8 % EF(sp4-el): 44.8 % SV(sp4-el): 53.2 ml LA A4 area: 23.6 cm2 RA A4 area: 19.8 cm2 Time Measurements MV dec time: 0.20 sec Doppler Measurements & Calculations MV E max noreen: 118.2 cm/sec MV V2 max: 115.6 cm/sec Ao V2 max: 146.3 cm/sec MV max P.4 mmHg Ao max P.6 mmHg MV V2 mean: 63.4 cm/sec Ao V2 mean: 97.3 cm/sec MV mean P.0 mmHg Ao mean P.6 mmHg MV V2 VTI: 27.8 cm Ao V2 VTI: 25.0 cm AV (velocity ratio): 0.75 LV V1 max: 113.2 cm/sec PA V2 max: 98.0 cm/sec TR max noreen: 250.6 cm/sec LV V1 max P.1 mmHg PA V2 mean: 62.9 cm/sec TR max P.1 mmHg LV V1 mean P.8 mmHg LV V1 mean: 77.8 cm/sec LV V1 VTI: 18.9 cm ECHO/Echo Complete W/ Contrast Interpretation Summary Normal LV size. Left ventricular systolic function is normal. The estimated ejection fraction is 60 %. The left atrium is mildly enlarged. Pulmonary artery systolic pressure is 30 mmHg. Contrast injection was performed. Ordering Physician: Jennifer Kebede Performed By: Carlos Hamm RCS
--- NOTE | 2022-09-18 03:45 | PCM.HOSP.N ---
Hospitalist Note Patient BP tolerating cardizem drip however, despite increase, ongoing PAF with RVR. Will add amiodarone and also request Cardiology involvement given intractability.
[2022-09-18 03:50] LABS: Base Excess -6 mmol/L (-2 to +2); Bicarbonate 18.2 mmol/L (22-26); Blood Gas Specimen Type ART; O2 Delivery Device Room Air; PO2 45 mmHG (75-100); SITE R Brach; SO2 82 % (95-99); Total Carbon Dioxide 19 mmol/L; pCO2 28.3 mmHg (35-45); pH 7.42 (7.35-7.45)
--- NOTE | 2022-09-18 03:55 | CPS ---
increased to 5 l/m due to low o2 on abg
--- NOTE | 2022-09-18 04:03 | RAD_ITS ---
INDICATION: To confirm ET placement EXAMINATION: Frontal view of the chest COMPARISON: Chest x-ray from 1:03 AM on the same day.. FINDINGS: Frontal view of the chest was obtained. The endotracheal tube tip is 1.8 cm above the cm. The tip of the orogastric tube projects over the body of the stomach. Suboptimal inspiration. The cardiac silhouette is borderline enlarged. Bilateral streaky opacities are new since the prior exam. No pneumothorax. RAD/Chest 1 View (Portable) IMPRESSION: Endotracheal tube terminates 1.8 cm above the cm. Tip of the orogastric tube projects over the body of the stomach. Bilateral mild pulmonary opacities represent atelectasis and/or mild infection. Electronically Signed: Yimi Fleming MD at 6:38 EDT ,
[2022-09-18] MEDS: 0.9% Normal Saline 1,000 ML 125 ML IV ×3 (04:04→20:37)
[2022-09-18] MEDS: Amiodarone 360 MG in Dextrose 5% Viaflo Bag 192.8 ML 33.3 MG CONT INF (04:06)
[2022-09-18 04:12] LABS: Absolute Lymphocyte Count 1.13 X10^3/uL (0.83-4.51); Absolute Neutrophil Count 7.7 X10^3/uL (2.0-7.7); Basophil# 0.04 X10^3/uL; Basophil% 0.4 % (0-1); Hematocrit 44.6 % (37-47); Hemoglobin 14.5 g/dL (12.0-15.0); Lymphocyte # 1.13 X10^3/ul (0.83-4.51); Lymphocyte % 12.1 % (19-41); Mean Corp Hgb Conc 32.5 g/dL (32-36); Mean Corpuscular Hgb 29.7 pg (27.0-32.0); Mean Corpuscular Volume 91.2 fL (81-99); Mean Platelet Vol. 11.1 fl (6.2-12.0); Monocyte# 0.46 X10^3/uL; Monocyte% 4.9 % (0-10); NRBC Flagged by Analyzer 0 % (0-5); Neutrophil # 7.68 X10^3/uL (2.7-7.7); POSITIVE COUNT YES; Platelet Count 130 K/mm3 (150-450); RBC Distribution Width CV 14.8 % (11.6-14.6); RBC Distribution Width SD 50.4 fl (35.1-43.9); Red Blood Count 4.89 M/mm3 (4.2-5.4); White Blood Count 9.4 K/mm3 (4.4-11.0)
[2022-09-18] MEDS: Midazolam 2 MG/2 ML Syringe 4 MG IV (04:15)
[2022-09-18] MEDS: Succinylcholine Chloride 200 MG/10 ML SYRINGE 100 MG IV (04:15)
[2022-09-18 04:18] LABS: Procalcitonin 8.16 ng/mL (0.00-0.09)
[2022-09-18] MEDS: HEPARIN/D5w 25,000 UNITS 25,000 UNITS/250 ML IV.SOLN. 14 UNITS CONT INF ×2 (04:22→21:55)
--- NOTE | 2022-09-18 04:28 | PN.HOSP_ITS ---
Hospitalist Note Intubation Note: Patient with evidence of respiratory and/or impending distress in addition to increasing encephalopathy and difficulty managing airway. Medications administered: 100 mg succinylcholine, 4 mg Versed ETT size: 7.5 Patient intubated in standard fashion with visualization of the vocal cords and passage of the ETT with kaleidoscope. Positioning verified with auscultation. Post-intubation CXR requested. Patient maintained in the ICU with ongoing consultation to capsule filling machine operator, update relayed. Procedures Hospitalists Procedures: 14778 Insert Emergency Airway
[2022-09-18] MEDS: Propofol 10MG/Ml 1,000 MG/100 ML Bottle 5.7 MG CONT INF ×2 (04:31→08:44)
[2022-09-18 04:35] LABS: ALB/GLOB Ratio 0.6 RATIO (0.9-2.4); AST(SGOT) 108 U/L (15-37); Alanine Aminotransfer ALT/SGPT 72 U/L (13-56); Albumin, Serum 2.7 g/dL (3.2-5.0); Alkaline Phosphatase 61 U/L (45-117); Anion Gap 6 (5-15); BUN 37 mg/dL (7-18); BUN/Creat Ratio 22.3 RATIO (10-20); Calcium,Total 8.1 mg/dL (8.5-10.1); Chloride 109 mmol/L (98-107); Creatinine, Serum 1.66 mg/dL (0.55-1.02); EST Glomerular Filtration Rate 34 mL/min (>60); Est Glom Filt Rate - Afr Amer 41 mL/min (>60); Globulin 4.7 g/dL (2.2-4.2); Glucose 145 mg/dL (74-106); Potassium 4.1 mmol/L (3.5-5.1); Protein, Total 7.4 g/dL (6.4-8.2); Sodium Level 138 mmol/L (136-145); Thyroid Stim Hormone (TSH) 0.27 uIU/mL (0.358-3.74)
[2022-09-18 04:39] LABS: Troponin-I HS 277 pg/mL (3.0-54.0)
--- NOTE | 2022-09-18 04:49 | CT_ITS ---
EXAM: CT abdomen and pelvis without contrast HISTORY: UTI, evaluation for possible calculi -- Stone protocol TECHNIQUE: No intravenous contrast. A radiation dose optimization technique was used for this scan. COMPARISON: None. LIMITATIONS: Motion artifact. LOWER CHEST: The orogastric tube terminates in the body of the stomach. Trace bilateral pleural effusions. Dependent atelectasis in the lower lobes bilaterally with probable superimposed mild airspace disease. LIVER: Mildly enlarged. GALLBLADDER: Mild distention. Several small gallstones are identified. No inflammatory change. BILE DUCTS: Normal. PANCREAS: Normal. SPLEEN: Mildly enlarged.. ADRENAL GLANDS: Normal. KIDNEYS/URETERS/BLADDER: Punctate left renal vascular calcification. No obstructing ureteral stones or hydronephrosis. A Casanova catheter is in the collapsed bladder. AORTA: Normal caliber. Retroperitoneal lymph nodes are mildly enlarged. BOWEL/MESENTERY: Normal. APPENDIX: Normal. PERITONEUM: Normal. REPRODUCTIVE ORGANS: Normal. BONES/SOFT TISSUES: Degenerative and postsurgical changes in the lumbosacral spine. OTHER: None. CONCLUSION: No obstructing stones or hydronephrosis. Gallstones. Mild hepatosplenomegaly. Dependent atelectasis in the lung bases bilaterally with suspected superimposed mild infection or aspiration. Bilateral trace pleural effusions. Electronically Signed: Yimi Fleming MD at 6:49 EDT , CT/Abdomen/Pelvis without Cont IMPRESSION: undefined
[2022-09-18 04:54] LABS: Differential Indicated SCAN CRITERIA MET
[2022-09-18] MEDS: Acetaminophen 650 MG Suppository RC (05:14)
[2022-09-18 05:15] LABS: Anisocytosis 1+; Platelet Estimate SLT DEC (ADEQ)
[2022-09-18] MEDS: fentaNYL drip 100 ML 5 MCG CONT INF (05:19)
[2022-09-18 05:30] LABS: Allen Test Positive; Base Excess -7 mmol/L (-2 to +2); Bicarbonate 17.9 mmol/L (22-26); Blood Gas Specimen Type ART; FI02 80; Mode AC; O2 Delivery Device Adult Vent; PEEP 5; PO2 154 mmHG (75-100); RR 12; SITE L Radial; SO2 99 % (95-99); Total Carbon Dioxide 19 mmol/L; Vt 450; pCO2 29.7 mmHg (35-45); pH 7.39 (7.35-7.45)
--- NOTE | 2022-09-18 05:30 | VDLE_ITS ---
Reason For Study: Bilateral leg pain RIGHT LEFT CFV is compressible, spontaneous, competent CFV is compressible, spontaneous, competent, and demonstrates pulsatile venous flow. and demonstrates pulsatile venous flow. FV is compressible, spontaneous, competent FV is compressible, spontaneous, competent and demonstrates pulsatile venous flow. and demonstrates pulsatile venous flow. POP V is compressible, spontaneous, competent POP V is compressible, spontaneous, competent and demonstrates pulsatile venous flow. and demonstrates pulsatile venous flow. T/P Trunk is compressible. T/P Trunk is compressible. PTV is compressible. PTV is compressible. RT PerV is compressible. LT PerV is compressible. Procedure This is a venous duplex using B-mode, color flow and spectral Doppler. Exam performed portable in ICU/CCU. The exam was diagnostic. A preliminary report was called and/or faxed to TUBE BUILDING MACHINE OPERATOR. VL/Venous Duplex US - Vincent Extrem Interpretation Summary No evidence for acute deep venous thrombosis bilateral lower extremities with p atent and compressible bilateral great saphenous veins. Pulsatile venous flow is noted bi laterally consistent with proximal venous hypertension or obstruction. Clinical correlation would be appropriate. Ordering Physician: Jennifer Kebede Referring Physician: N/A Performed By: Carson Beebe RVT
[2022-09-18 05:31] LABS: T4 Free Direct 1.51 ng/dL (0.76-1.46)
[2022-09-18] MEDS: Digoxin 250 MCG/ML Ampul 500 MCG IV (05:45)
[2022-09-18 06:03] LABS: Cholesterol 94 mg/dL (200); High Density Lipoprotein 21 mg/dL; Triglycerides 249 mg/dL; Very Low Density Lipoprotein 50 mg/dL (5-40)
[2022-09-18 06:43] LABS: Free T3 1.9 pg/mL (2.18-3.98)
[2022-09-18] MEDS: Potassium Chloride 10mEq/100mL 10 MEQ/100 ML IV.SOLN. 100 MEQ IV BOLUS ×4 (06:45→10:58)
[2022-09-18 06:48] LABS: CPK Total, Creatine Kinase 2898 U/L (26-192); Triglycerides 246 mg/dL
[2022-09-18 06:49] LABS: M R Staph aureus DNA By PCR Negative (Negative); Probe Check PASS; Specimen Processing Control PASS
--- NOTE | 2022-09-18 07:06 | CON.PCM.CC_ITS ---
Assessment & Plan Assessment/Plan (1) Acute metabolic encephalopathy: (2) Respiratory failure: QUALIFIERS: Chronicity: acute (3) Afib: QUALIFIERS: Atrial fibrillation type: unspecified Qualified Code(s): I48.91 - Unspecified atrial fibrillation (4) Sepsis: QUALIFIERS: Acute renal failure type: unspecified Sepsis acute organ dysfunction status: with acute organ dysfunction Sepsis type: sepsis due to unspecified organism Severe sepsis acute organ dysfunction type: acute renal failure Severe sepsis shock status: without septic shock Qualified Code(s): A41.9 - Sepsis, unspecified organism; R65.20 - Severe sepsis without septic shock; N17.9 - Acute kidney failure, unspecified PLAN: Plan RECOMMENDATIONS: 1. Continue assist-control mode mechanical ventilation. Wean FiO2/PEEP for saturations greater than 90%. 2. Continue empiric broad-spectrum antimicrobials. 3. Consult podiatry regarding diabetic foot ulceration. 4. Obtain infectious diseases consultation. 5. Gentle IV fluid hydration. 6. Continue Cardizem and amiodarone per cardiology recommendations. 7. Obtain echocardiogram. 8. Obtain plain film x-ray of foot. 9. Continue appropriate GI prophylaxis. IMPRESSIONS: 1. Sepsis The patient presented to the hospital with sepsis due to urinary tract source of infection with possible osteomyelitis of the right foot, with acute sepsis related organ dysfunction as evidenced by encephalopathy, acute kidney injury and respiratory failure requiring invasive mechanical ventilatory support. The patient did receive supplemental IV fluid hydration and has been initiated on broad-spectrum antimicrobials. The patient was evaluated by mutuel teller this morning, who indicated that the diabetic foot ulcer tracked to the bone. Therefore, podiatry consultation has been placed and plain film x-ray of foot will be obtained. The patient's hemodynamic status is stable at the present time. 2. Encephalopathy Most likely metabolic in etiology in the setting #1. Continue supportive measures as noted above. CT head was unrevealing. Continue propofol and fentanyl for sedation. Maintain a RASS of -1 to 1. 3. Acute hypoxemic respiratory failure The patient was ultimately intubated over concerns for airway protection in the setting of acute metabolic encephalopathy. This is all likely a consequence of #1. The patient is doing well from a ventilatory perspective with minimal FiO2. Plan to continue assist-control mode mechanical ventilation and wean FiO2 to maintain saturations at or above 90%. Arterial blood gas appears appropriate. 4. NSTEMI/atrial fibrillation with RVR Clinical concern for demand ischemia in the setting of #1. Cardiology is currently following to assist with medical management. For now, the patient will be continued on a heparin infusion along with Cardizem and amiodarone. Echocardiogram is pending. 5. Acute kidney injury Again, likely prerenal in etiology in the setting #1. Anticipate further improvement with volume expansion. Continue to monitor urine output for now. No current indication for renal replacement therapy. 6. History of diabetes mellitus/hypertension/restless leg syndrome/obesity/GERD Complicates care, management, recovery and prognosis. Continue Accu-Cheks and s liding scale insulin coverage. Continue PPI therapy as ordered. We will plan to initiate tube feeds tomorrow. TIME: 42 minutes of critical care time, independent of procedures, was spent addressing the patient's sepsis, encephalopathy, acute respiratory failure, NSTEMI, atrial fibrillation, acute kidney injury, review of all data and collaboration with the care team. HPI Consult Data Date of Consult: 09/18/22 HPI Narrative Reason for Consultation: Sepsis HPI Narrative: The patient is a 57-year-old female, with a history as outlined below, who presented to the emergency department via EMS on September 18 with generalized weakness of several days duration. The patient also reported some dysuria along with nausea and vomiting. History pertinent to her hospitalization was obtained primarily via chart review, the patient is currently intubated and mechanically ventilated. The patient has an apparent history of paroxysmal atrial fibrillation, tobacco dependency, diabetes mellitus and history of diabetic foot ulcerations. On presentation to the emergency department, the patient was noted to be febrile, tachycardic and tachypneic. Initial laboratory evaluation revealed a white blood cell count of 11,000. Arterial blood gas obtained on room air demonstrated a pH of 7.42 with a PCO2 of 28 and PO2 of 45. Chemistry profile was notable for a sodium of 135, potassium of 3.4 and creatinine of 1.97. Lactate was within normal limits. Urine analysis was positive for leukocyte esterase and 4+ urine bacteria. CT head demonstrated no acute intracranial abnormality. Initial plain film chest x-ray demonstrated no acute cardiopulmonary process. The patient initially received supplemental IV fluids and was started on antimicrobials. The patient was also placed on Cardizem secondary to persistent tachycardia. Ultimately, overnight, the patient had persistent, refractory atrial fibr illation, for which the patient was initiated on amiodarone. Cardiology consultation was placed. Earlier this morning, the patient required intubation over concerns for worsening encephalopathy and airway protection. CT abdomen/pelvis was obtained which demonstrated no evidence of obstructing stones or hydronephrosis. There was evidence of bibasilar dependent atelectasis and trace pleural effusions. This morning, the patient was evaluated by wound care who indicated that the patient's right foot ulcer tunneled to bone. [facility] Medical History Allergic rhinitis Chronic painful diabetic neuropathy Diabetes mellitus, type 2 Diabetic foot infection GERD (gastroesophageal reflux disease) HTN (hypertension) Hyperlipidemia Obesity PAF (paroxysmal atrial fibrillation) Restless leg syndrome Tobacco use Home Medications amitriptyline 100 mg tablet 100 mg PO QHS 05/20/18 [History Last Taken 05/19/18] amlodipine 5 mg tablet (Norvasc) 10 mg PO QHS 05/20/18 [History Last Taken 05/19/18] ammonium lactate 12 % lotion (AmLactin) 1 applic TP DAILY 05/20/18 [History Last Taken 05/19/18] ascorbic acid (vitamin C) 500 mg tablet (Vitamin C) 1,000 mg PO BIDCM 05/20/18 [History Last Taken 05/20/18] aspirin 81 mg tablet,delayed release 81 mg PO DAILY 05/20/18 [History Last Taken 05/20/18] docusate sodium 100 mg capsule 100 mg PO QHS 05/20/18 [History Last Taken 05/19/18] empagliflozin 25 mg tablet (Jardiance) 25 mg PO DAILY 05/20/18 [History Last Taken 05/20/18] enalapril maleate 20 mg tablet 20 mg PO DAILY 05/20/18 [History Last Taken 05/20/18] fenofibrate micronized 67 mg capsule 67 mg PO DAILY CHOLESTEROL 05/20/18 [History Last Taken 05/20/18] gabapentin 400 mg capsule 400 mg PO QHS 05/20/18 [History Last Taken 05/19/18] gabapentin 600 mg tablet 600 mg PO 4X/DAY 05/20/18 [History Last Taken 05/20/18] hydrochlorothiazide 25 mg tablet 25 mg PO DAILY 05/20/18 [History Last Taken 06/08/18 08:00] insulin aspart U-100 100 unit/mL (3 mL) subcutaneous pen (Novolog FlexPen U-100 Insulin aspart) See Protocol SQ 4X/DAY 05/20/18 [History Last Taken 05/20/18] insulin glargine U-300 conc 300 unit/mL (1.5 mL) subcutaneous pen (Touclifford SoloStar U-300 Insulin) 80 unit SQ QHS 05/20/18 [History Last Taken 05/19/18] loratadine 10 mg tablet (Allergy Relief (loratadine)) 10 mg PO DAILY 05/20/18 [History Last Taken 05/20/18] metoprolol tartrate 100 mg tablet 100 mg PO BID HEART 05/20/18 [History Last Taken 06/08/18 08:00] montelukast 10 mg tablet (Singulair) 10 mg PO QHS 05/20/18 [History Last Taken 05/12/18] multivitamin-ferrous fumarate-folic acid 18 mg-400 mcg tablet (Centrum Women) 1 tab PO DAILY SUPPLEMENT 05/20/18 [History Last Taken 05/20/18] omeprazole 20 mg capsule,delayed release 20 mg PO DAILY 05/20/18 [History Last Taken 06/08/18 08:00] pramipexole 0.25 mg tablet 0.25 mg PO QHS RESTLESS LEGS 05/20/18 [History Last Taken 05/19/18] sitagliptin phosphate 100 mg tablet (Januvia) 100 mg PO DAILY DM 05/20/18 [History Last Taken 05/20/18] tizanidine 4 mg tablet 4 mg PO TID SPASMS 05/20/18 [History Last Taken 05/20/18] tramadol 50 mg tablet 50 mg PO BID 05/20/18 [History Last Taken 05/20/18] vitamin B complex (B Complex-Vitamin B12 tablet) 1 tab PO DAILY SUPPLEMENT 05/20/18 [History Last Taken 05/20/18] vitamin E (dl, acetate) 180 mg (400 unit) capsule 400 unit PO DAILY SUPPLEMENT 05/20/18 [History Last Taken 05/20/18] acidophilus 25 million cell-pectin, citrus 100 mg tablet 1 tab PO BID ##20 05/22/18 [Rx Last Taken Unknown] doxycycline monohydrate 100 mg capsule 100 mg PO BID ##20 05/22/18 [Rx Last Taken Unknown] lisinopril 20 mg tablet 20 mg PO DAILY ##30 05/22/18 [Rx Last Taken Unknown] atorvastatin 20 mg tablet 20 mg PO QHS 06/01/18 [History Last Taken Unknown] calcium carbonate 600 mg calcium (1,500 mg) tablet 600 mg PO BID 06/01/18 [History Last Taken Unknown] fluconazole 100 mg tablet 100 mg PO QWEEK 06/01/18 [History Last Taken Unknown] insulin aspart U-100 100 unit/mL (3 mL) subcutaneous pen (Novolog FlexPen U-100 Insulin aspart) 12 units SQ 4X/DAY 06/01/18 [History Last Taken Unknown] meloxicam 15 mg tablet 15 mg PO BID 06/01/18 [History Last Taken Unknown] Allergy/AdvReac Type Severity Reaction Status Date / Time No Known Allergies Allergy Verified 06/01/18 08:14 Family History Mother Diabetes Maternal family history of severe diabetes, dying at age 34 secondary to diabetic complications. Father Diabetes Heart disease Cancer Reported as non-Hodgkin's lymphoma. Surgical History History of back surgery History of tonsillectomy and adenoidectomy S/P foot surgery, right Social History household members: significant other Smoking Status: Current every day smoker tobacco type: cigarettes Smoking packs per day: 0.5 Smoking cigarettes per day: 10.0 alcohol intake: never substance use type: does not use ROS Review of Systems ROS Unobtainable: due to endotracheal tube Physical Exam Const Constitutional Narrative: Intubated, sedated and mechanically ventilated. HEENT normocephalic and head/scalp atraumatic Mouth: endotracheal tube in place and OG tube in place Eyes PERRL Neck supple General: trachea midline Chest inspection of chest normal Resp Auscultation: Negative for rales, rhonchi or wheezes Cardio regular rate and regular rhythm GI normal to inspection, nondistended, normoactive bowel sounds Extremity General Extremity: Negative for clubbing Skin Skin Narrative: plantar diabetic foot ulceration Neuro Sensorium / Orientation: sedated on vent Lab / Micro Data 09/18/22 03:55 09/18/22 03:55 Labs: Laboratory Results - last 24 hr 09/18/22 00:37: WBC 11.1 H, RBC 4.89, Hgb 14.4, Hct 44.2, MCV 90.4, MCH 29.4, MCHC 32.6, RDW Std Deviation 49.2 H, RDW Coeff of Gerson 14.8 H, Plt Count 158, MPV 10.9, Immature Gran % (Auto) 0.500, Neut % (Auto) 83.5 H, Lymph % (Auto) 7.0 L, [place] % (Auto) 8.3, Eos % (Auto) 0.2, Baso % (Auto) 0.5, Absolute Neuts (auto) 9.2 H, Absolute Lymphs (auto) 0.77 L, Nucleated RBC % 0, PT 15.3 H, INR 1.2, APTT 32.9, Sodium 135 L, Potassium 3.4 L, Chloride 103, Carbon Dioxide 24.0, Anion Gap 8, BUN 40 H, Creatinine 1.97 H, Estim Creat Clear Calc 26.38, Est GFR (MDRD) Af Amer 34 L, Est GFR (MDRD) Non-Af 28 L, BUN/Creatinine Ratio 20.3 H, Glucose 198 H, Lactic Acid 1.9, Calcium 8.9, Magnesium 2.1, Total Bilirubin 0.60, AST 95 H, ALT 73 H, Alkaline Phosphatase 63, Total Protein 7.6, Albumin 2.8 L, Globulin 4.8 H, Albumin/Globulin Ratio 0.6 L, Urine Color Yellow, Urine Clarity Sl. Cloudy, Urine pH 5.0, Ur Specific [place] 1.020, Urine Protein 30 H, Urine Glucose (UA) 1000 H, Urine Ketones 5 H, Urine Occult Blood 150 H, Urine Nitrite Negative, Urine Bilirubin Negative, Urine Urobilinogen 1 H, Ur Leukocyte Esterase 500 H, Urine RBC 0 SEEN, Urine WBC >100 SEEN, Ur Squamous Epith Cells 0-5 SEEN, Urine Bacteria 4+, Urine Mucus 0 SEEN 09/18/22 03:02: Procalcitonin 8.16 H 09/18/22 03:55: WBC 9.4, RBC 4.89, Hgb 14.5, Hct 44.6, MCV 91.2, MCH 29.7, MCHC 32.5, RDW Std Deviation 50.4 H, RDW Coeff of Gerson 14.8 H, Plt Count 130 L, MPV 11.1, Immature Gran % (Auto) 0.600, Neut % (Auto) 82.0 H, Lymph % (Auto) 12.1 L, [place] % (Auto) 4.9, Eos % (Auto) 0.0, Baso % (Auto) 0.4, Absolute Neuts (auto) 7.7, Absolute Lymphs (auto) 1.13, Nucleated RBC % 0, Platelet Estimate SLT DEC, Anisocytosis 1+, Sodium 138, Potassium 4.1, Chloride 109 H, Carbon Dioxide 23.0, Anion Gap 6, BUN 37 H, Creatinine 1.66 H, Estim Creat Clear Calc 31.30, Est GFR (MDRD) Af Amer 41 L, Est GFR (MDRD) Non-Af 34 L, BUN/Creatinine Ratio 22.3 H, Glucose 145 H, Calcium 8.1 L, Total Bilirubin 0.40, AST 108 H, ALT 72 H, Alkaline Phosphatase 61, Total Creatine Kinase 2898 H, Troponin I High Sens 277 H*, Total Protein 7.4, Albumin 2.7 L, Globulin 4.7 H, Albumin/Globulin Ratio 0.6 L, Triglycerides 249 H 09/18/22 03:55: Triglycerides 246 H, Cholesterol 94, LDL Cholesterol 23, VLDL Cholesterol 50 H, HDL Cholesterol 21 L, TSH 0.27 L, Free T4 1.51 H, Free T3 pg/dL 1.9 L 09/18/22 05:30: MRSA (PCR) Negative ABG Data ABG results: ABG 09/18/22 09/18/22 03:46 05:26 Specimen Type ART ART Sample Site R Brach L Radial pH 7.42 7.39 Bicarbonate Actual 18.2 L 17.9 L Total CO2 19 19 Base Excess -6 L -7 L O2 Saturation 82 L 99 O2 % 80 ABG pCO2 28.3 L 29.7 L ABG pO2 45 L 154 H Zackery Test N/A Positive Respiration Rate 12 O2 Delivery Device Room Air Adult Vent Vent Mode AC Tidal Volume 450 POC PEEP 5 Rhythm Strip Rhythm Strip: A-fib Rate: 136 Ectopy: None Radiology Impression Brain CT 09/18/22 00:17 IMPRESSION: undefined Chest X-Ray 09/18/22 00:17 IMPRESSION: No acute pulmonary disease. Electronically Signed: Yimi Fleming MD at 1:31 EDT , Chest X-Ray 09/18/22 04:03 IMPRESSION: Endotracheal tube terminates 1.8 cm above the cm. Tip of the orogastric tube projects over the body of the stomach. Bilateral mild pulmonary opacities represent atelectasis and/or mild infection. Electronically Signed: Yimi Fleming MD at 6:38 EDT , Abdomen/Pelvis CT 09/18/22 04:49 IMPRESSION: undefined Charges/Coding Procedures Hospitalists Procedures: [id number] Critial Care 1st Hr
--- NOTE | 2022-09-18 07:21 | PN.HOSP_ITS ---
Reason for Visit Reason for Visit: Diagnoses Sepsis, unspecified organism (09/18/22) Subjective Subjective Events reviewed. Intubated after admission. Objective Data Objective Data Vital Signs: Vital Signs Temp Pulse Resp BP Pulse Ox O2 Del Method O2 Flow Rate 39.1 C H 102 H 18 97/54 L 99 Mechanical Ventilator 5 09/18/22 07:00 09/18/22 07:00 09/18/22 07:00 09/18/22 07:00 09/18/22 07:00 09/18/22 05:00 09/18/22 03:55 FiO2 75 09/18/22 05:28 Oxygen Flow Rate (L/min) 5 Oxygen Delivery Method Mechanical Ventilator Weight: 95.4 kg Body Mass Index (BMI) 37.3 Intake & Output: Intake and Output for Last 24 Hours 09/16/22 09/17/22 09/18/22 23:59 23:59 23:59 Intake Total 3548.91 / 3548.91 Output Total 300 / 300 Balance 3248.91 / 3248.91 Lab / Micro Data 09/18/22 03:55 09/18/22 03:55 Labs: Laboratory Results - last 24 hr 09/18/22 00:37: WBC 11.1 H, RBC 4.89, Hgb 14.4, Hct 44.2, MCV 90.4, MCH 29.4, MCHC 32.6, RDW Std Deviation 49.2 H, RDW Coeff of Gerson 14.8 H, Plt Count 158, MPV 10.9, Immature Gran % (Auto) 0.500, Neut % (Auto) 83.5 H, Lymph % (Auto) 7.0 L, [place] % (Auto) 8.3, Eos % (Auto) 0.2, Baso % (Auto) 0.5, Absolute Neuts (auto) 9.2 H, Absolute Lymphs (auto) 0.77 L, Nucleated RBC % 0, PT 15.3 H, INR 1.2, APTT 32.9, Sodium 135 L, Potassium 3.4 L, Chloride 103, Carbon Dioxide 24.0, Anion Gap 8, BUN 40 H, Creatinine 1.97 H, Estim Creat Clear Calc 26.38, Est GFR (MDRD) Af Amer 34 L, Est GFR (MDRD) Non-Af 28 L, BUN/Creatinine Ratio 20.3 H, Glucose 198 H, Lactic Acid 1.9, Calcium 8.9, Magnesium 2.1, Total Bilirubin 0.60, AST 95 H, ALT 73 H, Alkaline Phosphatase 63, Total Protein 7.6, Albumin 2.8 L, Globulin 4.8 H, Albumin/Globulin Ratio 0.6 L, Urine Color Yellow, Urine Clarity Sl. Cloudy, Urine pH 5.0, Ur Specific [place] 1.020, Urine Protein 30 H, Urine Glucose (UA) 1000 H, Urine Ketones 5 H, Urine Occult Blood 150 H, Urine Nitrite Negative, Urine Bilirubin Negative, Urine Urobilinogen 1 H, Ur Leukocyte Esterase 500 H, Urine RBC 0 SEEN, Urine WBC >100 SEEN, Ur Squamous Epith Cells 0-5 SEEN, Urine Bacteria 4+, Urine Mucus 0 SEEN 09/18/22 03:02: Procalcitonin 8.16 H 09/18/22 03:55: WBC 9.4, RBC 4.89, Hgb 14.5, Hct 44.6, MCV 91.2, MCH 29.7, MCHC 32.5, RDW Std Deviation 50.4 H, RDW Coeff of Gerson 14.8 H, Plt Count 130 L, MPV 11.1, Immature Gran % (Auto) 0.600, Neut % (Auto) 82.0 H, Lymph % (Auto) 12.1 L, [place] % (Auto) 4.9, Eos % (Auto) 0.0, Baso % (Auto) 0.4, Absolute Neuts (auto) 7.7, Absolute Lymphs (auto) 1.13, Nucleated RBC % 0, Platelet Estimate SLT DEC, Anisocytosis 1+, Sodium 138, Potassium 4.1, Chloride 109 H, Carbon Dioxide 23.0, Anion Gap 6, BUN 37 H, Creatinine 1.66 H, Estim Creat Clear Calc 31.30, Est GFR (MDRD) Af Amer 41 L, Est GFR (MDRD) Non-Af 34 L, BUN/Creatinine Ratio 22.3 H, Glucose 145 H, Calcium 8.1 L, Total Bilirubin 0.40, AST 108 H, ALT 72 H, Alkaline Phosphatase 61, Total Creatine Kinase 2898 H, Troponin I High Sens 277 H*, Total Protein 7.4, Albumin 2.7 L, Globulin 4.7 H, Albumin/Globulin Ratio 0.6 L, Triglycerides 249 H 09/18/22 03:55: Triglycerides 246 H, Cholesterol 94, LDL Cholesterol 23, VLDL Cholesterol 50 H, HDL Cholesterol 21 L, TSH 0.27 L, Free T4 1.51 H, Free T3 pg/dL 1.9 L 09/18/22 05:30: MRSA (PCR) Negative ABG Data ABG results: ABG 09/18/22 09/18/22 03:46 05:26 Specimen Type ART ART Sample Site R Brach L Radial pH 7.42 7.39 Bicarbonate Actual 18.2 L 17.9 L Total CO2 19 19 Base Excess -6 L -7 L O2 Saturation 82 L 99 O2 % 80 ABG pCO2 28.3 L 29.7 L ABG pO2 45 L 154 H Zackery Test N/A Positive Respiration Rate 12 O2 Delivery Device Room Air Adult Vent Vent Mode AC Tidal Volume 450 POC PEEP 5 Radiography Diagnostic Testing: Radiology Impression Brain CT 09/18/22 00:17 IMPRESSION: undefined Chest X-Ray 09/18/22 00:17 IMPRESSION: No acute pulmonary disease. Electronically Signed: Yimi Fleming MD at 1:31 EDT , Chest X-Ray 09/18/22 04:03 IMPRESSION: Endotracheal tube terminates 1.8 cm above the cm. Tip of the orogastric tube projects over the body of the stomach. Bilateral mild pulmonary opacities represent atelectasis and/or mild infection. Electronically Signed: Yimi Fleming MD at 6:38 EDT , Abdomen/Pelvis CT 09/18/22 04:49 IMPRESSION: undefined Rhythm Strip Rhythm Strip: A-fib Rate: 136 Ectopy: None Physical Exam Const Constitutional Narrative: inubated and sedated. Resp normal respiratory effort, no retractions, no use of accessory muscles and clear to auscultation bilaterally Cardio Cardio Narrative: coarse BS bilaterally. GI normal to inspection, nondistended, normoactive bowel sounds, soft to palpation, non-tender and non-distended Extremity normal to inspection Neuro oriented x3 Assessment & Plan Assessment/Plan (1) Sepsis: QUALIFIERS: Acute renal failure type: unspecified Sepsis acute organ dysfunction status: with acute organ dysfunction Sepsis type: sepsis due to unspecified organism Severe sepsis acute organ dysfunction type: acute renal failure Severe sepsis shock status: without septic shock Qualified Code(s): A41.9 - Sepsis, unspecified organism; R65.20 - Severe sepsis without septic shock; N17.9 - Acute kidney failure, unspecified PLAN: 2/2 UTI +/- Pneumonia +/- OM follow up cultures on pip/tazo and vanc (2) UTI (urinary tract infection): QUALIFIERS: Hematuria presence: without hematuria Urinary tract infection type: acute cystitis Qualified Code(s): N30.00 - Acute cystitis without hematuria PLAN: abx as above follow up cultures no hydronephrosis or nephrolithiasis on CT (3) Acute metabolic encephalopathy: PLAN: 2/[address] negative. (4) Afib: QUALIFIERS: Atrial fibrillation type: unspecified Qualified Code(s): I48.91 - Unspecified atrial fibrillation PLAN: On dilt gtt and amiodarone gtt and heparin gtt Cards consult check echo (5) Acute respiratory failure with hypoxia: PLAN: intubated edema v pneumonia pulm on consult. (6) Acute kidney injury: PLAN: suspect prerenal IVF monitor (7) Hypokalemia: PLAN: Resolved Admission K+ 3.4, magnesium level requested, supplementation given, repeat level in AM. (8) Transaminitis: PLAN: Mild Potentially associated with hypotension, recent evidence of [place] with likely hypovolemia with acute infectious presentation #1 and also atrial fibrillation with RVR: Admission CMP with AST/LT 95/73, continue treatment as noted and repeat CMP in a.m. (9) Osteomyelitis: QUALIFIERS: Osteomyelitis type: other chronic Osteomyelitis location: foot Laterality: right Qualified Code(s): M86.671 - Other chronic osteomyelitis, right ankle and foot PLAN: Abx as above ID and podiatry consults. (10) NSTEMI (non-ST elevated myocardial infarction): PLAN: favor type II event cardiology following echo ordered. PLAN: Plan Chronic conditions: * Diabetes mellitus type II with chronic diabetic neuropathy and history of chronic diabetic foot wound/osteomyelitis: Hold oral home regimen, continue home long-acting insulin regimen once dose clarified but low threshold to decrease to 1/2 dose while NPO status pending BS trending, NPO status given unsafe oral intake, maintain on q 6 hour ADA, accu checks w/ ISS, temporarily hold home gabapentin regimen. * Hypertension: Given presentation with hypotension and necessity for cardizem drip will hold all other HTN medications, may as noted need to d/c drip and transition to amiodarone, will add back her HTN regimen once appropriate. * Hyperlipidemia: Temporarily hold statin and fenofibrate regimen. * Restless leg syndrome: Temporarily hold home pramipexole regimen. * Allergic rhinitis: Temporarily hold Singulair and loratadine regimen. * Obesity: Weight loss and lifestyle changes will be encouraged. * Tobacco Abuse: Encouraged cessation, inpatient consultation per RT, NR if desired. * GERD: Will place on IV PPI. DVT prophylaxis: Heparin drip. CODE STATUS: Full code. Charges/Coding Procedures Hospitalists Procedures: Other Procedure - See Report (non-billable rounding as pt admitted after midnight. )
--- NOTE | 2022-09-18 07:27 | PCM.RX.CS ---
Consult Antibiotic Management Pharmacy has been consulted to manage selected antiobiotic: Vancomycin Type of Intervention Type of Consult: New start Suspected Infection Suspected Infection: Sepsis Labs Labs: Sodium 138 mmol/L (136-145) 09/18/22 03:55 Potassium 4.1 mmol/L (3.5-5.1) 09/18/22 03:55 Chloride 109 mmol/L (98-107) H 09/18/22 03:55 Carbon Dioxide 23.0 mmol/L (21.0-32.0) 09/18/22 03:55 Anion Gap 6 (5-15) 09/18/22 03:55 BUN 37 mg/dL (7-18) H 09/18/22 03:55 Creatinine 1.66 mg/dL (0.55-1.02) H 09/18/22 03:55 Est GFR (MDRD) Af Amer 41 mL/min (>60) L 09/18/22 03:55 Est GFR (MDRD) Non-Af 34 mL/min (>60) L 09/18/22 03:55 BUN/Creatinine Ratio 22.3 RATIO (10-20) H 09/18/22 03:55 Glucose 145 mg/dL (74-106) H 09/18/22 03:55 Goal Trough Goal Trough: 15-20 mcg/mL Pharmacy Plan for Drug Dosing Pharmacy Plan for Drug Dosing: NEW START IV VANCOMYCIN Consulting Physician: Dr. Kebede Indication: Sepsis secondary to UTI Goal Trough: 15-20 SrCr: 1.66 mg/dl CrCl: 41.6 ml/min (AdjBW 69.6kg) Comments: Vancomycin 2000mg x1 loading dose @ 0709/18/22 Vancomycin Dose: Vancomycin 750mg Q12H to start @ 189909/18/22 Pending Level: Vancomycin trough @ 182909/19/22 Pharmacy Service will continue to monitor and adjust dosing as required. Follow-Up Labs Follow-Up Labs: Trough: Vancomycin (1829)
--- NOTE | 2022-09-18 07:40 | NURSING ---
Patient arrived to ICU tachypenic, SOB, afib RVR and A&Ox2. Hospitalist notified of patient working to breath. Dr. Kebede at bedside at 0410. Decision made to intubate. 4mg Versed and 100mg Succinylcholine given at 0415. Patient intubated with 7.5 ETT tube. OG placed. Xray obtained
[2022-09-18] MEDS: Chlorhexidine 15 ML PO ×2 (07:48→22:02)
--- NOTE | 2022-09-18 08:00 | NURSING ---
Unable to assess CAM due to RASS -4.
--- NOTE | 2022-09-18 08:31 | PCM.CONS.C ---
Assessment & Plan Assessment/Plan (1) Atrial fibrillation with RVR: PLAN: Patient presents with atrial fibrillation with a rapid ventricular response rate. The above is likely secondary to the sepsis. I will recommend rate control with intravenous diltiazem like we are doing plus or minus amiodarone as necessary. Intravenous heparin will be continued for the time being. We will recommend echocardiogram to assess ventricular function. Depending on those findings further recommendations will be made. (2) NSTEMI (non-ST elevated myocardial infarction): PLAN: The patient at this time is noted to have a non-ST elevation myocardial infarction. We will continue with heparin, assess ventricular function and then depending on her progress over the next few days as well as the treatment of the sepsis further recommendations will be made as to whether any invasive therapy would be pursued. Thank you for allowing me to participate in the care of your patient. Please don't hesitate to call if any issues arise. HPI Consult Data Date of Consult: 09/18/22 HPI Narrative HPI Narrative: DAVIS AMIN, is a 57 F who presents to the emergent room after being brought in by friend, because she appeared to be confused and weak. She does have a history of paroxysmal atrial fibrillation, tobacco use, diabetes mellitus, diabetic nephropathy, hypertension and hyperlipidemia. She apparently was recently visiting from [place] and over the last 24 to 48 hours started developing the symptoms starting with nausea and emesis. In the emergency room was noted to be in atrial fibrillation with rapid ventricular response rate and was treated with intravenous diltiazem heparinized. Patient did not appear to be doing well and so was subsequently intubated. Cardiology was called to see her. FORMERLY [facility], [facility] Medical History Allergic rhinitis Chronic painful diabetic neuropathy Diabetes mellitus, type 2 Diabetic foot infection GERD (gastroesophageal reflux disease) HTN (hypertension) Hyperlipidemia Obesity PAF (paroxysmal atrial fibrillation) Restless leg syndrome Tobacco use Home Medications amitriptyline 100 mg tablet 100 mg PO QHS 05/20/18 [History Last Taken 05/19/18] amlodipine 5 mg tablet (Norvasc) 10 mg PO QHS 05/20/18 [History Last Taken 05/19/18] ammonium lactate 12 % lotion (AmLactin) 1 applic TP DAILY 05/20/18 [History Last Taken 05/19/18] ascorbic acid (vitamin C) 500 mg tablet (Vitamin C) 1,000 mg PO BIDCM 05/20/18 [History Last Taken 05/20/18] aspirin 81 mg tablet,delayed release 81 mg PO DAILY 05/20/18 [History Last Taken 05/20/18] docusate sodium 100 mg capsule 100 mg PO QHS 05/20/18 [History Last Taken 05/19/18] empagliflozin 25 mg tablet (Jardiance) 25 mg PO DAILY 05/20/18 [History Last Taken 05/20/18] enalapril maleate 20 mg tablet 20 mg PO DAILY 05/20/18 [History Last Taken 05/20/18] fenofibrate micronized 67 mg capsule 67 mg PO DAILY CHOLESTEROL 05/20/18 [History Last Taken 05/20/18] gabapentin 400 mg capsule 400 mg PO QHS 05/20/18 [History Last Taken 05/19/18] gabapentin 600 mg tablet 600 mg PO 4X/DAY 05/20/18 [History Last Taken 05/20/18] hydrochlorothiazide 25 mg tablet 25 mg PO DAILY 05/20/18 [History Last Taken 06/08/18 08:00] insulin aspart U-100 100 unit/mL (3 mL) subcutaneous pen (Novolog FlexPen U-100 Insulin aspart) See Protocol SQ 4X/DAY 05/20/18 [History Last Taken 05/20/18] insulin glargine U-300 conc 300 unit/mL (1.5 mL) subcutaneous pen (Toujeo SoloStar U-300 Insulin) 80 unit SQ QHS 05/20/18 [History Last Taken 05/19/18] loratadine 10 mg tablet (Allergy Relief (loratadine)) 10 mg PO DAILY 05/20/18 [History Last Taken 05/20/18] metoprolol tartrate 100 mg tablet 100 mg PO BID HEART 05/20/18 [History Last Taken 06/08/18 08:00] montelukast 10 mg tablet (Singulair) 10 mg PO QHS 05/20/18 [History Last Taken 05/12/18] multivitamin-ferrous fumarate-folic acid 18 mg-400 mcg tablet (Centrum Women) 1 tab PO DAILY SUPPLEMENT 05/20/18 [History Last Taken 05/20/18] omeprazole 20 mg capsule,delayed release 20 mg PO DAILY 05/20/18 [History Last Taken 06/08/18 08:00] pramipexole 0.25 mg tablet 0.25 mg PO QHS RESTLESS LEGS 05/20/18 [History Last Taken 05/19/18] sitagliptin phosphate 100 mg tablet (Januvia) 100 mg PO DAILY DM 05/20/18 [History Last Taken 05/20/18] tizanidine 4 mg tablet 4 mg PO TID SPASMS 05/20/18 [History Last Taken 05/20/18] tramadol 50 mg tablet 50 mg PO BID 05/20/18 [History Last Taken 05/20/18] vitamin B complex (B Complex-Vitamin B12 tablet) 1 tab PO DAILY SUPPLEMENT 05/20/18 [History Last Taken 05/20/18] vitamin E (dl, acetate) 180 mg (400 unit) capsule 400 unit PO DAILY SUPPLEMENT 05/20/18 [History Last Taken 05/20/18] acidophilus 25 million cell-pectin, citrus 100 mg tablet 1 tab PO BID ##20 05/22/18 [Rx Last Taken Unknown] doxycycline monohydrate 100 mg capsule 100 mg PO BID ##20 05/22/18 [Rx Last Taken Unknown] lisinopril 20 mg tablet 20 mg PO DAILY ##30 05/22/18 [Rx Last Taken Unknown] atorvastatin 20 mg tablet 20 mg PO QHS 06/01/18 [History Last Taken Unknown] calcium carbonate 600 mg calcium (1,500 mg) tablet 600 mg PO BID 06/01/18 [History Last Taken Unknown] fluconazole 100 mg tablet 100 mg PO QWEEK 06/01/18 [History Last Taken Unknown] insulin aspart U-100 100 unit/mL (3 mL) subcutaneous pen (Novolog FlexPen U-100 Insulin aspart) 12 units SQ 4X/DAY 06/01/18 [History Last Taken Unknown] meloxicam 15 mg tablet 15 mg PO BID 06/01/18 [History Last Taken Unknown] Allergy/AdvReac Type Severity Reaction Status Date / Time No Known Allergies Allergy Verified 06/01/18 08:14 Family History Mother Diabetes Maternal family history of severe diabetes, dying at age 34 secondary to diabetic complications. Father Diabetes Heart disease Cancer Reported as non-Hodgkin's lymphoma. Surgical History History of back surgery History of tonsillectomy and adenoidectomy S/P foot surgery, right Social History household members: significant other Smoking Status: Current every day smoker tobacco type: cigarettes Smoking packs per day: 0.5 Smoking cigarettes per day: 10.0 alcohol intake: never substance use type: does not use ROS Review of Systems ROS Unobtainable: due to encephalopathy Physical Exam Const Constitutional Narrative: Intubated and not communicative HEENT hearing grossly normal bilaterally Head and Scalp: atraumatic Eyes EOMs intact bilaterally Neck General: normal visual inspection Chest inspection of chest normal and palpation of chest normal Resp normal respiratory effort Auscultation: clear to auscultation bilaterally Cardio S1 normal heart sound and S2 normal heart sound Jugular Venous Distention: JVD Rhythm: abnormal rhythm regularly irregular GI normal to inspection, nondistended, normoactive bowel sounds Extremity normal capillary refill and no pedal edema Peripheral Pulses: Yes pulses 2+ throughout and femoral pulses present Skin no rashes or lesions noted Neuro oriented x3 and CN's II-XII intact bilaterally Psych Appearance: grossly normal and appropriate Risk Stratification Risk Stratification Applicable: No Objective Data Vital Signs: Vital Signs Temp Pulse Resp BP Pulse Ox O2 Del Method O2 Flow Rate 102.4 F H 94 15 97/54 L 99 Mechanical Ventilator 75 09/18/22 07:00 09/18/22 07:20 09/18/22 07:20 09/18/22 07:00 09/18/22 07:20 09/18/22 07:00 09/18/22 06:00 FiO2 55 09/18/22 07:20 Oxygen Flow Rate (L/min) 75 Oxygen Delivery Method Mechanical Ventilator Weight: 210 lb 5.136 oz Body Mass Index (BMI) 37.3 Intake & Output: Intake and Output for Last 24 Hours 09/16/22 09/17/22 09/18/22 23:59 23:59 23:59 Intake Total 3652.23 / 3652.23 Output Total 300 / 300 Balance 3352.23 / 3352.23 Lab / Micro Data 09/18/22 03:55 09/18/22 03:55 Labs: Laboratory Results - last 24 hr 09/18/22 00:37: WBC 11.1 H, RBC 4.89, Hgb 14.4, Hct 44.2, MCV 90.4, MCH 29.4, MCHC 32.6, RDW Std Deviation 49.2 H, RDW Coeff of [place]erson 14.8 H, Plt Count 158, MPV 10.9, Immature Gran % (Auto) 0.500, Neut % (Auto) 83.5 H, Lymph % (Auto) 7.0 L, [place] % (Auto) 8.3, Eos % (Auto) 0.2, Baso % (Auto) 0.5, Absolute Neuts (auto) 9.2 H, Absolute Lymphs (auto) 0.77 L, Nucleated RBC % 0, PT 15.3 H, INR 1.2, APTT 32.9, Sodium 135 L, Potassium 3.4 L, Chloride 103, Carbon Dioxide 24.0, Anion Gap 8, BUN 40 H, Creatinine 1.97 H, Estim Creat Clear Calc 26.38, Est GFR (MDRD) Af Amer 34 L, Est GFR (MDRD) Non-Af 28 L, BUN/Creatinine Ratio 20.3 H, Glucose 198 H, Lactic Acid 1.9, Calcium 8.9, Magnesium 2.1, Total Bilirubin 0.60, AST 95 H, ALT 73 H, Alkaline Phosphatase 63, Total Protein 7.6, Albumin 2.8 L, Globulin 4.8 H, Albumin/Globulin Ratio 0.6 L, Urine Color Yellow, Urine Clarity Sl. Cloudy, Urine pH 5.0, Ur Specific [place] 1.020, Urine Protein 30 H, Urine Glucose (UA) 1000 H, Urine Ketones 5 H, Urine Occult Blood 150 H, Urine Nitrite Negative, Urine Bilirubin Negative, Urine Urobilinogen 1 H, Ur Leukocyte Esterase 500 H, Urine RBC 0 SEEN, Urine WBC >100 SEEN, Ur Squamous Epith Cells 0-5 SEEN, Urine Bacteria 4+, Urine Mucus 0 SEEN 09/18/22 03:02: Procalcitonin 8.16 H 09/18/22 03:55: WBC 9.4, RBC 4.89, Hgb 14.5, Hct 44.6, MCV 91.2, MCH 29.7, MCHC 32.5, RDW Std Deviation 50.4 H, RDW Coeff of [place] 14.8 H, Plt Count 130 L, MPV 11.1, Immature Gran % (Auto) 0.600, Neut % (Auto) 82.0 H, Lymph % (Auto) 12.1 L, Laurel % (Auto) 4.9, Eos % (Auto) 0.0, Baso % (Auto) 0.4, Absolute Neuts (auto) 7.7, Absolute Lymphs (auto) 1.13, Nucleated RBC % 0, Platelet Estimate SLT DEC, Anisocytosis 1+, Sodium 138, Potassium 4.1, Chloride 109 H, Carbon Dioxide 23.0, Anion Gap 6, BUN 37 H, Creatinine 1.66 H, Estim Creat Clear Calc 31.30, Est GFR (MDRD) Af Amer 41 L, Est GFR (MDRD) Non-Af 34 L, BUN/Creatinine Ratio 22.3 H, Glucose 145 H, Calcium 8.1 L, Total Bilirubin 0.40, AST 108 H, ALT 72 H, Alkaline Phosphatase 61, Total Creatine Kinase 2898 H, Troponin I High Sens 277 H*, Total Protein 7.4, Albumin 2.7 L, Globulin 4.7 H, Albumin/Globulin Ratio 0.6 L, Triglycerides 249 H 09/18/22 03:55: Triglycerides 246 H, Cholesterol 94, LDL Cholesterol 23, VLDL Cholesterol 50 H, HDL Cholesterol 21 L, TSH 0.27 L, Free T4 1.51 H, Free T3 pg/dL 1.9 L 09/18/22 05:30: MRSA (PCR) Negative ABG Data ABG results: ABG 09/18/22 09/18/22 03:46 05:26 Specimen Type ART ART Sample Site R Brach L Radial pH 7.42 7.39 Bicarbonate Actual 18.2 L 17.9 L Total CO2 19 19 Base Excess -6 L -7 L O2 Saturation 82 L 99 O2 % 80 ABG pCO2 28.3 L 29.7 L ABG pO2 45 L 154 H Zackery Test N/A Positive Respiration Rate 12 O2 Delivery Device Room Air Adult Vent Vent Mode AC Tidal Volume 450 POC PEEP 5 Rhythm Strip Rhythm Strip: A-fib Rate: 136 Ectopy: None Cardiology Labs/Tests 09/18/22 00:37: WBC 11.1 H, RBC 4.89, Hgb 14.4, Hct 44.2, MCV 90.4, MCH 29.4, MCHC 32.6, Plt Count 158, MPV 10.9, Immature Gran % (Auto) 0.500, Neut % (Auto) 83.5 H, Lymph % (Auto) 7.0 L, [place] % (Auto) 8.3, Eos % (Auto) 0.2, Baso % (Auto) 0.5, Absolute Neuts (auto) 9.2 H, Nucleated RBC % 0, PT 15.3 H, INR 1.2, APTT 32.9, Sodium 135 L, Potassium 3.4 L, Chloride 103, Carbon Dioxide 24.0, Anion Gap 8, BUN 40 H, Creatinine 1.97 H, Est GFR (MDRD) Af Amer 34 L, Est GFR (MDRD) Non-Af 28 L, BUN/Creatinine Ratio 20.3 H, Glucose 198 H, Lactic Acid 1.9, Calcium 8.9, Magnesium 2.1, Total Bilirubin 0.60, Urine Color Yellow, Urine Clarity Sl. Cloudy, Urine pH 5.0, Ur Specific [place] 1.020, Urine Protein 30 H, Urine Glucose (UA) 1000 H, Urine Ketones 5 H, Urine Occult Blood 150 H, Urine Nitrite Negative, Urine Bilirubin Negative, Urine Urobilinogen 1 H, Ur Leukocyte Esterase 500 H, Urine RBC 0 SEEN, Urine WBC >100 SEEN 09/18/22 03:46: pH 7.42, Bicarbonate Actual 18.2 L, Base Excess -6 L, O2 Saturation 82 L, ABG pCO2 28.3 L, ABG pO2 45 L, Zackery Test N/A 09/18/22 03:55: WBC 9.4, RBC 4.89, Hgb 14.5, Hct 44.6, MCV 91.2, MCH 29.7, MCHC 32.5, Plt Count 130 L, MPV 11.1, Immature Gran % (Auto) 0.600, Neut % (Auto) 82.0 H, Lymph % (Auto) 12.1 L, [place] % (Auto) 4.9, Eos % (Auto) 0.0, Baso % (Auto) 0.4, Absolute Neuts (auto) 7.7, Nucleated RBC % 0, Sodium 138, Potassium 4.1, Chloride 109 H, Carbon Dioxide 23.0, Anion Gap 6, BUN 37 H, Creatinine 1.66 H, Est GFR (MDRD) Af Amer 41 L, Est GFR (MDRD) Non-Af 34 L, BUN/Creatinine Ratio 22.3 H, Glucose 145 H, Calcium 8.1 L, Total Bilirubin 0.40, Triglycerides 249 H 09/18/22 03:55: Triglycerides 246 H, Cholesterol 94, LDL Cholesterol 23, VLDL Cholesterol 50 H, HDL Cholesterol 21 L 09/18/22 05:26: pH 7.39, Bicarbonate Actual 17.9 L, Base Excess -7 L, O2 Saturation 99, ABG pCO2 29.7 L, ABG pO2 154 H, Zackery Test Positive Rhythm: EKG: ECHO: Stress Test: Cardiac Cath: PCI: CT Surgery: Holter monitor: EPS: PPM: CXR: Chest CT Scan: Radiography Diagnostic Testing: Radiology Impression Brain CT 09/18/22 00:17 IMPRESSION: undefined Chest X-Ray 09/18/22 00:17 IMPRESSION: No acute pulmonary disease. Electronically Signed: Yimi Fleming MD at 1:31 EDT , Chest X-Ray 09/18/22 04:03 IMPRESSION: Endotracheal tube terminates 1.8 cm above the cm. Tip of the orogastric tube projects over the body of the stomach. Bilateral mild pulmonary opacities represent atelectasis and/or mild infection. Electronically Signed: Yimi Fleming MD at 6:38 EDT , Abdomen/Pelvis CT 09/18/22 04:49 IMPRESSION: undefined
[2022-09-18 08:39] LABS: Troponin-I HS 270 pg/mL (3.0-54.0)
[2022-09-18] MEDS: Aspirin 81 MG TAB.CHEW PO (09:44)
--- NOTE | 2022-09-18 09:49 | WOUNDNOTE ---
wound photo: right plantar foot
--- NOTE | 2022-09-18 09:49 | WOUNDNOTE ---
wound photo: left foot
--- NOTE | 2022-09-18 09:55 | CASEMGMT ---
Patient is currently intubated and unable to participate in CM assessment at this time. Patient's only contact is friend, Halie Celeste. RN CAPO called Halie to inquire about next of kin. Per Halie, patient's and father couple years ago. Patient is living in [place] with boyfriend. Per Halie, patient was hospitalized about a month ago for heart palpitations, Afib, and sepsis with foot wound. Per Halie, patient has an aunt, uncle, and cousin. Halie only has contact information for cousin Mitch [phone]. RN CAPO called and left message requesting call back. RN CM updated floor nurse. CM will continue to follow this patient and plan for a safe discharge.
--- NOTE | 2022-09-18 10:00 | NURSING ---
Removed patient's ring from left ring finger, placed in cup w/ lid and locked in ICU 2 med drawer.
[2022-09-18] MEDS: Amiodarone 360 MG in Dextrose 5% Viaflo Bag 192.8 ML 16.7 MG CONT INF ×2 (10:28→23:19)
--- NOTE | 2022-09-18 10:30 | NURSING ---
Pt awake and calm. Following commands, answering yes or no questions by nodding head. This RN asked pt if it was okay to share information w/ Gina, pt nodded head yes.
--- NOTE | 2022-09-18 10:35 | RAD_ITS ---
STUDY: X-RAY - RIGHT FOOT CLINICAL: Female, 57 years old. Possible osteo TECHNIQUE: 2 view(s) of the foot. COMPARISON: Comparison is made with prior study June 08, 2018. FINDINGS: There is an enthesophyte involving the posterior superior calcaneus at the site of insertion of the Achilles tendon. Plantar spur. Normal visualized subtalar, talonavicular, calcaneocuboid, tarsal and tarsometatarsal articulations. Degenerative changes at the first tarsometatarsal joint. Healed fracture of the midportion of the second metatarsal with overlying deformity. There is degenerative arthrosis of the metatarsophalangeal joint of the hallux . Normal tibial and fibular sesamoid bones. Normal interphalangeal joint of the great toe. Normal phalanges of the great toe. Flexion deformity at the sternum and fourth metatarsophalangeal joints. Decreased bony density at the base of the proximal phalanx of the fifth toe. Early osteomyelitis should be ruled out. RAD/Foot 2 Views IMPRESSION: Possible early osteomyelitis at the fifth metatarsal phalangeal joint with overlying soft tissue swelling. Calcaneal spurs. Electronically Signed: Baljeet Saldana MD at 14:25 EDT ,
--- NOTE | 2022-09-18 11:00 | NURSING ---
Pt's uncle Kip Floyd called in wanting information. This RN asked pt if this was okay. Pt nodded head yes.
[2022-09-18 12:10] LABS: Partial Thromboplast Time 37.6 Seconds (24.1-36.2)
[2022-09-18 12:26] LABS: Troponin-I HS 184 pg/mL (3.0-54.0)
[2022-09-18 12:28] LABS: Bedside Glucose 161 mg/dL (74-106)
[2022-09-18] MEDS: Insulin Lispro 100 UNIT/ML INSULN.PEN SC (12:57)
[2022-09-18] MEDS: Heparin Injection (Vial) 5,000 UNIT/ML VIAL IV (13:02)
--- NOTE | 2022-09-18 13:08 | WOUNDNOTE ---
Dr Ewing in to assess bilateral foot wounds. there was very minimal drainage noted. no redness. no purulence noted. friend present in room and states she had been following with a mural artist back home. states pt does not take care of herself. applied betadine moistened gauze dressing. pt tolerated well.
--- NOTE | 2022-09-18 13:26 | CON.PCM_ITS ---
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 Site was painted with Betadine and dress ed with dry sterile dressing. Right foot subsecond/third metatarsal head ulceration with surrounding hyperkeratosis does probe close to bone, likely second metatarsal. There is no erythema, no purulent drainage, no malodor, no palpable fluctuance/bogginess, no lymphangitic streaking, no visible abscess formation. Ulcerative site appears healthy granular base with no signs of infection. This ulcerative site was painted with Betadine and dressed with a dry sterile dressing. Right foot plantar ulceration measures 2 cm x 1.5 cm x 0.4 cm I do believe ulceration caused by rigid hammertoe deformity with dorsal dislocation of the third digit driving metatarsal head into the ground during weightbearing. Radiographic imaging was obtained of the right foot on 09/18/2022. Radiologist interpretation possible early osteomyelitis of the fifth metatarsophalangeal joint with overlying soft tissue swelling. Calcaneal spurs. As ulcerative site located more towards subsecond/third metatarsal head with no overlying wound about the fifth metatarsal or localized signs of infection I do not agree with osteomyelitis of the fifth metatarsal head. I have reviewed radiographic imaging of the right foot. There does appear to be some pressure changes/bone edema about the fifth metatarsal head consistent with hammertoe deformities. There is old fracture of the second metatarsal. No evidence of osteomyelitis of the second or third metatarsal. Blood culture obtained, awaiting results. Wound culture obtained, awaiting results. WBC upon admission 11.1, decreased to 9.4. Lactic acid 1.9, urine culture demonstrates slight cloudy appearance with glucose 1000, occult blood 150, leukocyte esterase 500, bacteria +4 seen per field power. Currently receiving IV Vanco/Zosyn. Medicine team currently following for medical management, they are greatly appreciated Wound nurse following for assisting dressing changes she is greatly appreciated Recommend daily dressing changes consisting of Betadine and dry sterile dressing. Recommend nonweightbearing status to the right lower extremity At this time wounds are stable with no signs of infection, podiatric surgical intervention not anticipated. Podiatry will continue to follow Please do not hesitate to call for questions or concerns Juan Ewing Jr. D.P.M. [facility] [phone] HPI Consult Data Date of Consult: 09/18/22 HPI Narrative Reason for Consultation: Bilateral foot wound HPI Narrative: DAVIS AMIN, is a 57 F who presents to [facility] for increasing confusion, N/V, dysuria, and foul-smelling urine. She has PMHx of DM type II with peripheral polyneuropathy, history of diabetic foot infection/chronic osteomyelitis, HTN, HLD, obesity, GERD, tobacco use, PAF, RLS. Her friend states she was visiting from [place] when she developed increasing foul smelling urine and dysuria associated with new onset of nausea and emesis without specific fever or chills. Friend was concerned over increasing confusion and brought her to the hospital for evaluation. Patient did receive dose of Rocephin in the ED. Friend is aiding in answering questions as patient is in ICU and intubated. Patient is awake and can nod yes or no for answering questions. Friend states she was following with a cable television technician in [place] and had undergone debridement of foot wounds prior to visiting. Patient did undergo work-up in ED with WBC 11.1 with left shift, glucose 198, BUN/creatinine 40/1.97, lactic acid 1.9, sodium 135, potassium 3.4, urinalysis with glucose 1000, ketones 5, occult blood 115, leukocyte esterase 500, urine WBCs greater than 100 with +4 urine bacteria seen. Patient was admitted to the ICU and podiatry was consulted for right foot ulceration. [facility] Medical History Allergic rhinitis Chronic painful diabetic neuropathy Diabetes mellitus, type 2 Diabetic foot infection GERD (gastroesophageal reflux disease) HTN (hypertension) Hyperlipidemia Obesity PAF (paroxysmal atrial fibrillation) Restless leg syndrome Tobacco use Home Medications amitriptyline 100 mg tablet 100 mg PO QHS 05/20/18 [History Last Taken 05/19/18] amlodipine 5 mg tablet (Norvasc) 10 mg PO QHS 05/20/18 [History Last Taken ] ammonium lactate 12 % lotion (AmLactin) 1 applic TP DAILY 05/20/18 [History Last Taken 05/19/18] ascorbic acid (vitamin C) 500 mg tablet (Vitamin C) 1,000 mg PO BIDCM 05/20/18 [History Last Taken 05/20/18] aspirin 81 mg tablet,delayed release 81 mg PO DAILY 05/20/18 [History Last Taken 05/20/18] docusate sodium 100 mg capsule 100 mg PO QHS 05/20/18 [History Last Taken 05/19/18] empagliflozin 25 mg tablet (Jardiance) 25 mg PO DAILY 05/20/18 [History Last Taken 05/20/18] enalapril maleate 20 mg tablet 20 mg PO DAILY 05/20/18 [History Last Taken 05/20/18] fenofibrate micronized 67 mg capsule 67 mg PO DAILY CHOLESTEROL 05/20/18 [History Last Taken 05/20/18] gabapentin 400 mg capsule 400 mg PO QHS 05/20/18 [History Last Taken 05/19/18] gabapentin 600 mg tablet 600 mg PO 4X/DAY 05/20/18 [History Last Taken 05/20/18] hydrochlorothiazide 25 mg tablet 25 mg PO DAILY 05/20/18 [History Last Taken 06/08/18 08:00] insulin aspart U-100 100 unit/mL (3 mL) subcutaneous pen (Novolog FlexPen U-100 Insulin aspart) See Protocol SQ 4X/DAY 05/20/18 [History Last Taken 05/20/18] insulin glargine U-300 conc 300 unit/mL (1.5 mL) subcutaneous pen (Toujeo SoloStar U-300 Insulin) 80 unit SQ QHS 05/20/18 [History Last Taken 05/19/18] loratadine 10 mg tablet (Allergy Relief (loratadine)) 10 mg PO DAILY 05/20/18 [History Last Taken 05/20/18] metoprolol tartrate 100 mg tablet 100 mg PO BID HEART 05/20/18 [History Last Taken 06/08/18 08:00] montelukast 10 mg tablet (Singulair) 10 mg PO QHS 05/20/18 [History Last Taken 05/12/18] multivitamin-ferrous fumarate-folic acid 18 mg-400 mcg tablet (Centrum Women) 1 tab PO DAILY SUPPLEMENT 05/20/18 [History Last Taken 05/20/18] omeprazole 20 mg capsule,delayed release 20 mg PO DAILY 05/20/18 [History Last Taken 06/08/18 08:00] pramipexole 0.25 mg tablet 0.25 mg PO QHS RESTLESS LEGS 05/20/18 [History Last Taken 05/19/18] sitagliptin phosphate 100 mg tablet (Januvia) 100 mg PO DAILY DM 05/20/18 [History Last Taken 05/20/18] tizanidine 4 mg tablet 4 mg PO TID SPASMS 05/20/18 [History Last Taken 05/20/18] tramadol 50 mg tablet 50 mg PO BID 05/20/18 [History Last Taken 05/20/18] vitamin B complex (B Complex-Vitamin B12 tablet) 1 tab PO DAILY SUPPLEMENT 05/20/18 [History Last Taken 05/20/18] vitamin E (dl, acetate) 180 mg (400 unit) capsule 400 unit PO DAILY SUPPLEMENT 05/20/18 [History Last Taken 05/20/18] acidophilus 25 million cell-pectin, citrus 100 mg tablet 1 tab PO BID ##20 05/22/18 [Rx Last Taken Unknown] doxycycline monohydrate 100 mg capsule 100 mg PO BID ##20 05/22/18 [Rx Last Taken Unknown] lisinopril 20 mg tablet 20 mg PO DAILY ##30 05/22/18 [Rx Last Taken Unknown] atorvastatin 20 mg tablet 20 mg PO QHS 06/01/18 [History Last Taken Unknown] calcium carbonate 600 mg calcium (1,500 mg) tablet 600 mg PO BID 06/01/18 [History Last Taken Unknown] fluconazole 100 mg tablet 100 mg PO QWEEK 06/01/18 [History Last Taken Unknown] insulin aspart U-100 100 unit/mL (3 mL) subcutaneous pen (Novolog FlexPen U-100 Insulin aspart) 12 units SQ 4X/DAY 06/01/18 [History Last Taken Unknown] meloxicam 15 mg tablet 15 mg PO BID 06/01/18 [History Last Taken Unknown] Allergy/AdvReac Type Severity Reaction Status Date / Time No Known Allergies Allergy Verified 03/12/19 08:14 Family History Mother Diabetes Maternal family history of severe diabetes, dying at age 34 secondary to diabetic complications. Father Diabetes Heart disease Cancer Reported as non-Hodgkin's lymphoma. Surgical History History of back surgery History of tonsillectomy and adenoidectomy S/P foot surgery, right Social History household members: significant other Smoking Status: Current every day smoker tobacco type: cigarettes Smoking packs per day: 0.5 Smoking cigarettes per day: 10.0 alcohol intake: never substance use type: does not use ROS ROS Narrative Patient unable to give ROS secondary to intubation Physical Exam Const alert, oriented x3 and no apparent distress Constitutional Narrative: Patient can nod yes and no to answer questions while intubated. Patient is awake and alert. HEENT normocephalic Eyes General Eye: normal appearance of both eyes Neck General: normal visual inspection Lymph Lymphatic: no lymphadenopathy noted and no lymphedema noted Resp Resp Narrative: Patient intubated with normal respiratory effort Cardio Cardio Narrative: Irregularly irregular Extremity normal capillary refill, no calf tenderness and no pedal edema Extremity Narrative: DP and PT pulses palpable bilateral with adequate capillary fill time to the digits bilateral Dermatological: Skin is mildly xerotic to the foot with plantar callus to the distal hallux of the left foot with distal hallux ulceration. Ulceration appears stable with granular base and no signs of infection. Hyperkeratosis of the second third metatarsal of the left foot without wound formation. There is an ulceration subsecond third metatarsal head of the right foot with granular base and surrounding hyperkeratosis. There is no erythema, no purulent drainage, no malodor, no palpable fluctuance/bogginess noted, no visible abscess formation, no lymphangitic streaking noted. Ulceration does probe close to bone of second metatarsal. Musculoskeletal: Hammertoe deformity digits 2 through 5 bilateral, deformity noted to be rigid. There is decreased range of motion of the ankle joint in dorsiflexion with the knee extended without pain or crepitus bilateral. Full smooth pain-free range of motion of the first metatarsophalangeal joint bilateral. Skin no rashes or lesions noted, skin turgor normal and no jaundice Neuro moves all extremities Neuro Narrative: Decreased protective sensation to the foot secondary to diabetic peripheral polyneuropathy Lab / Micro Data 09/18/22 03:55 09/18/22 03:55 Labs: Laboratory Results - last 24 hr 09/18/22 00:37: WBC 11.1 H, RBC 4.89, Hgb 14.4, Hct 44.2, MCV 90.4, MCH 29.4, MCHC 32.6, RDW Std Deviation 49.2 H, RDW Coeff of Gerson 14.8 H, Plt Count 158, MPV 10.9, Immature Gran % (Auto) 0.500, Neut % (Auto) 83.5 H, Lymph % (Auto) 7.0 L, [place] % (Auto) 8.3, Eos % (Auto) 0.2, Baso % (Auto) 0.5, Absolute Neuts (auto) 9.2 H, Absolute Lymphs (auto) 0.77 L, Nucleated RBC % 0, PT 15.3 H, INR 1.2, APTT 32.9, Sodium 135 L, Potassium 3.4 L, Chloride 103, Carbon Dioxide 24.0, Anion Gap 8, BUN 40 H, Creatinine 1.97 H, Estim Creat Clear Calc 26.38, Est GFR (MDRD) Af Amer 34 L, Est GFR (MDRD) Non-Af 28 L, BUN/Creatinine Ratio 20.3 H, Glucose 198 H, Lactic Acid 1.9, Calcium 8.9, Magnesium 2.1, Total Bilirubin 0.60, AST 95 H, ALT 73 H, Alkaline Phosphatase 63, Total Protein 7.6, Albumin 2.8 L, Globulin 4.8 H, Albumin/Globulin Ratio 0.6 L, Urine Color Yellow, Urine Clarity Sl. Cloudy, Urine pH 5.0, Ur Specific [place] 1.020, Urine Protein 30 H, Urine Glucose (UA) 1000 H, Urine Ketones 5 H, Urine Occult Blood 150 H, Urine Nitrite Negative, Urine Bilirubin Negative, Urine Urobilinogen 1 H, Ur Leukocyte Esterase 500 H, Urine RBC 0 SEEN, Urine WBC >100 SEEN, Ur Squamous Epith Cells 0-5 SEEN, Urine Bacteria 4+, Urine Mucus 0 SEEN 09/18/22 03:02: Procalcitonin 8.16 H 09/18/22 03:55: WBC 9.4, RBC 4.89, Hgb 14.5, Hct 44.6, MCV 91.2, MCH 29.7, MCHC 32.5, RDW Std Deviation 50.4 H, RDW Coeff of [place] 14.8 H, Plt Count 130 L, MPV 11.1, Immature Gran % (Auto) 0.600, Neut % (Auto) 82.0 H, Lymph % (Auto) 12.1 L, [place] % (Auto) 4.9, Eos % (Auto) 0.0, Baso % (Auto) 0.4, Absolute Neuts (auto) 7.7, Absolute Lymphs (auto) 1.13, Nucleated RBC % 0, Platelet Estimate SLT DEC, Anisocytosis 1+, Sodium 138, Potassium 4.1, Chloride 109 H, Carbon Dioxide 23.0, Anion Gap 6, BUN 37 H, Creatinine 1.66 H, Estim Creat Clear Calc 31.30, Est GFR (MDRD) Af Amer 41 L, Est GFR (MDRD) Non-Af 34 L, BUN/Creatinine Ratio 22.3 H, Glucose 145 H, Calcium 8.1 L, Total Bilirubin 0.40, AST 108 H, ALT 72 H, Alkaline Phosphatase 61, Total Creatine Kinase 2898 H, Troponin I High Sens 277 H*, Total Protein 7.4, Albumin 2.7 L, Globulin 4.7 H, Albumin/Globulin Ratio 0.6 L, Triglycerides 249 H 09/18/22 03:55: Triglycerides 246 H, Cholesterol 94, LDL Cholesterol 23, VLDL Cholesterol 50 H, HDL Cholesterol 21 L, TSH 0.27 L, Free T4 1.51 H, Free T3 pg/dL 1.9 L 09/18/22 05:30: MRSA (PCR) Negative 09/18/22 08:10: Troponin I High Sens 270 H* 09/18/22 11:45: APTT 37.6 H, Troponin I High Sens 184 H* 09/18/22 11:57: POC Glucose 161 H Micro: Microbiology 09/18/22 04:20 Sputum, Tracheal Aspirate Gram Stain - Final ABG Data ABG results: ABG 09/18/22 09/18/22 03:46 05:26 Specimen Type ART ART Sample Site R Brach L Radial pH 7.42 7.39 Bicarbonate Actual 18.2 L 17.9 L Total CO2 19 19 Base Excess -6 L -7 L O2 Saturation 82 L 99 O2 % 80 ABG pCO2 28.3 L 29.7 L ABG pO2 45 L 154 H Zackery Test N/A Positive Respiration Rate 12 O2 Delivery Device Room Air Adult Vent Vent Mode AC Tidal Volume 450 POC PEEP 5 Rhythm Strip Rhythm Strip: A-fib Rate: 136 Ectopy: None Radiology Impression Brain CT 09/18/22 00:17 IMPRESSION: undefined Chest X-Ray 09/18/22 00:17 IMPRESSION: No acute pulmonary disease. Electronically Signed: Yimi Fleming MD at 1:31 EDT , Echocardiogram 09/18/22 03:18 Interpretation Summary Normal LV size. Left ventricular systolic function is normal. The estimated ejection fraction is 60 %. The left atrium is mildly enlarged. Pulmonary artery systolic pressure is 30 mmHg. Contrast injection was performed. Ordering Physician: Jennifer Kebede Performed By: Carlos Hamm RCS Chest X-Ray 09/18/22 04:03 IMPRESSION: Endotracheal tube terminates 1.8 cm above the cm. Tip of the orogastric tube projects over the body of the stomach. Bilateral mild pulmonary opacities represent atelectasis and/or mild infection. Electronically Signed: Yimi Fleming MD at 6:38 EDT , Abdomen/Pelvis CT 09/18/22 04:49 IMPRESSION: undefined Venous Doppler Study 09/18/22 05:30 Interpretation Summary No evidence for acute deep venous thrombosis bilateral lower extremities with patent and compressible bilateral great saphenous veins. Pulsatile venous flow is noted bilaterally consistent with proximal venous hypertension or obstruction. Clinical correlation would be appropriate. Ordering Physician: Jennifer Kebede Referring Physician: N/A Performed By: Carson Beebe RVT
--- NOTE | 2022-09-18 14:12 | CASEMGMT ---
JOAQUÍN SCANLON met with friend Halie and her daughters to discuss patient's background. Per Halie, patient moved to [place] with father a few years ago and her father while in [place]. Patient stayed in [place] and while in [place] in [place]. Patient currently has boyfriend and they were evicted from apartment and then moved to [place] and is currently staying in a hotel. Patient does not have medications or glucometer with supplies. Per Halie, patient is also battling with depression since father and . Patient was on her way to visit friend Halie and was admitted to [facility]. Halie states that if patient would need SNF, prefers [facility] as she works there. CM will continue to follow patient's course of treatment and progress and assist with discharge planning as needed.
--- NOTE | 2022-09-18 14:36 | RAD_ITS ---
STUDY: X-RAY CHEST REASON FOR EXAM: Female, 57 years old. Line placement TECHNIQUE: Single AP portable view of the chest. COMPARISON: Comparison is made with prior study done earlier today at 4:22 AM. FINDINGS: An endotracheal tube is in situ. The tip is at 2.4 cm proximal to the cm. An orogastric tube is seen with the tip in the body of the stomach. A left-sided PICC line catheter has been placed. The tip is in the midportion of the superior vena cava. Stable mild bibasilar atelectasis. There is no demonstrated pleural abnormality. There is borderline cardiomegaly. Normal mediastinum and luana. Normal visualized pulmonary arteries. There is atherosclerotic calcification of the aortic arch with tortuosity. There are diffuse degenerative changes of the visualized thoracic spine. Normal visualized ribs, clavicles, and shoulders. There is no demonstrated abnormality of the visualized soft tissue structures of the upper abdomen. RAD/CXR for Line Placement IMPRESSION: The tip of the endotracheal tube is at 2.4 cm proximal to the cm. An orogastric tube is seen with the tip in the body of the stomach. A left-sided PICC line catheter has been inserted and the tip is in the midportion of the superior vena cava. Electronically Signed: Baljeet Saldana MD at 15:43 EDT ,
--- NOTE | 2022-09-18 15:14 | CON.PCM.ID_ITS ---
Assessment & Plan Assessment/Plan (1) Osteomyelitis: QUALIFIERS: Osteomyelitis type: other chronic Osteomyelitis location: foot Laterality: right Qualified Code(s): M86.671 - Other chronic osteomyelitis, right ankle and foot (2) Sepsis: QUALIFIERS: Sepsis type: sepsis due to unspecified organism Sepsis acute organ dysfunction status: with acute organ dysfunction Severe sepsis acute organ dysfunction type: acute renal failure Acute renal failure type: unspecified Severe sepsis shock status: without septic shock Qualified Code(s): A41.9 - Sepsis, unspecified organism; R65.20 - Severe sepsis without septic shock; N17.9 - Acute kidney failure, unspecified PLAN: Cxs pending. On vanc/zosyn. Will order wound cxs of feet. [place] improved. Sputum with GPCs on gram stain. Will follow, thank you (3) Acute metabolic encephalopathy: (4) Acute respiratory failure with hypoxia: HPI Consult Data Date of Consult: 09/18/22 HPI Narrative Reason for Consultation: sepsis HPI Narrative: DAVIS AMIN, is a 57 F with h/o DM neuropathy, prior osteo, presented 09/18 to ED with one day of dysuria, foul urine, n/v, confusion. Found to have encephalopathy, hypotension. Given ceftriaxone, admitted to icu on vanc/zosyn. Seen by pulm, cardio, podiatry. On vent. Unable to provide ROS due to intubation [facility] Medical History Allergic rhinitis Chronic painful diabetic neuropathy Diabetes mellitus, type 2 Diabetic foot infection GERD (gastroesophageal reflux disease) HTN (hypertension) Hyperlipidemia Obesity PAF (paroxysmal atrial fibrillation) Restless leg syndrome Tobacco use Home Medications amitriptyline 100 mg tablet 100 mg PO QHS 05/20/18 [History Last Taken 05/19/18] amlodipine 5 mg tablet (Norvasc) 10 mg PO QHS 05/20/18 [History Last Taken 05/19/18] ammonium lactate 12 % lotion (AmLactin) 1 applic TP DAILY 05/20/18 [History Last Taken 05/19/18] ascorbic acid (vitamin C) 500 mg tablet (Vitamin C) 1,000 mg PO BIDCM 05/20/18 [History Last Taken 05/20/18] aspirin 81 mg tablet,delayed release 81 mg PO DAILY 05/20/18 [History Last Taken 05/20/18] docusate sodium 100 mg capsule 100 mg PO QHS 05/20/18 [History Last Taken 04/24 10/08] empagliflozin 25 mg tablet (Jardiance) 25 mg PO DAILY 05/20/18 [History Last Taken 05/20/18] enalapril maleate 20 mg tablet 20 mg PO DAILY 05/20/18 [History Last Taken 05/20/18] fenofibrate micronized 67 mg capsule 67 mg PO DAILY CHOLESTEROL 05/20/18 [History Last Taken 05/20/18] gabapentin 400 mg capsule 400 mg PO QHS 05/20/18 [History Last Taken 05/19/18] gabapentin 600 mg tablet 600 mg PO 4X/DAY 05/20/18 [History Last Taken 05/20/18] hydrochlorothiazide 25 mg tablet 25 mg PO DAILY 05/20/18 [History Last Taken 06/08/18 08:00] insulin aspart U-100 100 unit/mL (3 mL) subcutaneous pen (Novolog FlexPen U-100 Insulin aspart) See Protocol SQ 4X/DAY 05/20/18 [History Last Taken 05/20/18] insulin glargine U-300 conc 300 unit/mL (1.5 mL) subcutaneous pen (Toujeo SoloStar U-300 Insulin) 80 unit SQ QHS 05/20/18 [History Last Taken 05/19/18] loratadine 10 mg tablet (Allergy Relief (loratadine)) 10 mg PO DAILY 05/20/18 [History Last Taken 05/20/18] metoprolol tartrate 100 mg tablet 100 mg PO BID HEART 05/20/18 [History Last Taken 06/08/18 08:00] montelukast 10 mg tablet (Singulair) 10 mg PO QHS 05/20/18 [History Last Taken 05/12/18] multivitamin-ferrous fumarate-folic acid 18 mg-400 mcg tablet (Centrum Women) 1 tab PO DAILY SUPPLEMENT 05/20/18 [History Last Taken 05/20/18] omeprazole 20 mg capsule,delayed release 20 mg PO DAILY 05/20/18 [History Last Taken 06/08/18 08:00] pramipexole 0.25 mg tablet 0.25 mg PO QHS RESTLESS LEGS 05/20/18 [History Last Taken 05/19/18] sitagliptin phosphate 100 mg tablet (Januvia) 100 mg PO DAILY DM 05/20/18 [History Last Taken 05/20/18] tizanidine 4 mg tablet 4 mg PO TID SPASMS 05/20/18 [History Last Taken 05/20/18] tramadol 50 mg tablet 50 mg PO BID 05/20/18 [History Last Taken 05/20/18] vitamin B complex (B Complex-Vitamin B12 tablet) 1 tab PO DAILY SUPPLEMENT 05/20/18 [History Last Taken 05/20/18] vitamin E (dl, acetate) 180 mg (400 unit) capsule 400 unit PO DAILY SUPPLEMENT 05/20/18 [History Last Taken 05/20/18] acidophilus 25 million cell-pectin, citrus 100 mg tablet 1 tab PO BID ##20 05/22/18 [Rx Last Taken Unknown] doxycycline monohydrate 100 mg capsule 100 mg PO BID ##20 05/22/18 [Rx Last Taken Unknown] lisinopril 20 mg tablet 20 mg PO DAILY ##30 05/22/18 [Rx Last Taken Unknown] atorvastatin 20 mg tablet 20 mg PO QHS 06/01/18 [History Last Taken Unknown] calcium carbonate 600 mg calcium (1,500 mg) tablet 600 mg PO BID 06/01/18 [History Last Taken Unknown] fluconazole 100 mg tablet 100 mg PO QWEEK 06/01/18 [History Last Taken Unknown] insulin aspart U-100 100 unit/mL (3 mL) subcutaneous pen (Novolog FlexPen U-100 Insulin aspart) 12 units SQ 4X/DAY 06/01/18 [History Last Taken Unknown] meloxicam 15 mg tablet 15 mg PO BID 06/01/18 [History Last Taken Unknown] Allergy/AdvReac Type Severity Reaction Status Date / Time No Known Allergies Allergy Verified 06/01/18 08:14 Family History Mother Diabetes Maternal family history of severe diabetes, dying at age 34 secondary to diabetic complications. Father Diabetes Heart disease Cancer Reported as non-Hodgkin's lymphoma. Surgical History History of back surgery History of tonsillectomy and adenoidectomy S/P foot surgery, right Social History household members: significant other Smoking Status: Current every day smoker tobacco type: cigarettes Smoking packs per day: 0.5 Smoking cigarettes per day: 10.0 alcohol intake: never substance use type: does not use Physical Exam Const no apparent distress HEENT normocephalic and head/scalp atraumatic Eyes PERRL Neck supple and No nodes Resp Effort and Inspection: mechanically ventilated Cardio Rate: tachycardic GI soft to palpation, non-tender and non-distended Extremity General Extremity: edema Skin Skin Narrative: L 1st toe and R foot plantar wounds with drainage Neuro Neuro Narrative: not following commands Lab / Micro Data Attestation: I reviewed the patient's lab results. 09/18/22 03:55 09/18/22 03:55 Labs: Laboratory Results - last 24 hr 09/18/22 00:37: WBC 11.1 H, RBC 4.89, Hgb 14.4, Hct 44.2, MCV 90.4, MCH 29.4, MCHC 32.6, RDW Std Deviation 49.2 H, RDW Coeff of Gerson 14.8 H, Plt Count 158, MPV 10.9, Immature Gran % (Auto) 0.500, Neut % (Auto) 83.5 H, Lymph % (Auto) 7.0 L, Pershing % (Auto) 8.3, Eos % (Auto) 0.2, Baso % (Auto) 0.5, Absolute Neuts (auto) 9.2 H, Absolute Lymphs (auto) 0.77 L, Nucleated RBC % 0, PT 15.3 H, INR 1.2, APTT 32.9, Sodium 135 L, Potassium 3.4 L, Chloride 103, Carbon Dioxide 24.0, Anion Gap 8, BUN 40 H, Creatinine 1.97 H, Estim Creat Clear Calc 26.38, Est GFR (MDRD) Af Amer 34 L, Est GFR (MDRD) Non-Af 28 L, BUN/Creatinine Ratio 20.3 H, Glucose 198 H, Lactic Acid 1.9, Calcium 8.9, Magnesium 2.1, Total Bilirubin 0.60, AST 95 H, ALT 73 H, Alkaline Phosphatase 63, Total Protein 7.6, Albumin 2.8 L, Globulin 4.8 H, Albumin/Globulin Ratio 0.6 L, Urine Color Yellow, Urine Clarity Sl. Cloudy, Urine pH 5.0, Ur Specific [place] 1.020, Urine Protein 30 H, Urine Glucose (UA) 1000 H, Urine Ketones 5 H, Urine Occult Blood 150 H, Urine Nitrite Negative, Urine Bilirubin Negative, Urine Urobilinogen 1 H, Ur Leukocyte Esterase 500 H, Urine RBC 0 SEEN, Urine WBC >100 SEEN, Ur Squamous Epith Cells 0-5 SEEN, Urine Bacteria 4+, Urine Mucus 0 SEEN 09/18/22 03:02: Procalcitonin 8.16 H 09/18/22 03:55: WBC 9.4, RBC 4.89, Hgb 14.5, Hct 44.6, MCV 91.2, MCH 29.7, MCHC 32.5, RDW Std Deviation 50.4 H, RDW Coeff of Gerson 14.8 H, Plt Count 130 L, MPV 11.1, Immature Gran % (Auto) 0.600, Neut % (Auto) 82.0 H, Lymph % (Auto) 12.1 L, Pershing % (Auto) 4.9, Eos % (Auto) 0.0, Baso % (Auto) 0.4, Absolute Neuts (auto) 7.7, Absolute Lymphs (auto) 1.13, Nucleated RBC % 0, Platelet Estimate SLT DEC, Anisocytosis 1+, Sodium 138, Potassium 4.1, Chloride 109 H, Carbon Dioxide 23.0, Anion Gap 6, BUN 37 H, Creatinine 1.66 H, Estim Creat Clear Calc 31.30, Est GFR (MDRD) Af Amer 41 L, Est GFR (MDRD) Non-Af 34 L, BUN/Creatinine Ratio 22.3 H, Glucose 145 H, Calcium 8.1 L, Total Bilirubin 0.40, AST 108 H, ALT 72 H, Alkaline Phosphatase 61, Total Creatine Kinase 2898 H, Troponin I High Sens 277 H*, Total Protein 7.4, Albumin 2.7 L, Globulin 4.7 H, Albumin/Globulin Ratio 0.6 L, Triglycerides 249 H 09/18/22 03:55: Triglycerides 246 H, Cholesterol 94, LDL Cholesterol 23, VLDL Cholesterol 50 H, HDL Cholesterol 21 L, TSH 0.27 L, Free T4 1.51 H, Free T3 pg/dL 1.9 L 09/18/22 05:30: MRSA (PCR) Negative 09/18/22 08:10: Troponin I High Sens 270 H* 09/18/22 11:45: APTT 37.6 H, Troponin I High Sens 184 H* 09/18/22 11:57: POC Glucose 161 H Micro: Microbiology 09/18/22 04:20 Sputum, Tracheal Aspirate Gram Stain - Final ABG Data ABG results: ABG 09/18/22 09/18/22 03:46 05:26 Specimen Type ART ART Sample Site R Brach L Radial pH 7.42 7.39 Bicarbonate Actual 18.2 L 17.9 L Total CO2 19 19 Base Excess -6 L -7 L O2 Saturation 82 L 99 O2 % 80 ABG pCO2 28.3 L 29.7 L ABG pO2 45 L 154 H Zackery Test N/A Positive Respiration Rate 12 O2 Delivery Device Room Air Adult Vent Vent Mode AC Tidal Volume 450 POC PEEP 5 Rhythm Strip Rhythm Strip: A-fib Rate: 136 Ectopy: None Radiology Impression Brain CT 09/18/22 00:17 IMPRESSION: undefined Chest X-Ray 09/18/22 00:17 IMPRESSION: No acute pulmonary disease. Electronically Signed: Yimi Fleming MD at 1:31 EDT , Echocardiogram 09/18/22 03:18 Interpretation Summary Normal LV size. Left ventricular systolic function is normal. The estimated ejection fraction is 60 %. The left atrium is mildly enlarged. Pulmonary artery systolic pressure is 30 mmHg. Contrast injection was performed. Ordering Physician: Jennifer Kebede Performed By: Carlos Hamm RCS Chest X-Ray 09/18/22 04:03 IMPRESSION: Endotracheal tube terminates 1.8 cm above the cm. Tip of the orogastric tube projects over the body of the stomach. Bilateral mild pulmonary opacities represent atelectasis and/or mild infection. Electronically Signed: Yimi Fleming MD at 6:38 EDT , Abdomen/Pelvis CT 09/18/22 04:49 IMPRESSION: undefined Venous Doppler Study 09/18/22 05:30 Interpretation Summary No evidence for acute deep venous thrombosis bilateral lower extremities with patent and compressible bilateral great saphenous veins. Pulsatile venous flow is noted bilaterally consistent with proximal venous hypertension or obstruction. Clinical correlation would be appropriate. Ordering Physician: Jennifer Kebede Referring Physician: N/A Performed By: Carson Beebe, T Foot X-Ray 09/18/22 10:35 IMPRESSION: Possible early osteomyelitis at the fifth metatarsal phalangeal joint with overlying soft tissue swelling. Calcaneal spurs. Electronically Signed: Baljeet Saldana MD at 14:25 EDT ,
[2022-09-18] MEDS: fentaNYL drip 100 ML 10 MCG CONT INF (15:23)
[2022-09-18] MEDS: Propofol 10MG/Ml 1,000 MG/100 ML Bottle 11.4 MG CONT INF (18:11)
[2022-09-18 18:43] LABS: Bedside Glucose 104 mg/dL (74-106)
[2022-09-18 19:21] LABS: Partial Thromboplast Time 94.9 Seconds (24.1-36.2)
[2022-09-18] MEDS: Acetaminophen 325 MG Tablet 650 MG PO (21:06)
[2022-09-19] VITALS (46 sets, daily range): BP systolic 118–179; BP diastolic 62–109; PULSE 75–142; RESP 12–25; TEMP 38–38.8; O2SAT 91–95; BMI 39.6
[2022-09-19 00:26] LABS: Bedside Glucose 102 mg/dL (74-106)
[2022-09-19] MEDS: fentaNYL drip 100 ML 10 MCG CONT INF ×3 (00:36→23:30)
[2022-09-19] MEDS: Propofol 10MG/Ml 1,000 MG/100 ML Bottle 11.4 MG CONT INF (01:46)
[2022-09-19 02:13] LABS: Partial Thromboplast Time 49.3 Seconds (24.1-36.2)
[2022-09-19] MEDS: Ketorolac 15 MG/ML Vial IV (03:11)
[2022-09-19] MEDS: Heparin Injection (Vial) 5,000 UNIT/ML VIAL IV (03:56)
[2022-09-19 06:31] LABS: Bedside Glucose 105 mg/dL (74-106)
[2022-09-19] MEDS: Chlorhexidine 15 ML PO ×2 (08:18→20:49)
[2022-09-19] MEDS: Aspirin 81 MG TAB.CHEW PO (08:18)
--- NOTE | 2022-09-19 08:19 | PN.HOSP_ITS ---
Reason for Visit Reason for Visit: Diagnoses Sepsis, unspecified organism (09/18/22) Type 2 diabetes mellitus with diabetic polyneuropathy (09/18/22) Type 2 diabetes mellitus with foot ulcer (09/18/22) Hypokalemia (09/18/22) Metabolic encephalopathy (09/18/22) Non-ST elevation (NSTEMI) myocardial infarction (09/18/22) Unspecified atrial fibrillation (09/18/22) Acute respiratory failure with hypoxia (09/18/22) Respiratory failure, unspecified, unspecified whether with hypoxia or hypercapnia (09/18/22) Non-pressure chronic ulcer of other part of right foot with fat layer exposed (09/18/22) Non-pressure chronic ulcer of other part of left foot with fat layer exposed (09/18/22) Other chronic osteomyelitis, right ankle and foot (09/18/22) Acute kidney failure, unspecified (09/18/22) Acute cystitis without hematuria (09/18/22) Severe sepsis without septic shock (09/18/22) Elevation of levels of liver transaminase levels (09/18/22) Subjective Subjective Failed SBT. Still having afib w RVR. Objective Data Objective Data Vital Signs: Vital Signs Temp Pulse Resp BP Pulse Ox O2 Del Method O2 Flow Rate 38.4 C H 142 H 18 179/109 H 93 Mechanical Ventilator 75 09/19/22 06:00 09/19/22 07:24 09/19/22 07:24 09/19/22 06:00 09/19/22 07:26 09/19/22 07:26 09/18/22 06:00 FiO2 30 09/19/22 07:26 Oxygen Flow Rate (L/min) 75 Oxygen Delivery Method Mechanical Ventilator Weight: 101.4 kg Body Mass Index (BMI) 39.6 Intake & Output: Intake and Output for Last 24 Hours 09/17/22 09/18/22 09/19/22 23:59 23:59 23:59 Intake Total 7603.59 / 7633.59 369.42 / 369.42 Output Total 1890 / 2065 750 / 750 Balance 5713.59 / 5568.59 -380.58 / -380.58 Lab / Micro Data 09/19/22 10:15 09/19/22 10:15 Labs: Laboratory Results - last 24 hr 09/18/22 08:10: Troponin I High Sens 270 H* 09/18/22 11:45: APTT 37.6 H, Troponin I High Sens 184 H* 09/18/22 11:57: POC Glucose 161 H 09/18/22 18:06: POC Glucose 104 09/18/22 18:50: APTT 94.9 H* 09/18/22 23:55: POC Glucose 102 09/19/22 01:30: APTT 49.3 H 09/19/22 05:59: POC Glucose 105 Micro: Microbiology 09/18/22 04:20 Sputum, Tracheal Aspirate Gram Stain - Final Radiography Diagnostic Testing: Radiology Impression Echocardiogram 09/18/22 03:18 Interpretation Summary Normal LV size. Left ventricular systolic function is normal. The estimated ejection fraction is 60 %. The left atrium is mildly enlarged. Pulmonary artery systolic pressure is 30 mmHg. Contrast injection was performed. Ordering Physician: Jennifer Kebede Performed By: Carlos Hamm RCS Venous Doppler Study 09/18/22 05:30 Interpretation Summary No evidence for acute deep venous thrombosis bilateral lower extremities with patent and compressible bilateral great saphenous veins. Pulsatile venous flow is noted bilaterally consistent with proximal venous hypertension or obstruction. Clinical correlation would be appropriate. Ordering Physician: Jennifer Kebede Referring Physician: N/A Performed By: Carson Beebe RVT Foot X-Ray 09/18/22 10:35 IMPRESSION: Possible early osteomyelitis at the fifth metatarsal phalangeal joint with overlying soft tissue swelling. Calcaneal spurs. Electronically Signed: Baljeet Saldana MD at 14:25 EDT , Chest X-Ray 09/18/22 14:36 IMPRESSION: The tip of the endotracheal tube is at 2.4 cm proximal to the cm. An orogastric tube is seen with the tip in the body of the stomach. A left-sided PICC line catheter has been inserted and the tip is in the midportion of the superior vena cava. Electronically Signed: Baljeet Saldana MD at 15:43 EDT , Rhythm Strip Rhythm Strip: A-fib Rate: 136 Ectopy: None Physical Exam Const alert and no apparent distress HEENT head/scalp atraumatic and moist oral mucous membranes Resp normal respiratory effort, no retractions, no use of accessory muscles and clear to auscultation bilaterally Cardio regular rate, regular rhythm, S1 normal heart sound and S2 normal heart sound GI normal to inspection, nondistended, normoactive bowel sounds, soft to palpation, non-tender and non-distended Assessment & Plan Assessment/Plan (1) Sepsis: QUALIFIERS: Acute renal failure type: unspecified Sepsis acute organ dysfunction status: with acute organ dysfunction Sepsis type: sepsis due to unspecified organism Severe sepsis acute organ dysfunction type: acute renal failure Severe sepsis shock status: without septic shock Qualified Code(s): A41.9 - Sepsis, unspecified organism; R65.20 - Severe sepsis without septic shock; N17.9 - Acute kidney failure, unspecified PLAN: 2/2 UTI +/- Pneumonia +/- OM follow up cultures on pip/tazo and vanc (2) UTI (urinary tract infection): QUALIFIERS: Hematuria presence: without hematuria Urinary tract infection type: acute cystitis Qualified Code(s): N30.00 - Acute cystitis without hematuria PLAN: abx as above follow up cultures no hydronephrosis or nephrolithiasis on CT (3) Acute metabolic encephalopathy: PLAN: 2/[address] negative. (4) Afib: QUALIFIERS: Atrial fibrillation type: unspecified Qualified Code(s): I48.91 - Unspecified atrial fibrillation PLAN: Afib w RVR On dilt gtt and amiodarone gtt and heparin gtt Cards consult check echo (5) Acute respiratory failure with hypoxia: PLAN: intubated edema v pneumonia pulm on consult. (6) Acute kidney injury: PLAN: suspect prerenal IVF monitor (7) Hypokalemia: PLAN: Resolved Admission K+ 3.4, magnesium level requested, supplementation given, repeat level in AM. (8) Transaminitis: PLAN: Mild Potentially associated with hypotension, recent evidence of [place] with likely hypovolemia with acute infectious presentation #1 and also atrial fibrillation with RVR: Admission CMP with AST/LT 95/73, continue treatment as noted and repeat CMP in a.m. (9) Osteomyelitis: QUALIFIERS: Laterality: right Osteomyelitis location: foot Osteomyelitis type: other chronic Qualified Code(s): M86.671 - Other chronic osteomyelitis, right ankle and foot PLAN: Abx as above ID and podiatry consults. (10) NSTEMI (non-ST elevated myocardial infarction): PLAN: favor type II event cardiology following echo ordered. PLAN: Plan Chronic conditions: * Diabetes mellitus type II with chronic diabetic neuropathy and history of chronic diabetic foot wound/osteomyelitis: Hold oral home regimen, continue home long-acting insulin regimen once dose clarified but low threshold to decrease to 1/2 dose while NPO status pending BS trending, NPO status given unsafe oral intake, maintain on q 6 hour ADA, accu checks w/ ISS, temporarily hold home gabapentin regimen. * Hypertension: Given presentation with hypotension and necessity for cardizem drip will hold all other HTN medications, may as noted need to d/c drip and tr ansition to amiodarone, will add back her HTN regimen once appropriate. * Hyperlipidemia: Temporarily hold statin and fenofibrate regimen. * Restless leg syndrome: Temporarily hold home pramipexole regimen. * Allergic rhinitis: Temporarily hold Singulair and loratadine regimen. * Obesity: Weight loss and lifestyle changes will be encouraged. * Tobacco Abuse: Encouraged cessation, inpatient consultation per RT, NR if desired. * GERD: Will place on IV PPI. DVT prophylaxis: Heparin drip. CODE STATUS: Full code. Charges/Coding Visit Charges Inpatient E&M: 59751 Subs Hosp L2
--- NOTE | 2022-09-19 08:20 | PCM.PN.INT ---
Assessment & Plan Assessment/Plan (1) Acute metabolic encephalopathy: (2) Respiratory failure: QUALIFIERS: Chronicity: acute (3) Afib: QUALIFIERS: Atrial fibrillation type: unspecified Qualified Code(s): I48.91 - Unspecified atrial fibrillation (4) Sepsis: QUALIFIERS: Acute renal failure type: unspecified Sepsis acute organ dysfunction status: with acute organ dysfunction Sepsis type: sepsis due to unspecified organism Severe sepsis acute organ dysfunction type: acute renal failure Severe sepsis shock status: without septic shock Qualified Code(s): A41.9 - Sepsis, unspecified organism; R65.20 - Severe sepsis without septic shock; N17.9 - Acute kidney failure, unspecified PLAN: Plan RECOMMENDATIONS: 1. Continue assist-control mode mechanical ventilation. Wean FiO2/PEEP for saturations greater than 90%. 2. Continue empiric broad-spectrum antimicrobials per ID recommendations. 3. Continue local wound care. 4. Stop continuous IV fluids. 5. Rate/rhythm control strategy per cardiology. 6. Okay to initiate tube feeds today. 7. Discontinue propofol and transition to Precedex for sedation. 8. Continue appropriate GI prophylaxis. IMPRESSIONS: 1. Sepsis The patient presented to the hospital with sepsis due to urinary tract source of infection with possible osteomyelitis of the right foot, with acute sepsis related organ dysfunction as evidenced by encephalopathy, acute kidney injury and respiratory failure requiring invasive mechanical ventilatory support. The patient did receive supplemental IV fluid hydration and has been initiated on broad-spectrum antimicrobials. The patient was evaluated by podiatry who did not feel that the patient required any surgical intervention. Recommendation was made for local wound care and continued antimicrobial therapy, which will be continued per the discretion of infectious diseases. 2. Encephalopathy Improved. Most likely metabolic in etiology in the setting #1. Continue supportive measures as noted above. CT head was unrevealing. 3. Acute hypoxemic respiratory failure The patient was ultimately intubated over concerns for airway protection in the setting of acute metabolic encephalopathy. This is all likely a consequence of #1. The patient is doing well from a ventilatory perspective with minimal FiO2. Plan to continue assist-control mode mechanical ventilation and wean FiO2 to maintain saturations at or above 90%. Arterial blood gas appears appropriate. 4. NSTEMI/atrial fibrillation with RVR Clinical concern for demand ischemia in the setting of #1. Cardiology is currently following to assist with medical management. For now, the patient will be continued on a heparin infusion along with Cardizem and amiodarone. Echocardiogram was unrevealing. 5. Acute kidney injury Again, likely prerenal in etiology in the setting #1. Anticipate further improvement with volume expansion. Continue to monitor urine output for now. No current indication for renal replacement therapy. 6. History of diabetes mellitus/hypertension/restless leg syndrome/obesity/GERD Complicates care, management, recovery and prognosis. Continue Accu-Cheks and sliding scale insulin coverage. Continue PPI therapy as ordered. Okay to initiate tube feeds today. TIME: 33 minutes of critical care time, independent of procedures, was spent addressing the patient's sepsis, encephalopathy, acute respiratory failure, NSTEMI, atrial fibrillation, acute kidney injury, review of all data and collaboration with the care team. Subjective Subjective The patient was seen and examined at the bedside this morning. Events from the last 24 hours have been reviewed. The patient is currently afebrile, hemodynamically stable and maintaining appropriate oxygen saturations on assist control mode mechanical ventilation with an FiO2 requirement of 30%. The patient failed her spontaneous breathing trial this morning. She is documented to be overall net +5.3 L for the hospitalization. Objective Data Objective Data The patient's most recent lab work, culture data and imaging studies have all been personally reviewed. Lower extremity Doppler study demonstrated no evidence of DVT. Surface echocardiogram demonstrated normal LV size and function with an ejection fraction of 60%. Blood, urine and sputum cultures are pending. Vital Signs: Vital Signs Temp Pulse Resp BP Pulse Ox O2 Del Method O2 Flow Rate 101.2 F H 142 H 18 179/109 H 93 Mechanical Ventilator 75 09/19/22 06:00 09/19/22 07:24 09/19/22 07:24 09/19/22 06:00 09/19/22 07:26 09/19/22 07:26 09/18/22 06:00 FiO2 30 09/19/22 07:26 Oxygen Flow Rate (L/min) 75 Oxygen Delivery Method Mechanical Ventilator Weight: 223 lb 8.78 oz Body Mass Index (BMI) 39.6 Intake & Output: Intake and Output for Last 24 Hours 09/17/22 09/18/22 09/19/22 23:59 23:59 23:59 Intake Total 7603.59 / 7633.59 369.42 / 369.42 Output Total 1890 / 2065 750 / 750 Balance 5713.59 / 5568.59 -380.58 / -380.58 Lab / Micro Data Attestation: I reviewed the patient's lab results. 09/18/22 03:55 09/19/22 10:15 Labs: Laboratory Results - last 24 hr 09/18/22 08:10: Troponin I High Sens 270 H* 09/18/22 11:45: APTT 37.6 H, Troponin I High Sens 184 H* 09/18/22 11:57: POC Glucose 161 H 09/18/22 18:06: POC Glucose 104 09/18/22 18:50: APTT 94.9 H* 09/18/22 23:55: POC Glucose 102 09/19/22 01:30: APTT 49.3 H 09/19/22 05:59: POC Glucose 105 Micro: Microbiology 09/18/22 04:20 Sputum, Tracheal Aspirate Gram Stain - Final Radiography Diagnostic Testing: Radiology Impression Echocardiogram 09/18/22 03:18 Interpretation Summary Normal LV size. Left ventricular systolic function is normal. The estimated ejection fraction is 60 %. The left atrium is mildly enlarged. Pulmonary artery systolic pressure is 30 mmHg. Contrast injection was performed. Ordering Physician: Jennifer Kebede Performed By: Carlos Hamm RCS Venous Doppler Study 09/18/22 05:30 Interpretation Summary No evidence for acute deep venous thrombosis bilateral lower extremities with patent and compressible bilateral great saphenous veins. Pulsatile venous flow is noted bilaterally consistent with proximal venous hypertension or obstruction. Clinical correlation would be appropriate. Ordering Physician: Jennifer Kebede Referring Physician: N/A Performed By: Carson Beebe, T Foot X-Ray 09/18/22 10:35 IMPRESSION: Possible early osteomyelitis at the fifth metatarsal phalangeal joint with overlying soft tissue swelling. Calcaneal spurs. Electronically Signed: Baljeet Saldana MD at 14:25 EDT , Chest X-Ray 09/18/22 14:36 IMPRESSION: The tip of the endotracheal tube is at 2.4 cm proximal to the cm. An orogastric tube is seen with the tip in the body of the stomach. A left-sided PICC line catheter has been inserted and the tip is in the midportion of the superior vena cava. Electronically Signed: Baljeet Saldana MD at 15:43 EDT , Rhythm Strip Rhythm Strip: A-fib Rate: 136 Ectopy: None Physical Exam Const Constitutional Narrative: Intubated, sedated and mechanically ventilated. HEENT normocephalic and head/scalp atraumatic Mouth: endotracheal tube in place and OG tube in place Eyes PERRL Neck supple General: trachea midline Chest inspection of chest normal Resp Auscultation: Negative for rales, rhonchi or wheezes Cardio regular rate and regular rhythm GI normal to inspection, nondistended, normoactive bowel sounds Extremity General Extremity: Negative for clubbing Skin Skin Narrative: plantar diabetic foot ulceration Neuro Sensorium / Orientation: sedated on vent Charges/Coding Procedures Hospitalists Procedures: 25654 Critial Care 1st Hr
[2022-09-19] MEDS: dilTIAZem 25 MG/5 ML Vial 20 MG IV BOLUS (10:16)
[2022-09-19 11:02] LABS: Anion Gap 8 (5-15); BUN 22 mg/dL (7-18); BUN/Creat Ratio 27.2 RATIO (10-20); Calcium,Total 7.9 mg/dL (8.5-10.1); Chloride 114 mmol/L (98-107); Creatinine, Serum 0.81 mg/dL (0.55-1.02); EST Glomerular Filtration Rate 78 mL/min (>60); Est Glom Filt Rate - Afr Amer 94 mL/min (>60); Estimated Creatinine Clearance 64.15 ml/min; Glucose 113 mg/dL (74-106); Potassium 3.6 mmol/L (3.5-5.1); Sodium Level 142 mmol/L (136-145)
[2022-09-19 11:11] LABS: Absolute Lymphocyte Count 0.89 X10^3/uL (0.83-4.51); Absolute Neutrophil Count 5.3 X10^3/uL (2.0-7.7); Basophil# 0.03 X10^3/uL; Basophil% 0.4 % (0-1); Eosinophil# 0.02 X10^3/uL; Eosinophils% 0.3 % (0-5); Hematocrit 35.9 % (37-47); Hemoglobin 11.6 g/dL (12.0-15.0); Lymphocyte # 0.89 X10^3/ul (0.83-4.51); Lymphocyte % 12.8 % (19-41); Mean Corp Hgb Conc 32.3 g/dL (32-36); Mean Corpuscular Hgb 29.7 pg (27.0-32.0); Mean Corpuscular Volume 91.8 fL (81-99); Mean Platelet Vol. 11.2 fl (6.2-12.0); Monocyte# 0.72 X10^3/uL; Monocyte% 10.3 % (0-10); NRBC Flagged by Analyzer 0 % (0-5); Neutrophil # 5.25 X10^3/uL (2.7-7.7); Neutrophil % 75.5 % (47-70); Platelet Count 132 K/mm3 (150-450); RBC Distribution Width CV 15.1 % (11.6-14.6); RBC Distribution Width SD 51.1 fl (35.1-43.9); Red Blood Count 3.91 M/mm3 (4.2-5.4)
--- NOTE | 2022-09-19 11:34 | NURSING ---
This RN spoke with the patients uncle David. Per David, no information is to be given to patients boyfriend/fiancee or the boyfriends sister. He also does not want his contact information given to them. He does not want their number or information at this time.
[2022-09-19] MEDS: Amiodarone 360 MG in Dextrose 5% Viaflo Bag 192.8 ML 16.7 MG CONT INF ×2 (12:23→23:31)
[2022-09-19 13:17] LABS: Bedside Glucose 125 mg/dL (74-106)
--- NOTE | 2022-09-19 13:42 | PCM.PN.ID ---
Physical Exam Narrative On vent, fever improved Const no apparent distress Resp Effort and Inspection: mechanically ventilated Auscultation: diminished lung sounds Cardio regular rate and regular rhythm GI soft to palpation, non-tender and non-distended Skin Skin Narrative: feet bandaged ID ID: Route of nutrition/ use of supplements: [] Nutritional Intake: [] IV Site: [] Casanova Catheter: [] Assessment & Plan Assessment/Plan (1) Osteomyelitis: QUALIFIERS: Osteomyelitis type: other chronic Osteomyelitis location: foot Laterality: right Qualified Code(s): M86.671 - Other chronic osteomyelitis, right ankle and foot (2) Sepsis: QUALIFIERS: Sepsis type: sepsis due to unspecified organism Sepsis acute organ dysfunction status: with acute organ dysfunction Severe sepsis acute organ dysfunction type: acute renal failure Acute renal failure type: unspecified Severe sepsis shock status: without septic shock Qualified Code(s): A41.9 - Sepsis, unspecified organism; R65.20 - Severe sepsis without septic shock; N17.9 - Acute kidney failure, unspecified PLAN: Cxs pending. On vanc/zosyn. [place] improved. Sputum with GPCs on gram stain. Fever improved. Will follow (3) Acute metabolic encephalopathy: (4) Acute respiratory failure with hypoxia:
[2022-09-19] MEDS: Vital AF 1.2 Cal Liquid 1,000 ML 20 ML GT (14:13)
[2022-09-19] MEDS: HEPARIN/D5w 25,000 UNITS 25,000 UNITS/250 ML IV.SOLN. 16 UNITS CONT INF (15:49)
[2022-09-19 17:39] LABS: Partial Thromboplast Time 56.4 Seconds (24.1-36.2)
[2022-09-19] MEDS: Insulin Lispro 100 UNIT/ML INSULN.PEN SC (18:26)
[2022-09-19 18:31] LABS: Bedside Glucose 161 mg/dL (74-106)
--- NOTE | 2022-09-19 19:20 | PN_ITS ---
Subjective Subjective Patient was seen early this a.m. in bed resting. Patient currently ventilated. Nursing reports no acute overnight events. Objective Data Objective Data Vital Signs: Vital Signs Temp Pulse Resp BP Pulse Ox O2 Del Method O2 Flow Rate 100.4 F H 89 20 H 142/85 H 95 Mechanical Ventilator 75 09/19/22 16:00 09/19/22 18:55 09/19/22 18:55 09/19/22 18:00 09/19/22 18:55 09/19/22 18:00 09/18/22 06:00 FiO2 28 09/19/22 18:55 Oxygen Flow Rate (L/min) 75 Oxygen Delivery Method Mechanical Ventilator Weight: 101.4 kg Body Mass Index (BMI) 39.6 Intake & Output: Intake and Output for Last 24 Hours 09/17/22 09/18/22 09/19/22 23:59 23:59 23:59 Intake Total 7603.59 / 7633.59 2850.20 / 2850.20 Output Total 1890 / 2065 2125 / 2125 Balance 5713.59 / 5568.59 725.20 / 725.20 Lab / Micro Data 09/19/22 10:15 09/19/22 10:15 Labs: Laboratory Results - last 24 hr 09/18/22 18:50: APTT 94.9 H* 09/18/22 23:55: POC Glucose 102 09/19/22 01:30: APTT 49.3 H 09/19/22 05:59: POC Glucose 105 09/19/22 10:15: WBC 7.0, RBC 3.91 L, Hgb 11.6 L, Hct 35.9 L, MCV 91.8, MCH 29.7, MCHC 32.3, RDW Std Deviation 51.1 H, RDW Coeff of [place] 15.1 H, Plt Count 132 L, MPV 11.2, Immature Gran % (Auto) 0.700, Neut % (Auto) 75.5 H, Lymph % (Auto) 12.8 L, [place] % (Auto) 10.3 H, Eos % (Auto) 0.3, Baso % (Auto) 0.4, Absolute Neuts (auto) 5.3, Absolute Lymphs (auto) 0.89, Nucleated RBC % 0, APTT 54.0 H, Sodium 142, Potassium 3.6, Chloride 114 H, Carbon Dioxide 20.0 L, Anion Gap 8, BUN 22 H, Creatinine 0.81, Estim Creat Clear Calc 64.15, Est GFR (MDRD) Af Amer 94, Est GFR (MDRD) Non-Af 78, BUN/Creatinine Ratio 27.2 H, Glucose 113 H, Calcium 7.9 L 09/19/22 12:57: POC Glucose 125 H 09/19/22 17:15: APTT 56.4 H 09/19/22 18:13: POC Glucose 161 H Micro: Microbiology 09/18/22 16:01 Wound - Toe Gram Stain - Final 09/18/22 16:01 Wound - Toe Wound Culture - Preliminary Mixed Gram Positive Organisms 09/18/22 16:01 Wound - Right Foot Gram Stain - Final 09/18/22 16:01 Wound - Right Foot Wound Culture - Preliminary Mixed Gram Pos & Gram Neg Org 09/18/22 04:20 Sputum, Tracheal Aspirate Gram Stain - Final 09/18/22 04:20 Sputum, Tracheal Aspirate Respiratory Culture - Preliminary Appears to be normal respiratory parminder. Further studies to follow. 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 Patient is awake and alert. HEENT normocephalic Eyes General Eye: normal appearance of both eyes Neck General: normal visual inspection Lymph Lymphatic: no lymphadenopathy noted and no lymphedema noted Resp Resp Narrative: Patient intubated with normal respiratory effort Cardio Cardio Narrative: Irregularly irregular Extremity normal capillary refill, no calf tenderness and no pedal edema Extremity Narrative: DP and PT pulses palpable bilateral with adequate capillary fill time to the digits bilateral Dermatological: Skin is mildly xerotic to the foot with plantar callus to the distal hallux of the left foot with distal hallux ulceration. Ulceration appears stable with granular base and no signs of infection. Hyperkeratosis of the second third metatarsal of the left foot without wound formation. There is an ulceration subsecond third metatarsal head of the right foot with granular base and surrounding hyperkeratosis. There is no erythema, no purulent drainage, no malodor, no palpable fluctuance/bogginess noted, no visible abscess formation, no lymphangitic streaking noted. Ulceration does probe close to bone of second metatarsal. Musculoskeletal: Hammertoe deformity digits 2 through 5 bilateral, deformity noted to be rigid. There is decreased range of motion of the ankle joint in dorsiflexion with the knee extended without pain or crepitus bilateral. Full smooth pain-free range of motion of the first metatarsophalangeal joint bilateral. 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 Site was painted with Betadine and dressed with dry sterile dressing. Right foot subsecond/third metatarsal head ulceration with surrounding hyperkeratosis does probe close to bone, likely second metatarsal. There is no erythema, no purulent drainage, no malodor, no palpable fluctuance/bogginess, no lymphangitic streaking, no visible abscess formation. Ulcerative site appears healthy granular base with no signs of infection. This ulcerative site was painted with Betadine and dressed with a dry sterile dressing. Right foot plantar ulceration measures 2 cm x 1.5 cm x 0.4 cm I do believe ulceration caused by rigid hammertoe deformity with dorsal dislocation of the third digit driving metatarsal head into the ground during weightbearing. Radiographic imaging was obtained of the right foot on 09/18/2022. Radiologist interpretation possible early osteomyelitis of the fifth metatarsophalangeal joint with overlying soft tissue swelling. Calcaneal spurs. As ulcerative site located more towards subsecond/third metatarsal head with no overlying wound about the fifth metatarsal or localized signs of infection I do not agree with osteomyelitis of the fifth metatarsal head. I have reviewed radiographic imaging of the right foot. There does appear to be some pressure changes/bone edema about the fifth metatarsal head consistent with hammertoe deformities. There is old fracture of the second metatarsal. No evidence of osteomyelitis of the second or third metatarsal. Blood culture obtained, awaiting results. Wound culture obtained, awaiting results. WBC upon admission 11.1, decreased to 9.4 and currently WNL. Lactic acid 1.9, urine culture demonstrates slight cloudy appearance with glucose 1000, occult blood 150, leukocyte esterase 500, bacteria +4 seen per field power. Currently receiving IV Vanco/Zosyn. Medicine team currently following for medical management, they are greatly appreciated Wound nurse following for assisting dressing changes she is greatly appreciated Recommend daily dressing changes consisting of Betadine and dry sterile dres sing. Recommend nonweightbearing status to the right lower extremity At this time wounds are stable with no signs of infection, podiatric surgical intervention not anticipated. Podiatry will continue to follow every 3 days Please do not hesitate to call for questions or concerns Jr. Ermelinda Thakkar.P.M. [facility] [place] [phone]
--- NOTE | 2022-09-19 20:26 | PHA.PHARE_ITS ---
Consult Antibiotic Management Pharmacy has been consulted to manage selected antiobiotic: Vancomycin Type of Intervention Type of Consult: Follow-up Labs Labs: Sodium 142 mmol/L (136-145) 09/19/22 10:15 Potassium 3.6 mmol/L (3.5-5.1) 09/19/22 10:15 Chloride 114 mmol/L (98-107) H 09/19/22 10:15 Carbon Dioxide 20.0 mmol/L (21.0-32.0) L 09/19/22 10:15 Anion Gap 8 (5-15) 09/19/22 10:15 BUN 22 mg/dL (7-18) H 09/19/22 10:15 Creatinine 0.81 mg/dL (0.55-1.02) 09/19/22 10:15 Est GFR (MDRD) Af Amer 94 mL/min (>60) 09/19/22 10:15 Est GFR (MDRD) Non-Af 78 mL/min (>60) 09/19/22 10:15 BUN/Creatinine Ratio 27.2 RATIO (10-20) H 09/19/22 10:15 Glucose 113 mg/dL (74-106) H 09/19/22 10:15 Vancomycin Trough 9.0 ug/mL (5.0-15.0) 09/19/22 18:22 Microbiology Microbiology: Microbiology 09/18/22 16:01 Wound - Toe Gram Stain - Final 09/18/22 16:01 Wound - Toe Wound Culture - Preliminary Mixed Gram Positive Organisms 09/18/22 16:01 Wound - Right Foot Gram Stain - Final 09/18/22 16:01 Wound - Right Foot Wound Culture - Preliminary Mixed Gram Pos & Gram Neg Org 09/18/22 04:20 Sputum, Tracheal Aspirate Gram Stain - Final 09/18/22 04:20 Sputum, Tracheal Aspirate Respiratory Culture - Preliminary Appears to be normal respiratory parminder. Further studies to follow. 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 PATIENT'S RENAL FUNCTION IMPROVED SIGNIFICANTLY SINCE INITIAL DOSING AND DOSE PRIOR TO TROUGH WAS HUNG LATE SO TROUGH WAS ONLY 10 HOURS. A TRUE TROUGH WOULD'VE BEEN EVEN LOWER IF IT WAS DRAWN BETWEEN 11-12 HOURS. TONIGHT'S 1900 DOSE WAS ALREADY HUNG AND INFUSED BY THE TIME THE TROUGH RESULTED. WILL INCREASE DOSE TO 1500MG Q12 STARTING TOMORROW 09/20 @ 0700 AND GET A TROUGH PRIOR TO 4TH DOSE OF NEW REGIMEN. Pending Level: 09/21/22 @ 1830 Pharmacy Service will continue to monitor and adjust dosing as required.
[2022-09-19] MEDS: Dexmedetomidine 1,000 mcg in 0.9% NS 240 mL 27.9 MCG CONT INF (22:35)
[2022-09-20] VITALS (38 sets, daily range): BP systolic 117–161; BP diastolic 63–87; PULSE 23–118; RESP 12–39; TEMP 37.1–39.1; O2SAT 94–98; BMI 38.9
[2022-09-20] MEDS: Insulin Lispro 100 UNIT/ML INSULN.PEN SC ×5 (00:29→23:55)
[2022-09-20 00:30] LABS: Bedside Glucose 180 mg/dL (74-106)
[2022-09-20 01:00] LABS: Partial Thromboplast Time 67.4 Seconds (24.1-36.2)
[2022-09-20] MEDS: Acetaminophen 650 MG Suppository RC (03:52)
[2022-09-20 06:06] LABS: Bedside Glucose 207 mg/dL (74-106)
[2022-09-20 06:09] LABS: Allen Test Positive; Base Excess -13 mmol/L (-2 to +2); Bicarbonate 12.3 mmol/L (22-26); Blood Gas Specimen Type ART; FI02 28; Mode CPAP/PS; O2 Delivery Device Adult Vent; PEEP 5; PO2 72 mmHG (75-100); PS 5; SITE L Radial; SO2 94 % (95-99); Total Carbon Dioxide 13 mmol/L; pCO2 22.6 mmHg (35-45); pH 7.35 (7.35-7.45)
--- NOTE | 2022-09-20 06:14 | PCM.PN.INT ---
Assessment & Plan Assessment/Plan (1) Acute metabolic encephalopathy: (2) Respiratory failure: QUALIFIERS: Chronicity: acute (3) Afib: QUALIFIERS: Atrial fibrillation type: unspecified Qualified Code(s): I48.91 - Unspecified atrial fibrillation (4) Sepsis: QUALIFIERS: Sepsis type: sepsis due to unspecified organism Sepsis acute organ dysfunction status: with acute organ dysfunction Severe sepsis acute organ dysfunction type: acute renal failure Acute renal failure type: unspecified Severe sepsis shock status: without septic shock Qualified Code(s): A41.9 - Sepsis, unspecified organism; R65.20 - Severe sepsis without septic shock; N17.9 - Acute kidney failure, unspecified PLAN: Plan RECOMMENDATIONS: 1. Continue assist-control mode mechanical ventilation. Wean FiO2/PEEP for saturations greater than 90%. 2. Continue empiric broad-spectrum antimicrobials per ID recommendations. 3. Continue local wound care. 4. Rate/rhythm control strategy per cardiology. 5. Continue tube feeds as tolerated. 6. Continue Precedex and fentanyl for sedation. 7. Continue appropriate GI prophylaxis. IMPRESSIONS: 1. Sepsis The patient presented to the hospital with sepsis due to urinary tract source of infection with possible osteomyelitis of the right foot, with acute sepsis related organ dysfunction as evidenced by encephalopathy, acute kidney injury and respiratory failure requiring invasive mechanical ventilatory support. The patient did receive supplemental IV fluid hydration and has been maintained on broad-spectrum antimicrobials. The patient was evaluated by podiatry who did not feel that the patient required any surgical intervention. Recommendation was made for local wound care and continued antimicrobial therapy, which will be continued per the discretion of infectious diseases. 2. Encephalopathy Improved. Most likely metabolic in etiology in the setting #1. Continue supportive measures as noted above. CT head was unrevealing. 3. Acute hypoxemic respiratory failure The patient was ultimately intubated over concerns for airway protection in the setting of acute metabolic encephalopathy. This is all likely a consequence of #1. The patient is doing well from a ventilatory perspective with minimal FiO2. Plan to continue assist-control mode mechanical ventilation and wean FiO2 to maintain saturations at or above 90%. Arterial blood gas appears appropriate. 4. NSTEMI/atrial fibrillation with RVR Clinical concern for demand ischemia in the setting of #1. Cardiology is currently following to assist with medical management. For now, the patient will be continued on a heparin infusion along with Cardizem and amiodarone. Echocardiogram was unrevealing. 5. Acute kidney injury Again, likely prerenal in etiology in the setting #1. Anticipate further improvement with volume expansion. Continue to monitor urine output for now. No current indication for renal replacement therapy. 6. History of diabetes mellitus/hypertension/restless leg syndrome/obesity/GERD Complicates care, management, recovery and prognosis. Continue Accu-Cheks and sliding scale insulin coverage. Continue PPI therapy as ordered. Continue tube feeds as tolerated. TIME: 32 minutes of critical care time, independent of procedures, was spent addressing the patient's sepsis, encephalopathy, acute respiratory failure, NSTEMI, atrial fibrillation, acute kidney injury, review of all data and collaboration with the care team. Subjective Subjective The patient was seen and examined at the bedside this morning. Events from the last 24 hours have been reviewed. The patient is currently febrile with a temperature of 102 ?F. However, she is otherwise hemodynamically stable maintaining appropriate oxygen saturations with an FiO2 requirement of 28%. The patient is documented to be overall net +6 L for the hospitalization. The patient failed her spontaneous breathing trial this morning due to significant tachypnea. She remains on amiodarone and Cardizem. Objective Data Objective Data The patient's most recent lab work, culture data and imaging studies have all been personally reviewed. Lower extremity Doppler study demonstrated no evidence of DVT. Surface echocardiogram demonstrated normal LV size and function with an ejection fraction of 60%. Blood, urine and sputum cultures are pending. Vital Signs: Vital Signs Temp Pulse Resp BP Pulse Ox O2 Del Method O2 Flow Rate 102 F H 102 H 25 H 153/73 H 95 Mechanical Ventilator 75 09/20/22 05:00 09/20/22 05:00 09/20/22 05:00 09/20/22 05:00 09/20/22 05:00 09/20/22 05:00 09/18/22 06:00 FiO2 28 09/20/22 05:00 Oxygen Flow Rate (L/min) 75 Oxygen Delivery Method Mechanical Ventilator Weight: 219 lb 9.286 oz Body Mass Index (BMI) 38.9 Intake & Output: Intake and Output for Last 24 Hours 09/18/22 09/19/22 09/20/22 23:59 23:59 23:59 Intake Total 7603.59 / 7633.59 3728.85 / 3749.68 763.21 / 763.21 Output Total 1889 / 2064 2475 / 2900 1725 / 1725 Balance 5713.59 / 5568.59 1253.85 / 849.68 -961.79 / -961.79 Lab / Micro Data Attestation: I reviewed the patient's lab results. 09/20/22 06:23 09/19/22 10:15 Labs: Laboratory Results - last 24 hr 09/19/22 05:59: POC Glucose 105 09/19/22 10:15: WBC 7.0, RBC 3.91 L, Hgb 11.6 L, Hct 35.9 L, MCV 91.8, MCH 29.7, MCHC 32.3, RDW Std Deviation 51.1 H, RDW Coeff of Gerson 15.1 H, Plt Count 132 L, MPV 11.2, Immature Gran % (Auto) 0.700, Neut % (Auto) 75.5 H, Lymph % (Auto) 12.8 L, [place] % (Auto) 10.3 H, Eos % (Auto) 0.3, Baso % (Auto) 0.4, Absolute Neuts (auto) 5.3, Absolute Lymphs (auto) 0.89, Nucleated RBC % 0, APTT 54.0 H, Sodium 142, Potassium 3.6, Chloride 114 H, Carbon Dioxide 20.0 L, Anion Gap 8, BUN 22 H, Creatinine 0.81, Estim Creat Clear Calc 64.15, Est GFR (MDRD) Af Amer 94, Est GFR (MDRD) Non-Af 78, BUN/Creatinine Ratio 27.2 H, Glucose 113 H, Calcium 7.9 L 09/19/22 12:57: POC Glucose 125 H 09/19/22 17:15: APTT 56.4 H 09/19/22 18:13: POC Glucose 161 H 09/19/22 18:22: Vancomycin Trough 9.0 09/19/22 23:45: APTT 67.4 H 09/19/22 23:52: POC Glucose 180 H 09/20/22 05:41: POC Glucose 207 H Micro: Microbiology 09/18/22 16:01 Wound - Toe Gram Stain - Final 09/18/22 16:01 Wound - Toe Wound Culture - Preliminary Mixed Gram Positive Organisms 09/18/22 16:01 Wound - Right Foot Gram Stain - Final 09/18/22 16:01 Wound - Right Foot Wound Culture - Preliminary Mixed Gram Pos & Gram Neg Org 09/18/22 04:20 Sputum, Tracheal Aspirate Gram Stain - Final 09/18/22 04:20 Sputum, Tracheal Aspirate Respiratory Culture - Preliminary Appears to be normal respiratory parminder. Further studies to follow. 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 Left ventricular systolic function is normal. The estimated ejection fraction is 60 %. The left atrium is mildly enlarged. Pulmonary artery systolic pressure is 30 mmHg. Contrast injection was performed. Ordering Physician: Jennifer Kebede Performed By: Carlos Hamm RCS Venous Doppler Study 09/18/22 05:30 Interpretation Summary No evidence for acute deep venous thrombosis bilateral lower extremities with patent and compressible bilateral great saphenous veins. Pulsatile venous flow is noted bilaterally consistent with proximal venous hypertension or obstruction. Clinical correlation would be appropriate. Ordering Physician: White, Jennifer L Referring Physician: N/A Performed By: Carson Beebe, T Foot X-Ray 09/18/22 10:35 IMPRESSION: Possible early osteomyelitis at the fifth metatarsal phalangeal joint with overlying soft tissue swelling. Calcaneal spurs. Electronically Signed: Baljeet Saldana MD at 14:25 EDT , Chest X-Ray 09/18/22 14:36 IMPRESSION: The tip of the endotracheal tube is at 2.4 cm proximal to the cm. An orogastric tube is seen with the tip in the body of the stomach. A left-sided PICC line catheter has been inserted and the tip is in the midportion of the superior vena cava. Electronically Signed: Baljeet Saldana MD at 15:43 EDT , Rhythm Strip Rhythm Strip: A-fib Rate: 136 Ectopy: None Physical Exam Const Constitutional Narrative: Intubated, sedated and mechanically ventilated. HEENT normocephalic and head/scalp atraumatic Mouth: endotracheal tube in place and OG tube in place Eyes PERRL Neck supple General: trachea midline Chest inspection of chest normal Resp Auscultation: Negative for rales, rhonchi or wheezes Cardio S1 normal heart sound and S2 normal heart sound Rate: tachycardic Rhythm: abnormal rhythm GI normal to inspection, nondistended, normoactive bowel sounds Extremity General Extremity: Negative for clubbing Skin Skin Narrative: plantar diabetic foot ulceration Neuro Sensorium / Orientation: sedated on vent Charges/Coding Procedures Hospitalists Procedures: 79797 Critial Care 1st Hr
[2022-09-20 06:33] LABS: Absolute Lymphocyte Count 0.98 X10^3/uL (0.83-4.51); Absolute Neutrophil Count 4.9 X10^3/uL (2.0-7.7); Basophil# 0.04 X10^3/uL; Basophil% 0.6 % (0-1); Hematocrit 37.6 % (37-47); Hemoglobin 12.1 g/dL (12.0-15.0); Lymphocyte # 0.98 X10^3/ul (0.83-4.51); Lymphocyte % 14.6 % (19-41); Mean Corp Hgb Conc 32.2 g/dL (32-36); Mean Corpuscular Hgb 29.6 pg (27.0-32.0); Mean Corpuscular Volume 91.9 fL (81-99); Mean Platelet Vol. 10.9 fl (6.2-12.0); Monocyte% 11.9 % (0-10); NRBC Flagged by Analyzer 0 % (0-5); Neutrophil # 4.85 X10^3/uL (2.7-7.7); Platelet Count 163 K/mm3 (150-450); RBC Distribution Width CV 14.8 % (11.6-14.6); RBC Distribution Width SD 50.4 fl (35.1-43.9); Red Blood Count 4.09 M/mm3 (4.2-5.4); White Blood Count 6.7 K/mm3 (4.4-11.0)
[2022-09-20 06:48] LABS: Partial Thromboplast Time 49.7 Seconds (24.1-36.2)
[2022-09-20 07:07] LABS: Anion Gap 17 (5-15); BUN 23 mg/dL (7-18); BUN/Creat Ratio 26.4 RATIO (10-20); Calcium,Total 8.5 mg/dL (8.5-10.1); Chloride 116 mmol/L (98-107); Creatinine, Serum 0.87 mg/dL (0.55-1.02); EST Glomerular Filtration Rate 72 mL/min (>60); Est Glom Filt Rate - Afr Amer 87 mL/min (>60); Estimated Creatinine Clearance 59.73 ml/min; Glucose 217 mg/dL (74-106); Potassium 4.1 mmol/L (3.5-5.1); Sodium Level 146 mmol/L (136-145)
--- NOTE | 2022-09-20 07:22 | PN.HOSP_ITS ---
Reason for Visit Reason for Visit: Diagnoses Sepsis, unspecified organism (09/18/22) Type 2 diabetes mellitus with diabetic polyneuropathy (09/18/22) Type 2 diabetes mellitus with foot ulcer (09/18/22) Hypokalemia (09/18/22) Metabolic encephalopathy (09/18/22) Non-ST elevation (NSTEMI) myocardial infarction (09/18/22) Unspecified atrial fibrillation (09/18/22) Acute respiratory failure with hypoxia (09/18/22) Respiratory failure, unspecified, unspecified whether with hypoxia or hypercapnia (09/18/22) Non-pressure chronic ulcer of other part of right foot with fat layer exposed (09/18/22) Non-pressure chronic ulcer of other part of left foot with fat layer exposed (09/18/22) Other chronic osteomyelitis, right ankle and foot (09/18/22) Acute kidney failure, unspecified (09/18/22) Acute cystitis without hematuria (09/18/22) Severe sepsis without septic shock (09/18/22) Elevation of levels of liver transaminase levels (09/18/22) Subjective Subjective Agitated despite sedation w fentanyl and dexmedetomidine. Objective Data Objective Data Vital Signs: Vital Signs Temp Pulse Resp BP Pulse Ox O2 Del Method O2 Flow Rate 39.0 C H 105 H 26 H 159/77 H 95 Mechanical Ventilator 75 09/20/22 06:30 09/20/22 06:45 09/20/22 06:45 09/20/22 06:30 09/20/22 06:45 09/20/22 05:00 09/18/22 06:00 FiO2 28 09/20/22 06:45 Oxygen Flow Rate (L/min) 75 Oxygen Delivery Method Mechanical Ventilator Weight: 99.6 kg Body Mass Index (BMI) 38.9 Intake & Output: Intake and Output for Last 24 Hours 09/18/22 09/19/22 09/20/22 23:59 23:59 23:59 Intake Total 7603.59 / 7633.59 3728.85 / 3749.68 1014.94 / 1014.94 Output Total 1890 / 2065 2475 / 2900 1725 / 1725 Balance 5713.59 / 5568.59 1253.85 / 849.68 -710.06 / -710.06 Lab / Micro Data 09/20/22 06:23 09/20/22 06:23 Labs: Laboratory Results - last 24 hr 09/19/22 10:15: WBC 7.0, RBC 3.91 L, Hgb 11.6 L, Hct 35.9 L, MCV 91.8, MCH 29.7, MCHC 32.3, RDW Std Deviation 51.1 H, RDW Coeff of [place]erson 15.1 H, Plt Count 132 L, MPV 11.2, Immature Gran % (Auto) 0.700, Neut % (Auto) 75.5 H, Lymph % (Auto) 12.8 L, [place] % (Auto) 10.3 H, Eos % (Auto) 0.3, Baso % (Auto) 0.4, Absolute Neuts (auto) 5.3, Absolute Lymphs (auto) 0.89, Nucleated RBC % 0, APTT 54.0 H, Sodium 142, Potassium 3.6, Chloride 114 H, Carbon Dioxide 20.0 L, Anion Gap 8, BUN 22 H, Creatinine 0.81, Estim Creat Clear Calc 64.15, Est GFR (MDRD) Af Amer 94, Est GFR (MDRD) Non-Af 78, BUN/Creatinine Ratio 27.2 H, Glucose 113 H, Calcium 7.9 L 09/19/22 12:57: POC Glucose 125 H 09/19/22 17:15: APTT 56.4 H 09/19/22 18:13: POC Glucose 161 H 09/19/22 18:22: Vancomycin Trough 9.0 09/19/22 23:45: APTT 67.4 H 09/19/22 23:52: POC Glucose 180 H 09/20/22 05:41: POC Glucose 207 H 09/20/22 06:23: WBC 6.7, RBC 4.09 L, Hgb 12.1, Hct 37.6, MCV 91.9, MCH 29.6, MCHC 32.2, RDW Std Deviation 50.4 H, RDW Coeff of Gerson 14.8 H, Plt Count 163, MPV 10.9, Immature Gran % (Auto) 0.900, Neut % (Auto) 72.0 H, Lymph % (Auto) 14.6 L, [place] % (Auto) 11.9 H, Eos % (Auto) 0.0, Baso % (Auto) 0.6, Absolute Neuts (auto) 4.9, Absolute Lymphs (auto) 0.98, Nucleated RBC % 0, APTT 49.7 H, Sodium 146 H, Potassium 4.1, Chloride 116 H, Carbon Dioxide 13.0 L, Anion Gap 17 H, BUN 23 H, Creatinine 0.87, Estim Creat Clear Calc 59.73, Est GFR (MDRD) Af Amer 87, Est GFR (MDRD) Non-Af 72, BUN/Creatinine Ratio 26.4 H, Glucose 217 H, Calcium 8.5 Micro: Microbiology 09/18/22 00:37 Urine, Clean Catch Urine Culture - Final Escherichia coli 09/18/22 16:01 Wound - Toe Gram Stain - Final 09/18/22 16:01 Wound - Toe Wound Culture - Preliminary Mixed Gram Positive Organisms 09/18/22 16:01 Wound - Right Foot Gram Stain - Final 09/18/22 16:01 Wound - Right Foot Wound Culture - Preliminary Mixed Gram Pos & Gram Neg Org 09/18/22 04:20 Sputum, Tracheal Aspirate Gram Stain - Final 09/18/22 04:20 Sputum, Tracheal Aspirate Respiratory Culture - Preliminary Appears to be normal respiratory parminder. Further studies to follow. ABG Data ABG results: ABG 09/20/22 06:04 Specimen Type ART Sample Site L Radial pH 7.35 Bicarbonate Actual 12.3 L Total CO2 13 Base Excess -13 L O2 Saturation 94 L O2 % 28 ABG pCO2 22.6 L ABG pO2 72 L Zackery Test Positive O2 Delivery Device Adult Vent Vent Mode CPAP/PS POC PEEP 5 POC Pressure Suppt 5 Rhythm Strip Rhythm Strip: A-fib Rate: 136 Ectopy: None Physical Exam Const Constitutional Narrative: intubated and sedated. Resp Resp Narrative: coarse BS bilaterally. Cardio regular rate, regular rhythm, S1 normal heart sound and S2 normal heart sound GI normal to inspection, nondistended, normoactive bowel sounds and soft to palpa tion Assessment & Plan Assessment/Plan (1) Sepsis: QUALIFIERS: Acute renal failure type: unspecified Sepsis acute organ dysfunction status: with acute organ dysfunction Sepsis type: sepsis due to unspecified organism Severe sepsis acute organ dysfunction type: acute renal failure Severe sepsis shock status: without septic shock Qualified Code(s): A41.9 - Sepsis, unspecified organism; R65.20 - Severe sepsis without septic shock; N17.9 - Acute kidney failure, unspecified PLAN: 2/2 UTI +/- Pneumonia +/- OM follow up cultures on pip/tazo and vanc (2) UTI (urinary tract infection): QUALIFIERS: Hematuria presence: without hematuria Urinary tract infection type: acute cystitis Qualified Code(s): N30.00 - Acute cystitis without hematuria PLAN: abx as above Culture showing E. coli, resistant to ampicillin and intermediate to Augmentin no hydronephrosis or nephrolithiasis on CT (3) Acute metabolic encephalopathy: PLAN: 2/[address] negative. (4) Afib: QUALIFIERS: Atrial fibrillation type: unspecified Qualified Code(s): I48.91 - Unspecified atrial fibrillation PLAN: Afib w RVR On dilt gtt and amiodarone gtt and heparin gtt Cards consult check echo (5) Acute respiratory failure with hypoxia: PLAN: intubated edema v pneumonia pulm on consult. (6) Acute kidney injury: PLAN: suspect prerenal IVF monitor (7) Hypokalemia: PLAN: Resolved Admission K+ 3.4, magnesium level requested, supplementation given, repeat level in AM. (8) Transaminitis: PLAN: Mild Potentially associated with hypotension, recent evidence of [place] with likely hypovolemia with acute infectious presentation #1 and also atrial fibrillation with RVR: Admission CMP with AST/LT 95/73, continue treatment as noted and repeat CMP in a.m. (9) Osteomyelitis: QUALIFIERS: Laterality: right Osteomyelitis location: foot Osteomyelitis type: other chronic Qualified Code(s): M86.671 - Other chronic osteomyelitis, right ankle and foot PLAN: Xray of right foot showed possible early osteomyelitis at 5th MTP Wound cultures showing mixed organisms Abx as above ID and podiatry consults. Duplex of LE negative for VTE (10) NSTEMI (non-ST elevated myocardial infarction): PLAN: favor type II event cardiology following echo shows an EF of 60%, PASP 30 mmHg on heparin gtt PLAN: Plan Chronic conditions: * Diabetes mellitus type II with chronic diabetic neuropathy and history of chronic diabetic foot wound/osteomyelitis: Hold oral home regimen, continue home long-acting insulin regimen once dose clarified but low threshold to decrease to 1/2 dose while NPO status pending BS trending, NPO status given unsafe oral intake, maintain on q 6 hour ADA, accu checks w/ ISS, temporarily hold home gabapentin regimen. * Hypertension: Given presentation with hypotension and necessity for cardizem drip will hold all other HTN medications, may as noted need to d/c drip and transition to amiodarone, will add back her HTN regimen once appropriate. * Hyperlipidemia: Temporarily hold statin and fenofibrate regimen. * Restless leg syndrome: Temporarily hold home pramipexole regimen. * Allergic rhinitis: Temporarily hold Singulair and loratadine regimen. * Obesity: Weight loss and lifestyle changes will be encouraged. * Tobacco Abuse: Encouraged cessation, inpatient consultation per RT, NR if desired. * GERD: Will place on IV PPI. DVT prophylaxis: Heparin drip. CODE STATUS: Full code. Charges/Coding Visit Charges Inpatient E&M: 94282 Subs Hosp L2
[2022-09-20] MEDS: Dexmedetomidine 1,000 mcg in 0.9% NS 240 mL 33 MCG CONT INF (07:33)
[2022-09-20] MEDS: 0.9% Saline Lock 10 ML Syringe IV ×3 (07:52→23:50)
[2022-09-20] MEDS: Aspirin 81 MG TAB.CHEW PO (07:53)
[2022-09-20] MEDS: fentaNYL drip 100 ML 15 MCG CONT INF ×2 (09:50→16:38)
[2022-09-20] MEDS: HEPARIN/D5w 25,000 UNITS 25,000 UNITS/250 ML IV.SOLN. 16 UNITS CONT INF (09:55)
[2022-09-20] MEDS: Heparin Injection (Vial) 5,000 UNIT/ML VIAL IV (10:02)
[2022-09-20] MEDS: QUEtiapine 25 MG Tablet PO ×2 (10:04→21:58)
[2022-09-20] MEDS: Chlorhexidine 15 ML PO ×2 (10:04→21:57)
--- NOTE | 2022-09-20 10:17 | PCM.PN.CARD ---
Subjective Subjective Patient seen and evaluated Objective Data Vital Signs: Vital Signs Temp Pulse Resp BP Pulse Ox O2 Del Method O2 Flow Rate 102.2 F H 105 H 35 H 159/77 H 95 Mechanical Ventilator 75 09/20/22 06:30 09/20/22 09:10 09/20/22 09:10 09/20/22 06:30 09/20/22 09:10 09/20/22 08:00 09/18/22 06:00 FiO2 28 09/20/22 09:10 Oxygen Flow Rate (L/min) 75 Oxygen Delivery Method Mechanical Ventilator Weight: 219 lb 9.286 oz Body Mass Index (BMI) 38.9 Intake & Output: Intake and Output for Last 24 Hours 09/18/22 09/19/22 09/20/22 23:59 23:59 23:59 Intake Total 7603.59 / 7633.59 3728.85 / 3749.68 1790.03 / 1790.03 Output Total 1890 / 2065 2475 / 2900 1725 / 1725 Balance 5713.59 / 5568.59 1253.85 / 849.68 65.03 / 65.03 Lab / Micro Data 09/20/22 06:23 09/20/22 06:23 Labs: Laboratory Results - last 24 hr 09/19/22 10:15: WBC 7.0, RBC 3.91 L, Hgb 11.6 L, Hct 35.9 L, MCV 91.8, MCH 29.7, MCHC 32.3, RDW Std Deviation 51.1 H, RDW Coeff of [place] 15.1 H, Plt Count 132 L, MPV 11.2, Immature Gran % (Auto) 0.700, Neut % (Auto) 75.5 H, Lymph % (Auto) 12.8 L, [place] % (Auto) 10.3 H, Eos % (Auto) 0.3, Baso % (Auto) 0.4, Absolute Neuts (auto) 5.3, Absolute Lymphs (auto) 0.89, Nucleated RBC % 0, APTT 54.0 H, Sodium 142, Potassium 3.6, Chloride 114 H, Carbon Dioxide 20.0 L, Anion Gap 8, BUN 22 H, Creatinine 0.81, Estim Creat Clear Calc 64.15, Est GFR (MDRD) Af Amer 94, Est GFR (MDRD) Non-Af 78, BUN/Creatinine Ratio 27.2 H, Glucose 113 H, Calcium 7.9 L 09/19/22 12:57: POC Glucose 125 H 09/19/22 17:15: APTT 56.4 H 09/19/22 18:13: POC Glucose 161 H 09/19/22 18:22: Vancomycin Trough 9.0 09/19/22 23:45: APTT 67.4 H 09/19/22 23:52: POC Glucose 180 H 09/20/22 05:41: POC Glucose 207 H 09/20/22 06:23: WBC 6.7, RBC 4.09 L, Hgb 12.1, Hct 37.6, MCV 91.9, MCH 29.6, MCHC 32.2, RDW Std Deviation 50.4 H, RDW Coeff of [place] 14.8 H, Plt Count 163, MPV 10.9, Immature Gran % (Auto) 0.900, Neut % (Auto) 72.0 H, Lymph % (Auto) 14.6 L, [place] % (Auto) 11.9 H, Eos % (Auto) 0.0, Baso % (Auto) 0.6, Absolute Neuts (auto) 4.9, Absolute Lymphs (auto) 0.98, Nucleated RBC % 0, APTT 49.7 H, Sodium 146 H, Potassium 4.1, Chloride 116 H, Carbon Dioxide 13.0 L, Anion Gap 17 H, BUN 23 H, Creatinine 0.87, Estim Creat Clear Calc 59.73, Est GFR (MDRD) Af Amer 87, Est GFR (MDRD) Non-Af 72, BUN/Creatinine Ratio 26.4 H, Glucose 217 H, Calcium 8.5 Micro: Microbiology 09/18/22 00:36 Blood Culture (Wb) - Anticubital Right Blood Culture - Preliminary No growth in 48 hours. 09/18/22 01:33 Blood Culture (Wb) - Anticubital Left Blood Culture - Preliminary No growth in 48 hours. 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 Gram positive organism 09/18/22 04:20 Sputum, Tracheal Aspirate Gram Stain - Final 09/18/22 04:20 Sputum, Tracheal Aspirate Respiratory Culture - Preliminary Streptococcus pneumoniae 09/18/22 00:37 Urine, Clean Catch Urine Culture - Final Escherichia coli 09/18/22 16:01 Wound - Toe Gram Stain - Final 09/18/22 16:01 Wound - Toe Wound Culture - Preliminary Mixed Gram Positive Organisms ABG Data ABG results: ABG 09/20/22 06:04 Specimen Type ART Sample Site L Radial pH 7.35 Bicarbonate Actual 12.3 L Total CO2 13 Base Excess -13 L O2 Saturation 94 L O2 % 28 ABG pCO2 22.6 L ABG pO2 72 L Zackery Test Positive O2 Delivery Device Adult Vent Vent Mode CPAP/PS POC PEEP 5 POC Pressure Suppt 5 Rhythm Strip Rhythm Strip: A-fib Rate: 136 Ectopy: None Cardiology Labs/Tests 09/19/22 10:15: WBC 7.0, RBC 3.91 L, Hgb 11.6 L, Hct 35.9 L, MCV 91.8, MCH 29.7, MCHC 32.3, Plt Count 132 L, MPV 11.2, Immature Gran % (Auto) 0.700, Neut % (Auto) 75.5 H, Lymph % (Auto) 12.8 L, [place] % (Auto) 10.3 H, Eos % (Auto) 0.3, Baso % (Auto) 0.4, Absolute Neuts (auto) 5.3, Nucleated RBC % 0, APTT 54.0 H, Sodium 142, Potassium 3.6, Chloride 114 H, Carbon Dioxide 20.0 L, Anion Gap 8, BUN 22 H, Creatinine 0.81, Est GFR (MDRD) Af Amer 94, Est GFR (MDRD) Non-Af 78, BUN/Creatinine Ratio 27.2 H, Glucose 113 H, Calcium 7.9 L 09/19/22 17:15: APTT 56.4 H 09/19/22 23:45: APTT 67.4 H 09/20/22 06:04: pH 7.35, Bicarbonate Actual 12.3 L, Base Excess -13 L, O2 Saturation 94 L, ABG pCO2 22.6 L, ABG pO2 72 L, Zackery Test Positive 09/20/22 06:23: WBC 6.7, RBC 4.09 L, Hgb 12.1, Hct 37.6, MCV 91.9, MCH 29.6, MCHC 32.2, Plt Count 163, MPV 10.9, Immature Gran % (Auto) 0.900, Neut % (Auto) 72.0 H, Lymph % (Auto) 14.6 L, [place] % (Auto) 11.9 H, Eos % (Auto) 0.0, Baso % (Auto) 0.6, Absolute Neuts (auto) 4.9, Nucleated RBC % 0, APTT 49.7 H, Sodium 146 H, Potassium 4.1, Chloride 116 H, Carbon Dioxide 13.0 L, Anion Gap 17 H, BUN 23 H, Creatinine 0.87, Est GFR (MDRD) Af Amer 87, Est GFR (MDRD) Non-Af 72, BUN/Creatinine Ratio 26.4 H, Glucose 217 H, Calcium 8.5 Rhythm: EKG: ECHO: Stress Test: Cardiac Cath: PCI: CT Surgery: Holter monitor: EPS: PPM: CXR: Chest CT Scan: Physical Exam Const Constitutional Narrative: Intubated, sedated and mechanically ventilated. HEENT normocephalic and head/scalp atraumatic Mouth: endotracheal tube in place and OG tube in place Eyes PERRL Neck supple General: trachea midline Chest inspection of chest normal Resp Auscultation: Negative for rales, rhonchi or wheezes Cardio S1 normal heart sound and S2 normal heart sound Rate: tachycardic Rhythm: abnormal rhythm GI normal to inspection, nondistended, normoactive bowel sounds Extremity General Extremity: Negative for clubbing Skin Skin Narrative: plantar diabetic foot ulceration Neuro Sensorium / Orientation: sedated on vent Assessment & Plan Assessment/Plan (1) Atrial fibrillation with RVR: PLAN: Patient presents with atrial fibrillation with a rapid ventricular response rate. The above is likely secondary to the sepsis. I will recommend rate control with intravenous diltiazem like we are doing plus or minus amiodarone as necessary. Intravenous heparin will be continued for the time being. Echocardiogram demonstrated preserved left ventricular systolic function. (2) NSTEMI (non-ST elevated myocardial infarction): PLAN: The patient at this time is noted to have a non-ST elevation myocardial infarction. We will continue with heparin, After patient is extubated we will consider cardiac catheterization Thank you for allowing me to participate in the care of your patient. Please don't hesitate to call if any issues arise.
[2022-09-20] MEDS: Amiodarone 360 MG in Dextrose 5% Viaflo Bag 192.8 ML 16.7 MG CONT INF ×2 (12:07→23:46)
[2022-09-20] MEDS: Dexmedetomidine 1,000 mcg in 0.9% NS 240 mL 38 MCG CONT INF ×2 (14:18→20:53)
[2022-09-20] MEDS: Vital AF 1.2 Cal Liquid 1,000 ML 55 ML GT (15:18)
[2022-09-20 15:35] LABS: Bedside Glucose 223 mg/dL (74-106)
[2022-09-20] MEDS: Acetaminophen 650 MG/20 ML UDC GT (16:34)
[2022-09-20 16:51] LABS: Partial Thromboplast Time 57.5 Seconds (24.1-36.2)
[2022-09-20 17:53] LABS: Bedside Glucose 210 mg/dL (74-106)
[2022-09-20 23:02] LABS: Partial Thromboplast Time 57.1 Seconds (24.1-36.2)
[2022-09-20] MEDS: fentaNYL drip 100 ML 17.5 MCG CONT INF (23:16)
[2022-09-21] VITALS (37 sets, daily range): BP systolic 109–180; BP diastolic 59–114; PULSE 86–167; RESP 12–38; TEMP 36.5–38.2; O2SAT 92–100; BMI 38.2
[2022-09-21] MEDS: HEPARIN/D5w 25,000 UNITS 25,000 UNITS/250 ML IV.SOLN. 17 UNITS CONT INF ×2 (00:38→16:20)
[2022-09-21 00:42] LABS: Bedside Glucose 229 mg/dL (74-106)
[2022-09-21] MEDS: Dexmedetomidine 1,000 mcg in 0.9% NS 240 mL 38 MCG CONT INF (03:28)
[2022-09-21] MEDS: fentaNYL drip 100 ML 20 MCG CONT INF (04:03)
[2022-09-21] MEDS: 0.9% Saline Lock 10 ML Syringe IV (04:11)
--- NOTE | 2022-09-21 04:27 | NURSING ---
Fentanyl turned down from 200mcg/hr to 75mcg for SAT/SBT as pt has been awake and belligerent toward staff for most of the night.
[2022-09-21 04:34] LABS: Absolute Neutrophil Count 5.9 X10^3/uL (2.0-7.7); Basophil# 0.04 X10^3/uL; Basophil% 0.5 % (0-1); Hematocrit 33.7 % (37-47); Hemoglobin 10.6 g/dL (12.0-15.0); Mean Corp Hgb Conc 31.5 g/dL (32-36); Mean Corpuscular Volume 92.3 fL (81-99); Mean Platelet Vol. 11.2 fl (6.2-12.0); Monocyte# 0.79 X10^3/uL; Monocyte% 9.9 % (0-10); NRBC Flagged by Analyzer 0 % (0-5); Neutrophil # 5.94 X10^3/uL (2.7-7.7); Platelet Count 171 K/mm3 (150-450); RBC Distribution Width CV 15.5 % (11.6-14.6); RBC Distribution Width SD 52.9 fl (35.1-43.9); Red Blood Count 3.65 M/mm3 (4.2-5.4)
[2022-09-21 04:44] LABS: Partial Thromboplast Time 59.6 Seconds (24.1-36.2)
[2022-09-21 04:53] LABS: Anion Gap 10 (5-15); BUN 21 mg/dL (7-18); Chloride 122 mmol/L (98-107); Creatinine, Serum 0.72 mg/dL (0.55-1.02); EST Glomerular Filtration Rate 88 mL/min (>60); Est Glom Filt Rate - Afr Amer 107 mL/min (>60); Estimated Creatinine Clearance 72.17 ml/min; Glucose 300 mg/dL (74-106); Potassium 3.6 mmol/L (3.5-5.1); Sodium Level 151 mmol/L (136-145)
[2022-09-21] MEDS: Insulin Lispro 100 UNIT/ML INSULN.PEN SC ×3 (05:46→23:30)
--- NOTE | 2022-09-21 06:04 | PCM.PN.INT ---
Assessment & Plan Assessment/Plan (1) Acute metabolic encephalopathy: (2) Respiratory failure: QUALIFIERS: Chronicity: acute (3) Afib: QUALIFIERS: Atrial fibrillation type: unspecified Qualified Code(s): I48.91 - Unspecified atrial fibrillation (4) Sepsis: QUALIFIERS: Acute renal failure type: unspecified Sepsis acute organ dysfunction status: with acute organ dysfunction Sepsis type: sepsis due to unspecified organism Severe sepsis acute organ dysfunction type: acute renal failure Severe sepsis shock status: without septic shock Qualified Code(s): A41.9 - Sepsis, unspecified organism; R65.20 - Severe sepsis without septic shock; N17.9 - Acute kidney failure, unspecified PLAN: Plan RECOMMENDATIONS: 1. Proceed with a trial of extubation this morning. 2. Once extubated, wean supplemental oxygen to maintain saturations at or above 90%. 3. Perform bedside swallow evaluation and advance diet accordingly. 4. Start D5W, given increasing sodium and chloride. 5. Antimicrobials per ID recommendations. 6. Continue local wound care. 7. Rate/rhythm control strategy per cardiology. IMPRESSIONS: 1. Sepsis The patient presented to the hospital with sepsis due to urinary tract source of infection with possible osteomyelitis of the right foot and pneumococcal pneumonia, with acute sepsis related organ dysfunction as evidenced by encephalopathy, acute kidney injury and respiratory failure requiring invasive mechanical ventilatory support. The patient did receive supplemental IV fluid hydration and has been maintained on broad-spectrum antimicrobials. The patient was evaluated by podiatry who did not feel that the patient required any surgical intervention. Recommendation was made for local wound care and continued antimicrobial therapy, which will be continued per the discretion of infectious diseases. 2. Encephalopathy Improved. Most likely metabolic in etiology in the setting #1. Continue supportive measures as noted above. CT head was unrevealing. 3. Acute hypoxemic respiratory failure The patient was ultimately intubated over concerns for airway protection in the setting of acute metabolic encephalopathy. This is all likely a consequence of #1. The patient is doing well from a ventilatory perspective with minimal FiO2. She has passed her spontaneous breathing trial and will be extubated accordingly. Once extubated, supplemental oxygen will be weaned to maintain saturations at or above 90%. 4. NSTEMI/atrial fibrillation with RVR Clinical concern for demand ischemia in the setting of #1. Cardiology is currently following to assist with medical management. For now, the patient will be continued on a heparin infusion along with Cardizem and amiodarone. Echocardiogram was unrevealing. 5. Acute kidney injury Resolved. Again, likely prerenal in etiology in the setting #1. Creatinine normalized with volume expansion. Continue to monitor urine output for now. No current indication for renal replacement therapy. 6. Hypernatremia/hyperchloremia Start D5W today as ordered. Continue to monitor electrolytes daily. 7. History of diabetes mellitus/hypertension/restless leg syndrome/obesity/GERD Complicates care, management, recovery and prognosis. Continue Accu-Cheks and sliding scale insulin coverage. Continue PPI therapy as ordered. TIME: 31 minutes of critical care time, independent of procedures, was spent addressing the patient's sepsis, encephalopathy, acute respiratory failure, NSTEMI, atrial fibrillation, acute kidney injury, review of all data and collaboration with the care team. Subjective Subjective The patient was seen and examined at the bedside this morning. Events from the last 24 hours have been reviewed. The patient is currently afebrile, hemodynamically stable and maintaining appropriate oxygen saturations on spontaneous mode mechanical ventilation with an FiO2 requirement of 28%. The patient is currently documented to be overall net +7.5 L for the hospitalization. Sodium is elevated at 151 with a chloride of 122 this morning. The patient has done well on a breathing trial. She is alert and appropriately interactive. Objective Data Objective Data The patient's most recent lab work, culture data and imaging studies have all been personally reviewed. Lower extremity Doppler study demonstrated no evidence of DVT. Surface echocardiogram demonstrated normal LV size and function with an ejection fraction of 60%. Urine culture dated September 18 was positive for E. coli. Sputum culture dated September 18 was positive for Streptococcus pneumonia. Vital Signs: Vital Signs Temp Pulse Resp BP Pulse Ox O2 Del Method O2 Flow Rate 98.1 F 96 22 H 115/59 L 97 Mechanical Ventilator 75 09/21/22 05:00 09/21/22 05:12 09/21/22 05:30 09/21/22 05:00 09/21/22 05:12 09/21/22 05:00 09/18/22 06:00 FiO2 28 09/21/22 05:00 Oxygen Flow Rate (L/min) 75 Oxygen Delivery Method Mechanical Ventilator Weight: 219 lb 9.286 oz Body Mass Index (BMI) 38.9 Intake & Output: Intake and Output for Last 24 Hours 09/19/22 09/20/22 09/21/22 23:59 23:59 23:59 Intake Total 3728.85 / 3749.68 5408.39 / 5741.39 1060.54 / 1060.54 Output Total 2475 / 2900 4525 / 5925 1400 / 1400 Balance 1253.85 / 849.68 883.39 / -183.61 -339.46 / -339.46 Lab / Micro Data Attestation: I reviewed the patient's lab results. 09/22/22 03:20 09/22/22 03:20 Labs: Laboratory Results - last 24 hr 09/20/22 05:41: POC Glucose 207 H 09/20/22 06:23: WBC 6.7, RBC 4.09 L, Hgb 12.1, Hct 37.6, MCV 91.9, MCH 29.6, MCHC 32.2, RDW Std Deviation 50.4 H, RDW Coeff of [place]erson 14.8 H, Plt Count 163, MPV 10.9, Immature Gran % (Auto) 0.900, Neut % (Auto) 72.0 H, Lymph % (Auto) 14.6 L, [place] % (Auto) 11.9 H, Eos % (Auto) 0.0, Baso % (Auto) 0.6, Absolute Neuts (auto) 4.9, Absolute Lymphs (auto) 0.98, Nucleated RBC % 0, APTT 49.7 H, Sodium 146 H, Potassium 4.1, Chloride 116 H, Carbon Dioxide 13.0 L, Anion Gap 17 H, BUN 23 H, Creatinine 0.87, Estim Creat Clear Calc 59.73, Est GFR (MDRD) Af Amer 87, Est GFR (MDRD) Non-Af 72, BUN/Creatinine Ratio 26.4 H, Glucose 217 H, Calcium 8.5 09/20/22 12:54: POC Glucose 223 H 09/20/22 16:30: APTT 57.5 H 09/20/22 17:28: POC Glucose 210 H 09/20/22 22:45: APTT 57.1 H 09/20/22 23:54: POC Glucose 229 H 09/21/22 04:15: WBC 8.0, RBC 3.65 L, Hgb 10.6 L, Hct 33.7 L, MCV 92.3, MCH 29.0, MCHC 31.5 L, RDW Std Deviation 52.9 H, RDW Coeff of [place] 15.5 H, Plt Count 171, MPV 11.2, Immature Gran % (Auto) 0.600, Neut % (Auto) 74.0 H, Lymph % (Auto) 15.0 L, [place] % (Auto) 9.9, Eos % (Auto) 0.0, Baso % (Auto) 0.5, Absolute Neuts (auto) 5.9, Absolute Lymphs (auto) 1.20, Nucleated RBC % 0, APTT 59.6 H, Sodium 151 H, Potassium 3.6, Chloride 122 H, Carbon Dioxide 19.0 L, Anion Gap 10, BUN 21 H, Creatinine 0.72, Estim Creat Clear Calc 72.17, Est GFR (MDRD) Af Amer 107, Est GFR (MDRD) Non-Af 88, BUN/Creatinine Ratio 29.0 H, Glucose 300 H, Calcium 8.0 L Micro: Microbiology 09/18/22 16:01 Wound - Toe Gram Stain - Final 09/18/22 16:01 Wound - Toe Wound Culture - Preliminary Staphylococcus species 09/18/22 16:01 Wound - Right Foot Gram Stain - Final 09/18/22 16:01 Wound - Right Foot Wound Culture - Preliminary GNR Poss Pseudomonas sp GNR lactose pinsetter mechanic automatic Staphylococcus species Gram positive rosie 09/18/22 00:36 Blood Culture (Wb) - Anticubital Right Blood Culture - Preliminary No growth in 48 hours. 09/18/22 01:33 Blood Culture (Wb) - Anticubital Left Blood Culture - Preliminary No growth in 48 hours. 09/18/22 04:20 Sputum, Tracheal Aspirate Gram Stain - Final 09/18/22 04:20 Sputum, Tracheal Aspirate Respiratory Culture - Preliminary Streptococcus pneumoniae 09/18/22 00:37 Urine, Clean Catch Urine Culture - Final Escherichia coli ABG Data ABG results: ABG 09/20/22 06:04 Specimen Type ART Sample Site L Radial pH 7.35 Bicarbonate Actual 12.3 L Total CO2 13 Base Excess -13 L O2 Saturation 94 L O2 % 28 ABG pCO2 22.6 L ABG pO2 72 L Zackery Test Positive O2 Delivery Device Adult Vent Vent Mode CPAP/PS POC PEEP 5 POC Pressure Suppt 5 Radiography Diagnostic Testing: Radiology Impression Echocardiogram 09/18/22 03:18 Interpretation Summary Normal LV size. Left ventricular systolic function is normal. The estimated ejection fraction is 60 %. The left atrium is mildly enlarged. Pulmonary artery systolic pressure is 30 mmHg. Contrast injection was performed. Ordering Physician: Jennifer Kebede Performed By: Carlos Hamm [facility] Venous Doppler Study 09/18/22 05:30 Interpretation Summary No evidence for acute deep venous thrombosis bilateral lower extremities with patent and compressible bilateral great saphenous veins. Pulsatile venous flow is noted bilaterally consistent with proximal venous hypertension or obstruction. Clinical correlation would be appropriate. Ordering Physician: Jennifer Kebede Referring Physician: N/A Performed By: Carson Beebe, T Foot X-Ray 09/18/22 10:35 IMPRESSION: Possible early osteomyelitis at the fifth metatarsal phalangeal joint with overlying soft tissue swelling. Calcaneal spurs. Electronically Signed: Baljeet Saldana MD at 14:25 EDT , Chest X-Ray 09/18/22 14:36 IMPRESSION: The tip of the endotracheal tube is at 2.4 cm proximal to the cm. An orogastric tube is seen with the tip in the body of the stomach. A left-sided PICC line catheter has been inserted and the tip is in the midportion of the superior vena cava. Electronically Signed: Baljeet Saldana MD at 15:43 EDT , Rhythm Strip Rhythm Strip: A-fib Rate: 136 Ectopy: None Physical Exam Const Constitutional Narrative: Remains intubated and mechanically ventilated. Tolerating spontaneous mode of mechanical ventilation. HEENT normocephalic and head/scalp atraumatic Mouth: endotracheal tube in place and OG tube in place Eyes PERRL Neck supple General: trachea midline Chest inspection of chest normal Resp Auscultation: Negative for rales, rhonchi or wheezes Cardio S1 normal heart sound and S2 normal heart sound Rate: tachycardic Rhythm: abnormal rhythm GI normal to inspection, nondistended, normoactive bowel sounds Extremity General Extremity: Negative for clubbing Skin Skin Narrative: plantar diabetic foot ulceration Neuro Neuro Narrative: Alert and following commands appropriately. Charges/Coding Procedures Hospitalists Procedures: 00908 Critial Care 1st Hr
--- NOTE | 2022-09-21 06:28 | NURSING ---
verbal order received to extubate pt, precedex and fentanyl turned completely off per .
--- NOTE | 2022-09-21 06:59 | PN.HOSP_ITS ---
Reason for Visit Reason for Visit: Diagnoses Sepsis, unspecified organism (09/18/22) Type 2 diabetes mellitus with diabetic polyneuropathy (09/18/22) Type 2 diabetes mellitus with foot ulcer (09/18/22) Hypokalemia (09/18/22) Metabolic encephalopathy (09/18/22) Non-ST elevation (NSTEMI) myocardial infarction (09/18/22) Unspecified atrial fibrillation (09/18/22) Acute respiratory failure with hypoxia (09/18/22) Respiratory failure, unspecified, unspecified whether with hypoxia or hypercapnia (09/18/22) Non-pressure chronic ulcer of other part of right foot with fat layer exposed (09/18/22) Non-pressure chronic ulcer of other part of left foot with fat layer exposed (09/18/22) Other chronic osteomyelitis, right ankle and foot (09/18/22) Acute kidney failure, unspecified (09/18/22) Acute cystitis without hematuria (09/18/22) Severe sepsis without septic shock (09/18/22) Elevation of levels of liver transaminase levels (09/18/22) Subjective Subjective Extubated this AM. Voice is raspy post-extubation. States that she had been feeling sick since last Thursday. Objective Data Objective Data Vital Signs: Vital Signs Temp Pulse Resp BP Pulse Ox O2 Del Method O2 Flow Rate 36.6 C 105 H 17 122/81 H 98 Mechanical Ventilator 75 09/21/22 06:00 09/21/22 06:00 09/21/22 06:00 09/21/22 06:00 09/21/22 06:00 09/21/22 06:00 09/18/22 06:00 FiO2 28 09/21/22 06:00 Oxygen Flow Rate (L/min) 75 Oxygen Delivery Method Mechanical Ventilator Weight: 99.6 kg Body Mass Index (BMI) 38.9 Intake & Output: Intake and Output for Last 24 Hours 09/19/22 09/20/22 09/21/22 23:59 23:59 23:59 Intake Total 3728.85 / 3749.68 5408.39 / 5741.39 1333.31 / 1333.31 Output Total 2475 / 2900 4525 / 5925 1400 / 1400 Balance 1253.85 / 849.68 883.39 / -183.61 -66.69 / -66.69 Lab / Micro Data 09/21/22 04:15 09/21/22 04:15 Labs: Laboratory Results - last 24 hr 09/20/22 06:23: Sodium 146 H, Potassium 4.1, Chloride 116 H, Carbon Dioxide 13.0 L, Anion Gap 17 H, BUN 23 H, Creatinine 0.87, Estim Creat Clear Calc 59.73, Est GFR (MDRD) Af Amer 87, Est GFR (MDRD) Non-Af 72, BUN/Creatinine Ratio 26.4 H, Glucose 217 H, Calcium 8.5 09/20/22 12:54: POC Glucose 223 H 09/20/22 16:30: APTT 57.5 H 09/20/22 17:28: POC Glucose 210 H 09/20/22 22:45: APTT 57.1 H 09/20/22 23:54: POC Glucose 229 H 09/21/22 04:15: WBC 8.0, RBC 3.65 L, Hgb 10.6 L, Hct 33.7 L, MCV 92.3, MCH 29.0, MCHC 31.5 L, RDW Std Deviation 52.9 H, RDW Coeff of Gerson 15.5 H, Plt Count 171, MPV 11.2, Immature Gran % (Auto) 0.600, Neut % (Auto) 74.0 H, Lymph % (Auto) 15.0 L, [place] % (Auto) 9.9, Eos % (Auto) 0.0, Baso % (Auto) 0.5, Absolute Neuts (auto) 5.9, Absolute Lymphs (auto) 1.20, Nucleated RBC % 0, APTT 59.6 H, Sodium 151 H, Potassium 3.6, Chloride 122 H, Carbon Dioxide 19.0 L, Anion Gap 10, BUN 21 H, Creatinine 0.72, Estim Creat Clear Calc 72.17, Est GFR (MDRD) Af Amer 107, Est GFR (MDRD) Non-Af 88, BUN/Creatinine Ratio 29.0 H, Glucose 300 H, Calcium 8.0 L Micro: Microbiology 09/18/22 16:01 Wound - Toe Gram Stain - Final 09/18/22 16:01 Wound - Toe Wound Culture - Preliminary Staphylococcus species 09/18/22 16:01 Wound - Right Foot Gram Stain - Final 09/18/22 16:01 Wound - Right Foot Wound Culture - Preliminary GNR Poss Pseudomonas sp GNR lactose pit boss Staphylococcus species Gram positive rosie 09/18/22 00:36 Blood Culture (Wb) - Anticubital Right Blood Culture - Prel iminary No growth in 48 hours. 09/18/22 01:33 Blood Culture (Wb) - Anticubital Left Blood Culture - Preliminary No growth in 48 hours. 09/18/22 04:20 Sputum, Tracheal Aspirate Gram Stain - Final 09/18/22 04:20 Sputum, Tracheal Aspirate Respiratory Culture - Preliminary Streptococcus pneumoniae 09/18/22 00:37 Urine, Clean Catch Urine Culture - Final Escherichia coli Rhythm Strip Rhythm Strip: A-fib Rate: 136 Ectopy: None Physical Exam Const alert and no apparent distress Resp normal respiratory effort, no retractions and no use of accessory muscles Cardio regular rate, regular rhythm, S1 normal heart sound and S2 normal heart sound GI normal to inspection, nondistended, normoactive bowel sounds, soft to palpation, non-tender and non-distended Assessment & Plan Assessment/Plan (1) Sepsis: QUALIFIERS: Acute renal failure type: unspecified Sepsis acute organ dysfunction status: with acute organ dysfunction Sepsis type: sepsis due to unspecified organism Severe sepsis acute organ dysfunction type: acute renal failure Severe sepsis shock status: without septic shock Qualified Code(s): A41.9 - Sepsis, unspecified organism; R65.20 - Severe sepsis without septic shock; N17.9 - Acute kidney failure, unspecified PLAN: 2/2 UTI +/- Pneumonia +/- OM follow up cultures on pip/tazo and vanc (2) UTI (urinary tract infection): QUALIFIERS: Hematuria presence: without hematuria Urinary tract infection type: acute cystitis Qualified Code(s): N30.00 - Acute cystitis without hematuria PLAN: abx as above Culture showing E. coli, resistant to ampicillin and intermediate to Augmentin no hydronephrosis or nephrolithiasis on CT (3) Acute metabolic encephalopathy: PLAN: 2/[address] negative. pt has been very agitated. Currently on fentanyl and dexmedetomidine gtt. (4) Afib: QUALIFIERS: Atrial fibrillation type: unspecified Qualified Code(s): I48.91 - Unspecified atrial fibrillation PLAN: Afib w RVR On amiodarone gtt and heparin gtt. Plan is for another day of amiodarone gtt. Diltiazem gtt now off. Started on metoprolol. Cards following echo showed an EF 60%. PASP 30 mmHg (5) Acute respiratory failure with hypoxia: PLAN: intubated on the September 18, extubated on 09/20 edema v pneumonia pulm on consult. (6) Acute kidney injury: PLAN: suspect prerenal IVF monitor (7) Hypokalemia: PLAN: Resolved Admission K+ 3.4, magnesium level requested, supplementation given, repeat level in AM. (8) Transaminitis: PLAN: Mild Potentially associated with hypotension, recent evidence of [place] with likely hypovolemia with acute infectious presentation #1 and also atrial fibrillation with RVR: Admission CMP with AST/LT 95/73, continue treatment as noted and repeat CMP in a.m. (9) Osteomyelitis: QUALIFIERS: Laterality: right Osteomyelitis location: foot Osteomyelitis type: other chronic Qualified Code(s): M86.671 - Other chronic osteomyelitis, right ankle and foot PLAN: Suspecte Xray of right foot showed possible early osteomyelitis at 5th MTP. However, podiatry consulted and he did not feel pt did have OM and changes on xray may be due to hammertoe deformities and old fractures. Wound cultures showing mixed organisms, including Staph species. Abx as above ID on for addressing abx Duplex of LE negative for VTE (10) NSTEMI (non-ST elevated myocardial infarction): PLAN: favor type II event cardiology following echo shows an EF of 60%, PASP 30 mmHg on heparin gtt Eventual cardiac catheterization tentatively after extubation. (11) Hypernatremia: PLAN: 151 today, trending up the past 2 days. Pt to receive D5W Monitor PLAN: Plan Chronic conditions: * Diabetes mellitus type II with chronic diabetic neuropathy and history of chronic diabetic foot wound/osteomyelitis: Hold oral home regimen, continue home long-acting insulin regimen once dose clarified but low threshold to decrease to 1/2 dose while NPO status pending BS trending, NPO status given unsafe oral intake, maintain on q 6 hour ADA, accu checks w/ ISS, temporarily hold home gabapentin regimen. * Hypertension: Given presentation with hypotension and necessity for cardizem drip will hold all other HTN medications, may as noted need to d/c drip and transition to amiodarone, will add back her HTN regimen once appropriate. * Hyperlipidemia: Temporarily hold statin and fenofibrate regimen. * Restless leg syndrome: Temporarily hold home pramipexole regimen. * Allergic rhinitis: Temporarily hold Singulair and loratadine regimen. * Obesity: Weight loss and lifestyle changes will be encouraged. * Tobacco Abuse: Encouraged cessation, inpatient consultation per RT, NR if desired. * GERD: Will place on IV PPI. DVT prophylaxis: Heparin drip. CODE STATUS: Full code. Charges/Coding Visit Charges Inpatient E&M: 34440 Subs Hosp L2
[2022-09-21] MEDS: Aspirin 81 MG TAB.CHEW PO (07:39)
[2022-09-21] MEDS: QUEtiapine 25 MG Tablet PO ×2 (07:39→21:11)
--- NOTE | 2022-09-21 09:07 | PN.CARD_ITS ---
Subjective Subjective Patient seen and evaluated. Successfully extubated. Still in A-fib. Unbeknownst to her. Objective Data Vital Signs: Vital Signs Temp Pulse Resp BP Pulse Ox O2 Del Method O2 Flow Rate 98.4 F 137 H 18 119/95 H 95 Nasal Cannula 2 09/21/22 09:00 09/21/22 09:00 09/21/22 09:00 09/21/22 09:00 09/21/22 09:00 09/21/22 09:00 09/21/22 09:00 FiO2 28 09/21/22 07:00 Oxygen Flow Rate (L/min) 2 Oxygen Delivery Method Nasal Cannula Weight: 216 lb 0.848 oz Body Mass Index (BMI) 38.2 Intake & Output: Intake and Output for Last 24 Hours 09/19/22 09/20/22 09/21/22 23:59 23:59 23:59 Intake Total 3728.85 / 3749.68 5408.39 / 5741.39 1908.31 / 1908.31 Output Total 2475 / 2900 4525 / 5925 3300 / 3300 Balance 1253.85 / 849.68 883.39 / -183.61 -1391.69 / -1391.69 Lab / Micro Data 09/21/22 04:15 09/21/22 04:15 Labs: Laboratory Results - last 24 hr 09/20/22 12:54: POC Glucose 223 H 09/20/22 16:30: APTT 57.5 H 09/20/22 17:28: POC Glucose 210 H 09/20/22 22:45: APTT 57.1 H 09/20/22 23:54: POC Glucose 229 H 09/21/22 04:15: WBC 8.0, RBC 3.65 L, Hgb 10.6 L, Hct 33.7 L, MCV 92.3, MCH 29.0, MCHC 31.5 L, RDW Std Deviation 52.9 H, RDW Coeff of Gerson 15.5 H, Plt Count 171, MPV 11.2, Immature Gran % (Auto) 0.600, Neut % (Auto) 74.0 H, Lymph % (Auto) 15.0 L, [place] % (Auto) 9.9, Eos % (Auto) 0.0, Baso % (Auto) 0.5, Absolute Neuts (auto) 5.9, Absolute Lymphs (auto) 1.20, Nucleated RBC % 0, APTT 59.6 H, Sodium 151 H, Potassium 3.6, Chloride 122 H, Carbon Dioxide 19.0 L, Anion Gap 10, BUN 21 H, Creatinine 0.72, Estim Creat Clear Calc 72.17, Est GFR (MDRD) Af Amer 107, Est GFR (MDRD) Non-Af 88, BUN/Creatinine Ratio 29.0 H, Glucose 300 H, Calcium 8.0 L Micro: Microbiology 09/18/22 04:20 Sputum, Tracheal Aspirate Gram Stain - Final 09/18/22 04:20 Sputum, Tracheal Aspirate Respiratory Culture - Final Streptococcus pneumoniae 09/18/22 16:01 Wound - Right Foot Gram Stain - Final 09/18/22 16:01 Wound - Right Foot Wound Culture - Final Pseudomonas aeruginosa Escherichia coli Staphylococcus cohnii urealyti Gram positive rosie 09/18/22 16:01 Wound - Toe Gram Stain - Final 09/18/22 16:01 Wound - Toe Wound Culture - Final Staphylococcus cohnii urealyti 09/18/22 00:36 Blood Culture (Wb) - Anticubital Right Blood Culture - Preliminary No growth in 48 hours. 09/18/22 01:33 Blood Culture (Wb) - Anticubital Left Blood Culture - Preliminary No growth in 48 hours. 09/18/22 00:37 Urine, Clean Catch Urine Culture - Final Escherichia coli Rhythm Strip Rhythm Strip: A-fib Rate: 136 Ectopy: None Cardiology Labs/Tests 09/20/22 16:30: APTT 57.5 H 09/20/22 22:45: APTT 57.1 H 09/21/22 04:15: WBC 8.0, RBC 3.65 L, Hgb 10.6 L, Hct 33.7 L, MCV 92.3, MCH 29.0, MCHC 31.5 L, Plt Count 171, MPV 11.2, Immature Gran % (Auto) 0.600, Neut % (Auto) 74.0 H, Lymph % (Auto) 15.0 L, [place] % (Auto) 9.9, Eos % (Auto) 0.0, Baso % (Auto) 0.5, Absolute Neuts (auto) 5.9, Nucleated RBC % 0, APTT 59.6 H, Sodium 151 H, Potassium 3.6, Chloride 122 H, Carbon Dioxide 19.0 L, Anion Gap 10, BUN 21 H, Creatinine 0.72, Est GFR (MDRD) Af Amer 107, Est GFR (MDRD) Non-Af 88, BUN/Creatinine Ratio 29.0 H, Glucose 300 H, Calcium 8.0 L Rhythm: EKG: ECHO: Stress Test: Cardiac Cath: PCI: CT Surgery: Holter monitor: EPS: PPM: CXR: Chest CT Scan: Physical Exam HEENT normocephalic and head/scalp atraumatic Mouth: endotracheal tube in place and OG tube in place Eyes PERRL Neck supple General: trachea midline Chest inspection of chest normal Resp Auscultation: Negative for rales, rhonchi or wheezes Cardio S1 normal heart sound and S2 normal heart sound Rate: tachycardic Rhythm: abnormal rhythm irregularly irregular GI normal to inspection, nondistended, normoactive bowel sounds Extremity General Extremity: Negative for clubbing Skin Skin Narrative: plantar diabetic foot ulceration Neuro Neuro Narrative: Alert and following commands appropriately. Assessment & Plan Assessment/Plan (1) Atrial fibrillation with RVR: PLAN: Patient presents with atrial fibrillation with a rapid ventricular response rate. The above is likely secondary to the sepsis. This appears to have improved. I would recommend that we continue the heparin * Discontinue intravenous diltiazem * Switch to oral metoprolol 25 mg twice a day * Continue IV amiodarone for another 24 hours and then DC Echocardiogram demonstrated preserved left ventricular systolic function. (2) NSTEMI (non-ST elevated myocardial infarction): PLAN: The patient at this time is noted to have a non-ST elevation myocardial infarction. We will continue with heparin, Will consider cardiac catheterization on Thursday. Thank you for allowing me to participate in the care of your patient. Please don't hesitate to call if any issues arise.
[2022-09-21] MEDS: Amiodarone 360 MG in Dextrose 5% Viaflo Bag 192.8 ML 16.7 MG CONT INF ×2 (09:17→22:00)
[2022-09-21] MEDS: Metoprolol Tartrate 25 MG Tablet PO ×2 (10:24→21:11)
[2022-09-21 13:15] LABS: Bedside Glucose 205 mg/dL (74-106)
[2022-09-21 13:19] LABS: Bedside Glucose 191 mg/dL (74-106)
[2022-09-21] MEDS: dilTIAZem 25 MG/5 ML Vial IV BOLUS (15:13)
[2022-09-21 18:14] LABS: Bedside Glucose 198 mg/dL (74-106)
[2022-09-21 19:42] LABS: Vancomycin, Trough Level 14.4 ug/mL (5.0-15.0)
--- NOTE | 2022-09-21 20:03 | PCM.RX.CS ---
Consult Antibiotic Management Pharmacy has been consulted to manage selected antiobiotic: Vancomycin Type of Intervention Type of Consult: Follow-up Labs Labs: Sodium 151 mmol/L (136-145) H 09/21/22 04:15 Potassium 3.6 mmol/L (3.5-5.1) 09/21/22 04:15 Chloride 122 mmol/L (98-107) H 09/21/22 04:15 Carbon Dioxide 19.0 mmol/L (21.0-32.0) L 09/21/22 04:15 Anion Gap 10 (5-15) 09/21/22 04:15 BUN 21 mg/dL (7-18) H 09/21/22 04:15 Creatinine 0.72 mg/dL (0.55-1.02) 09/21/22 04:15 Est GFR (MDRD) Af Amer 107 mL/min (>60) 09/21/22 04:15 Est GFR (MDRD) Non-Af 88 mL/min (>60) 09/21/22 04:15 BUN/Creatinine Ratio 29.0 RATIO (10-20) H 09/21/22 04:15 Glucose 300 mg/dL (74-106) H 09/21/22 04:15 Vancomycin Trough 14.4 ug/mL (5.0-15.0) 09/21/22 18:30 Microbiology Microbiology: Microbiology 09/18/22 04:20 Sputum, Tracheal Aspirate Gram Stain - Final 09/18/22 04:20 Sputum, Tracheal Aspirate Respiratory Culture - Final Streptococcus pneumoniae 09/18/22 16:01 Wound - Right Foot Gram Stain - Final 09/18/22 16:01 Wound - Right Foot Wound Culture - Final Pseudomonas aeruginosa Escherichia coli Staphylococcus cohnii urealyti Gram positive rosie 09/18/22 16:01 Wound - Toe Gram Stain - Final 09/18/22 16:01 Wound - Toe Wound Culture - Final Staphylococcus cohnii urealyti 09/18/22 00:36 Blood Culture (Wb) - Anticubital Right Blood Culture - Preliminary No growth in 48 hours. 09/18/22 01:33 Blood Culture (Wb) - Anticubital Left Blood Culture - Preliminary No growth in 48 hours. 09/18/22 00:37 Urine, Clean Catch Urine Culture - Final Escherichia coli Goal Trough Goal Trough: 15-20 mcg/mL Pharmacy Plan for Drug Dosing Pharmacy Plan for Drug Dosing: VANCOMYCIN LEVEL RECEIVED Current Vancomycin Dose: 1500mg IV Q12hr Number of Doses Received: 3 (of new regimen) Vancomycin Level: 14.4 (goal 15-20) Hours Since Last Dose: 12.5hr Renal Function: 0.72 Renal Function Trend: stable Lab/Micro: Cx growing various staph spp Vancomycin Plan/Comments: Patient had a trough drawn which resulted in a value of 14.4 (goal 15-20). The last dose prior to the trough was given ~1hr early, s the trough likely would be a little higher. Will continue to maintain patient on current dose and recheck a trough in 2 days. If trough once again low, could consider slightly increasing dose at that time. Pending Level: 09/23/22 @4913 Pharmacy Service will continue to monitor and adjust dosing as required.
[2022-09-21] MEDS: Gabapentin 600 MG Tablet PO (21:14)
--- NOTE | 2022-09-21 22:05 | PCM.HOSP.N ---
Hospitalist Note Recurrent RVR, on cardizem and amiodarone still, will dose again with IV dig x 1 and re-assess, responded prior well.
[2022-09-21] MEDS: Digoxin 250 MCG/ML Ampul 500 MCG IV (22:33)
[2022-09-21 23:49] LABS: Bedside Glucose 186 mg/dL (74-106)
[2022-09-22] VITALS (32 sets, daily range): BP systolic 118–189; BP diastolic 76–129; PULSE 124–163; RESP 18–30; TEMP 35.9–38.1; O2SAT 87–97; BMI 38.2
[2022-09-22] MEDS: Digoxin 250 MCG/ML Ampul 500 MCG IV (00:24)
[2022-09-22 03:30] LABS: Absolute Lymphocyte Count 1.65 X10^3/uL (0.83-4.51); Basophil# 0.06 X10^3/uL; Basophil% 0.7 % (0-1); Eosinophil# 0.08 X10^3/uL; Eosinophils% 0.9 % (0-5); Hemoglobin 11.2 g/dL (12.0-15.0); Lymphocyte # 1.65 X10^3/ul (0.83-4.51); Lymphocyte % 18.7 % (19-41); Mean Corpuscular Volume 90.7 fL (81-99); Mean Platelet Vol. 10.4 fl (6.2-12.0); Monocyte# 0.99 X10^3/uL; Monocyte% 11.2 % (0-10); NRBC Flagged by Analyzer 0 % (0-5); Neutrophil # 5.95 X10^3/uL (2.7-7.7); Neutrophil % 67.3 % (47-70); Platelet Count 210 K/mm3 (150-450); RBC Distribution Width CV 15.4 % (11.6-14.6); RBC Distribution Width SD 51.7 fl (35.1-43.9); Red Blood Count 3.86 M/mm3 (4.2-5.4); White Blood Count 8.8 K/mm3 (4.4-11.0)
[2022-09-22 03:39] LABS: Partial Thromboplast Time 57.1 Seconds (24.1-36.2)
[2022-09-22 03:43] LABS: Anion Gap 6 (5-15); BUN 10 mg/dL (7-18); BUN/Creat Ratio 14.7 RATIO (10-20); Calcium,Total 8.6 mg/dL (8.5-10.1); Chloride 116 mmol/L (98-107); Creatinine, Serum 0.68 mg/dL (0.55-1.02); EST Glomerular Filtration Rate 95 mL/min (>60); Est Glom Filt Rate - Afr Amer 115 mL/min (>60); Estimated Creatinine Clearance 76.42 ml/min; Glucose 323 mg/dL (74-106); Potassium 2.9 mmol/L (3.5-5.1); Sodium Level 148 mmol/L (136-145)
[2022-09-22] MEDS: dilTIAZem 25 MG/5 ML Vial IV BOLUS ×2 (04:22→07:46)
[2022-09-22] MEDS: Insulin Lispro 100 UNIT/ML INSULN.PEN SC ×3 (05:21→22:40)
[2022-09-22 06:13] LABS: Bedside Glucose 180 mg/dL (74-106)
[2022-09-22] MEDS: HEPARIN/D5w 25,000 UNITS 25,000 UNITS/250 ML IV.SOLN. 17 UNITS CONT INF ×2 (06:13→18:17)
--- NOTE | 2022-09-22 07:23 | PCM.PN.INT ---
Assessment & Plan Assessment/Plan (1) Acute metabolic encephalopathy: PLAN: Improved (2) Respiratory failure: QUALIFIERS: Chronicity: acute PLAN: Likely multifactorial due to combination of CHF precipitated by rapid A-fib, and underlying COPD/asthma and heavy smoker. Adequately oxygenated on 2 to 3 L of O2 after extubation. Today's chest x-ray shows persistent CHF, elevated right hemidiaphragm no consolidation. O2 requirement is decreasing after diuresis. Patient's congestive heart failure secondary to A-fib RVR is likely playing a role. She also has bilateral wheezing and has not been on her usual inhalers which include Breo and albuterol. -Titrate O2 to keep saturation greater than 92. She gets confused and takes it off, falling rapidly into the 80%'s. -High degree of vigilance regarding maintaining her oxygen therapy on her face. Recommend soft restraint if necessary to prevent severe hypoxemia and cardiac ischemia. -Avoid albuterol, but give iPratropium nebulizer every 6 hours. -Continue diuresis -Rate control; metoprolol started today by Dr. Kramer, she will also receive a few small boluses of 2.5 mg to get rate less than 120. Continues amiodarone and diltiazem; she seems relatively resistant to diltiazem drip. -Continue bronchopulmonary hygiene, mobilize as tolerated. -IV fluids held (3) Afib: QUALIFIERS: Atrial fibrillation type: unspecified Qualified Code(s): I48.91 - Unspecified atrial fibrillation PLAN: Amiodarone, diltiazem, metoprolol, heparin drip, per cardiology - Patient had an NSTEMI likely due to her rapid heart rate (4) Sepsis: QUALIFIERS: Acute renal failure type: unspecified Sepsis acute organ dysfunction status: with acute organ dysfunction Sepsis type: sepsis due to unspecified organism Severe sepsis acute organ dysfunction type: acute renal failure Severe sepsis shock status: without septic shock Qualified Code(s): A41.9 - Sepsis, unspecified organism; R65.20 - Severe sepsis without septic shock; N17.9 - Acute kidney failure, unspecified PLAN: Wound cultures with Pseudomonas, E. coli, staph and gram-positive rosie. Sputum shows strep pneumoniae. Still febrile. - Continue Vanco, Zosyn per ID for wound culture, also covers strep pneumoniae and sputum. Chest x-ray is more consistent with CHF than it is pneumonia. -Surveillance cultures if patient remains febrile to 100.4 or more. -Casanova discontinued per Dr. Sanchez -Patient passed her swallowing evaluation and is not aspirating. -Further evaluation of possible osteomyelitis per podiatry and ID. -Patient has MRSA positive. -Wound care PLAN: Plan 2. Metabolic encephalopathy Improved. 3. NSTEMI/atrial fibrillation with RVR Clinical concern for demand ischemia in the setting of #1. Cardiology is following 5. Acute kidney injury Resolved. 6. Hypernatremia/hyperchloremia Resolved, IV fluid held to prevent overload. 7. History of diabetes mellitus/hypertension/restless leg syndrome/obesity/GERD Complicates care, management, recovery and prognosis. Continue Accu-Cheks and sliding scale insulin coverage. Continue PPI therapy as ordered. TIME: 40 minutes of critical care time, independent of procedures, was spent addressing the patient's sepsis, encephalopathy, acute respiratory failure, NSTEMI, atrial fibrillation, acute kidney injury, review of all data and collaboration with the care team. Subjective Subjective Patient was extubated uneventfully on September 21. Has no respiratory complaints, has a hoarse voice. She had been intubated for airway support in the setting of altered mental status and sepsis. She think she would benefit from an inhaler, as wheezing, not coughing. The patient stated she felt like she was swollen and her hands were puffy compared to usual. Denies chronic edema, chest pain fevers chills or sweats. She is still febrile at 100.4 F. O2 saturation on room air is 88%. She removed her nasal cannula herself. On 2 L she is 93 to 95%. She is not on O2 as an outpatient. Her mental status is clearing she was able to give a good history. She was on Keflex less than a month ago for her foot wound. She traveled here from the [facility] to visit a friend. During the trip she became progressively more confused. She had noted that her urine was dark-colored and strong smelling but did not have dysuria. She denies any fevers chills or sweats. Blood cultures have been negative to date, her sputum showed strep pneumoniae, her right foot wound shows Pseudomonas, E. coli, staph, and a gram-positive rosie. She remains on Zosyn and Vanco, had possibly been on doxycycline as an outpatient Overnight: Continued to have rapid A-fib not responsive to 15 mg/h of diltiazem, metoprolol p.o. was added amiodarone continued by cardiology. She had not received any albuterol since admission and has COPD has not been on her usual inhalers so ipratropium and steroids restarted today. ID is following for her right foot wound polymicrobial infection. Objective Data Objective Data Vital Signs: Vital Signs Temp Pulse Resp BP Pulse Ox O2 Del Method O2 Flow Rate 100.2 F H 127 H 18 189/76 H 92 Room Air 2 09/22/22 06:00 09/22/22 07:00 09/22/22 07:00 09/22/22 07:00 09/22/22 07:00 09/22/22 07:00 09/21/22 14:00 FiO2 28 09/21/22 07:00 Tmax was personally noted to be 100.4 at ~8 AM during rounds. Oxygen Flow Rate (L/min) 2 Oxygen Delivery Method Room Air Weight: 215 lb 9.793 oz Body Mass Index (BMI) 38.2 Intake & Output: Intake and Output for Last 24 Hours 09/20/22 09/21/22 09/22/22 23:59 23:59 23:59 Intake Total 5408.39 / 5741.39 4198.41 / 4213.41 1146.67 / 1146.67 Output Total 4525 / 5925 7600 / 8500 2650 / 2650 Balance 883.39 / -183.61 -3401.59 / -4286.59 -1503.33 / -1503.33 Lab / Micro Data Attestation: I reviewed the patient's lab results. 09/22/22 03:20 09/22/22 03:20 Labs: Laboratory Results - last 24 hr 09/21/22 05:43: POC Glucose 205 H 09/21/22 12:58: POC Glucose 191 H 09/21/22 17:55: POC Glucose 198 H 09/21/22 18:30: Vancomycin Trough 14.4 09/21/22 23:27: POC Glucose 186 H 09/22/22 03:20: WBC 8.8, RBC 3.86 L, Hgb 11.2 L, Hct 35.0 L, MCV 90.7, MCH 29.0, MCHC 32.0, RDW Std Deviation 51.7 H, RDW Coeff of Gerson 15.4 H, Plt Count 210, MPV 10.4, Immature Gran % (Auto) 1.200 H, Neut % (Auto) 67.3, Lymph % (Auto) 18.7 L, [place] % (Auto) 11.2 H, Eos % (Auto) 0.9, Baso % (Auto) 0.7, Absolute Neuts (auto) 6.0, Absolute Lymphs (auto) 1.65, Nucleated RBC % 0, APTT 57.1 H, Sodium 148 H, Potassium 2.9 L, Chloride 116 H, Carbon Dioxide 26.0, Anion Gap 6, BUN 10, Creatinine 0.68, Estim Creat Clear Calc 76.42, Est GFR (MDRD) Af Amer 115, Est GFR (MDRD) Non-Af 95, BUN/Creatinine Ratio 14.7, Glucose 323 H, Calcium 8.6 09/22/22 05:19: POC Glucose 180 H Micro: Microbiology 09/18/22 04:20 Sputum, Tracheal Aspirate Gram Stain - Final 09/18/22 04:20 Sputum, Tracheal Aspirate Respiratory Culture - Final Streptococcus pneumoniae 09/18/22 16:01 Wound - Right Foot Gram Stain - Final 09/18/22 16:01 Wound - Right Foot Wound Culture - Final Pseudomonas aeruginosa Escherichia coli Staphylococcus cohnii urealyti Gram positive rosie 09/18/22 16:01 Wound - Toe Gram Stain - Final 09/18/22 16:01 Wound - Toe Wound Culture - Final Staphylococcus cohnii urealyti 09/18/22 00:36 Blood Culture (Wb) - Anticubital Right Blood Culture - Preliminary No growth in 48 hours. 09/18/22 01:33 Blood Culture (Wb) - Anticubital Left Blood Culture - Preliminary No growth in 48 hours. 09/18/22 00:37 Urine, Clean Catch Urine Culture - Final Escherichia coli Radiography Diagnostic Testing: Reviewed. RAD/CXR for Line Placement IMPRESSION: The tip of the endotracheal tube is at 2.4 cm proximal to the cm. An orogastric tube is seen with the tip in the body of the stomach. A left-sided PICC line catheter has been inserted and the tip is in the midportion of the superior vena cava. Electronically Signed: Baljeet Saldana MD at 15:43 EDT Chest x-ray portable today September 22 (final report pending) shows mild residual interstitial/alveolar infiltrates consistent with CHF. No effusions, mildly elevated right hemidiaphragm, pulm and normal heart size. Rhythm Strip Rhythm Strip: A-fib Rate: 136 Ectopy: None Physical Exam Narrative Well-developed well-nourished awake alert mildly confused, no acute distress, no respiratory distress HEENT have some a few residual oatmeal particles on her tongue, otherwise unremarkable. Mucous membranes moist, voice is hoarse postextubation. Chest has bilateral fine end expiratory wheezes in the mid lung graff. No rhonchi, no consolidation, no crackles. Heart: Irregular rapid S1-S2 with no murmurs or gallops. Extremities have mild generalized puffiness, no pitting edema, good perfusion, warm and dry. Skin warm and dry Neuro nonfocal. Charges/Coding Procedures Hospitalists Procedures: 67188 Critial Care 1st Hr
[2022-09-22] MEDS: 0.9% Saline Lock 10 ML Syringe IV ×2 (07:46→14:29)
[2022-09-22] MEDS: Metoprolol Tartrate 50 MG Tablet PO ×2 (07:46→16:06)
[2022-09-22] MEDS: QUEtiapine 25 MG Tablet PO ×2 (07:47→22:31)
[2022-09-22] MEDS: Aspirin 81 MG TAB.CHEW PO (07:47)
--- NOTE | 2022-09-22 07:47 | PCM.PN.CARD ---
Subjective Subjective Patient seen and evaluated. Heart rate still elevated. Objective Data Vital Signs: Vital Signs Temp Pulse Resp BP Pulse Ox O2 Del Method O2 Flow Rate 100.2 F H 127 H 18 189/76 H 92 Room Air 2 09/22/22 06:00 09/22/22 07:00 09/22/22 07:00 09/22/22 07:00 09/22/22 07:00 09/22/22 07:00 09/21/22 14:00 FiO2 28 09/21/22 07:00 Oxygen Flow Rate (L/min) 2 Oxygen Delivery Method Room Air Weight: 215 lb 9.793 oz Body Mass Index (BMI) 38.2 Intake & Output: Intake and Output for Last 24 Hours 09/20/22 09/21/22 09/22/22 23:59 23:59 23:59 Intake Total 5408.39 / 5741.39 4198.41 / 4213.41 1146.67 / 1146.67 Output Total 4525 / 5925 7600 / 8500 2650 / 2650 Balance 883.39 / -183.61 -3401.59 / -4286.59 -1503.33 / -1503.33 Lab / Micro Data 09/22/22 03:20 09/22/22 03:20 Labs: Laboratory Results - last 24 hr 09/21/22 05:43: POC Glucose 205 H 09/21/22 12:58: POC Glucose 191 H 09/21/22 17:55: POC Glucose 198 H 09/21/22 18:30: Vancomycin Trough 14.4 09/21/22 23:27: POC Glucose 186 H 09/22/22 03:20: WBC 8.8, RBC 3.86 L, Hgb 11.2 L, Hct 35.0 L, MCV 90.7, MCH 29.0, MCHC 32.0, RDW Std Deviation 51.7 H, RDW Coeff of [place]erson 15.4 H, Plt Count 210, MPV 10.4, Immature Gran % (Auto) 1.200 H, Neut % (Auto) 67.3, Lymph % (Auto) 18.7 L, [place] % (Auto) 11.2 H, Eos % (Auto) 0.9, Baso % (Auto) 0.7, Absolute Neuts (auto) 6.0, Absolute Lymphs (auto) 1.65, Nucleated RBC % 0, APTT 57.1 H, Sodium 148 H, Potassium 2.9 L, Chloride 116 H, Carbon Dioxide 26.0, Anion Gap 6, BUN 10, Creatinine 0.68, Estim Creat Clear Calc 76.42, Est GFR (MDRD) Af Amer 115, Est GFR (MDRD) Non-Af 95, BUN/Creatinine Ratio 14.7, Glucose 323 H, Calcium 8.6 09/22/22 05:19: POC Glucose 180 H Micro: Microbiology 09/18/22 04:20 Sputum, Tracheal Aspirate Gram Stain - Final 09/18/22 04:20 Sputum, Tracheal Aspirate Respiratory Culture - Final Streptococcus pneumoniae 09/18/22 16:01 Wound - Right Foot Gram Stain - Final 09/18/22 16:01 Wound - Right Foot Wound Culture - Final Pseudomonas aeruginosa Escherichia coli Staphylococcus cohnii urealyti Gram positive rosie 09/18/22 16:01 Wound - Toe Gram Stain - Final 09/18/22 16:01 Wound - Toe Wound Culture - Final Staphylococcus cohnii urealyti Rhythm Strip Rhythm Strip: A-fib Rate: 136 Ectopy: None Cardiology Labs/Tests 09/22/22 03:20: WBC 8.8, RBC 3.86 L, Hgb 11.2 L, Hct 35.0 L, MCV 90.7, MCH 29.0, MCHC 32.0, Plt Count 210, MPV 10.4, Immature Gran % (Auto) 1.200 H, Neut % (Auto) 67.3, Lymph % (Auto) 18.7 L, [place] % (Auto) 11.2 H, Eos % (Auto) 0.9, Baso % (Auto) 0.7, Absolute Neuts (auto) 6.0, Nucleated RBC % 0, APTT 57.1 H, Sodium 148 H, Potassium 2.9 L, Chloride 116 H, Carbon Dioxide 26.0, Anion Gap 6, BUN 10, Creatinine 0.68, Est GFR (MDRD) Af Amer 115, Est GFR (MDRD) Non-Af 95, BUN/Creatinine Ratio 14.7, Glucose 323 H, Calcium 8.6 Rhythm: EKG: ECHO: Stress Test: Cardiac Cath: PCI: CT Surgery: Holter monitor: EPS: PPM: CXR: Chest CT Scan: Physical Exam HEENT normocephalic and head/scalp atraumatic Eyes PERRL Neck supple General: trachea midline Chest inspection of chest normal Resp Auscultation: Negative for rales, rhonchi or wheezes Cardio S1 normal heart sound and S2 normal heart sound Rate: tachycardic Rhythm: abnormal rhythm irregularly irregular GI normal to inspection, nondistended, normoactive bowel sounds Extremity General Extremity: Negative for clubbing Skin Skin Narrative: plantar diabetic foot ulceration Neuro Neuro Narrative: Alert and following commands appropriately. Assessment & Plan Assessment/Plan (1) Atrial fibrillation with RVR: PLAN: Patient presents with atrial fibrillation with a rapid ventricular response rate. Unfortunately patient appears to be persisting with a rapid ventricular response rate and has been started on intravenous amiodarone and diltiazem. We will start oral metoprolol and then attempt to slowly wean off the diltiazem. Continue heparin for now Echocardiogram demonstrated preserved left ventricular systolic function. (2) NSTEMI (non-ST elevated myocardial infarction): PLAN: The patient at this time is noted to have a non-ST elevation myocardial infarction. We will continue with heparin, Will consider cardiac catheterization on Thursday. Thank you for allowing me to participate in the care of your patient. Please don't hesitate to call if any issues arise.
[2022-09-22] MEDS: Gabapentin 600 MG Tablet PO ×4 (07:49→22:34)
--- NOTE | 2022-09-22 08:03 | PCM.PROGNOTE ---
Subjective Subjective Patient seen this a.m. She has been extubated and is still raspy. Does state she is feeling a little better. Denies constitutional symptoms. Denies further complaints. Objective Data Objective Data Vital Signs: Vital Signs Temp Pulse Resp BP Pulse Ox O2 Del Method O2 Flow Rate 100.2 F H 130 H 18 189/76 H 92 Room Air 2 09/22/22 06:00 09/22/22 07:46 09/22/22 07:00 09/22/22 07:00 09/22/22 07:00 09/22/22 07:00 09/21/22 14:00 FiO2 28 09/21/22 07:00 Oxygen Flow Rate (L/min) 2 Oxygen Delivery Method Room Air Weight: 97.8 kg Body Mass Index (BMI) 38.2 Intake & Output: Intake and Output for Last 24 Hours 09/20/22 09/21/22 09/22/22 23:59 23:59 23:59 Intake Total 5408.39 / 5741.39 4198.41 / 4213.41 1146.67 / 1146.67 Output Total 4525 / 5925 7600 / 8500 2650 / 2650 Balance 883.39 / -183.61 -3401.59 / -4286.59 -1503.33 / -1503.33 Lab / Micro Data 09/22/22 03:20 09/22/22 03:20 Labs: Laboratory Results - last 24 hr 09/21/22 05:43: POC Glucose 205 H 09/21/22 12:58: POC Glucose 191 H 09/21/22 17:55: POC Glucose 198 H 09/21/22 18:30: Vancomycin Trough 14.4 09/21/22 23:27: POC Glucose 186 H 09/22/22 03:20: WBC 8.8, RBC 3.86 L, Hgb 11.2 L, Hct 35.0 L, MCV 90.7, MCH 29.0, MCHC 32.0, RDW Std Deviation 51.7 H, RDW Coeff of Gerson 15.4 H, Plt Count 210, MPV 10.4, Immature Gran % (Auto) 1.200 H, Neut % (Auto) 67.3, Lymph % (Auto) 18.7 L, [place] % (Auto) 11.2 H, Eos % (Auto) 0.9, Baso % (Auto) 0.7, Absolute Neuts (auto) 6.0, Absolute Lymphs (auto) 1.65, Nucleated RBC % 0, APTT 57.1 H, Sodium 148 H, Potassium 2.9 L, Chloride 116 H, Carbon Dioxide 26.0, Anion Gap 6, BUN 10, Creatinine 0.68, Estim Creat Clear Calc 76.42, Est GFR (MDRD) Af Amer 115, Est GFR (MDRD) Non-Af 95, BUN/Creatinine Ratio 14.7, Glucose 323 H, Calcium 8.6 09/22/22 05:19: POC Glucose 180 H Micro: Microbiology 09/18/22 04:20 Sputum, Tracheal Aspirate Gram Stain - Final 09/18/22 04:20 Sputum, Tracheal Aspirate Respiratory Culture - Final Streptococcus pneumoniae 09/18/22 16:01 Wound - Right Foot Gram Stain - Final 09/18/22 16:01 Wound - Right Foot Wound Culture - Final Pseudomonas aeruginosa Escherichia coli Staphylococcus cohnii urealyti Gram positive rosie 09/18/22 16:01 Wound - Toe Gram Stain - Final 09/18/22 16:01 Wound - Toe Wound Culture - Final Staphylococcus cohnii urealyti 09/18/22 00:36 Blood Culture (Wb) - Anticubital Right Blood Culture - Preliminary No growth in 48 hours. 09/18/22 01:33 Blood Culture (Wb) - Anticubital Left Blood Culture - Preliminary No growth in 48 hours. 09/18/22 00:37 Urine, Clean Catch Urine Culture - Final Escherichia coli Rhythm Strip Rhythm Strip: A-fib Rate: 136 Ectopy: None Physical Exam Const alert, oriented x3 and no apparent distress Constitutional Narrative: Patient can nod yes and no to answer questions while intubated. Patient is awake and alert. HEENT normocephalic Eyes General Eye: normal appearance of both eyes Neck General: normal visual inspection Lymph Lymphatic: no lymphadenopathy noted and no lymphedema noted Resp Resp Narrative: Patient intubated with normal respiratory effort Cardio Cardio Narrative: Irregularly irregular Extremity normal capillary refill, no calf tenderness and no pedal edema Extremity Narrative: DP and PT pulses palpable bilateral with adequate capillary fill time to the digits bilateral Dermatological: Skin is mildly xerotic to the foot with plantar callus to the distal hallux of the left foot with distal hallux ulceration. Ulceration appears stable with granular base and no signs of infection. Hyperkeratosis of the second third metatarsal of the left foot without wound formation. There is an ulceration subsecond third metatarsal head of the right foot with granular base and surrounding hyperkeratosis. There is no erythema, no purulent drainage, no malodor, no palpable fluctuance/bogginess noted, no visible abscess formation, no lymphangitic streaking noted. Ulceration does probe close to bone of second metatarsal. Musculoskeletal: Hammertoe deformity digits 2 through 5 bilateral, deformity noted to be rigid. There is decreased range of motion of the ankle joint in dorsiflexion with the knee extended without pain or crepitus bilateral. Full smooth pain-free range of motion of the first metatarsophalangeal joint bilateral. 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 Site was painted with Betadine and dressed with dry sterile dressing. Right foot subsecond/third metatarsal head ulceration with surrounding hyperkeratosis does probe close to bone, likely second metatarsal. There is no erythema, no purulent drainage, no malodor, no palpable fluctuance/bogginess, no lymphangitic streaking, no visible abscess formation. Ulcerative site appears healthy granular base with no signs of infection. This ulcerative site was painted with Betadine and dressed with a dry sterile dressing. Right foot plantar ulceration measures 2 cm x 1.5 cm x 0.4 cm I do believe ulceration caused by rigid hammertoe deformity with dorsal dislocation of the third digit driving metatarsal head into the ground during weightbearing. Radiographic imaging was obtained of the right foot on 09/18/2022. Radiologist interpretation possible early osteomyelitis of the fifth metatarsophalangeal joint with overlying soft tissue swelling. Calcaneal spurs. As ulcerative site located more towards subsecond/third metatarsal head with no overlying wound about the fifth metatarsal or localized signs of infection I do not agree with osteomyelitis of the fifth metatarsal head. I have reviewed radiographic imaging of the right foot. There does appear to be some pressure changes/bone edema about the fifth metatarsal head consistent with hammertoe deformities. There is old fracture of the second metatarsal. No evidence of osteomyelitis of the second or third metatarsal. Blood culture obtained, awaiting results. Wound culture obtained, awaiting results. WBC upon admission 11.1, decreased to 8.8 and currently WNL. Lactic acid 1.9, urine culture demonstrates slight cloudy appearance with glucose 1000, occult blood 150, leukocyte esterase 500, bacteria +4 seen per field power. Following verbal permission today 09/22/2022 ulcerative sites at the left hallux and plantar right foot underwent sharp excisional debridement utilizing a #15 blade to the level of the subcutaneous tissue. 100% of the ulcerative site was debrided. Debridement consisted of removal of hyperkeratotic tissue, fibrous, devitalized subcutaneous, biofilm, slough. No local anesthetic required secondary to diabetic peripheral polyneuropathy. Healthy granular tissue was noted postdebridement with adequate bleeding. Hemostasis controlled with pressure and gauze. Patient tolerated procedure well. Postdebridement site was dressed with Betadine and dry sterile dressing. We will convert to Dakin's wet to dry dressing for next 2 days. Ulcerative site is improving and healing. Currently receiving IV Vanco/Zosyn. Medicine team currently following for medical management, they are greatly appreciated Wound nurse following for assisting dressing changes she is greatly appreciated Recommend daily dressing changes consisting of Dakin's wet to dry sterile dressing. Recommend nonweightbearing status to the right lower extremity At this time wounds are stable with no signs of infection, podiatric surgical intervention not anticipated. Podiatry will continue to follow every 3 days Please do not hesitate to call for questions or concerns Juan Ewing Jr. D.P.M. [facility] [place] [phone]
[2022-09-22] MEDS: Acetaminophen 325 MG Tablet 650 MG PO (09:29)
[2022-09-22] MEDS: Potassium Chloride Oral Tablet 20 MEQ 60 MEQ PO (09:30)
[2022-09-22] MEDS: Amiodarone 360 MG in Dextrose 5% Viaflo Bag 192.8 ML 16.7 MG CONT INF ×2 (09:32→18:16)
[2022-09-22] MEDS: Insulin Glargine-YFGN 100 UNIT/ML Pen 15 UNIT SC (09:39)
[2022-09-22 10:00] LABS: Bedside Glucose 240 mg/dL (74-106)
--- NOTE | 2022-09-22 11:15 | PCM.PN.HOSP ---
Reason for Visit Reason for Visit: Confusion Subjective Subjective Mrs. Bliss is a 57-year-old white female who presented to the emergency department at [facility] on 09/18/2022 with confusion. She has been currently visiting here from [place] and over the past 24 hours prior to admission she noted her urine was cloudy and foul-smelling and had associated dysuria. She also complained of nausea and vomiting with no fever or chills or abdominal pain at the time of presentation. A friend who is at the bedside admission did note some worsening confusion and weakness as well which prompted her to bring the patient to the emergency department. She was found to be in A-fib with RVR on presentation and had a known history of PAF. Upon presentation she was noted to be febrile, tachycardic and tachypneic and her initial laboratory evaluation revealed a leukocytosis with a white count of 11,000. An ABG was obtained on room air and demonstrated hypoxia with a PO2 of 45. Her initial lactate was normal. Urinalysis was consistent with infection showing leuk esterase and 4+ bacteria. CT of her head was unremarkable and initial chest x-ray showed no acute cardiopulmonary process. With her persistent atrial fibrillation on presentation, she was placed on a Cardizem drip. Unfortunately, she had persistent refractory A-fib and tachycardia and an amiodarone drip was initiated and cardiology was consulted. She required intubation later on the morning of admission for worsening encephalopathy and airway protection and a CT of her abdomen/pelvis was obtained that showed no obstructing stones or hydronephrosis. Echocardiogram was performed and demonstrated an EF of 60% with a mildly enlarged left atrium and a pulmonary systolic pressure of 30 mmHg. Patient was noted to have bilateral lower extremity diabetic foot wounds and podiatry was consulted to evaluate these further. Radiographic imaging of the right lower extremity obtained on admission was suggestive of possible early osteomyelitis of the fifth metatarsal phalangeal joint with overlying soft tissue swelling and calcaneal spurs but podiatry felt that the wounds were stable with no signs of infection and no podiatric surgical intervention was anticipated. She will need outpatient follow-up ongoing after discharge. Infectious disease was also consulted and recommended ongoing treatment with broad-spectrum antibiotics to include vancomycin and Zosyn. She was able to be extubated on 09/21/2022 and remained stable now on room air. There is discussion of possible cardiac catheterization on 09/24/2022 for NSTEMI. She has been having ongoing intermittent issues with A-fib with RVR and medication adjustments are being pursued by cardiology. Her urine culture demonstrated E. coli, her sputum culture demonstrated strep pneumo, and blood cultures were unremarkable. Wound cultures are polymicrobial demonstrating Pseudomonas, E. coli, and staph cohnii urealyti. Patient has no significant complaints today. She states she is very weak and tired. Urine output has been exceptional. She has been swollen but this seems to be improving per discussion with patient. Should be able to transfer out of the ICU to aggressive care unit today. Objective Data Objective Data Vital Signs: Vital Signs Temp Pulse Resp BP Pulse Ox O2 Del Method O2 Flow Rate 100.3 F H 139 H 26 H 118/92 H 97 Room Air 2 09/22/22 09:00 09/22/22 11:00 09/22/22 11:00 09/22/22 11:00 09/22/22 11:00 09/22/22 11:00 09/22/22 09:00 FiO2 28 09/21/22 07:00 Oxygen Flow Rate (L/min) 2 Oxygen Delivery Method Room Air Weight: 97.8 kg Body Mass Index (BMI) 38.2 Intake & Output: Intake and Output for Last 24 Hours 09/20/22 09/21/22 09/22/22 23:59 23:59 23:59 Intake Total 5408.39 / 5741.39 4198.41 / 4213.41 2423.20 / 2423.20 Output Total 4525 / 5925 7600 / 8500 4625 / 4625 Balance 883.39 / -183.61 -3401.59 / -4286.59 -2201.80 / -2201.80 Lab / Micro Data 09/22/22 03:20 09/22/22 03:20 Labs: Laboratory Results - last 24 hr 09/21/22 05:43: POC Glucose 205 H 09/21/22 12:58: POC Glucose 191 H 09/21/22 17:55: POC Glucose 198 H 09/21/22 18:30: Vancomycin Trough 14.4 09/21/22 23:27: POC Glucose 186 H 09/22/22 03:20: WBC 8.8, RBC 3.86 L, Hgb 11.2 L, Hct 35.0 L, MCV 90.7, MCH 29.0, MCHC 32.0, RDW Std Deviation 51.7 H, RDW Coeff of [place] 15.4 H, Plt Count 210, MPV 10.4, Immature Gran % (Auto) 1.200 H, Neut % (Auto) 67.3, Lymph % (Auto) 18.7 L, [place] % (Auto) 11.2 H, Eos % (Auto) 0.9, Baso % (Auto) 0.7, Absolute Neuts (auto) 6.0, Absolute Lymphs (auto) 1.65, Nucleated RBC % 0, APTT 57.1 H, Sodium 148 H, Potassium 2.9 L, Chloride 116 H, Carbon Dioxide 26.0, Anion Gap 6, BUN 10, Creatinine 0.68, Estim Creat Clear Calc 76.42, Est GFR (MDRD) Af Amer 115, Est GFR (MDRD) Non-Af 95, BUN/Creatinine Ratio 14.7, Glucose 323 H, Calcium 8.6 09/22/22 05:19: POC Glucose 180 H 09/22/22 09:38: POC Glucose 240 H Micro: Microbiology 09/18/22 04:20 Sputum, Tracheal Aspirate Gram Stain - Final 09/18/22 04:20 Sputum, Tracheal Aspirate Respiratory Culture - Final Streptococcus pneumoniae 09/18/22 16:01 Wound - Right Foot Gram Stain - Final 09/18/22 16:01 Wound - Right Foot Wound Culture - Final Pseudomonas aeruginosa Escherichia coli Staphylococcus cohnii urealyti Gram positive rosie 09/18/22 16:01 Wound - Toe Gram Stain - Final 09/18/22 16:01 Wound - Toe Wound Culture - Final Staphylococcus cohnii urealyti 09/18/22 00:36 Blood Culture (Wb) - Anticubital Right Blood Culture - Preliminary No growth in 48 hours. 09/18/22 01:33 Blood Culture (Wb) - Anticubital Left Blood Culture - Preliminary No growth in 48 hours. 09/18/22 00:37 Urine, Clean Catch Urine Culture - Final Escherichia coli Rhythm Strip Rhythm Strip: A-fib Rate: 136 Ectopy: None Physical Exam Const alert, oriented x3, no apparent distress and well nourished; Negative for average body habitus or healthy appearing Constitutional Narrative: Obese, upper middle-aged, white female, appears older than stated age, sitting up in bed watching television, appears fatigued but appropriately interactive, nontoxic at this point HEENT head/scalp atraumatic, moist oral mucous membranes and oropharynx normal HEENT Narrative: Mallampati is 3, no thrush Head and Scalp: normocephalic Resp normal respiratory effort, no retractions, no use of accessory muscles and No clear to auscultation bilaterally Resp Narrative: Scattered rhonchi left greater than right, few scattered end expiratory wheezes, few scattered inspiratory wheezes Auscultation: rhonchi and wheezes; Negative for rales Cardio S1 normal heart sound, S2 normal heart sound, no murmurs, no rub, no gallops and no clicks; Negative for regular rate or regular rhythm Cardio Narrative: Tachycardia, rhythm is irregularly irregular GI normal to inspection, nondistended, normoactive bowel sounds, soft to palpation and non-tender Extremity Extremity Narrative: 1+ pitting edema bilateral lower extremities and upper distal extremities, no cyanosis or clubbing Skin Skin Narrative: Bilateral feet with diabetic foot wounds, left great toe with larger open wound however no signs of infection currently Neuro oriented x3, CN's II-XII intact bilaterally, moves all extremities and no focal motor deficits Neuro Narrative: Significant generalized weakness noted Speech: speech normal Psych affect normal Psych Narrative: Eye contact is good, patient interacts appropriately Assessment & Plan Assessment/Plan (1) Hypernatremia: (2) NSTEMI (non-ST elevated myocardial infarction): (3) Hypokalemia: (4) Afib: QUALIFIERS: Atrial fibrillation type: unspecified Qualified Code(s): I48.91 - Unspecified atrial fibrillation (5) Acute metabolic encephalopathy: (6) Sepsis: QUALIFIERS: Sepsis type: sepsis due to unspecified organism Sepsis acute organ dysfunction status: with acute organ dysfunction Severe sepsis acute organ dysfunction type: acute renal failure Acute renal failure type: unspecified Severe sepsis shock status: without septic shock Qualified Code(s): A41.9 - Sepsis, unspecified organism; R65.20 - Severe sepsis without septic shock; N17.9 - Acute kidney failure, unspecified (7) UTI (urinary tract infection): QUALIFIERS: Urinary tract infection type: acute cystitis Hematuria presence: without hematuria Qualified Code(s): N30.00 - Acute cystitis without hematuria (8) Pneumococcal pneumonia: PLAN: Plan Sepsis secondary to urinary tract infection/pneumococcal pneumonia/infected foot wounds -Sepsis has resolved -Foot wound is polymicrobial -Sputum with strep pneumo -Urine with E. coli -Continue antibiotics per ID recommendations--> waiting for further evaluation later today -Podiatry not currently recommending any intervention Acute hypoxic respiratory failure -Resolved -Patient is weaned to room air after extubation on 09/21/2022 A-fib with RVR -Patient with history of paroxysmal A-fib -Continue heparin drip -Continue amiodarone drip -Oral metoprolol initiated with intent to wean diltiazem -Echo is overall unremarkable -Cardiology following and appreciate input NSTEMI -Possibly type II however patient with marked risks -Continue heparin drip -Cardiology is following and possible cardiac catheterization on 09/24/2022 -Continue aspirin 81 mg daily -Start atorvastatin 80 mg daily Toxic/metabolic encephalopathy -Resolved [place] -Resolved Hypernatremia/hyperchloremia -Suspect post ATN diuresis -Discontinue D5W -Sodium and chloride are downtrending -Repeat lab in a.m. Hypokalemia -A.m. potassium 2.9 -60 mill equivalents p.o. -Repeat in a.m. -Check a.m. mag Hypertension/hyperlipidemia -Restart home hydrochlorothiazide, ramipril, Norvasc -Wean Cardizem drip as able -Metoprolol initiated by cardiology -Start atorvastatin 80 mg daily which is an increase from her home dose but increased due to NSTEMI during admission -Restart home fenofibrate DM-2 -Add basal insulin 15 units daily -Continue SSI with high-dose -Continue to hold home Jardiance, Januvia and restart on discharge -Uptitrate insulins as needed Restless leg syndrome -Continue Mirapex GERD -Restart PPI Diabetic foot wounds -Polymicrobial infection as noted above -Wound care is following -Continue dressings as ordered Diabetic neuropathy -Restart home gabapentin -Restart home amitriptyline Obesity -BMI is 38.2 -Complicates treatment, prognosis, outcomes -Recommend weight loss DVT prophylaxis -Continue heparin drip CODE STATUS -Full code Charges/Coding Visit Charges Inpatient E&M: 96719 Subs Hosp L2
--- NOTE | 2022-09-22 11:49 | CASEMGMT ---
Social Work SW met with pt and introduced self and role of SW. SW reviewed therapy notes and pt is agreeable that short term SNF placement will be needed. Pt currently resides in [place] and came to [place] with a friend. Pt's sister Halie Gomez lves in [place] and works at [employer] [employer]. A list of SNF providers including quality and resource use data and consistent with the patient?s preferred geographic region, medical needs, and insurance network were provided from the [facility]. Pt's preferred providers are 1. [facility] and 2. [facility]. felipe Covarrubias construction management assistant updated and to send referral. SW spoke with pt regarding advance directives and making a Health Care POA. Pt does not wish to complete at this time. Pt is , parents are and she has one sibling Halie Gomez. SW informed pt that Halie would be her decision maker in the event pt is not able to make own decisions. Pt understanding and choosing not to compete HCPOA at this time. Plan: [facility], pending acceptance and precWALDO Baldwin
[2022-09-22 12:46] LABS: Bedside Glucose 220 mg/dL (74-106)
--- NOTE | 2022-09-22 13:01 | CASEMGMT ---
Discharge Planning Referral sent to [facility] via [facility]. Marci Morgan, Discharge Planning Asst.
--- NOTE | 2022-09-22 13:48 | RAD_ITS ---
INDICATION: Postextubation, COPD with exacerbation. EXAMINATION/TECHNIQUE: X-RAY - XR Chest 1 View COMPARISON: 09/18/2022 FINDINGS: LIFE-SUPPORT AND LINES: 1. Previous ET tube and NG tube not present. PIC catheter without change. 2. No pneumothorax. HEART AND VESSELS: The cardiac silhouette, pulmonary vasculature have normal appearance. No evidence of congestive failure. LUNGS AND PLEURAL SPACES: Lungs are clear. No focal infiltrate, consolidation or effusions. No evidence of pneumothorax. No pulmonary mass is noted. MEDIASTINUM AND HILAR REGIONS: No masses adenopathy noted. No areas of calcification. Visualized upper airway is normal in position. BONY ELEMENTS: No acute bony changes noted. RAD/Chest 1 View (Portable) IMPRESSION: 1. Interval removal of ET tube and NG tube. No change in PICC catheter. 2. No pneumothorax. 3. No evidence of acute cardiopulmonary process. Electronically Signed: Willi James MD at 21:27 EDT ,
[2022-09-22] MEDS: Metoprolol Tartrate 5 MG/5 ML Vial 2.5 MG IV (14:28)
[2022-09-22 16:33] LABS: Bedside Glucose 172 mg/dL (74-106)
[2022-09-22] MEDS: Amitriptyline 100 MG Tablet PO (22:31)
[2022-09-22] MEDS: Montelukast 10 MG Tablet PO (22:31)
[2022-09-22] MEDS: Pramipexole Di-HCl 0.25 MG Tablet PO (22:31)
[2022-09-22] MEDS: Atorvastatin Calcium 80 MG Tablet PO (22:31)
[2022-09-22] MEDS: Metoprolol Tartrate 100 MG Tablet PO (22:34)
[2022-09-22 22:59] LABS: Bedside Glucose 166 mg/dL (74-106)
[2022-09-23] VITALS (29 sets, daily range): BP systolic 113–171; BP diastolic 59–123; PULSE 90–157; RESP 14–32; TEMP 36.3–36.8; O2SAT 4–99; BMI 37.7
[2022-09-23 03:14] LABS: Absolute Lymphocyte Count 1.81 X10^3/uL (0.83-4.51); Basophil# 0.06 X10^3/uL; Basophil% 0.8 % (0-1); Eosinophil# 0.14 X10^3/uL; Eosinophils% 1.8 % (0-5); Hematocrit 35.2 % (37-47); Hemoglobin 11.2 g/dL (12.0-15.0); Lymphocyte # 1.81 X10^3/ul (0.83-4.51); Lymphocyte % 22.6 % (19-41); Mean Corp Hgb Conc 31.8 g/dL (32-36); Mean Corpuscular Hgb 29.2 pg (27.0-32.0); Mean Corpuscular Volume 91.9 fL (81-99); Mean Platelet Vol. 10.8 fl (6.2-12.0); Monocyte# 0.88 X10^3/uL; NRBC Flagged by Analyzer 0 % (0-5); Neutrophil # 5.01 X10^3/uL (2.7-7.7); Neutrophil % 62.5 % (47-70); Platelet Count 219 K/mm3 (150-450); RBC Distribution Width CV 15.3 % (11.6-14.6); RBC Distribution Width SD 51.2 fl (35.1-43.9); Red Blood Count 3.83 M/mm3 (4.2-5.4)
[2022-09-23 03:26] LABS: Partial Thromboplast Time 49.8 Seconds (24.1-36.2)
[2022-09-23 03:38] LABS: ALB/GLOB Ratio 0.5 RATIO (0.9-2.4); AST(SGOT) 18 U/L (15-37); Alanine Aminotransfer ALT/SGPT 28 U/L (13-56); Alkaline Phosphatase 46 U/L (45-117); BUN 8 mg/dL (7-18); BUN/Creat Ratio 13.9 RATIO (10-20); Calcium,Total 8.4 mg/dL (8.5-10.1); Creatinine, Serum 0.58 mg/dL (0.55-1.02); EST Glomerular Filtration Rate 115 mL/min (>60); Est Glom Filt Rate - Afr Amer 140 mL/min (>60); Estimated Creatinine Clearance 89.59 ml/min; Glucose 245 mg/dL (74-106); Magnesium 2.1 mg/dL (1.6-2.6); Phosphorus 3.5 mg/dL (2.5-4.9); Potassium 3.1 mmol/L (3.5-5.1); Sodium Level 148 mmol/L (136-145)
[2022-09-23 04:22] LABS: Anion Gap 2 (5-15); Chloride 115 mmol/L (98-107)
[2022-09-23] MEDS: Amiodarone 360 MG in Dextrose 5% Viaflo Bag 192.8 ML 16.7 MG CONT INF ×2 (06:02→17:46)
[2022-09-23] MEDS: Potassium Chloride Oral Tablet 20 MEQ 40 MEQ PO (07:59)
[2022-09-23] MEDS: Metoprolol Tartrate 100 MG Tablet PO ×2 (08:10→20:29)
[2022-09-23] MEDS: Aspirin 81 MG TAB.CHEW PO (08:11)
[2022-09-23] MEDS: hydroCHLOROthiazide 25 MG Tablet PO (08:12)
[2022-09-23] MEDS: Lisinopril 20 MG Tablet 40 MG PO (08:13)
[2022-09-23] MEDS: QUEtiapine 25 MG Tablet PO ×2 (08:13→20:35)
[2022-09-23] MEDS: Pantoprazole Sodium 20 MG Tablet PO (08:13)
[2022-09-23] MEDS: Heparin Injection (Vial) 5,000 UNIT/ML VIAL IV ×3 (08:15→23:39)
[2022-09-23 09:06] LABS: Bedside Glucose 213 mg/dL (74-106)
[2022-09-23] MEDS: Metoprolol Tartrate 5 MG/5 ML Vial IV (09:48)
[2022-09-23] MEDS: Gabapentin 600 MG Tablet PO ×4 (09:54→20:29)
[2022-09-23] MEDS: Fenofibrate 48 MG Tablet PO (09:55)
[2022-09-23] MEDS: Insulin Lispro 100 UNIT/ML INSULN.PEN SC ×4 (09:57→20:43)
[2022-09-23] MEDS: Insulin Glargine-YFGN 100 UNIT/ML Pen 25 UNIT SC (09:58)
--- NOTE | 2022-09-23 11:06 | PCM.PN.INT ---
Assessment & Plan Assessment/Plan (1) Acute metabolic encephalopathy: PLAN: Improved (2) Respiratory failure: QUALIFIERS: Chronicity: acute PLAN: Now resolved, patient is stable on room air after diuresis. Chest x-ray is clear yesterday afternoon. On exam she has mild residual congestive heart failure with bibasilar crackles, secondary to A-fib RVR. Wheezing resolved on ipratropium nebulizer. We are avoiding albuterol because of tachycardia. -Titrate O2 to keep saturation greater than 92. - Supplement potassium, monitor electrolytes. -Continue diuresis (3) Afib: QUALIFIERS: Atrial fibrillation type: unspecified Qualified Code(s): I48.91 - Unspecified atrial fibrillation PLAN: Patient had an NSTEMI likely due to her rapid heart rate -Rate control; has been very resistant to multiple medications. Not responding to amiodarone drip, Cardizem drip, IV and p.o. metoprolol. - Dr. Greer may consider cardioversion after adequate anticoagulation. And/or addition of digoxin for rate control. The patient is not aware of the onset of this current episode of atrial fib. May have been subacute and/or somewhat longstanding. - Patient may have hyperthyroidism contributing; TSH is low, free T4 is high. T3 is low. Aggressive beta-blockade is indicated. -IV fluids discontinued; encourage free water p.o. (4) Sepsis: QUALIFIERS: Acute renal failure type: unspecified Sepsis acute organ dysfunction status: with acute organ dysfunction Sepsis type: sepsis due to unspecified organism Severe sepsis acute organ dysfunction type: acute renal failure Severe sepsis shock status: without septic shock Qualified Code(s): A41.9 - Sepsis, unspecified organism; R65.20 - Severe sepsis without septic shock; N17.9 - Acute kidney failure, unspecified PLAN: Likely source urine and/or foot wound. The patient is now afebrile as of today. Wound cultures with Pseudomonas, urine with E. coli resistant to ampicillin, wound also with staph and gram-positive rosie. Sputum shows strep pneumoniae. - Continue Vanco, Zosyn per ID -Surveillance cultures if patient remains febrile to 100.4 or more. -Further evaluation of possible osteomyelitis per podiatry and ID. -Patient MRSA positive. -Wound care PLAN: Plan Other issues: Metabolic encephalopathy Resolved [place]: Likely due to ATN from hypoperfusion improving. - Supportive care History of diabetes mellitus/hypertension/restless leg syndrome/obesity/GERD Complicates care, management, recovery and prognosis. Continue Accu-Cheks and sliding scale insulin coverage. Continue PPI therapy as ordered. TIME: 35 minutes of critical care time, independent of procedures, was spent addressing the patient's infections, mental status assessment, CHF and rapid atrial fibrillation, acute kidney injury, review of all data and collaboration with the care team. Subjective Subjective Patient feels better today. Her voice is less hoarse, she is breathing better. Not as much cough or wheeze. Unfortunately, heart rate remains in the 130s to 150s rapid A-fib, despite IV and p.o. metoprolol, Cardizem drip, amiodarone. She is on room air with saturation in the mid 90s. Objective Data Objective Data Vital Signs: Vital Signs Temp Pulse Resp BP Pulse Ox O2 Del Method O2 Flow Rate 98.2 F 149 H 22 H 171/117 H 97 Room Air 4 09/23/22 00:00 09/23/22 09:48 09/23/22 08:41 09/23/22 09:48 09/23/22 08:41 09/23/22 08:41 09/23/22 07:00 FiO2 28 09/21/22 07:00 Oxygen Flow Rate (L/min) 4 Oxygen Delivery Method Room Air Weight: 212 lb 11.937 oz Body Mass Index (BMI) 37.7 Intake & Output: Intake and Output for Last 24 Hours 09/21/22 09/22/22 09/23/22 23:59 23:59 23:59 Intake Total 4198.41 / 4213.41 3576.93 / 3591.93 592.37 / 592.37 Output Total 7600 / 8500 6075 / 6075 350 / 350 Balance -3401.59 / -4286.59 -2498.07 / -2483.07 242.37 / 242.37 Lab / Micro Data Attestation: I reviewed the patient's lab results. 09/23/22 03:00 09/23/22 03:00 Labs: Laboratory Results - last 24 hr 09/22/22 12:26: POC Glucose 220 H 09/22/22 16:14: POC Glucose 172 H 09/22/22 22:40: POC Glucose 166 H 09/23/22 03:00: WBC 8.0, RBC 3.83 L, Hgb 11.2 L, Hct 35.2 L, MCV 91.9, MCH 29.2, MCHC 31.8 L, RDW Std Deviation 51.2 H, RDW Coeff of Gerson 15.3 H, Plt Count 219, MPV 10.8, Immature Gran % (Auto) 1.300 H, Neut % (Auto) 62.5, Lymph % (Auto) 22.6, [place] % (Auto) 11.0 H, Eos % (Auto) 1.8, Baso % (Auto) 0.8, Absolute Neuts (auto) 5.0, Absolute Lymphs (auto) 1.81, Nucleated RBC % 0, APTT 49.8 H, Sodium 148 H, Potassium 3.1 L, Chloride 115 H, Carbon Dioxide 31.0, Anion Gap 2 L, BUN 8, Creatinine 0.58, Estim Creat Clear Calc 89.59, Est GFR (MDRD) Af Amer 140, Est GFR (MDRD) Non-Af 115, BUN/Creatinine Ratio 13.9, Glucose 245 H, Calcium 8.4 L, Phosphorus 3.5, Magnesium 2.1, Total Bilirubin 0.60, AST 18, ALT 28, Alkaline Phosphatase 46, Total Protein 6.0 L, Albumin 2.0 L, Globulin 4.0, Albumin/Globulin Ratio 0.5 L 09/23/22 08:48: POC Glucose 213 H Micro: Microbiology 09/18/22 00:36 Blood Culture (Wb) - Anticubital Right Blood Culture - Final No growth in 5 days. 09/18/22 01:33 Blood Culture (Wb) - Anticubital Left Blood Culture - Final No growth in 5 days. 09/18/22 04:20 Sputum, Tracheal Aspirate Gram Stain - Final 09/18/22 04:20 Sputum, Tracheal Aspirate Respiratory Culture - Final Streptococcus pneumoniae 09/18/22 16:01 Wound - Right Foot Gram Stain - Final 09/18/22 16:01 Wound - Right Foot Wound Culture - Final Pseudomonas aeruginosa Escherichia coli Staphylococcus cohnii urealyti Gram positive rosie 09/18/22 16:01 Wound - Toe Gram Stain - Final 09/18/22 16:01 Wound - Toe Wound Culture - Final Staphylococcus cohnii urealyti 09/18/22 00:37 Urine, Clean Catch Urine Culture - Final Escherichia coli Sensitivities available today September 23 show urine culture with E. coli resistant to ampicillin but sensitive to all other antibiotics tested. Radiography Diagnostic Testing: Radiology Impression Chest X-Ray 09/22/22 13:48 IMPRESSION: 1. Interval removal of ET tube and NG tube. No change in PICC catheter. 2. No pneumothorax. 3. No evidence of acute cardiopulmonary process. Electronically Signed: Willi James MD at 21:27 EDT , Film and report personally reviewed. Daniel Martínez MD Rhythm Strip Rhythm Strip: A-fib Rate: 136 Ectopy: None Physical Exam Narrative Well-developed well-nourished no acute distress. Less anxious today. HEENT with improvement in hoarseness, not completely resolved. No thrush. Mucous membranes moist. Able to swallow without difficulty. Taking thin liquids while I am at bedside. Tolerating well. Chest is clear bilaterally except for mild bibasilar crackles. Wheezes have resolved. Heart normal S1-S2 tachycardic irregular, no murmurs rubs or gallops. IV metoprolol 5 mg today slowed her heart rate from the 150s to the 130s briefly and then increased again to the 150s. Abdomen is soft nontender Extremities have no clubbing cyanosis or edema Neuro alert and oriented x3, grossly nonfocal, sitting in a bedside chair with no difficulty during transfer. Room air. Skin is warm and dry. Charges/Coding Procedures Hospitalists Procedures: 54250 Critial Care 1st Hr
[2022-09-23 11:59] LABS: Bedside Glucose 259 mg/dL (74-106)
--- NOTE | 2022-09-23 12:33 | PN.HOSP_ITS ---
Reason for Visit Reason for Visit: Confusion Subjective Subjective Heart rate still remains elevated. Cardiology is working on this trying to control her A-fib with RVR. Patient states she is feeling better today and did not have a great day yesterday overall. He is urinating without difficulty after Casanova removal and having bowel movements. Objective Data Objective Data Vital Signs: Vital Signs Temp Pulse Resp BP Pulse Ox O2 Del Method O2 Flow Rate 97.8 F 116 H 27 H 129/114 H 92 Room Air 4 09/23/22 08:00 09/23/22 11:00 09/23/22 11:00 09/23/22 11:00 09/23/22 11:00 09/23/22 11:00 09/23/22 07:00 FiO2 28 09/21/22 07:00 Oxygen Flow Rate (L/min) 4 Oxygen Delivery Method Room Air Weight: 96.5 kg Body Mass Index (BMI) 37.7 Intake & Output: Intake and Output for Last 24 Hours 09/21/22 09/22/22 09/23/22 23:59 23:59 23:59 Intake Total 4198.41 / 4213.41 3576.93 / 3591.93 842.37 / 842.37 Output Total 7600 / 8500 6075 / 6075 350 / 350 Balance -3401.59 / -4286.59 -2498.07 / -2483.07 492.37 / 492.37 Lab / Micro Data 09/23/22 03:00 09/23/22 03:00 Labs: Laboratory Results - last 24 hr 09/22/22 12:26: POC Glucose 220 H 09/22/22 16:14: POC Glucose 172 H 09/22/22 22:40: POC Glucose 166 H 09/23/22 03:00: WBC 8.0, RBC 3.83 L, Hgb 11.2 L, Hct 35.2 L, MCV 91.9, MCH 29.2, MCHC 31.8 L, RDW Std Deviation 51.2 H, RDW Coeff of Gerson 15.3 H, Plt Count 219, M PV 10.8, Immature Gran % (Auto) 1.300 H, Neut % (Auto) 62.5, Lymph % (Auto) 2 2.6, [place] % (Auto) 11.0 H, Eos % (Auto) 1.8, Baso % (Auto) 0.8, Absolute Neuts (auto) 5.0, Absolute Lymphs (auto) 1.81, Nucleated RBC % 0, APTT 49.8 H, Sodium 148 H, Potassium 3.1 L, Chloride 115 H, Carbon Dioxide 31.0, Anion Gap 2 L, BUN 8, Creatinine 0.58, Estim Creat Clear Calc 89.59, Est GFR (MDRD) Af Amer 140, Est GFR (MDRD) Non-Af 115, BUN/Creatinine Ratio 13.9, Glucose 245 H, Calcium 8.4 L, Phosphorus 3.5, Magnesium 2.1, Total Bilirubin 0.60, AST 18, ALT 28, Alkaline Phosphatase 46, Total Protein 6.0 L, Albumin 2.0 L, Globulin 4.0, Albumin/Globu diamond Ratio 0.5 L 09/23/22 08:48: POC Glucose 213 H 09/23/22 11:37: POC Glucose 259 H Micro: Microbiology 09/18/22 00:36 Blood Culture (Wb) - Anticubital Right Blood Culture - Final No growth in 5 days. 09/18/22 01:33 Blood Culture (Wb) - Anticubital Left Blood Culture - Final No growth in 5 days. 09/18/22 04:20 Sputum, Tracheal Aspirate Gram Stain - Final 09/18/22 04:20 Sputum, Tracheal Aspirate Respiratory Culture - Final Streptococcus pneumoniae 09/18/22 16:01 Wound - Right Foot Gram Stain - Final 09/18/22 16:01 Wound - Right Foot Wound Culture - Final Pseudomonas aeruginosa Escherichia coli Staphylococcus cohnii urealyti Gram positive rosie 09/18/22 16:01 Wound - Toe Gram Stain - Final 09/18/22 16:01 Wound - Toe Wound Culture - Final Staphylococcus cohnii urealyti 09/18/22 00:37 Urine, Clean Catch Urine Culture - Final Escherichia coli Radiography Diagnostic Testing: Radiology Impression Chest X-Ray 09/22/22 13:48 IMPRESSION: 1. Interval removal of ET tube and NG tube. No change in PICC catheter. 2. No pneumothorax. 3. No evidence of acute cardiopulmonary process. Electronically Signed: Willi James MD at 21:27 EDT , Rhythm Strip Rhythm Strip: A-fib Rate: 136 Ectopy: None Physical Exam Const alert, oriented x3, no apparent distress and well nourished; Negative for average body habitus or healthy appearing Constitutional Narrative: Obese, upper middle-aged, white female, appears older than stated age, sitting up in bed watching television, appears less fatigued today and more interactive, continues to appear nontoxic HEENT head/scalp atraumatic, moist oral mucous membranes and oropharynx normal HEENT Narrative: Mallampati 3, no thrush Resp normal respiratory effort, no retractions, no use of accessory muscles and No clear to auscultation bilaterally Resp Narrative: Rhonchi have resolved, very few end expiratory wheezes that are scattered Auscultation: wheezes; Negative for rales or rhonchi Cardio S1 normal heart sound, S2 normal heart sound, no murmurs, no rub, no gallops and no clicks; Negative for regular rate or regular rhythm Cardio Narrative: Tachycardia, rhythm is irregularly irregular GI normal to inspection, nondistended, normoactive bowel sounds, soft to palpation, non-tender and non-distended Extremity normal to inspection Extremity Narrative: Trace pitting edema bilateral lower extremities, upper distal extremities edema has resolved, no cyanosis or clubbing Neuro oriented x3, moves all extremities and no focal motor deficits Neuro Narrative: Significant generalized weakness noted Speech: speech normal Psych affect normal Psych Narrative: Eye contact is good, patient interacts appropriately Assessment & Plan Assessment/Plan (1) Hypernatremia: (2) NSTEMI (non-ST elevated myocardial infarction): (3) Hypokalemia: (4) Afib: QUALIFIERS: Atrial fibrillation type: unspecified Qualified Code(s): I48.91 - Unspecified atrial fibrillation (5) Acute metabolic encephalopathy: (6) Sepsis: QUALIFIERS: Sepsis type: sepsis due to unspecified organism Sepsis acute organ dysfunction status: with acute organ dysfunction Severe sepsis acute organ dysfunction type: acute renal failure Acute renal failure type: unspecified Severe sepsis shock status: without septic shock Qualified Code(s): A41.9 - Sepsis, unspecified organism; R65.20 - Severe sepsis without septic shock; N17.9 - Acute kidney failure, unspecified (7) UTI (urinary tract infection): QUALIFIERS: Urinary tract infection type: acute cystitis Hematuria presence: without hematuria Qualified Code(s): N30.00 - Acute cystitis without hematuria (8) Pneumococcal pneumonia: PLAN: Plan Sepsis secondary to urinary tract infection/pneumococcal pneumonia/infected foot wounds -Sepsis has resolved -Foot wound is polymicrobial -Sputum with strep pneumo -Urine with E. coli -Continue antibiotics per ID recommendations--> waiting for further ID input -Podiatry not currently recommending any intervention Acute hypoxic respiratory failure -Resolved -Patient is weaned to room air after extubation on 09/21/2022 A-fib with RVR -Patient with history of paroxysmal A-fib -Continue heparin drip -Continue amiodarone drip -Oral metoprolol initiated with intent to wean diltiazem however patient is still requiring Cardizem -Echo is overall unremarkable -Cardiology following and appreciate input NSTEMI -Possibly type II however patient with marked risks -Continue heparin drip -Cardiology is following and possible cardiac catheterization on 09/24/2022 -Continue aspirin 81 mg daily -Start atorvastatin 80 mg daily Toxic/metabolic encephalopathy -Resolved [place] -Resolved Hypernatremia/hyperchloremia -Suspect post ATN diuresis -Sodium and chloride are stable with slight elevation -Repeat lab in a.m. Hypokalemia -A.m. potassium 3.1 -60 mill equivalents p.o. -Repeat in a.m. -Magnesium within normal limits Hypertension/hyperlipidemia -Continue home hydrochlorothiazide, lisinopril, Norvasc--> lisinopril dose increased from 20-40 to help with blood pressure control -Wean Cardizem drip as able -Metoprolol initiated by cardiology -Continue atorvastatin 80 mg--> replacement in progress -Restart home fenofibrate DM-2 -Blood sugars are still elevated with a.m. fasting at 245 -Increase basal insulin from 15 units to 25 units at at bedtime -Continue SSI with high-dose -Continue to hold home Jardiance, Januvia and restart on discharge Restless leg syndrome -Continue Mirapex GERD -Continue PPI Diabetic foot wounds -Polymicrobial infection as noted above -Wound care is following -Continue dressings as ordered Diabetic neuropathy -Continue home gabapentin -Continue home amitriptyline Obesity -BMI is 38.2 -Complicates treatment, prognosis, outcomes -Recommend weight loss DVT prophylaxis -Continue heparin drip CODE STATUS -Full code Charges/Coding Visit Charges Inpatient E&M: 21419 Subs Hosp L2
[2022-09-23] MEDS: HEPARIN/D5w 25,000 UNITS 25,000 UNITS/250 ML IV.SOLN. 17 UNITS CONT INF (12:53)
[2022-09-23] MEDS: dilTIAZem 25 MG/5 ML Vial 20 MG IV BOLUS (12:55)
--- NOTE | 2022-09-23 14:21 | PCM.PN.CARD ---
Subjective Subjective Patient had rapid ventricular response earlier today. She was having chest discomfort which is still there but better than before. She is currently on Cardizem and amiodarone IV. Objective Data Vital Signs: Vital Signs Temp Pulse Resp BP Pulse Ox O2 Del Method O2 Flow Rate 97.8 F 116 H 27 H 129/114 H 92 Room Air 4 09/23/22 08:00 09/23/22 11:00 09/23/22 11:00 09/23/22 11:00 09/23/22 11:00 09/23/22 11:00 09/23/22 07:00 FiO2 28 09/21/22 07:00 Oxygen Flow Rate (L/min) 4 Oxygen Delivery Method Room Air Weight: 212 lb 11.937 oz Body Mass Index (BMI) 37.7 Intake & Output: Intake and Output for Last 24 Hours 09/21/22 09/22/22 09/23/22 23:59 23:59 23:59 Intake Total 4198.41 / 4213.41 3576.93 / 3591.93 991.50 / 991.50 Output Total 7600 / 8500 6075 / 6075 350 / 350 Balance -3401.59 / -4286.59 -2498.07 / -2483.07 641.50 / 641.50 Lab / Micro Data 09/23/22 03:00 09/23/22 03:00 Labs: Laboratory Results - last 24 hr 09/22/22 16:14: POC Glucose 172 H 09/22/22 22:40: POC Glucose 166 H 09/23/22 03:00: WBC 8.0, RBC 3.83 L, Hgb 11.2 L, Hct 35.2 L, MCV 91.9, MCH 29.2, MCHC 31.8 L, RDW Std Deviation 51.2 H, RDW Coeff of Gerson 15.3 H, Plt Count 219, MPV 10.8, Immature Gran % (Auto) 1.300 H, Neut % (Auto) 62.5, Lymph % (Auto) 22.6, [place] % (Auto) 11.0 H, Eos % (Auto) 1.8, Baso % (Auto) 0.8, Absolute Neuts (auto) 5.0, Absolute Lymphs (auto) 1.81, Nucleated RBC % 0, APTT 49.8 H, Sodium 148 H, Potassium 3.1 L, Chloride 115 H, Carbon Dioxide 31.0, Anion Gap 2 L, BUN 8, Creatinine 0.58, Estim Creat Clear Calc 89.59, Est GFR (MDRD) Af Amer 140, Est GFR (MDRD) Non-Af 115, BUN/Creatinine Ratio 13.9, Glucose 245 H, Calcium 8.4 L, Phosphorus 3.5, Magnesium 2.1, Total Bilirubin 0.60, AST 18, ALT 28, Alkaline Phosphatase 46, Total Protein 6.0 L, Albumin 2.0 L, Globulin 4.0, Albumin/Globulin Ratio 0.5 L 09/23/22 08:48: POC Glucose 213 H 09/23/22 11:37: POC Glucose 259 H Micro: Microbiology 09/18/22 00:36 Blood Culture (Wb) - Anticubital Right Blood Culture - Final No growth in 5 days. 09/18/22 01:33 Blood Culture (Wb) - Anticubital Left Blood Culture - Final No growth in 5 days. Rhythm Strip Rhythm Strip: A-fib Rate: 136 Ectopy: None Cardiology Labs/Tests 09/23/22 03:00: WBC 8.0, RBC 3.83 L, Hgb 11.2 L, Hct 35.2 L, MCV 91.9, MCH 29.2, MCHC 31.8 L, Plt Count 219, MPV 10.8, Immature Gran % (Auto) 1.300 H, Neut % (Auto) 62.5, Lymph % (Auto) 22.6, [place] % (Auto) 11.0 H, Eos % (Auto) 1.8, Baso % (Auto) 0.8, Absolute Neuts (auto) 5.0, Nucleated RBC % 0, APTT 49.8 H, Sodium 148 H, Potassium 3.1 L, Chloride 115 H, Carbon Dioxide 31.0, Anion Gap 2 L, BUN 8, Creatinine 0.58, Est GFR (MDRD) Af Amer 140, Est GFR (MDRD) Non-Af 115, BUN/Creatinine Ratio 13.9, Glucose 245 H, Calcium 8.4 L, Phosphorus 3.5, Magnesium 2.1, Total Bilirubin 0.60 Rhythm: EKG: ECHO: Stress Test: Cardiac Cath: PCI: CT Surgery: Holter monitor: EPS: PPM: CXR: Chest CT Scan: Radiography Diagnostic Testing: Radiology Impression Chest X-Ray 09/22/22 13:48 IMPRESSION: 1. Interval removal of ET tube and NG tube. No change in PICC catheter. 2. No pneumothorax. 3. No evidence of acute cardiopulmonary process. Electronically Signed: Willi James MD at 21:27 EDT Reading Location ID and State: [facility] / [place] Tel , Service support , Physical Exam Const alert and oriented x3 HEENT normocephalic Eyes no scleral icterus Resp normal respiratory effort Cardio Cardio Narrative: Irregular rhythm Extremity no pedal edema Skin no rashes or lesions noted Psych mental status grossly normal Assessment & Plan Assessment/Plan (1) Atrial fibrillation with RVR: PLAN: Continue IV Cardizem and IV amiodarone at this time. (2) NSTEMI (non-ST elevated myocardial infarction): PLAN: The patient at this time is noted to have a non-ST elevation myocardial infarction. We will continue with heparin, Will consider cardiac catheterization on Thursday. Charges/Coding Visit Charges Inpatient E&M: 53854 Subs Hosp L2
[2022-09-23 15:04] LABS: Partial Thromboplast Time 48.3 Seconds (24.1-36.2)
[2022-09-23] MEDS: Juven (unflavored) Packet 1 PACKET PO (16:05)
[2022-09-23 16:24] LABS: Bedside Glucose 294 mg/dL (74-106)
--- NOTE | 2022-09-23 18:16 | NURSING ---
report called to [facility] for transfer to room 122
[2022-09-23 18:56] LABS: Vancomycin, Trough Level 42.9 ug/mL (5.0-15.0)
[2022-09-23] MEDS: Atorvastatin Calcium 80 MG Tablet PO (20:29)
[2022-09-23] MEDS: Montelukast 10 MG Tablet PO (20:29)
[2022-09-23] MEDS: Amitriptyline 100 MG Tablet PO (20:33)
[2022-09-23 22:06] LABS: Bedside Glucose 336 mg/dL (74-106)
[2022-09-23 23:01] LABS: Partial Thromboplast Time 48.7 Seconds (24.1-36.2)
[2022-09-23] MEDS: amLODIPine 5 MG Tablet 10 MG PO (23:38)
[2022-09-23] MEDS: HEPARIN/D5w 25,000 UNITS 25,000 UNITS/250 ML IV.SOLN. 19 UNITS CONT INF (23:39)
[2022-09-24] VITALS (24 sets, daily range): BP systolic 96–143; BP diastolic 57–97; PULSE 53–137; RESP 17–29; TEMP 36.4–36.7; O2SAT 92–99; BMI 37.8
--- NOTE | 2022-09-24 01:13 | PCM.RX.CS ---
Consult Labs Labs: Sodium 148 mmol/L (136-145) H 09/23/22 03:00 Potassium 3.1 mmol/L (3.5-5.1) L 09/23/22 03:00 Chloride 115 mmol/L (98-107) H 09/23/22 03:00 Carbon Dioxide 31.0 mmol/L (21.0-32.0) 09/23/22 03:00 Anion Gap 2 (5-15) L 09/23/22 03:00 BUN 8 mg/dL (7-18) 09/23/22 03:00 Creatinine 0.58 mg/dL (0.55-1.02) 09/23/22 03:00 Est GFR (MDRD) Af Amer 140 mL/min (>60) 09/23/22 03:00 Est GFR (MDRD) Non-Af 115 mL/min (>60) 09/23/22 03:00 BUN/Creatinine Ratio 13.9 RATIO (10-20) 09/23/22 03:00 Glucose 245 mg/dL (74-106) H 09/23/22 03:00 Vancomycin Trough 42.9 ug/mL (5.0-15.0) H 09/23/22 17:45 Microbiology Microbiology: Microbiology 09/18/22 00:36 Blood Culture (Wb) - Anticubital Right Blood Culture - Final No growth in 5 days. 09/18/22 01:33 Blood Culture (Wb) - Anticubital Left Blood Culture - Final No growth in 5 days. 09/18/22 04:20 Sputum, Tracheal Aspirate Gram Stain - Final 09/18/22 04:20 Sputum, Tracheal Aspirate Respiratory Culture - Final Streptococcus pneumoniae 09/18/22 16:01 Wound - Right Foot Gram Stain - Final 09/18/22 16:01 Wound - Right Foot Wound Culture - Final Pseudomonas aeruginosa Escherichia coli Staphylococcus cohnii urealyti Gram positive rosie 09/18/22 16:01 Wound - Toe Gram Stain - Final 09/18/22 16:01 Wound - Toe Wound Culture - Final Staphylococcus cohnii urealyti 09/18/22 00:37 Urine, Clean Catch Urine Culture - Final Escherichia coli Goal Trough Goal Trough: 15-20 mcg/mL Pharmacy Plan for Drug Dosing Pharmacy Plan for Drug Dosing: Pharmacy Service will continue to monitor and adjust dosing as required. Follow-Up Labs Follow-Up Labs: Trough: Vancomycin (09/24 @ 1830)
[2022-09-24] MEDS: HEPARIN/D5w 25,000 UNITS 25,000 UNITS/250 ML IV.SOLN. 19 UNITS CONT INF (01:46)
[2022-09-24] MEDS: Amiodarone 360 MG in Dextrose 5% Viaflo Bag 192.8 ML 16.7 MG CONT INF (01:46)
--- NOTE | 2022-09-24 05:07 | EKG12_ITS ---
Test Reason : PRE-OP Blood Pressure : / mmHG Vent. Rate : 111 BPM Atrial Rate : 108 BPM P-R Int : 000 ms QRS Dur : 094 ms QT Int : 278 ms P-R-T Axes : 000 001 187 degrees QTc Int : 378 ms Atrial fibrillation Nonspecific T wave abnormality Abnormal ECG When compared with ECG of 18-SEP-2022 00:34, Nonspecific T wave abnormality now evident in Inferior leads Nonspecific T wave abnormality, worse in Anterolateral leads Confirmed by PELON MCKEON, CINDI ([id number]), sports editor ROE MACKEY ([id number]) on 09/30/2022 12:29:42 PM Referred By: MG Confirmed By:CINDI BIRD MD
--- NOTE | 2022-09-24 05:55 | EKG12_ITS ---
Test Reason : tachy Blood Pressure : / mmHG Vent. Rate : 129 BPM Atrial Rate : 258 BPM P-R Int : 000 ms QRS Dur : 094 ms QT Int : 308 ms P-R-T Axes : 000 -06 186 degrees QTc Int : 451 ms Atrial flutter with 2:1 A-V conduction ST & T wave abnormality, consider inferolateral ischemia Abnormal ECG When compared with ECG of 24-SEP-2022 05:07, MANUAL COMPARISON REQUIRED, DATA IS UNCONFIRMED Confirmed by ANDI MCKEON, SOUTH ([id number]), health editor ROE MACKEY ([id number]) on 09/29/2022 1:27:07 PM Referred By: Confirmed By:BRIAN ESCAMILLA MD
[2022-09-24 06:06] LABS: Absolute Lymphocyte Count 2.37 X10^3/uL (0.83-4.51); Absolute Neutrophil Count 3.5 X10^3/uL (2.0-7.7); Basophil# 0.04 X10^3/uL; Basophil% 0.6 % (0-1); Eosinophil# 0.18 X10^3/uL; Eosinophils% 2.7 % (0-5); Hematocrit 35.3 % (37-47); Hemoglobin 11.7 g/dL (12.0-15.0); Lymphocyte # 2.37 X10^3/ul (0.83-4.51); Lymphocyte % 35.2 % (19-41); Mean Corp Hgb Conc 33.1 g/dL (32-36); Mean Corpuscular Hgb 30.1 pg (27.0-32.0); Mean Corpuscular Volume 90.7 fL (81-99); Mean Platelet Vol. 10.8 fl (6.2-12.0); Monocyte# 0.57 X10^3/uL; Monocyte% 8.5 % (0-10); NRBC Flagged by Analyzer 0 % (0-5); Neutrophil # 3.49 X10^3/uL (2.7-7.7); Neutrophil % 51.8 % (47-70); Platelet Count 228 K/mm3 (150-450); RBC Distribution Width CV 15.6 % (11.6-14.6); RBC Distribution Width SD 51.5 fl (35.1-43.9); Red Blood Count 3.89 M/mm3 (4.2-5.4); White Blood Count 6.7 K/mm3 (4.4-11.0)
[2022-09-24 06:50] LABS: Anion Gap 5 (5-15); BUN 15 mg/dL (7-18); BUN/Creat Ratio 20.2 RATIO (10-20); Calcium,Total 8.9 mg/dL (8.5-10.1); Chloride 110 mmol/L (98-107); Creatinine, Serum 0.74 mg/dL (0.55-1.02); EST Glomerular Filtration Rate 86 mL/min (>60); Est Glom Filt Rate - Afr Amer 104 mL/min (>60); Estimated Creatinine Clearance 70.22 ml/min; Glucose 185 mg/dL (74-106); Sodium Level 146 mmol/L (136-145)
[2022-09-24] MEDS: Heparin Injection (Vial) 5,000 UNIT/ML VIAL IV (07:06)
[2022-09-24] MEDS: Potassium Chloride Oral Tablet 20 MEQ 60 MEQ PO (07:52)
[2022-09-24] MEDS: Aspirin 81 MG TAB.CHEW PO (07:53)
[2022-09-24] MEDS: Lisinopril 20 MG Tablet 40 MG PO (07:54)
[2022-09-24] MEDS: Metoprolol Tartrate 100 MG Tablet PO ×2 (07:55→21:04)
[2022-09-24] MEDS: Pantoprazole Sodium 20 MG Tablet PO (07:56)
[2022-09-24] MEDS: QUEtiapine 25 MG Tablet PO (07:56)
[2022-09-24] MEDS: Potassium Chloride 10mEq/100mL 10 MEQ/100 ML IV.SOLN. 100 MEQ IV BOLUS (08:06)
--- NOTE | 2022-09-24 08:51 | CASEMGMT ---
Social Work SW met w/pt, confirmed she would still like to go to [place](she had mentioned to SW on Thursday she did not know if she wanted to go there). SW explained the referral was made and waiting for a response. SW spoke w/pt again about POA for Healthcare. Pt confirms that Halie is a good friend and not actually her sister. Pt agreeable to complete POA for Healthcare. SW assisted pt in completing POA for Healthcare. Pt going for a heart catheterization this morning. Also, DARIUS on Thursday called Viola Arceo at [facility], pt will need a PAS/RR completed since [place] is from [place]. SW will continue to follow. MECHELLE Ramirez
[2022-09-24 08:55] LABS: Bedside Glucose 170 mg/dL (74-106)
--- NOTE | 2022-09-24 09:02 | PN_ITS ---
Subjective Subjective 57-year-old female seen bedside following a bilateral foot ulceration. Patient going for cardiac cath today. Patient denies constitutional symptoms at this time notes improvement to bilateral feet. Patient notes that she has had right lower extremity foot wound for greater than 2 years and is neurotrophic and she sees a doctor in [place]. Objective Data Objective Data Vital Signs: Vital Signs Temp Pulse Resp BP Pulse Ox O2 Del Method O2 Flow Rate 97.9 F 134 H 25 H 102/90 H 97 Room Air 2 09/24/22 07:01 09/24/22 08:00 09/24/22 08:00 09/24/22 08:00 09/24/22 08:00 09/24/22 08:00 09/23/22 13:58 FiO2 28 09/21/22 07:00 Oxygen Flow Rate (L/min) 2 Oxygen Delivery Method Room Air Weight: 97 kg Body Mass Index (BMI) 37.8 Intake & Output: Intake and Output for Last 24 Hours 09/22/22 09/23/22 09/24/22 23:59 23:59 23:59 Intake Total 3576.93 / 3591.93 3259.30 / 3734.73 1126.77 / 1126.77 Output Total 6075 / 6075 2450 / 2450 1900 / 1900 Balance -2498.07 / -2483.07 809.30 / 1284.73 -773.23 / -773.23 Lab / Micro Data 09/24/22 05:40 09/24/22 05:40 Labs: Laboratory Results - last 24 hr 09/23/22 08:48: POC Glucose 213 H 09/23/22 11:37: POC Glucose 259 H 09/23/22 14:30: APTT 48.3 H 09/23/22 15:58: POC Glucose 294 H 09/23/22 17:45: Vancomycin Trough 42.9 H 09/23/22 20:43: POC Glucose 336 H 09/23/22 22:35: APTT 48.7 H 09/24/22 05:40: WBC 6.7, RBC 3.89 L, Hgb 11.7 L, Hct 35.3 L, MCV 90.7, MCH 30.1, MCHC 33.1, RDW Std Deviation 51.5 H, RDW Coeff of Gerson 15.6 H, Plt Count 228, MPV 10.8, Immature Gran % (Auto) 1.200 H, Neut % (Auto) 51.8, Lymph % (Auto) 35.2, [place] % (Auto) 8.5, Eos % (Auto) 2.7, Baso % (Auto) 0.6, Absolute Neuts (auto) 3.5, Absolute Lymphs (auto) 2.37, Nucleated RBC % 0, APTT 54.0 H, Sodium 146 H, Potassium 3.0 L, Chloride 110 H, Carbon Dioxide 31.0, Anion Gap 5, BUN 15, Creatinine 0.74, Estim Creat Clear Calc 70.22, Est GFR (MDRD) Af Amer 104, Est GFR (MDRD) Non-Af 86, BUN/Creatinine Ratio 20.2 H, Glucose 185 H, Calcium 8.9 09/24/22 07:44: POC Glucose 170 H Micro: Microbiology 09/18/22 00:36 Blood Culture (Wb) - Anticubital Right Blood Culture - Final No growth in 5 days. 09/18/22 01:33 Blood Culture (Wb) - Anticubital Left Blood Culture - Final No growth in 5 days. 09/18/22 04:20 Sputum, Tracheal Aspirate Gram Stain - Final 09/18/22 04:20 Sputum, Tracheal Aspirate Respiratory Culture - Final Streptococcus pneumoniae 09/18/22 16:01 Wound - Right Foot Gram Stain - Final 09/18/22 16:01 Wound - Right Foot Wound Culture - Final Pseudomonas aeruginosa Escherichia coli Staphylococcus cohnii urealyti Gram positive rosie 09/18/22 16:01 Wound - Toe Gram Stain - Final 09/18/22 16:01 Wound - Toe Wound Culture - Final Staphylococcus cohnii urealyti 09/18/22 00:37 Urine, Clean Catch Urine Culture - Final Escherichia coli Rhythm Strip Rhythm Strip: A-fib Rate: 136 Ectopy: None Physical Exam Const alert and oriented x3 HEENT normocephalic Eyes General Eye: normal appearance of both eyes Neck General: normal visual inspection Lymph Lymphatic: no lymphadenopathy noted and no lymphedema noted Resp Resp Narrative: Patient intubated with normal respiratory effort Cardio Cardio Narrative: Irregularly irregular Extremity normal capillary refill, no calf tenderness and no pedal edema Extremity Narrative: DP and PT pulses palpable bilateral with adequate capillary fill time to the digits bilateral Dermatological: Skin is mildly xerotic to the foot with plantar callus to the distal hallux of the left foot with distal hallux ulceration. Ulceration appears stable with granular base and no signs of infection. Hyperkeratosis of the second third metatarsal of the left foot without wound formation. There is an ulceration subsecond third metatarsal head of the right foot with granular base and surrounding hyperkeratosis. There is no erythema, no purulent drainage, no malodor, no palpable fluctuance/bogginess noted, no visible abscess formation, no lymphangitic streaking noted. Ulceration does probe close to bone of second metatarsal. Musculoskeletal: Hammertoe deformity digits 2 through 5 bilateral, deformity noted to be rigid. There is decreased range of motion of the ankle joint in dorsiflexion with the knee extended without pain or crepitus bilateral. Full smooth pain-free range of motion of the first metatarsophalangeal joint bilateral. 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 Both wounds appear stable at this time. I have discussed performing elective procedures to bilateral feet including metatarsal head resection to allow for offloading of the wounds internally and definitive infection clearance. We will plan for this on an outpatient basis the patient wishes to stay in the area. Due to this I will order arterial studies to ensure adequate healing potential. But again no surgical management plan for this hospital stay Recommend antibiotics per infectious disease discretion
--- NOTE | 2022-09-24 09:38 | PN.CARD_ITS ---
Subjective Subjective Patient seen and evaluated. Underwent cardiac catheterization today. Objective Data Vital Signs: Vital Signs Temp Pulse Resp BP Pulse Ox O2 Del Method O2 Flow Rate 97.9 F 134 H 25 H 102/90 H 97 Room Air 2 09/24/22 07:01 09/24/22 08:00 09/24/22 08:00 09/24/22 08:00 09/24/22 08:00 09/24/22 08:00 09/23/22 13:58 FiO2 28 09/21/22 07:00 Oxygen Flow Rate (L/min) 2 Oxygen Delivery Method Room Air Weight: 213 lb 13.574 oz Body Mass Index (BMI) 37.8 Intake & Output: Intake and Output for Last 24 Hours 09/22/22 09/23/22 09/24/22 23:59 23:59 23:59 Intake Total 3576.93 / 3591.93 3259.30 / 3734.73 1126.77 / 1126.77 Output Total 6075 / 6075 2450 / 2450 1900 / 1900 Balance -2498.07 / -2483.07 809.30 / 1284.73 -773.23 / -773.23 Lab / Micro Data 09/24/22 05:40 09/24/22 05:40 Labs: Laboratory Results - last 24 hr 09/23/22 11:37: POC Glucose 259 H 09/23/22 14:30: APTT 48.3 H 09/23/22 15:58: POC Glucose 294 H 09/23/22 17:45: Vancomycin Trough 42.9 H 09/23/22 20:43: POC Glucose 336 H 09/23/22 22:35: APTT 48.7 H 09/24/22 05:40: WBC 6.7, RBC 3.89 L, Hgb 11.7 L, Hct 35.3 L, MCV 90.7, MCH 30.1, MCHC 33.1, RDW Std Deviation 51.5 H, RDW Coeff of Gerson 15.6 H, Plt Count 228, MPV 10.8, Immature Gran % (Auto) 1.200 H, Neut % (Auto) 51.8, Lymph % (Auto) 35.2, [place] % (Auto) 8.5, Eos % (Auto) 2.7, Baso % (Auto) 0.6, Absolute Neuts (auto) 3.5, Absolute Lymphs (auto) 2.37, Nucleated RBC % 0, APTT 54.0 H, Sodium 146 H, Potassium 3.0 L, Chloride 110 H, Carbon Dioxide 31.0, Anion Gap 5, BUN 15, Creatinine 0.74, Estim Creat Clear Calc 70.22, Est GFR (MDRD) Af Amer 104, Est GFR (MDRD) Non-Af 86, BUN/Creatinine Ratio 20.2 H, Glucose 185 H, Calcium 8.9 09/24/22 07:44: POC Glucose 170 H Micro: Microbiology 09/18/22 00:36 Blood Culture (Wb) - Anticubital Right Blood Culture - Final No growth in 5 days. 09/18/22 01:33 Blood Culture (Wb) - Anticubital Left Blood Culture - Final No growth in 5 days. Rhythm Strip Rhythm Strip: A-fib Rate: 136 Ectopy: None Cardiology Labs/Tests 09/23/22 14:30: APTT 48.3 H 09/23/22 22:35: APTT 48.7 H 09/24/22 05:40: WBC 6.7, RBC 3.89 L, Hgb 11.7 L, Hct 35.3 L, MCV 90.7, MCH 30.1, MCHC 33.1, Plt Count 228, MPV 10.8, Immature Gran % (Auto) 1.200 H, Neut % (Auto) 51.8, Lymph % (Auto) 35.2, [place] % (Auto) 8.5, Eos % (Auto) 2.7, Baso % (Auto) 0.6, Absolute Neuts (auto) 3.5, Nucleated RBC % 0, APTT 54.0 H, Sodium 146 H, Potassium 3.0 L, Chloride 110 H, Carbon Dioxide 31.0, Anion Gap 5, BUN 15, Creatinine 0.74, Est GFR (MDRD) Af Amer 104, Est GFR (MDRD) Non-Af 86, BUN/Creatinine Ratio 20.2 H, Glucose 185 H, Calcium 8.9 Rhythm: EKG: ECHO: Stress Test: Cardiac Cath: PCI: CT Surgery: Holter monitor: EPS: PPM: CXR: Chest CT Scan: Physical Exam HEENT normocephalic and head/scalp atraumatic Eyes PERRL Neck supple General: trachea midline Chest inspection of chest normal Resp Auscultation: Negative for rales, rhonchi or wheezes Cardio S1 normal heart sound and S2 normal heart sound Rate: tachycardic Rhythm: abnormal rhythm irregularly irregular GI normal to inspection, nondistended, normoactive bowel sounds Extremity General Extremity: Negative for clubbing Skin Skin Narrative: plantar diabetic foot ulceration Neuro Neuro Narrative: Alert and following commands appropriately. Assessment & Plan Assessment/Plan (1) Atrial fibrillation with RVR: PLAN: Patient presents with atrial fibrillation with a rapid ventricular response rate. Patient converted to sinus rhythm during cardiac catheterization. We will DC IV diltiazem. We will DC IV amiodarone. Continue p.o. metoprolol. We will institute p.o. amiodarone. We will treat with Eliquis for 1 month. (2) NSTEMI (non-ST elevated myocardial infarction): PLAN: The patient at this time is noted to have a non-ST elevation myocardial infarction. Cardiac catheterization demonstrated the following: Normal left main coronary artery. Left anterior descending artery with mild disease. Left circumflex artery with mild disease. Right coronary artery which is dominant with moderate mid segment disease and an ostial posterior descending artery 70% stenotic lesion. Preserved left ventricular systolic function. Based on the above angiographic findings would recommend aggressive medical therapy. (3) HTN (hypertension): QUALIFIERS: Hypertension type: primary hypertension Qualified Code(s): I10 - Essential (primary) hypertension PLAN: Blood pressure appears to be under good control at this time. We will recommend metoprolol 100 mg twice a day Continue hydrochlorothiazide Amlodipine 10 mg a day Echocardiogram demonstrated preserved left ventricular systolic function.
--- NOTE | 2022-09-24 09:48 | CL.D_ITS ---
Patient Name: DAVIS AMIN Study Date: 09/24/2022 Performing: Jan Greer MD Ht: 63 inches 160.02 cm : 1965 Wt: 213.85 lbs 97 kg Age: 57 Gender: female BSA: 1.99 PROCEDURE(S) PERFORMED DC01-([id number])LHC/COR/LV CLINICAL PROFILE AND INDICATIONS Indications: Suspected CAD Heart Failure: None Stress/Imaging Stress/Image Study Performed: No CAD Presentations: Non-STEMI. Symptom onset Date/Time: 09/18/22 Time Not Available CONCLUSIONS Ostial PDA with 70% stenosis and moderate mid right coronary artery stenosis with preserved ejection fraction. RECOMMENDATIONS Medical therapy DESCRIPTION OF PROCEDURE The patient arrived to the procedure lab. The risks and benefits of the procedure as well as a full description of our services here and current unavailability of surgical backup were fully explained to the patient and/or their significant other prior to the catheterization. The Timeout was completed, verifying the correct patient and procedure. The patient's procedural site was prepped and draped in the usual fashion. Local anesthetic was given subcutaneously to right radial region with Lidocaine 2%. Local anesthetic was given subcutaneously to right groin region with Lidocaine 2%. Using a modified Seldinger technique, arterial access was obtained via the right femoral artery, a 5Fr sheath was inserted. Left Coronary Artery selective angiography was performed in multiple views using a 5 Fr. JL4 catheter. Right Coronary Artery selective angiography was then performed in multiple views using a 5 Fr. 3DRC (Fly) catheter. Left Ventriculography was performed in PERALES projection using a 5 Fr. Pigtail catheter. LV to AO pullback pressures were then recorded.Contrast was injected through the sheath and the Right Iliac and Femoral artery were assessed for possible closure device.The arterial sheath was pulled and manual compression applied until hemostasis is achieved. CORONARY ANGIOGRAPHY DOMINANCE: Right Dominant LEFT HEART ASSESSMENT Left Ventricular Ejection Fraction: by LV Gram 60 % Normal LV wall motion Normal Left Ventricular systolic function LEFT MAIN: Angiographically normal LEFT ANTERIOR DESCENDING ARTERY: Mild luminal irregularities CIRCUMFLEX ARTERY: Mild luminal irregularities RIGHT CORONARY ARTERY: MID RCA: Moderate luminal irregularities up to 50% RT PDA: Ostial - 70 % Stenosis COMPLICATIONS No Complications PROCEDURE MEDICATIONS Fentanyl 50 mcg IV Versed 1 mg IV Oxygen: 2 L/min via nasal cannula SUMMARY OF HEMODYNAMIC DATA Time AIR REST ECG 09:01:45 AO 116/41 (68) SA 09:22:27 ECG 09:25:44 LV 101/-2, 6 09:29:17 LV 100/2, 8 09:29:25 LV 98/2, 9 09:30:02 LVp 98/5, 10 09:30:06 Signed By Jan Greer MD On 09/24/2022 09:47:49 Jan Greer MD
[2022-09-24] MEDS: 0.9% Saline Lock 10 ML Syringe IV (10:23)
[2022-09-24] MEDS: hydroCHLOROthiazide 25 MG Tablet PO (10:24)
[2022-09-24] MEDS: Gabapentin 600 MG Tablet PO ×4 (10:24→21:06)
[2022-09-24] MEDS: Juven (unflavored) Packet 1 PACKET PO ×2 (10:24→16:28)
[2022-09-24] MEDS: Fenofibrate 48 MG Tablet PO (10:24)
[2022-09-24] MEDS: Insulin Glargine-YFGN 100 UNIT/ML Pen 25 UNIT SC (10:24)
[2022-09-24] MEDS: DAKIN'S SOL HALF STRENGTH (=0.25%) 1 APPLIC TOPICAL (10:25)
--- NOTE | 2022-09-24 10:54 | CASEMGMT ---
Social Work SW spoke w/pt, then w/pt and significant other. Both in agreement that pt is doing better and can go home. D/C pig farm manager Marci will let SWCC know. SW did ask them about home health, provided to them a list of [facility] agencies via [employer] of [facility] agencies within their geographic area, in insurance network and with quality and resource use data. They are not sure if want home health, SW asked them to review list and the case work aide will follow up w/them. SW let CM know, she will speak w/pt and Mira regarding choices if they do indeed want home health. MECHELLE Ramirez
[2022-09-24] MEDS: Insulin Lispro 100 UNIT/ML INSULN.PEN SC ×3 (11:54→21:20)
[2022-09-24] MEDS: Insulin Lispro 100 UNIT/ML INSULN.PEN 8 UNIT SC ×2 (11:54→16:27)
--- NOTE | 2022-09-24 11:57 | PCM.PN.ID ---
ID ID: Patient is alert and responsive comfortable on room air. Transfer out of the ICU. Patient was on a ventilator in the ICU. Overall in good spirits. No fevers. Microbiology data reviewed. Currently on vancomycin plus Zosyn at this time. Alert responsive does not appear toxic vital signs reviewed remains euthermic lungs are clear heart exam S1-S2 abdomen obese but soft. Both feet examined she has shallow ulcers, no signs of active infection in her feet. Chest x-ray reviewed shows no focal abnormalities. Route of nutrition/ use of supplements: [] Nutritional Intake: [] IV Site: [] Casanova Catheter: [] Assessment & Plan Assessment/Plan (1) Sepsis: QUALIFIERS: Sepsis type: sepsis due to unspecified organism Sepsis acute organ dysfunction status: with acute organ dysfunction Severe sepsis acute organ dysfunction type: acute renal failure Acute renal failure type: unspecified Severe sepsis shock status: without septic shock Qualified Code(s): A41.9 - Sepsis, unspecified organism; R65.20 - Severe sepsis without septic shock; N17.9 - Acute kidney failure, unspecified PLAN: Low suspicion of an infectious process at this time. We will discontinue vancomycin and Zosyn at this time. No need for any antibiotics at this time.
[2022-09-24 12:23] LABS: Bedside Glucose 185 mg/dL (74-106)
--- NOTE | 2022-09-24 14:15 | NURSING ---
Patient bedrest completed, ambulated in halls. Groin site soft, no signs of bleeding/hematoma.
--- NOTE | 2022-09-24 15:32 | CASEMGMT ---
Social Work Provided patient with POA[facility] paperwork, along with one copy for identified POAHC. Copy also placed on patient's chart. This keno writer/runner explored whether patient may be interested in completing Living Will as well. Patient declined wanting to complete this part of the advanced directives. Supportive listening, reflection,and emotional support offered. 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 Plan: Pending placement at [facility] [place]. -DOLLY Preciado, BUILDING CONSULTANT
[2022-09-24] MEDS: Amiodarone 200 MG Tablet PO ×2 (16:27→21:03)
[2022-09-24 16:57] LABS: Bedside Glucose 217 mg/dL (74-106)
--- NOTE | 2022-09-24 18:08 | PCM.PN.HOSP ---
Reason for Visit Reason for Visit: Confusion Subjective Subjective Patient states she is feeling much better overall. She converted into normal sinus rhythm and has just returned from the cardiac catheterization lab where they found only mild disease in ongoing medical management was recommended. Current plan is for discharge to skilled facility we are waiting acceptance and pre-CERT. Objective Data Objective Data Vital Signs: Vital Signs Temp Pulse Resp BP Pulse Ox O2 Del Method O2 Flow Rate 98.1 F 64 22 H 123/97 H 99 Room Air 2 09/24/22 16:20 09/24/22 16:20 09/24/22 16:20 09/24/22 16:20 09/24/22 16:20 09/24/22 16:30 09/23/22 13:58 FiO2 28 09/21/22 07:00 Oxygen Flow Rate (L/min) 2 Oxygen Delivery Method Room Air Weight: 97 kg Body Mass Index (BMI) 37.8 Intake & Output: Intake and Output for Last 24 Hours 09/22/22 09/23/22 09/24/22 23:59 23:59 23:59 Intake Total 3576.93 / 3591.93 3259.30 / 3734.73 1717.53 / 1717.53 Output Total 6075 / 6075 2450 / 2450 2500 / 2500 Balance -2498.07 / -2483.07 809.30 / 1284.73 -782.47 / -782.47 Lab / Micro Data 09/24/22 05:40 09/24/22 05:40 Labs: Laboratory Results - last 24 hr 09/23/22 17:45: Vancomycin Trough 42.9 H 09/23/22 20:43: POC Glucose 336 H 09/23/22 22:35: APTT 48.7 H 09/24/22 05:40: WBC 6.7, RBC 3.89 L, Hgb 11.7 L, Hct 35.3 L, MCV 90.7, MCH 30.1, MCHC 33.1, RDW Std Deviation 51.5 H, RDW Coeff of Gerson 15.6 H, Plt Count 228, MPV 10.8, Immature Gran % (Auto) 1.200 H, Neut % (Auto) 51.8, Lymph % (Auto) 35.2, [place] % (Auto) 8.5, Eos % (Auto) 2.7, Baso % (Auto) 0.6, Absolute Neuts (auto) 3.5, Absolute Lymphs (auto) 2.37, Nucleated RBC % 0, APTT 54.0 H, Sodium 146 H, Potassium 3.0 L, Chloride 110 H, Carbon Dioxide 31.0, Anion Gap 5, BUN 15, Creatinine 0.74, Estim Creat Clear Calc 70.22, Est GFR (MDRD) Af Amer 104, Est GFR (MDRD) Non-Af 86, BUN/Creatinine Ratio 20.2 H, Glucose 185 H, Calcium 8.9 09/24/22 07:44: POC Glucose 170 H 09/24/22 11:52: POC Glucose 185 H 09/24/22 16:24: POC Glucose 217 H Micro: Microbiology 09/18/22 00:36 Blood Culture (Wb) - Anticubital Right Blood Culture - Final No growth in 5 days. 09/18/22 01:33 Blood Culture (Wb) - Anticubital Left Blood Culture - Final No growth in 5 days. 09/18/22 04:20 Sputum, Tracheal Aspirate Gram Stain - Final 09/18/22 04:20 Sputum, Tracheal Aspirate Respiratory Culture - Final Streptococcus pneumoniae 09/18/22 16:01 Wound - Right Foot Gram Stain - Final 09/18/22 16:01 Wound - Right Foot Wound Culture - Final Pseudomonas aeruginosa Escherichia coli Staphylococcus cohnii urealyti Gram positive rosie 09/18/22 16:01 Wound - Toe Gram Stain - Final 09/18/22 16:01 Wound - Toe Wound Culture - Final Staphylococcus cohnii urealyti 09/18/22 00:37 Urine, Clean Catch Urine Culture - Final Escherichia coli Rhythm Strip Rhythm Strip: A-fib Rate: 136 Ectopy: None Physical Exam Const alert, oriented x3, no apparent distress and well nourished; Negative for average body habitus or healthy appearing Constitutional Narrative: Obese, upper middle-aged, white female, appears older than stated age, lying in bed watching television, she is just returned from [facility], appears if she is feeling much improved, nontoxic HEENT head/scalp atraumatic and moist oral mucous membranes HEENT Narrative: No thrush, Mallampati 3 Head and Scalp: normocephalic Resp normal respiratory effort, no retractions, no use of accessory muscles and No clear to auscultation bilaterally Resp Narrative: Diminished but clear Auscultation: Negative for rales, rhonchi or wheezes Cardio regular rate, regular rhythm, S1 normal heart sound, S2 normal heart sound, no murmurs, no rub, no gallops and no clicks Cardio Narrative: Normal sinus rhythm GI normal to inspection, nondistended, normoactive bowel sounds, soft to palpation and non-tender Extremity normal to inspection Extremity Narrative: Pitting edema has resolved, no cyanosis or clubbing Neuro oriented x3, moves all extremities and no focal motor deficits Neuro Narrative: Significant generalized weakness noted Speech: speech normal Psych affect normal Psych Narrative: Eye contact is good, patient interacts appropriately Assessment & Plan Assessment/Plan (1) Hypernatremia: (2) NSTEMI (non-ST elevated myocardial infarction): (3) Hypokalemia: (4) Afib: QUALIFIERS: Atrial fibrillation type: unspecified Qualified Code(s): I48.91 - Unspecified atrial fibrillation (5) Acute metabolic encephalopathy: (6) Sepsis: QUALIFIERS: Sepsis type: sepsis due to unspecified organism Sepsis acute organ dysfunction status: with acute organ dysfunction Severe sepsis acute organ dysfunction type: acute renal failure Acute renal failure type: unspecified Severe sepsis shock status: without septic shock Qualified Code(s): A41.9 - Sepsis, unspecified organism; R65.20 - Severe sepsis without septic shock; N17.9 - Acute kidney failure, unspecified (7) UTI (urinary tract infection): QUALIFIERS: Urinary tract infection type: acute cystitis Hematuria presence: without hematuria Qualified Code(s): N30.00 - Acute cystitis without hematuria (8) Pneumococcal pneumonia: PLAN: Plan Sepsis secondary to urinary tract infection/pneumococcal pneumonia/infected foot wounds -Sepsis has resolved -Foot wound is polymicrobial -Sputum with strep pneumo -Urine with E. coli -Patient has completed 7 days of antibiotics which would cover her urine and sputum -ID has low suspicion for foot infection as has discontinued all antibiotics -Podiatry not currently recommending any intervention Acute hypoxic respiratory failure -Resolved -Patient is weaned to room air after extubation on 09/21/2022 A-fib with RVR -Resolved -Patient back in normal sinus rhythm -Continue amiodarone 200 mg 3 times daily--> anticipate taper at discharge will discuss with cardiology prior to discharge -Continue metoprolol 100 mg p.o. twice daily -Start Eliquis NSTEMI -Heparin drip discontinued -Cardiac catheterization showed ostial PDA with 70% stenosis and moderate mid RCA stenosis with preserved EF -Ongoing medical therapy was recommended -Continue aspirin 81 mg daily -Continue atorvastatin 80 mg daily -Continue beta-samaria -Continue lisinopril Hypernatremia/hyperchloremia -Resolving Hypokalemia -Repeat potassium supplementation daily and recheck in a.m. Hypertension/hyperlipidemia -Continue home hydrochlorothiazide, lisinopril at increased dose, Norvasc -Continue metoprolol 100 twice daily -Blood pressure at this time appears to be overall well controlled -Continue atorvastatin 80 mg -Continue fenofibrate DM-2 -Blood sugars are still elevated with a.m. fasting at 185 -Continue basal insulin 25 units twice daily -May need to increase at discharge -Continue SSI with high-dose -Continue to hold home Jardiance, Januvia and restart on discharge Restless leg syndrome -Continue Mirapex GERD -Continue PPI Diabetic foot wounds -Polymicrobial infection as noted above -Wound care is following -Continue dressings as ordered Diabetic neuropathy -Continue home gabapentin -Continue home amitriptyline Obesity -BMI is 38.2 -Complicates treatment, prognosis, outcomes -Recommend weight loss DVT prophylaxis -Eliquis 5 mg p.o. twice daily CODE STATUS -Full code Disposition: -Awaiting acceptance at [facility] and plan is to initiate pre-CERT as soon as this is obtained. Patient is now medically stable for discharge Charges/Coding Visit Charges Inpatient E&M: [id number] [facility] L[facility]
[2022-09-24] MEDS: APIXABAN 5 MG TABLET PO (21:03)
[2022-09-24] MEDS: Amitriptyline 100 MG Tablet PO (21:03)
[2022-09-24] MEDS: Pramipexole Di-HCl 0.25 MG Tablet PO (21:04)
[2022-09-24] MEDS: Atorvastatin Calcium 80 MG Tablet PO (21:05)
[2022-09-24] MEDS: amLODIPine 5 MG Tablet 10 MG PO (21:06)
[2022-09-24] MEDS: Montelukast 10 MG Tablet PO (21:06)
[2022-09-24 21:49] LABS: Bedside Glucose 274 mg/dL (74-106)
[2022-09-25 03:42] VITALS: BP 143/58; PULSE 62; RESP 22; TEMP 36.6; O2SAT 97
[2022-09-25 05:15] VITALS: BMI 36.8
[2022-09-25] MEDS: Amiodarone 200 MG Tablet PO ×2 (05:52→14:46)
[2022-09-25 06:47] LABS: Hematocrit 36.3 % (37-47); Hemoglobin 11.7 g/dL (12.0-15.0); Mean Corp Hgb Conc 32.2 g/dL (32-36); Mean Corpuscular Hgb 29.3 pg (27.0-32.0); Mean Platelet Vol. 10.8 fl (6.2-12.0); Platelet Count 237 K/mm3 (150-450); RBC Distribution Width CV 15.4 % (11.6-14.6); RBC Distribution Width SD 50.7 fl (35.1-43.9); Red Blood Count 3.99 M/mm3 (4.2-5.4); White Blood Count 6.1 K/mm3 (4.4-11.0)
[2022-09-25 06:54] LABS: International Normalized Ratio 1.2; Prothrombin Time (Protime)PT. 15.2 SECONDS (11.7-14.9)
[2022-09-25 06:55] LABS: Partial Thromboplast Time 29.3 Seconds (24.1-36.2)
[2022-09-25 07:16] LABS: Anion Gap 5 (5-15); BUN 17 mg/dL (7-18); Calcium,Total 8.9 mg/dL (8.5-10.1); Chloride 108 mmol/L (98-107); Creatinine, Serum 0.68 mg/dL (0.55-1.02); EST Glomerular Filtration Rate 95 mL/min (>60); Est Glom Filt Rate - Afr Amer 115 mL/min (>60); Estimated Creatinine Clearance 76.42 ml/min; Glucose 165 mg/dL (74-106); Potassium 3.5 mmol/L (3.5-5.1); Sodium Level 144 mmol/L (136-145)
--- NOTE | 2022-09-25 08:05 | PN.CARD_ITS ---
Subjective Subjective Patient seen and evaluated. Doing much better. Objective Data Vital Signs: Vital Signs Temp Pulse Resp BP Pulse Ox O2 Del Method O2 Flow Rate 97.9 F 62 22 H 143/58 H 97 Room Air 2 09/25/22 03:42 09/25/22 03:42 09/25/22 03:42 09/25/22 03:42 09/25/22 03:42 09/25/22 03:42 09/23/22 13:58 FiO2 28 09/21/22 07:00 Oxygen Flow Rate (L/min) 2 Oxygen Delivery Method Room Air Weight: 208 lb 1.862 oz Body Mass Index (BMI) 36.8 Intake & Output: Intake and Output for Last 24 Hours 09/23/22 09/24/22 09/25/22 23:59 23:59 23:59 Intake Total 3259.30 / 3734.73 2137.53 / 2857.53 1200 / 1200 Output Total 2450 / 2450 2802 / 2802 Balance 809.30 / 1284.73 -664.47 / 55.53 1200 / 1200 Lab / Micro Data 09/25/22 06:15 09/25/22 06:15 Labs: Laboratory Results - last 24 hr 09/24/22 07:44: POC Glucose 170 H 09/24/22 11:52: POC Glucose 185 H 09/24/22 16:24: POC Glucose 217 H 09/24/22 21:11: POC Glucose 274 H 09/25/22 06:15: WBC 6.1, RBC 3.99 L, Hgb 11.7 L, Hct 36.3 L, MCV 91.0, MCH 29.3, MCHC 32.2, RDW Std Deviation 50.7 H, RDW Coeff of Gerson 15.4 H, Plt Count 237, MPV 10.8, PT 15.2 H, INR 1.2, APTT 29.3, Sodium 144, Potassium 3.5, Chloride 108 H, Carbon Dioxide 31.0, Anion Gap 5, BUN 17, Creatinine 0.68, Estim Creat Clear Calc 76.42, Est GFR (MDRD) Af Amer 115, Est GFR (MDRD) Non-Af 95, BUN/Creatinine Ratio 25.0 H, Glucose 165 H, Calcium 8.9 Rhythm Strip Rhythm Strip: A-fib Rate: 136 Ectopy: None Cardiology Labs/Tests 09/25/22 06:15: WBC 6.1, RBC 3.99 L, Hgb 11.7 L, Hct 36.3 L, MCV 91.0, MCH 29.3, MCHC 32.2, Plt Count 237, MPV 10.8, PT 15.2 H, INR 1.2, APTT 29.3, Sodium 144, Potassium 3.5, Chloride 108 H, Carbon Dioxide 31.0, Anion Gap 5, BUN 17, Creatinine 0.68, Est GFR (MDRD) Af Amer 115, Est GFR (MDRD) Non-Af 95, BUN/Creat inine Ratio 25.0 H, Glucose 165 H, Calcium 8.9 Rhythm: EKG: ECHO: Stress Test: Cardiac Cath: PCI: CT Surgery: Holter monitor: EPS: PPM: CXR: Chest CT Scan: Physical Exam Const alert, oriented x3, no apparent distress and well nourished; Negative for average body habitus or healthy appearing HEENT head/scalp atraumatic and moist oral mucous membranes HEENT Narrative: No thrush, Mallampati 3 Head and Scalp: normocephalic Resp normal respiratory effort, no retractions, no use of accessory muscles and No clear to auscultation bilaterally Resp Narrative: Diminished but clear Auscultation: Negative for rales, rhonchi or wheezes Cardio regular rate, regular rhythm, S1 normal heart sound, S2 normal heart sound, no murmurs, no rub, no gallops and no clicks Cardio Narrative: Normal sinus rhythm GI normal to inspection, nondistended, normoactive bowel sounds, soft to palpation and non-tender Extremity normal to inspection Extremity Narrative: Pitting edema has resolved, no cyanosis or clubbing Neuro oriented x3, moves all extremities and no focal motor deficits Neuro Narrative: Significant generalized weakness noted Speech: speech normal Psych affect normal Psych Narrative: Eye contact is good, patient interacts appropriately Assessment & Plan Assessment/Plan (1) Atrial fibrillation with RVR: PLAN: Patient presents with atrial fibrillation with a rapid ventricular response rate. Patient converted to sinus rhythm during cardiac catheterization. will institue po diltiazem We will institute p.o. amiodarone. We will treat with Eliquis for 1 month. (2) NSTEMI (non-ST elevated myocardial infarction): PLAN: The patient at this time is noted to have a non-ST elevation myocardial infarction. Cardiac catheterization demonstrated the following: Normal left main coronary artery. Left anterior descending artery with mild disease. Left circumflex artery with mild disease. Right coronary artery which is dominant with moderate mid segment disease and an ostial posterior descending artery 70% stenotic lesion. Preserved left ventricular systolic function. Based on the above angiographic findings would recommend aggressive medical therapy. (3) HTN (hypertension): QUALIFIERS: Hypertension type: primary hypertension Qualified Code(s): I10 - Essential (primary) hypertension PLAN: Blood pressure appears to be under good control at this time. We will recommend metoprolol 100 mg twice a day Continue hydrochlorothiazide Echocardiogram demonstrated preserved left ventricular systolic function.
[2022-09-25 08:45] VITALS: BP 147/70; PULSE 74; RESP 18; TEMP 36.7; O2SAT 100
[2022-09-25] MEDS: Insulin Lispro 100 UNIT/ML INSULN.PEN SC ×2 (08:49→10:55)
[2022-09-25] MEDS: Aspirin 81 MG TAB.CHEW PO (08:50)
[2022-09-25] MEDS: Juven (unflavored) Packet 1 PACKET PO (08:50)
[2022-09-25] MEDS: Insulin Lispro 100 UNIT/ML INSULN.PEN 8 UNIT SC ×2 (08:50→10:56)
[2022-09-25] MEDS: dilTIAZem CD 180 MG Capsule PO (08:51)
[2022-09-25] MEDS: Potassium Chloride Oral Tablet 20 MEQ 40 MEQ PO (08:51)
[2022-09-25] MEDS: Insulin Glargine-YFGN 100 UNIT/ML Pen 25 UNIT SC (08:51)
[2022-09-25 08:52] VITALS: BP 147/70; PULSE 74
[2022-09-25] MEDS: Lisinopril 20 MG Tablet 40 MG PO (08:52)
[2022-09-25] MEDS: Fenofibrate 48 MG Tablet PO (08:52)
[2022-09-25] MEDS: Metoprolol Tartrate 100 MG Tablet PO (08:52)
[2022-09-25] MEDS: hydroCHLOROthiazide 25 MG Tablet PO (08:52)
[2022-09-25] MEDS: APIXABAN 5 MG TABLET PO (08:52)
[2022-09-25] MEDS: Pantoprazole Sodium 20 MG Tablet PO (08:54)
[2022-09-25 09:26] LABS: Bedside Glucose 153 mg/dL (74-106)
--- NOTE | 2022-09-25 09:29 | CASEMGMT ---
Discharge Planning Updates sent to [facility] via fax. Awaiting acceptance. Marci Morgan, Discharge Planning Asst.
[2022-09-25 09:40] LABS: Hemoglobin A1c 7.5 % (3.8-5.6)
[2022-09-25] MEDS: Gabapentin 600 MG Tablet PO ×2 (10:50→14:46)
[2022-09-25 11:24] LABS: Bedside Glucose 205 mg/dL (74-106)
--- NOTE | 2022-09-25 11:55 | CASEMGMT ---
Discharge Planning [facility] has accepted and will begin pre-cert. Marci Morgan, Discharge Planning Asst.
--- NOTE | 2022-09-25 13:31 | CASEMGMT ---
SW was informed patient would really like to go home instead of residential. SW explained to patient that we can see how she does with PT today and then talk again. Patient was in agreement with this plan. Maegan KRUEGER
--- NOTE | 2022-09-25 14:25 | CASEMGMT ---
Therapy feels patient will be fine going home. DARIUS notified patient and physician. Patient will not be able to get home health as patient does not live in [place] so she does not have a primary care Dr. Patient said she would need someone to call her friend Halie as she will pick her up. SW asked patient if she will need a walker and patient said she has access to a walker. Plan: d/c home with friend. Maegan Bashir SOFTWARE ENGINEER EVANS
--- NOTE | 2022-09-25 14:34 | CASEMGMT ---
Discharge Planning Patient has decided to return home. [facility] updated via phone. Marci Morgan, Discharge Planning Asst.
[2022-09-25 14:41] VITALS: BP 158/67; PULSE 66; RESP 16; TEMP 36.7; O2SAT 96
--- NOTE | 2022-09-25 14:56 | CASEMGMT ---
DARIUS received a return call from patient's friend Halie. DARIUS let Halie know that patient did well with therapy and it is felt she is fine for d/c home. 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 DARIUS notified patient. Maegan KRUEGER
--- NOTE | 2022-09-25 16:02 | DS.PCM_ITS ---
Providers Date of Admission: 09/18/22 Date of Discharge: 09/25/22 Primary Care Physician: An Primary Care Phys Consultations 09/18/22 03:18 Consult: Emergency Department Coordinator / Pulmonary Medicine Routine Consulting Provider: Nish Alvares Reason for Consult: Sepsis, Encephalopathy, UTI, [place], PAF RVR EMERGENT Consult: No MD Notified: Yes Date Notified: 09/18/22 Time Notified: 02:43 Method of Notification: Text 09/18/22 03:44 Consult: Cardiology Routine Consulting Provider: Jan Greer Reason for Consult: PAF w/ RVR in setting Sepsis, UTI, [place] EMERGENT Consult: No MD Notified: Yes Date Notified: 09/18/22 Time Notified: 03:44 Method of Notification: Text 09/18/22 07:53 Consult: Onc/Wound/artist model Routine Comment: Reason for Consult:: foot wounds 09/18/22 09:09 Consult: Infectious Disease Routine Consulting Provider: Theron Tong Reason for Consult: ? Osteomyelitis EMERGENT Consult: No MD Notified: Yes Date Notified: 09/18/22 Time Notified: 09:11 Method of Notification: Answering Service Consult: Podiatry Routine Consulting Provider: Juan Ewing Reason for Consult: ? Osteomyelitis EMERGENT Consult: No MD Notified: Yes Date Notified: 09/18/22 Time Notified: 09:10 Method of Notification: Answering Service Reason For Visit: SEPSIS, UTI, PAF W/RVR, [place] Diagnosis Discharge Diagnosis (1) Atrial fibrillation with RVR: Status: Acute Code(s): I48.91 - Unspecified atrial fibrillation (2) NSTEMI (non-ST elevated myocardial infarction): Status: Acute Code(s): I21.4 - Non-ST elevation (NSTEMI) myocardial infarction (3) HTN (hypertension): Status: Chronic Code(s): I10 - Essential (primary) hypertension Qualifiers: Hypertension type: primary hypertension Qualified Code(s): I10 - Essential (primary) hypertension Plan Sepsis secondary to urinary tract infection/pneumococcal pneumonia/infected foot wounds -Sepsis has resolved -Foot wound is polymicrobial -Sputum with strep pneumo -Urine with E. coli -Patient has completed 7 days of antibiotics which would cover her urine and sputum -ID has low suspicion for foot infection as has discontinued all antibiotics -Podiatry not currently recommending any intervention Acute hypoxic respiratory failure -Resolved -Patient is weaned to room air after extubation on 09/21/2022 A-fib with RVR -Resolved -Patient back in normal sinus rhythm -Continue amiodarone 200 mg 3 times daily--> anticipate taper at discharge will discuss with cardiology prior to discharge -Continue metoprolol 100 mg p.o. twice daily -Start Eliquis NSTEMI -Heparin drip discontinued -Cardiac catheterization showed ostial PDA with 70% stenosis and moderate mid RCA stenosis with preserved EF -Ongoing medical therapy was recommended -Continue aspirin 81 mg daily -Continue atorvastatin 80 mg daily -Continue beta-samaria -Continue lisinopril Hypernatremia/hyperchloremia -Resolving Hypokalemia -Repeat potassium supplementation daily and recheck in a.m. Hypertension/hyperlipidemia -Continue home hydrochlorothiazide, lisinopril at increased dose, Norvasc -Continue metoprolol 100 twice daily -Blood pressure at this time appears to be overall well controlled -Continue atorvastatin 80 mg -Continue fenofibrate DM-2 -Blood sugars are still elevated with a.m. fasting at 185 -Continue basal insulin 25 units twice daily -May need to increase at discharge -Continue SSI with high-dose -Continue to hold home Jardiance, Januvia and restart on discharge Restless leg syndrome -Continue Mirapex GERD -Continue PPI Diabetic foot wounds -Polymicrobial infection as noted above -Wound care is following -Continue dressings as ordered Diabetic neuropathy -Continue home gabapentin -Continue home amitriptyline Obesity -BMI is 38.2 -Complicates treatment, prognosis, outcomes -Recommend weight loss DVT prophylaxis -Eliquis 5 mg p.o. twice daily CODE STATUS -Full code Disposition: -Awaiting acceptance at [facility] and plan is to initiate pre-CERT as soon as this is obtained. Patient is now medically stable for discharge Medications at Discharge Home Medications amitriptyline 100 mg tablet 100 mg PO QHS insomnia 05/20/18 amlodipine 5 mg tablet (Norvasc) 10 mg PO QHS BP 05/20/18 docusate sodium 100 mg capsule 100 mg PO PRN STOOL SOFTNER 05/20/18 empagliflozin 25 mg tablet (Jardiance) 25 mg PO DAILY BLOOD SUGAR 05/20/18 fenofibrate micronized 67 mg capsule 48 mg PO DAILY CHOLESTEROL 05/20/18 gabapentin 400 mg capsule 400 mg PO QHS NEUROPATHY 05/20/18 gabapentin 600 mg tablet 600 mg PO 4X/DAY NEURPOTHAY 05/20/18 hydrochlorothiazide 25 mg tablet 12.5 mg PO DAILY bp 05/20/18 insulin aspart U-100 100 unit/mL (3 mL) subcutaneous pen (Novolog FlexPen U-100 Insulin aspart) See Protocol SQ 4X/DAY bLOOD SUGAR 05/20/18 insulin glargine U-300 conc 300 unit/mL (1.5 mL) subcutaneous pen ([place] SoloStar U-300 Insulin) 80 unit SQ QHS BLOOD SUGAR 05/20/18 metoprolol tartrate 100 mg tablet 100 mg PO BID HEART 05/20/18 montelukast 10 mg tablet (Singulair) 10 mg PO QHS ASTHMA 05/20/18 omeprazole 20 mg capsule,delayed release 20 mg PO DAILY GERD 05/20/18 pramipexole 0.25 mg tablet 0.25 mg PO TID RESTLESS LEGS 05/20/18 sitagliptin phosphate 100 mg tablet (Januvia) 100 mg PO DAILY DM 05/20/18 tizanidine 4 mg tablet 4 mg PO TID SPASMS 05/20/18 atorvastatin 20 mg tablet 40 mg PO QHS Cholesterole 06/01/18 insulin aspart U-100 100 unit/mL (3 mL) subcutaneous pen (Novolog FlexPen U-100 Insulin aspart) 12 units SQ 4X/DAY BLOOD SUGAR 06/01/18 amiodarone 200 mg tablet 200 mg PO DAILY #37 tabs 09/25/22 apixaban 5 mg tablet (Eliquis) 5 mg PO BID #60 tabs 09/25/22 diltiazem HCl 180 mg capsule,extended release 24 hr 180 mg PO Q12 #60 caps 0 09/25/22 lisinopril 20 mg tablet 40 mg (2 x 20 mg) PO DAILY #60 tabs 09/25/22 Hospital Course Operations None Procedures 2-D Echocardiogram, Cardiac catheterization and - (CT brain/chest x-ray/CT abdomen pelvis/foot x-ray/venous duplex) Summary of Care Provided Minutes Spent on Discharge: 40 Hospital Course: Mrs. Bliss is a 57-year-old white female who presented to the emergency department at [facility] on 09/18/2022 with confusion. She has been currently visiting here from [place] and over the past 24 hours prior to admission she noted her urine was cloudy and foul-smelling and had associated dysuria. She also complained of nausea and vomiting with no fever or chills or abdominal pain at the time of presentation. A friend who is at the bedside admission did note some worsening confusion and weakness as well which prompted her to bring the patient to the emergency department. She was found to be in A-fib with RVR on presentation and had a known history of PAF. Upon presentation she was noted to be febrile, tachycardic and tachypneic and her initial laboratory evaluation revealed a leukocytosis with a white count of 11,000. An ABG was obtained on room air and demonstrated hypoxia with a PO2 of 45. Her initial lactate was normal. Urinalysis was consistent with infection showing leuk esterase and 4+ bacteria. CT of her head was unremarkable and initial chest x-ray showed no acute cardiopulmonary process. With her persistent atrial fibrillation on presentation, she was placed on a Cardizem drip. Unfortunately, she had persistent refractory A-fib and tachycardia and an amiodarone drip was initiated and cardiology was consulted. She required intubation later on the morning of admission for worsening encephalopathy and airway protection and a CT of her abdomen/pelvis was obtained that showed no obstructing stones or hydronephrosis. Echocardiogram was performed and demonstr ated an EF of 60% with a mildly enlarged left atrium and a pulmonary systolic pressure of 30 mmHg. Patient was noted to have bilateral lower extremity diabetic foot wounds and podiatry was consulted to evaluate these further. Radiographic imaging of the right lower extremity obtained on admission was suggestive of possible early osteomyelitis of the fifth metatarsal phalangeal joint with overlying soft tissue swelling and calcaneal spurs but podiatry felt that the wounds were stable with no signs of infection and no podiatric surgical intervention was anticipated. She will need outpatient follow-up ongoing after discharge. Infectious disease was also consulted and recommended ongoing scott atment with broad-spectrum antibiotics to include vancomycin and Zosyn. She was able to be extubated on 09/21/2022 and remained stable now on room air. She had ongoing intermittent issues with A-fib with RVR and medication adjustments were pursued by cardiology. She finally spontaneously converted to normal sinus rhythm on 09/24/2022 and remained in normal sinus rhythm up until the point of her discharge. With regards to her A-fib she was sent home with her metoprolol 100 mg p.o. twice daily which she had been taking. In addition, Cardizem 180 mg twice daily, amiodarone 200 mg twice daily x7 days then 200 mg daily following, and Eliquis were initiated. We have asked her to follow-up in time with cardiology as she will not be returning back to her home in [place] for the next 4 to 6 weeks. She plans to make an appointment to see Dr. Greer within the next 2 to 4 weeks. Her urine culture demonstrated E. coli, her sputum culture demonstrated strep pneumo, and blood cultures were unremarkable. Wound cultures are polymicrobial demonstrating Pseudomonas, E. coli, and staph cohnii urealyti. Infectious disease followed the patient while she was hospitalized and she was treated with broad-spectrum antibiotics and culture her cultures resulted and then her antibiotics were narrowed. She had completed all antibiotics prior to discharge and had resolution of her infectious processes. She was taken for for cardiac catheterization for her NSTEMI with her troponin elevation. She had minimally obstructive disease and no percutaneous intervention was required. Ongoing medical therapy was recommended. She was seen by physical and Occupational Therapy. Initially they recommended discharge to skilled facility however the patient improved dramatically during her hospital course and was able to be discharged home in stable condition on 09/25/2022. New medications include Eliquis, Cardizem, amiodarone, and aspirin. We have encouraged her strongly to follow-up with an outpatient primary care physician after returning home as well as finding a new lead laying and gluing machine operator in the area. As noted above she will call Dr. Greer's office and follow-up with him prior to going back home. Discharge diagnoses: Sepsis UTI Pneumococcal pneumonia Infected diabetic foot wound Acute hypoxic respiratory failure-resolved A-fib with RVR-resolved NSTEMI type II Toxic/metabolic encephalopathy-resolved DALL[place]-resolved Hypernatremia/hyperchloremia-resolved Hypokalemia-resolved Hypertension Hyperlipidemia DM-2 Restless leg syndrome GERD Diabetic foot wounds Diabetic neuropathy Obesity Tobacco abuse Physical Exam Const alert, oriented x3, no apparent distress and well nourished; Negative for average body habitus or healthy appearing Constitutional Narrative: Obese, upper middle-aged, white female, appears older than stated age, sitting up in a chair next to the bedside watching television, she appears well and nontoxic General Appearance: cooperative, comfortable, well kempt and well developed Orientation / Consciousness: awake, oriented to person, oriented to place and oriented to time Exam Limitations: no limitations Nutritional Appearance: obese HEENT normocephalic, head/scalp atraumatic, hearing grossly normal bilaterally, moist oral mucous membranes and oropharynx normal HEENT Narrative: Mallampati 3, no thrush Eyes PERRL, EOMs intact bilaterally and conjunctivae normal Eyes Narrative: No scleral icterus Neck no lymphadenopathy, supple and no JVD Neck Narrative: Trachea midline, no thyroid enlargement Resp normal respiratory effort, no retractions, no use of accessory muscles and No clear to auscultation bilaterally Resp Narrative: Diminished but clear Auscultation: Negative for rales, rhonchi or wheezes Cardio regular rate, regular rhythm, S1 normal heart sound, S2 normal heart sound, no murmurs, no rub, no gallops and no clicks GI normal to inspection, nondistended, normoactive bowel sounds, soft to palpation, non-tender and non-distended Extremity normal to inspection, full ROM and no clubbing, cyanosis or edema Skin no rashes or lesions noted, skin turgor normal and no jaundice Skin Narrative: Bilateral diabetic foot wounds-clean and dry, appear to be healing, PICC line le ft upper extremity Neuro oriented x3, CN's II-XII intact bilaterally, moves all extremities and no focal motor deficits Neuro Narrative: Mild generalized weakness noted Speech: speech normal Psych affect normal Psych Narrative: Eye contact is good, patient interacts appropriately Weight / BMI Weight Weight: 94.4 kg Body Mass Index (BMI) 36.8 ABG / Lab / Microbiology Data 09/25/22 06:15 09/25/22 06:15 Laboratory: Laboratory Results - last 24 hr 09/24/22 16:24: POC Glucose 217 H 09/24/22 21:11: POC Glucose 274 H 09/25/22 06:15: WBC 6.1, RBC 3.99 L, Hgb 11.7 L, Hct 36.3 L, MCV 91.0, MCH 29.3, MCHC 32.2, RDW Std Deviation 50.7 H, RDW Coeff of Gerson 15.4 H, Plt Count 237, MPV 10.8, PT 15.2 H, INR 1.2, APTT 29.3, Sodium 144, Potassium 3.5, Chloride 108 H, Carbon Dioxide 31.0, Anion Gap 5, BUN 17, Creatinine 0.68, Estim Creat Clear Calc 76.42, Est GFR (MDRD) Af Amer 115, Est GFR (MDRD) Non-Af 95, BUN/Creatinine Ratio 25.0 H, Glucose 165 H, Hemoglobin A1c 7.5 H, Calcium 8.9 09/25/22 08:42: POC Glucose 153 H 09/25/22 10:55: POC Glucose 205 H Microbiology: Microbiology 09/23/22 14:30 Blood Culture (Wb) - Arm Left Blood Culture - Preliminary No growth in 48 hours. 09/22/22 22:35 Blood Culture (Wb) - Right Hand Blood Culture - Preliminary No growth in 48 hours. 09/18/22 00:36 Blood Culture (Wb) - Anticubital Right Blood Culture - Final No growth in 5 days. 09/18/22 01:33 Blood Culture (Wb) - Anticubital Left Blood Culture - Final No growth in 5 days. 09/18/22 04:20 Sputum, Tracheal Aspirate Gram Stain - Final 09/18/22 04:20 Sputum, Tracheal Aspirate Respiratory Culture - Final Streptococcus pneumoniae 09/18/22 16:01 Wound - Right Foot Gram Stain - Final 09/18/22 16:01 Wound - Right Foot Wound Culture - Final Pseudomonas aeruginosa Escherichia coli Staphylococcus cohnii urealyti Gram positive rosie 09/18/22 16:01 Wound - Toe Gram Stain - Final 09/18/22 16:01 Wound - Toe Wound Culture - Final Staphylococcus cohnii urealyti 09/18/22 00:37 Urine, Clean Catch Urine Culture - Final Escherichia coli D/C Instructions Discharge Diet: Low fat / Low cholesterol and 1800 Calorie Control Diet Discharge Activity: Return to Normal Activity (Advance your activity slowly as tolerated) Meaningful Use Info Meaningful Use Diagnoses (Choose all that apply): None applicable Discharge Plan Admission Admit Date/Time: 09/18/22 02:37 Primary Reason for Your Visit: Confusion Attending Provider: Tatiana Sanchez Primary Care Provider: Care Physician,No Primary Consulting Providers: Jennifer Kebede; Sal Singleton; Jan Greer; Theron Tong; Nish Alvares; Juan Ewing Instructions Additional Instructions / Restrictions: 1. Please follow-up with your primary care physician as soon as you are able to return back home and get an appointment and please establish with a lead laying and gluing machine operator at home as well. Discharge Orders/Prescriptions Prescriptions: New lisinopril 20 mg Tablet 40 mg PO DAILY Qty: 60 1RF diltiazem HCl 180 mg Capsule,Extended Release 24hr 180 mg PO Q12 Qty: 60 1RF Eliquis 5 mg Tablet 5 mg PO BID Qty: 60 1RF amiodarone 200 mg Tablet 200 mg PO DAILY Qty: 37 1RF Rx Instructions: Take twice daily for 7 days then daily after that Continued amlodipine [Norvasc] 5 MG tablet 10 mg PO QHS omeprazole 20 capsule,delayed release(DR/EC) 20 mg PO DAILY amitriptyline 100 tablet 100 mg PO QHS gabapentin 600 tablet 600 mg PO 4X/DAY gabapentin 400 capsule 400 mg PO QHS docusate sodium 100 MG capsule 100 mg PO PRN Patient Comments: take 1 Capsule daily pramipexole 0.25 MG tablet 0.25 mg PO TID Patient Comments: take 1 (one) Tablet at bedtime hydrochlorothiazide 25 MG tablet 12.5 mg PO DAILY Patient Comments: Take 1 tablet by mouth daily metoprolol tartrate 100 tablet 100 mg PO BID tizanidine 4 MG tablet 4 mg PO TID Patient Comments: TAKE ONE TABLET BY MOUTH THREE TIMES DAILY NEEDED SPASM fenofibrate micronized 67 capsule 48 mg PO DAILY insulin aspart U-100 [Novolog FlexPen U-100 Insulin] 100 insulin pen See Protocol SQ 4X/DAY Protocol: 6. Sliding Scale Insulin Custom Condition: mg/dl range Dose/Route: Number of Units Condition: 71-150 Dose/Route: 0 Condition: 151-200 Dose/Route: 4 Condition: 201-250 Dose/Route: 8 Condition: 251-300 Dose/Route: 12 Condition: 301-350 Dose/Route: 16 Condition: 351-400 Dose/Route: 20 Condition: >400 Instruction: CALL OFFICE Protocol Text: Custom Sliding Scale Januvia 100 tablet 100 mg PO DAILY [place] SoloStar U-300 Insulin 300 UNIT/ML insulin pen 80 unit SQ QHS montelukast [Singulair] 10 MG tablet 10 mg PO QHS Jardiance 25 MG tablet 25 mg PO DAILY Patient Comments: Take 1 tablet by mouth daily insulin aspart U-100 [Novolog FlexPen U-100 Insulin] 100 UNITS/ML insulin pen 12 units SQ 4X/DAY atorvastatin 20 MG tablet 40 mg PO QHS Discontinued enalapril maleate 20 MG tablet 20 mg PO DAILY Patient Comments: Take 1 tablet by mouth daily Jardiance 25 mg tablet 25 mg PO DAILY Referrals / Follow Up: Jan Greer MD [Med Staff - Active Staff] - Within 1 Month (Please call tomorrow and set up an appointment to be seen within the next 2 to 4 weeks for hospital follow-up) Care Physician,No Primary [Primary Care Provider] - [facility] Doctor,Out of [Non-Staff] - Disposition Disposition (needs filled in before D/C Order can be placed): Home, Self Care Charges/Coding Visit Charges Inpatient E&M: 87808 Disch Hosp >30min
[2022-09-25 17:05] LABS: Bedside Glucose 257 mg/dL (74-106)
== END 2022-09-25 18:42 | disposition home or self-care (01) | DRG 853 ==
LOC: ED 01:22 → ICU 02:52 → PCU 09-23 18:35
PROVIDERS: Hospitalist; Internal Medicine; Internal Medicine Cardiovascular Disease; Internal Medicine Critical Care Medicine; Admitting Provider Family Medicine; Emergency Provider Emergency Medicine; Visit Provider Internal Medicine
DX: A40.3 Sepsis due to Streptococcus pneumoniae (principal); J96.01 Acute respiratory failure with hypoxia; N17.0 Acute kidney failure with tubular necrosis; G92.8 Other toxic encephalopathy; J13 Pneumonia due to Streptococcus pneumoniae; R65.20 Severe sepsis without septic shock; I21.A1 Myocardial infarction type 2; E87.0 Hyperosmolality and hypernatremia; Q25.0 Patent ductus arteriosus; J44.0 Chronic obstructive pulmonary disease with (acute) lower respiratory infection; N30.00 Acute cystitis without hematuria; E86.0 Dehydration; I48.0 Paroxysmal atrial fibrillation; E11.42 Type 2 diabetes mellitus with diabetic polyneuropathy; Z79.4 Long term (current) use of insulin; L97.512 Non-pressure chronic ulcer of other part of right foot with fat layer exposed; E11.621 Type 2 diabetes mellitus with foot ulcer; L97.522 Non-pressure chronic ulcer of other part of left foot with fat layer exposed; E11.65 Type 2 diabetes mellitus with hyperglycemia; I10 Essential (primary) hypertension; E78.5 Hyperlipidemia, unspecified; E87.6 Hypokalemia; F17.210 Nicotine dependence, cigarettes, uncomplicated; G25.81 Restless legs syndrome; K21.9 Gastro-esophageal reflux disease without esophagitis; J30.9 Allergic rhinitis, unspecified; E87.8 Other disorders of electrolyte and fluid balance, not elsewhere classified; I25.10 Atherosclerotic heart disease of native coronary artery without angina pectoris; M20.41 Other hammer toe(s) (acquired), right foot; M20.42 Other hammer toe(s) (acquired), left foot; B95.7 Other staphylococcus as the cause of diseases classified elsewhere; B96.20 Unspecified Escherichia coli [E. coli] as the cause of diseases classified elsewhere; B96.5 Pseudomonas (aeruginosa) (mallei) (pseudomallei) as the cause of diseases classified elsewhere; E66.9 Obesity, unspecified; Z68.38 Body mass index [BMI] 38.0-38.9, adult; Z79.01 Long term (current) use of anticoagulants; Z79.82 Long term (current) use of aspirin; Z79.899 Other long term (current) drug therapy
CPT/HCPCS: 31500; 31720; 36415; 36569; 36600; 70450; 71045; 73620; 74176; 80048; 80053; 80061; 80202; 81001; 82550; 82803; 82962; 83036; 83605; 83735; 84100; 84145; 84439; 84443; 84478; 84481; 84484; 85025; 85027; 85610; 85730; 87040; 87070; 87077; 87086; 87088; 87184; 87186; 87205; 87641; 92526; 92610; 93005; 93306; 93458; 93970; 94002; 94003; 94660; 94668; 94762; 97110; 97162; 97166; 97530; 97535; 97802; 97803; 99152; 99153; 99252; 99285; J7030; J7040; J7050; Q9957; Q9967; A4216; C1769; C1894; C8929; G0463

== ENCOUNTER 2022-10-13 16:26 | Emergency (ER) | payer MEDICARE, SELFPAY ==
[2022-10-13 16:27] VITALS: BP 122/54; PULSE 76; RESP 18; TEMP 36.2; O2SAT 95; BMI 36.8
[2022-10-13 16:43] VITALS: BP 122/80; PULSE 88; RESP 18; TEMP 36.2
--- NOTE | 2022-10-13 17:08 | ED.VIS.FEGU ---
HPI HPI - Female History of Present Illness Chief Complaint: Complaint Detail of Chief Complaint: Dysuria, urgency, frequency Informant: patient Narrative Narrative: Patient presents the emergency department with complaint dysuria, urgency, and frequency that started last evening. Patient's had fever at home up to 102. She denies nausea or vomiting. She denies back pain out of the ordinary. Patient was admitted about a month ago for A-fib and sepsis related to UTI. Patient denies feeling lightheaded or dizzy. Patient currently on Eliquis. 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 NSTEMI (non-ST elevated myocardial infarction) Obesity PAF (paroxysmal atrial fibrillation) Restless leg syndrome Tobacco use Home Medications amitriptyline 100 mg tablet 100 mg PO QHS insomnia 05/20/18 [History Last Taken 05/19/18] amlodipine 5 mg tablet (Norvasc) 10 mg PO QHS BP 05/20/18 [History Last Taken 05/19/18] docusate sodium 100 mg capsule 100 mg PO PRN STOOL SOFTNER 05/20/18 [History Last Taken 05/19/18] empagliflozin 25 mg tablet (Jardiance) 25 mg PO DAILY BLOOD SUGAR 05/20/18 [History Last Taken 05/20/18] fenofibrate micronized 67 mg capsule 48 mg PO DAILY CHOLESTEROL 05/20/18 [History Last Taken 05/20/18] gabapentin 400 mg capsule 400 mg PO QHS NEUROPATHY 05/20/18 [History Last Taken 05/19/18] gabapentin 600 mg tablet 600 mg PO 4X/DAY NEURPOTHAY 05/20/18 [History Last Taken 05/20/18] hydrochlorothiazide 25 mg tablet 12.5 mg PO DAILY bp 05/20/18 [History Last Taken 06/08/18 08:00] metoprolol tartrate 100 mg tablet 100 mg PO BID HEART 05/20/18 [History Last Taken 06/08/18 08:00] montelukast 10 mg tablet (Singulair) 10 mg PO QHS ASTHMA 05/20/18 [History Last Taken 05/12/18] omeprazole 20 mg capsule,delayed release 20 mg PO DAILY GERD 05/20/18 [History Last Taken 06/08/18 08:00] pramipexole 0.25 mg tablet 0.25 mg PO TID RESTLESS LEGS 05/20/18 [History Last Taken 05/19/18] sitagliptin phosphate 100 mg tablet (Januvia) 100 mg PO DAILY DM 05/20/18 [History Last Taken 05/20/18] tizanidine 4 mg tablet 4 mg PO TID SPASMS 05/20/18 [History Last Taken 05/20/18] atorvastatin 20 mg tablet 40 mg PO QHS Cholesterole 06/01/18 [History Last Taken Unknown] amiodarone 200 mg tablet 200 mg PO DAILY #37 tabs 09/25/22 [Rx Last Taken Unknown] apixaban 5 mg tablet (Eliquis) 5 mg PO BID #60 tabs 09/25/22 [Rx Last Taken Unknown] diltiazem HCl 180 mg capsule,extended release 24 hr 180 mg PO Q12 #60 caps 09/25/22 [Rx Last Taken Unknown] insulin aspart U-100 100 unit/mL (3 mL) subcutaneous pen (Novolog FlexPen U-100 Insulin aspart) 12 unit (0.12 mL) subcut 4X/DAY BLOOD SUGAR #15 mL 09/25/22 [Rx Last Taken Unknown] insulin aspart U-100 100 unit/mL (3 mL) subcutaneous pen (Novolog FlexPen U-100 Insulin aspart) See Protocol subcut 4X/DAY bLOOD SUGAR #15 mL 09/25/22 [Rx Last Taken Unknown] insulin glargine U-300 conc 300 unit/mL (1.5 mL) subcutaneous pen (Toujeo SoloStar U-300 Insulin) 80 unit (0.2667 mL) subcut QHS BLOOD SUGAR #4.5 mL 09/25/22 [Rx Last Taken Unknown] lisinopril 20 mg tablet 40 mg (2 x 20 mg) PO DAILY #60 tabs 09/25/22 [Rx Last Taken Unknown] cephalexin 500 mg capsule 500 mg PO Q6 #28 CAPSULES 10/13/22 [Rx Last Taken Unknown] phenazopyridine 200 mg tablet (Pyridium) 200 mg PO TID 6 doses #6 tabs 10/13/22 [Rx Last Taken Unknown] Allergy/AdvReac Type Severity Reaction Status Date / Time No Known Allergies Allergy Verified 06/01/18 08:14 Family History Mother Diabetes Maternal family history of severe diabetes, dying at age 34 secondary to diabetic complications. Father Diabetes Heart disease Cancer Reported as non-Hodgkin's lymphoma. Surgical History History of back surgery History of tonsillectomy and adenoidectomy S/P foot surgery, right Social History household members: significant other Smoking Status: Current every day smoker tobacco type: cigarettes alcohol intake: never substance use type: does not use ROS ROS ED Review of Systems ROS Unobtainable: other Constitutional Constitutional ED: Reports fever(s) and lethargy; Denies chills, sweats or weight loss Eyes Eyes: Denies blurry vision, change in vision or diplopia ENT ENT ED: Denies rhinorrhea or sore throat Cardiovascular Cardiovascular: Denies chest pain, orthopnea or racing heartbeat Respiratory/Chest Respiratory/Chest: Denies cough, dyspnea, dyspnea on exertion, orthopnea or sputum Gastrointestinal Gastrointestinal: Denies abdominal pain, diarrhea, nausea or vomiting Genitourinary Genitourinary ED: Reports dysuria and urinary frequency; Denies hematuria Musculoskeletal Musculoskeletal: Denies arthralgias, back pain, myalgias or neck pain Integumentary Denies abscess, Abrasions or rash Neurologic Neurologic: Denies headache(s) or weakness Psychiatric Psychiatric: Denies anxiety, depression or suicidal thoughts Endocrine Endocrinology: Denies polydipsia, polyphagia or polyuria Hematologic/Lymphatic Hematologic/Lymphatic: Denies easy bleeding, easy bruising or lymphadenopathy Allergic/Immunologic Allergic/Immunologic ED: Denies mouth swelling, tongue swelling or urticaria EXAM Physical Exam Const Vital Signs: 10/13/22 16:27 10/13/22 16:43 10/13/22 18:10 Temperature 97.1 F L 97.2 F L 98 F Temperature Source Temporal Oral Oral Pulse Rate 76 88 88 Respiratory Rate 18 18 16 Blood Pressure 122/54 H 122/80 H 128/79 H Blood Pressure Mean 76 94 95 Pulse Ox 95 Oxygen Delivery Method Room Air Room Air Positive well nourished and well developed General Appearance ED: well developed and NAD HEENT Reports TM's clear and moist mucous membranes normocephalic and atraumatic; Negative for trauma or tenderness Tympanic Membrane ED: Yes TM's clear Eyes PERRL and EOMs intact bilaterally General Eye ED: Negative for pale conjunctiva or scleral icterus Neck no lymphadenopathy, supple and no JVD General: Negative for tenderness Chest Wall inspection of chest normal and palpation of chest normal Chest: Negative for tenderness Resp normal respiratory effort and clear to auscultation bilaterally Effort and Inspection: Negative for respiratory distress or pain with movement Auscultation: Negative for rhonchi, wheezes or diminished lung sounds Cardio regular rate, regular rhythm, S1 normal heart sound, S2 normal heart sound and no murmurs Peripheral Pulses: pulses 2+ throughout GI normal to inspection, nondistended, normoactive bowel sounds, soft to palpation, non-tender and no masses GI Narrative: Mild suprapubic tenderness on palpation. No rebound, rigidity, or peritoneal signs. No CVA tenderness. Back/Spine no CVA tenderness and no thoracic nor lumbar tenderness Extremity normal to inspection General Extremety ED: Negative for edema General Extremity: Negative for edema Neuro oriented x3, CN's II-XII intact bilaterally, no sensory deficits noted and gait normal Sensorium / Orientation: awake, alert, oriented to person, oriented to place and oriented to time Motor Exam: strength 5/5 throughout and strength abnormal Psych mental status grossly normal Skin no rashes or lesions noted and no wounds MDM MDM MDM Narrative Medical decision making narrative: Patient presents with dysuria and urgency and frequency with history of UTI. Urinalysis was obtained which was positive for UTI. I did start her on Keflex and Pyridium. Patient will be given a prescription for Keflex and Pyridium. Patient advised to follow-up with her primary care physician within next 3 to 5 days. She is advised to return if severe back pain, vomiting, lethargy, or condition should worsen anyway. Lab Data Attestation: I reviewed the patient's lab results. Labs: Laboratory Results - last 24 hr 10/13/22 17:13 Urine Color Yellow Urine Clarity Cloudy Urine pH 6.0 Ur Specific [place] 1.015 Urine Protein 100 H Urine Glucose (UA) Normal Urine Ketones 5 H Urine Occult Blood 150 H Urine Nitrite Negative Urine Bilirubin Negative Urine Urobilinogen Normal Ur Leukocyte Esterase 500 H Urine RBC 0 SEEN Urine WBC 25-50 SEEN Ur Squamous Epith Cells 0-5 SEEN Urine Bacteria 1+ Urine Mucus 0 SEEN Discharge Plan Triage Chief Complaint: Complaint ED Provider: Malia Mccormick Dx/Rx/DC Orders Clinical Impression: Urinary tract infection Instructions: ED Cystitis Female Adult Prescriptions: New cephalexin [cephalexin] 500 mg capsule 500 mg PO Q6 Qty: 28 0RF phenazopyridine [Pyridium] 200 mg tablet 200 mg PO TID Qty: 6 0RF No Action amlodipine [Norvasc] 5 MG tablet 10 mg PO QHS omeprazole 20 capsule,delayed release(DR/EC) 20 mg PO DAILY amitriptyline 100 tablet 100 mg PO QHS gabapentin 600 tablet 600 mg PO 4X/DAY gabapentin 400 capsule 400 mg PO QHS docusate sodium 100 MG capsule 100 mg PO PRN Patient Comments: take 1 Capsule daily pramipexole 0.25 MG tablet 0.25 mg PO TID Patient Comments: take 1 (one) Tablet at bedtime hydrochlorothiazide 25 MG tablet 12.5 mg PO DAILY Patient Comments: Take 1 tablet by mouth daily metoprolol tartrate 100 tablet 100 mg PO BID tizanidine 4 MG tablet 4 mg PO TID Patient Comments: TAKE ONE TABLET BY MOUTH THREE TIMES DAILY NEEDED SPASM fenofibrate micronized 67 capsule 48 mg PO DAILY Januvia 100 tablet 100 mg PO DAILY montelukast [Singulair] 10 MG tablet 10 mg PO QHS Jardiance 25 MG tablet 25 mg PO DAILY Patient Comments: Take 1 tablet by mouth daily atorvastatin 20 MG tablet 40 mg PO QHS lisinopril 20 mg Tablet 40 mg PO DAILY Qty: 60 1RF diltiazem HCl 180 mg Capsule,Extended Release 24hr 180 mg PO Q12 Qty: 60 1RF Eliquis 5 mg Tablet 5 mg PO BID Qty: 60 1RF amiodarone 200 mg Tablet 200 mg PO DAILY Qty: 37 1RF Rx Instructions: Take twice daily for 7 days then daily after that insulin aspart U-100 [Novolog FlexPen U-100 Insulin] 100 insulin pen See Protocol subcut 4X/DAY Qty: 15 0RF Protocol: 6. Sliding Scale Insulin Custom Condition: mg/dl range Dose/Route: Number of Units Condition: 71-150 Dose/Route: 0 Condition: 151-200 Dose/Route: 4 Condition: 201-250 Dose/Route: 8 Condition: 251-300 Dose/Route: 12 Condition: 301-350 Dose/Route: 16 Condition: 351-400 Dose/Route: 20 Condition: >400 Instruction: CALL OFFICE Protocol Text: Custom Sliding Scale Rx Instructions: Dose per your sliding scale insulin aspart U-100 [Novolog FlexPen U-100 Insulin] 100 UNITS/ML insulin pen 12 unit subcut 4X/DAY Qty: 15 0RF Toujeo SoloStar U-300 Insulin 300 UNIT/ML insulin pen 80 unit subcut QHS Qty: 4.5 0RF Primary Care Provider: Care Physician,No Primary Referrals: Sal Landin MD [Med Staff - [employer]] - 3-5 Days Care Physician,No Primary [Primary Care Provider] - Disposition Disposition: Home, Self Care Discharge Date/Time: 10/13/22 18:22
[2022-10-13 17:26] LABS: Mucous, Urine 0 SEEN /hpf (<or=2+); Red Blood Cells-Urine 0 SEEN /hpf (0-5)
[2022-10-13 17:45] LABS: Color, Urine Yellow (Yellow); Glucose, Dipstick Normal (Normal); Ketone-Dipstick 5 mg/dl (Negative); Leukocyte Esterase-Dipstick 500 /ul (Negative); Nitrite-Dipstick Negative (Negative); Occult Blood-Urine 150 /ul (Negative); Protein-Dipstick 100 mg/dl (Negative); Specific Gravity, Urine 1.015 (1.002-1.030); Urine Bilirubin Dipstick Negative (Negative); Urine Clarity Cloudy (Clear); Urine Urobilinogen Normal (Normal)
[2022-10-13 17:54] LABS: Bacteria 1+ /hpf (None Seen); Squamous Epithelial Cells - UA 0-5 SEEN /hpf (5-10); White Blood Cells 25-50 SEEN /hpf (0-5)
[2022-10-13] MEDS: Phenazopyridine 95 MG Tablet 190 MG PO (18:08)
[2022-10-13] MEDS: Cephalexin 250 MG Capsule 500 MG PO (18:08)
[2022-10-13 18:10] VITALS: BP 128/79; PULSE 88; RESP 16; TEMP 36.6
== END 2022-10-13 18:22 | disposition home or self-care (01) ==
LOC: ED 18:20
PROVIDERS: Emergency Provider Emergency Medicine; Visit Provider Emergency Medicine
DX: N39.0 Urinary tract infection, site not specified (principal); I25.2 Old myocardial infarction; F17.210 Nicotine dependence, cigarettes, uncomplicated
CPT/HCPCS: 81001; 87086; 87088; 87186; 99283